=== PATIENT | male | born 1955 | race Caucasian/White ===

== ENCOUNTER 2023-09-22 11:30 | Emergency (ER) | payer OTHER, SELFPAY ==
[2023-09-22] VITALS (84 sets, daily range): BP systolic 70–125; BP diastolic 45–96; PULSE 77–157; RESP 16; TEMP 35.8; O2SAT 87–99; BMI 33.6
--- NOTE | 2023-09-22 12:13 | CRLHL7_ITS ---
For Patients: As a result of the Century Cures Act, medical imaging exams and procedure reports are released immediately into your electronic medical record. You may view this report before your referring provider. If you have questions, please contact your health care provider. INDICATION: Concern for pancreatic and biliary blockage. COMPARISON: None. TECHNIQUE: MRCP; precontrast T1 and T2 weighted imaging; T2 haste imaging; diffusion-weighted imaging; and on out of phase imaging; postcontrast imaging including subtraction; 20 cc Dotarem contrast was injected. FINDINGS: A 2.8 x 1.9 cm hypoenhancing mass identified in the head/uncinate process of pancreas. Dilated intra as well as extrahepatic biliary duct system within the extrahepatic common duct measuring 1.1 cm in diameter. Dilated pancreatic duct in its entirety measuring 1 cm. Distended gallbladder with cholelithiasis without any pericholecystic inflammatory changes. A 5.3 x 4.5 cm enhancing lesion in segment 7 of the liver. No splenic abnormality. No peripancreatic inflammatory changes. No adrenal pathology. Kidneys are unremarkable. Small sub cm peripancreatic/periportal lymphadenopathy. IMPRESSION: 1. Mass in the head of the pancreas with dilated biliary duct system as well as pancreatic duct highly concerning for primary pancreatic neoplasm; endoscopic ultrasound suggested for further assessment. 2. A 5.3 x 4.5 cm lesion in segment 7 of the liver; cannot differentiate an abscess from metastatic deposit. 3. Cholelithiasis without any MR evidence of acute cholecystitis. Dictated by La Nena Garcia MD @ 09/22/2023 2:26:14 PM (Electronically Signed)
[2023-09-22 12:27] LABS: Basophils Percent Auto 0.2 % (0.0-3.0); Eosinophils Percent Auto 1.7 % (0.0-7.0); Hematocrit 44.2 % (37.0-53.0); Hemoglobin* 14.1 gm/dL (13.5-17.5); Immature Granulocytes Pct Auto 0.2 %; Lymphocytes Percent Auto 10.7 % (20-44); Mean Corpuscular HGB Conc 32 gm/dL (32-36); Mean Corpuscular Hemoglobin 26 pg (26-34); Mean Corpuscular Volume 82 fL (80-100); Monocytes Percent Auto 7.7 % (0.0-11.0); Neutrophils Percent Auto 79.5 % (42.0-72.0); Platelet Count* 338 K/uL (140-440); RDW Coefficient of Variation % 14.2 % (11.5-15.5); Red Blood Count 5.39 m/uL (4.30-5.90); White Blood Count* 12.63 K/uL (4.50-11.00)
[2023-09-22] MEDS: LACTATED RINGERS 1000 ML 1,000 ML IV (12:30)
[2023-09-22] MEDS: ONDANSETRON 2 MG/ML inj 4 MG IVP (12:30)
[2023-09-22 12:48] LABS: Albumin* 4.6 g/dL (3.3-5.0); Chloride* 98 mmol/L (96-114); Potassium* 4.7 mmol/L (3.6-5.1); Sodium* 133 mmol/L (135-149)
--- OUTSIDE RECORDS SUMMARY | 2023-09-22 12:49 | XMS_ITS | Clinical Summary ---
Author Organization [facility] Address [place], [place] [address] Care Team Providers Care Platform Software Engineer Name Role Phone Chris Potter MD Primary Care Provider [phone] Allergies No known active allergies Medications Medication Sig Dispensed Refills Start Date End Date Status blood-glucose meterIndications:Ty pe 2 diabetes mellitus without complication, with long-term current use of insulin (HC) Dispense meter, test strips, lancets covered by pt ins. E11.9 NIDDM type II - Test 1 time/day 1 Each 06/17/2021 Active sildenafiL, pulm.hypertension, (REVATIO) 20 mg tabletIndications:E rectile dysfunction, unspecified erectile dysfunction type Take 1-5 pills (start at lower dose and increase next time if needed) 30 mins prior to sexual intercourse 30 Tablet 1 12/21/2021 Active Dexcom G6 Transmitter for continuous blood glucose monitor (CGM)Indications:Ty pe 2 diabetes mellitus with diabetic polyneuropathy, with long-term current use of insulin (HC) To be used to read blood sugars, follow chemical detection expert directions. 1 Each 4 11/11/2022 Active Dexcom G6 Sensor for continuous blood glucose monitor (CGM)Indications:Ty pe 2 diabetes mellitus with diabetic polyneuropathy, with long-term current use of insulin (HC) To be used to read blood sugars, follow chemical detection expert directions. 9 Each 3 11/11/2022 Active Dexcom G6 Board Finisher for continuous blood glucose monitor (CGM)Indications:Ty pe 2 diabetes mellitus with diabetic polyneuropathy, with long-term current use of insulin (HC) To be used to read blood sugars follow chemical detection expert directions. 1 Each 11/11/2022 Active glimepiride (AMARYL) 4 mg tabletIndications:T ype 2 diabetes mellitus with diabetic polyneuropathy, with long-term current use of insulin (HC) Take 1 Tablet (4 mg) by mouth once daily with a meal. 90 Tablet 3 11/11/2022 Active lisinopriL (PRINIVIL; ZESTRIL) 10 mg tabletIndications:H TN (hypertension) Take 1 Tablet (10 mg) by mouth once daily. 90 Tablet 3 11/11/2022 Active Farxiga 5 mg tabletIndications:T ype 2 diabetes mellitus with diabetic polyneuropathy, with long-term current use of insulin (HC),Albuminuria TAKE 1 TABLET(5 MG) BY MOUTH EVERY DAY 90 Tablet 3 01/16/2023 Active BD Yuliana 2nd Gen Pen Needle 32 gauge x 5/32Indications:Ty pe 2 diabetes mellitus without complication, with long-term current use of insulin (HC) USE TWICE DAILY DIRECTED 200 Each 3 02/03/2023 Active insulin glargine, U-100, (Lantus Solostar U-100 Insulin) 100 unit/mL (3 mL) penIndications:Type 2 diabetes mellitus with diabetic polyneuropathy, with long-term current use of insulin (HC) INJECT 34 UNITS SUBCUTANEOUS BEFORE BEDTIME. 30 mL 07/15/2023 Active cyclobenzaprine (FLEXERIL) 5 mg tabletIndications:M uscle spasm Take 1 Tablet (5 mg) by mouth every 8 hours if needed for Muscle Spasm. 30 Tablet 07/21/2023 Active atorvastatin (LIPITOR) 40 mg tabletIndications:H yperlipidemia, unspecified hyperlipidemia type TAKE 1 TABLET(40 MG) BY MOUTH AT BEDTIME 90 Tablet 2 08/04/2023 Active metFORMIN (GLUCOPHAGE) 1,000 mg tabletIndications:T ype 2 diabetes mellitus with diabetic polyneuropathy, with long-term current use of insulin (HC) Take 1 Tablet (1,000 mg) by mouth two times daily with meals. 180 Tablet 08/14/2023 Active clotrimazole (LOTRIMIN) 1 % creamIndications:Ye ast dermatitis Apply topically to affected area(s) two times daily. 45 g 09/01/2023 09/19/19 24 Discontinu ed(*Med complete/R egimen complete/L evel of care change) Active Problems Problem Noted Date Diagnosed Date Type 2 diabetes mellitus wit h diabetic nephropathy, with long-term current use of insulin 07/14/2022 Stage 3a chronic kidney disease 07/14/2022 Albuminuria 07/14/2022 Morbid obesity with BMI of 40.0-44.9, adult 06/01 Type 2 diabetes mellitus wit hout complication, with long-term current use of insulin 01/04/2021 HTN (hypertension) 01/04/2021 Hyperlipidemia, unspecified 01/04/2021 Detached retina 01/04/2021 Closed traumatic dislocation of finger of right hand 01/04/2021 Closed fracture of navicular bone of foot 2019 Encounters Date Type Department Care Team Description 09/21/[address] [address] Chris Potter MD Questions 09/21/2023 Telephone [facility] [address] [place] [address] Chris Potter MD Questions (follow up) 09/19/2023 3:30 PM CDT Ancillary Procedure [facility] [address] [place] [address] Arrived 09/19/2023 2:30 PM CDT Office Visit [facility] [address] [place] [address] Nadia Zapata PA Gi Problem (Can't eat or drink anything without feeling nauseated within 20 min. States he is down 40 lbs in last 6 weeks- has been trying tums and omeprazole with no improvement) 09/19/2023 Travel 09/01/2023 9:25 AM CDT Office Visit [facility] [address] [place] [address] Clarita Naranjo PA UTI 09/01/2023 Travel 08/31/[address] [address] Chris Potter MD Medication Management (YEAST INFECTION ) 08/13/2023 Refill [facility] [address] [place] [address] Chris Potter MD Refill Request (Metformin) 08/03/2023 Refill [facility] [address] [place] [address] Chris Potter MD Refill Request (Atorvastatin) 07/21/2023 4:05 PM CDT Office Visit [facility] [address] [place] [address] Chris Potter MD Diabetes 07/21/2023 Travel 07/14/2023 Refill [facility] [address] [place] [address] Chris Potter MD Refill Request (Lantus Solostar U-100 Insulin) from Last 3 Months Immunizations Name Administration Dates Next Due COVID-19 vaccine ([employer] 30mcg/0.3mL) 12YO+ CARLITOS-SUCROSE PF, MDV 07/05/2021,06/29/2020,06/08/2020 COVID-19 vaccine ([employer] 30mcg/0.3mL) PFMILDRED 03/03/2021 Influenza, High-dose Quadriv alent Inactivated 12/15/2021,03/03/2021 Pneumococcal Conj 20-valent (Prevnar 20) 023 Family History Medical History Relation Name Comments Cancer Father Bone primary Diabetes Maternal Grandmother Glaucoma Maternal Uncle Diabetes Mother Heart attack Mother Relation Name Status Comments Father Maternal Grandmother Maternal Uncle Mother Social History Tobacco Use Types Packs/Day Years Used Date Smoking Tobacco: Light Smoker Cigars Started: 1984 Smokeless Tobacco: Never Tobacco Cessation:Ready to Q uit: Not Asked; Counseling Given: Not Answered Comments:occ. cigar Alcohol Use Standard Drinks/Week Comments Not Currently 0 (1 standard drink = 0.6 oz pur e alcohol) rare PHQ-2 Answer Date Recorded PHQ-2 TOTAL SCORE 0 11/11/2022 Social Connections Answer Date Recorded Frequency of Communication with Friends and Fami ly 0 09/01/2023 Financial Resource Strain Answer Date R ecorded Difficulty of Paying Living Expenses 3 09/01/2023 Difficulty of Paying Living Expenses Not on file 09/01/2023 Food Insecurity Answer Date Recorded Worried About Running Out of Food in the Last Ye ar 1 09/01/2023 Transportation Needs Answer Date Record ed Lack of Transportation (Medical) 1 09/01/2023 Housing Stability Answer Date Recorded Unable to Pay for Housing in the Last Year 1 09/01/2023 Sex and Gender Information Value Date Recorded Sex Assigned at Not on file Gender Identity Not on file Sexual Orientation Not on file Obstetrics History Last Filed Vital Signs Vital Sign Reading Time Taken Comments Blood Pressure 101/66 09/19/2023 2:26 PM CDT Pulse 92 09/19/2023 2:26 PM CDT Temperature 36.6 ??C (97.9 ??F) 09/01/2023 9:20 AM CD T Respiratory Rate - - Oxygen Saturation 97% 09/19/2023 2:26 PM CDT Inhaled Oxygen Concentration - - Weight 117.5 kg (259 lb) 09/19/2023 2:26 PM CDT Height 182.9 cm (6') 11/11/2022 11:33 AM CDT Body Mass Index 35.13 11/11/2022 11:33 AM CDT Plan of Treatment Upcoming Encounters Date Type Department Care Team (Late st Contact Info) Description 09/22/2023 2:30 PM CDT Appointment [facility] [address] [place] [address] 11/21/2023 10:55 AM CDT Office Visit [facility] [address] [place] [address] Chris Potter MD [address] [place] [address] Health Maintenance Due Date Last Done Comments Tdap 1965 Tetanus booster 1974 Fecal testing sDNA-FIT (Cologuard) for age 45-75 1999 COVID-19 vaccine series (2022- season) 2023 01/04/2023, 09/07/2022, 12/15/2021, Additional history exists BMI (ht and wt on same day) for age 18+ 11/12/2023 11/11/2022, 01/04/2021 Depression screening for age 12+ 11/12/2023 11/11/2022, 06/18/2021, 06/17/2021, Additional history exists Medicare Wellness for age 65+ 11/12/2023 11/11/2022 Influenza for age 65+ 12/03/2023 12/15/2021, 021 Lipids for age 45-75 11/12/2027 11/11/2022, 06/18/19 22 Hepatitis C screening for ag e 18-79 Completed 06/17/2021 Pneumococcal series for age 65+ Completed AAA screening age 65-74 Completed 09/19/19 24, 06/03/2019 [facility] Zoster (shingles) series for age 50+ Discontinued Procedures Procedure Name Priority Date/Time Associated Diagnosis Comments CT ABDOMEN PELVIS WO OFE 09/19/2023 3:52 PM CDT Unintentional weight loss Nausea CREATININE,ISTAT Routine 09/19/2023 3:06 PM CDT Observation or evaluation for suspected condition CBC WITH AUTO DIFFERENTIAL Routine 09/19/2023 2:56 PM CDT Nausea TSH Routine 09/19/2023 2:56 PM CDT Unintentional weight loss C-REACTIVE PROTEIN Routine 09/19/2023 2: 56 PM CDT Nausea LIPASE Routine 09/19/2023 2:56 PM CDT Nausea COMP METABOLIC PANEL Routine 09/19/2023 2:56 PM CDT Nausea CBC WITH AUTO DIFFERENTIAL Routine 09/19/2023 2:56 PM CDT Nausea URINE CULTURE Add On 09/01/2023 9:16 AM CDT Lower urinary tract symptoms (LUTS) URINALYSIS MICROSCOPIC Routine 09/01/2023 9:16 AM CDT Lower urinary tract symptoms (LUTS) UA W/ SEDIMENT EXAM REFLEXED PER CRITERIA Routine 09/01/2023 9:16 AM CDT Lower urinary tract symptoms (LUTS) HEMOGLOBIN A1C Routine 07/21/2023 4:03 PM CDT Type 2 diabetes mellitus without complication, with long-term current use of insulin (HC) LIPID PANEL Routine 11/11/2022 11:26 AM CDT Hyperlipidemia, unspecified hyperlipidemia type ANTI HCV Routine 06/17/2021 11:24 AM CDT Need for hepatitis C screening test from Last 3 Months or Most Recently Relevant to Health Maintenance Results * CT ABDOMEN PELVIS WO (09/19/2023 3:52 PM CDT) Anatomical Region Laterality Modality Abdomen, Pelvis, AORTA, LIVER, SPLEEN Computed Tomography 09/20/2023 9:01 AM CDT Addenda Addendum by Shayla Thompson DO on 09/21/2023 10:50 AM CDT Indication: Weight loss, unintended, nausea, unintentional weight loss, 30 pound weight loss in 2 months. Technique: CT of the abdomen and pelvis was performed without contrast. 24 ounces of water was given by mouth. Comparison: Ultrasound 01/06/2022. Findings: Limited evaluation of solid organs given noncontrast technique. Visualized lung bases: Calcified granuloma in the right middle lobe. There is a 9 mm pulmonary nodule within the medial aspect of the left lower lobe. Possible faint associated calcifications. Atherosclerotic coronary artery calcifications Liver: Unremarkable for unenhanced technique. Calcified gallstones within the gallbladder body and fundus. Mild gallbladder distention. No pericholecystic inflammatory change. There is moderate intrahepatic biliary ductal dilation as well as common bile duct dilation measuring up to 1.5 cm. Pancreas: There is pancreatic ductal dilation measuring up to 11 mm. Pancreatic atrophy is seen throughout the pancreatic body and tail. There is a cystic lesion at the pancreatic tail measuring 1.8 x 1.4 cm (2/61) which may represent a cystic pancreatic lesion or cystic dilation of the pancreatic duct. No definite pancreatic mass is seen; however, evaluation is limited given noncontrast technique. Spleen: Unremarkable for unenhanced technique. Adrenals: Unremarkable for unenhanced technique. Kidneys: Too small to characterize hypodensities along the upper pole of the left kidney. Fluid attenuation lesion measuring 3.4 cm along the lower pole of the right kidney is incompletely assessed on noncontrast CT but statistically likely to represent a cyst. No nephrolithiasis or hydronephrosis. Aorta/IVC: Mild atherosclerotic aortic calcifications without aneurysmal dilation. Lymph nodes: Mildly enlarged portacaval lymph node measuring 1.4 cm in short axis. Bowel: Nonobstructed bowel. Normal appendix. No localized inflammatory changes. No intraperitoneal free air or fluid. Pelvis: Distended bladder. Enlarged prostate measuring 5 cm in transverse dimension. Dystrophic prostate calcifications. Bones/body wall: Indeterminate subcentimeter sclerotic lesion within the left aspect of the T10 vertebral body. Multilevel degenerative disc disease and facet arthropathy.. Impression: 1. Moderate intrahepatic bile duct dilation as well as common bile duct and pancreatic duct dilation. No definite obstructing pancreatic lesion is identified; however, evaluation is limited due to noncontrast technique. There is a cystic focus within the pancreatic tail, which may represent a cystic pancreatic lesion versus cystic dilation of the pancreatic duct. Recommend pancreas protocol MRI for further evaluation and to evaluate for obstructing lesion. 2. Indeterminate subcentimeter sclerotic lesion in the T10 vertebral body. 3. Indeterminate 9 mm left lower lobe pulmonary nodule. Please note that all CT scans at this facility use dose modulation, iterative reconstruction, and/or weight-based dosing when appropriate to reduce radiation dose to as low as reasonably achievable. Dictated by Shayla Thompson MD @ 09/20/2023 9:01:07 AM ----- ADDENDUM ----- Impression should also include cholelithiasis with mild gallbladder distention. No CT evidence of pericholecystic inflammatory change. Message sent to Dr. Zapata regarding findings and recommendation on 09/20/2023 at 9:03 a.m.. Additionally, follow-up recommendations were submitted to the electronic medical record. Dictated by Shayla Thompson MD @ Sep 20 2023 ??9:06AM ----- ADDENDUM ----- Findings and recommendations were discussed with Dr. Zapata via telephone on 09/21/2023 at approximately 9:30 a.m.. Given patient history and indeterminate findings within the pancreas on CT, contrast-enhanced MRI/MRCP is recommended for further evaluation. If a pancreatic mass is seen, the left lower lobe pulmonary nodule/T10 lesion raises concern for metastatic disease. In the absence of a primary malignancy on follow-up imaging, either short interval follow-up chest CT, PET-CT or tissue sampling should be performed for further evaluation of the pulmonary nodule. Dictated by Shayla Thompson MD @ Sep 21 2023 10:46AM (Electronically Signed) Addendum by Shayla Thompson DO on 09/20/2023 9:08 AM CDT Indication: Weight loss, unintended, nausea, unintentional weight loss, 30 pound weight loss in 2 months. Technique: CT of the abdomen and pelvis was performed without contrast. 24 ounces of water was given by mouth. Comparison: Ultrasound 01/06/2022. Findings: Limited evaluation of solid organs given noncontrast technique. Visualized lung bases: Calcified granuloma in the right middle lobe. There is a 9 mm pulmonary nodule within the medial aspect of the left lower lobe. Possible faint associated calcifications. Atherosclerotic coronary artery calcifications Liver: Unremarkable for unenhanced technique. Calcified gallstones within the gallbladder body and fundus. Mild gallbladder distention. No pericholecystic inflammatory change. There is moderate intrahepatic biliary ductal dilation as well as common bile duct dilation measuring up to 1.5 cm. Pancreas: There is pancreatic ductal dilation measuring up to 11 mm. Pancreatic atrophy is seen throughout the pancreatic body and tail. There is a cystic lesion at the pancreatic tail measuring 1.8 x 1.4 cm (2/61) which may represent a cystic pancreatic lesion or cystic dilation of the pancreatic duct. No definite pancreatic mass is seen; however, evaluation is limited given noncontrast technique. Spleen: Unremarkable for unenhanced technique. Adrenals: Unremarkable for unenhanced technique. Kidneys: Too small to characterize hypodensities along the upper pole of the left kidney. Fluid attenuation lesion measuring 3.4 cm along the lower pole of the right kidney is incompletely assessed on noncontrast CT but statistically likely to represent a cyst. No nephrolithiasis or hydronephrosis. Aorta/IVC: Mild atherosclerotic aortic calcifications without aneurysmal dilation. Lymph nodes: Mildly enlarged portacaval lymph node measuring 1.4 cm in short axis. Bowel: Nonobstructed bowel. Normal appendix. No localized inflammatory changes. No intraperitoneal free air or fluid. Pelvis: Distended bladder. Enlarged prostate measuring 5 cm in transverse dimension. Dystrophic prostate calcifications. Bones/body wall: Indeterminate subcentimeter sclerotic lesion within the left aspect of the T10 vertebral body. Multilevel degenerative disc disease and facet arthropathy.. Impression: 1. Moderate intrahepatic bile duct dilation as well as common bile duct and pancreatic duct dilation. No definite obstructing pancreatic lesion is identified; however, evaluation is limited due to noncontrast technique. There is a cystic focus within the pancreatic tail, which may represent a cystic pancreatic lesion versus cystic dilation of the pancreatic duct. Recommend pancreas protocol MRI for further evaluation and to evaluate for obstructing lesion. 2. Indeterminate subcentimeter sclerotic lesion in the T10 vertebral body. 3. Indeterminate 9 mm left lower lobe pulmonary nodule. Please note that all CT scans at this facility use dose modulation, iterative reconstruction, and/or weight-based dosing when appropriate to reduce radiation dose to as low as reasonably achievable. Dictated by Shayla Thompson MD @ 09/20/2023 9:01:07 AM ----- ADDENDUM ----- Impression should also include cholelithiasis with mild gallbladder distention. No CT evidence of pericholecystic inflammatory change. Message sent to Dr. Zapata regarding findings and recommendation on 09/20/2023 at 9:03 a.m.. Additionally, follow-up recommendations were submitted to the electronic medical record. Dictated by Shayla Thompson MD @ Sep 20 2023 ??9:06AM (Electronically Signed) Narrative 09/20/2023 9:01 AM CDT For Patients: ??As a result of the 21st Century Cures Act, medical imaging exams and procedure reports are released immediately into your electronic medical record. ??You may view this report before your referring provider. ??If you have questions, please contact your health care provider. Indication: Weight loss, unintended, nausea, unintentional weight loss, 30 pound weight loss in 2 months. Technique: CT of the abdomen and pelvis was performed without contrast. 24 ounces of water was given by mouth. Comparison: Ultrasound 01/06/2022. Findings: Limited evaluation of solid organs given noncontrast technique. Visualized lung bases: Calcified granuloma in the right middle lobe. There is a 9 mm pulmonary nodule within the medial aspect of the left lower lobe. Possible faint associated calcifications. Atherosclerotic coronary artery calcifications Liver: Unremarkable for unenhanced technique. Calcified gallstones within the gallbladder body and fundus. Mild gallbladder distention. No pericholecystic inflammatory change. There is moderate intrahepatic biliary ductal dilation as well as common bile duct dilation measuring up to 1.5 cm. Pancreas: There is pancreatic ductal dilation measuring up to 11 mm. Pancreatic atrophy is seen throughout the pancreatic body and tail. There is a cystic lesion at the pancreatic tail measuring 1.8 x 1.4 cm (2/61) which may represent a cystic pancreatic lesion or cystic dilation of the pancreatic duct. No definite pancreatic mass is seen; however, evaluation is limited given noncontrast technique. Spleen: Unremarkable for unenhanced technique. Adrenals: Unremarkable for unenhanced technique. Kidneys: Too small to characterize hypodensities along the upper pole of the left kidney. Fluid attenuation lesion measuring 3.4 cm along the lower pole of the right kidney is incompletely assessed on noncontrast CT but statistically likely to represent a cyst. No nephrolithiasis or hydronephrosis. Aorta/IVC: Mild atherosclerotic aortic calcifications without aneurysmal dilation. Lymph nodes: Mildly enlarged portacaval lymph node measuring 1.4 cm in short axis. Bowel: Nonobstructed bowel. Normal appendix. No localized inflammatory changes. No intraperitoneal free air or fluid. Pelvis: Distended bladder. Enlarged prostate measuring 5 cm in transverse dimension. Dystrophic prostate calcifications. Bones/body wall: Indeterminate subcentimeter sclerotic lesion within the left aspect of the T10 vertebral body. Multilevel degenerative disc disease and facet arthropathy.. Impression: 1. Moderate intrahepatic bile duct dilation as well as common bile duct and pancreatic duct dilation. No definite obstructing pancreatic lesion is identified; however, evaluation is limited due to noncontrast technique. There is a cystic focus within the pancreatic tail, which may represent a cystic pancreatic lesion versus cystic dilation of the pancreatic duct. Recommend pancreas protocol MRI for further evaluation and to evaluate for obstructing lesion. 2. Indeterminate subcentimeter sclerotic lesion in the T10 vertebral body. 3. Indeterminate 9 mm left lower lobe pulmonary nodule. Please note that all CT scans at this facility use dose modulation, iterative reconstruction, and/or weight-based dosing when appropriate to reduce radiation dose to as low as reasonably achievable. Dictated by Shayla Thompson MD @ 09/20/2023 9:01:07 AM (Electronically Signed) Procedure Note Shayla Thompson, - 09/20/2023 For Patients: As a result of the Century Cures Act, medical imagingexams and procedure reports are released immediately into your electronicmedical record. You may view this report before your referring provider.If you have questions, please contact your health care provider. Indication: Weight loss, unintended, nausea, unintentional weight loss, 30 poundweight loss in 2 months. Technique: CT of the abdomen and pelvis was performed without contrast. 24 ounces ofwater was given by mouth. Comparison: Ultrasound 01/06/2022. Findings: Limited evaluation of solid organs given noncontrast technique. Visualized lung bases: Calcified granuloma in the right middle lobe. Thereis a 9 mm pulmonary nodule within the medial aspect of the left lowerlobe. Possible faint associated calcifications. Atherosclerotic coronaryartery calcifications Liver: Unremarkable for unenhanced technique. Calcified gallstones withinthe gallbladder body and fundus. Mild gallbladder distention. Nopericholecystic inflammatory change. There is moderate intrahepaticbiliary ductal dilation as well as common bile duct dilation measuring upto 1.5 cm. Pancreas: There is pancreatic ductal dilation measuring up to 11 mm.Pancreatic atrophy is seen throughout the pancreatic body and tail. Thereis a cystic lesion at the pancreatic tail measuring 1.8 x 1.4 cm (2/61)which may represent a cystic pancreatic lesion or cystic dilation of thepancreatic duct. No definite pancreatic mass is seen; however, evaluationis limited given noncontrast technique. Spleen: Unremarkable for unenhanced technique. Adrenals: Unremarkable for unenhanced technique. Kidneys: Too small to characterize hypodensities along the upper pole ofthe left kidney. Fluid attenuation lesion measuring 3.4 cm along the lowerpole of the right kidney is incompletely assessed on noncontrast CT butstatistically likely to represent a cyst. No nephrolithiasis orhydronephrosis. Aorta/IVC: Mild atherosclerotic aortic calcifications without aneurysmaldilation. Lymph nodes: Mildly enlarged portacaval lymph node measuring 1.4 cm inshort axis. Bowel: Nonobstructed bowel. Normal appendix. No localized inflammatorychanges. No intraperitoneal free air or fluid. Pelvis: Distended bladder. Enlarged prostate measuring 5 cm in transversedimension. Dystrophic prostate calcifications. Bones/body wall: Indeterminate subcentimeter sclerotic lesion within theleft aspect of the T10 vertebral body. Multilevel degenerative discdisease and facet arthropathy.. Impression: 1. Moderate intrahepatic bile duct dilation as well as common bile ductand pancreatic duct dilation. No definite obstructing pancreatic lesion isidentified; however, evaluation is limited due to noncontrast technique.There is a cystic focus within the pancreatic tail, which may represent acystic pancreatic lesion versus cystic dilation of the pancreatic duct.Recommend pancreas protocol MRI for further evaluation and to evaluate forobstructing lesion. 2. Indeterminate subcentimeter sclerotic lesion in the T10 vertebral body. 3. Indeterminate 9 mm left lower lobe pulmonary nodule. Please note that all CT scans at this facility use dose modulation,iterative reconstruction, and/or weight-based dosing when appropriate toreduce radiation dose to as low as reasonably achievable. Dictated by Shayla Thompson MD @ 09/20/2023 9:01:07 AM (Electronically Signed) Nadia HOYOS CT * (ABNORMAL) CREATININE,ISTAT (09/19/2023 3:06 PM CDT) CREATININE, POCT 1.30(H) 0.57 - 1.11 mg/dL 09/19/2023 3:08 PM CDT [facility] Comment:Caution: Patients ta rosette Hydroxyurea have falsely increased iStat Creatinine results. Verify creatinine results ordering a Creatinine (59911.2) eGFR 59(L) >90 mL/min/1.7 3m2 09/19/2023 3:08 PM CDT [facility] Comment:As of 2021, eG FR is calculated by the CKD-EPI creatinine equation without race adjustment. eGFR can be influenced by muscle mass, exercise, and diet. The reported eGFR is an estimation only and is only applicable if the renal function is stable. Blood BLOOD SPECIMEN / Unknown 09/19/2023 3:06 PM CDT 09/19/2023 3:08 PM CDT Nadia HOYOS CHEMISTRY [facility] [address] [place] [address], [place] [phone] * (ABNORMAL) CBC WITH AUTO DIFFERENTIAL (09/19/2023 2:56 PM CDT) [facility] Signature WHITE BLOOD COUNT 10.3 4.5 - 11.0 thou/cu mm 09/19/2023 3:10 PM CDT [facility] RED BLOOD COUNT 5.11 4.30 - 5.90 mil/cu mm 09/19/2023 3:10 PM CDT [facility] HEMOGLOBIN 13.8 13.5 - 17.5 g/dL 09/19/2023 3:10 PM CDT [facility] HEMATOCRIT 41.9 37.0 - 53.0 % 09/19/2023 3:10 PM CDT [facility] MCV 82 80 - 100 fL 09/19/2023 3:10 PM CDT [facility] MCH 27.0 26.0 - 34.0 pg 09/19/2023 3:10 PM CDT [facility] MCHC 32.9 32.0 - 36.0 g/dL 09/19/2023 3:10 PM CDT [facility] RDW 15.3 11.5 - 15.5 % 09/19/2023 3:10 PM CDT [facility] PLATELET COUNT 377 140 - 440 thou/cu mm 09/19/2023 3:10 PM CDT [facility] MPV 11.4(H) 6.5 - 11.0 fL 09/19/2023 3:10 PM CDT [facility] % NEUT 75.4 % 09/19/2023 3:10 PM CDT [facility] % LYMPH 13.5 % 09/19/2023 3:10 PM CDT [facility] % MONO 9.0 % 09/19/2023 3:10 PM CDT [facility] % EOS 1.8 % 09/19/2023 3:10 PM CDT [facility] % BASO 0.3 % 09/19/2023 3:10 PM CDT [facility] ABSOLUTE NEUTROPHILS 7.7(H) 1.7 - 7.0 thou/cu mm 09/19/2023 3:10 PM CDT [facility] ABSOLUTE LYMPHOCYTES 1.4 0.9 - 2.9 thou/cu mm 09/19/2023 3:10 PM CDT [facility] ABSOLUTE MONOCYTES 0.9(H) <0.9 thou/cu mm 09/19/2023 3:10 PM CDT [facility] ABSOLUTE EOSINOPHILS 0.2 <0.5 thou/cu mm 09/19/2023 3:10 PM CDT [facility] ABSOLUTE BASOPHILS 0.0 <0.3 thou/cu mm 09/19/2023 3:10 PM CDT [facility] Blood BLOOD SPECIMEN / Unknown Venipuncture / Unknown 09/19/2023 2:56 PM CDT 09/19/2023 2:58 PM CDT Nadia HOYOS HEMATOLOGY Performing Organization Address [facility] Co de Phone Number [facility] [address] [place] [address], * TSH (09/19/2023 2:56 PM CDT) TSH 0.71 0.27 - 4.20 uIU/mL 09/20/2023 4:59 AM CDT [facility] Blood BLOOD SPECIMEN / Unknown Venipuncture / Unknown 09/19/2023 2:56 PM CDT 09/19/2023 2:58 PM CDT Narrative [facility] - 09/20/2023 4:59 AM CDT In Adults, TSH values between 5.00 and 10.00 uIU/ml do not necessarily indicate the presence of Hypothyroidism. Correlation with clinical findings such as presence of goiter and/or Thyroperoxidase (TPO) Antibody may be helpful. For more information please refer to DONNA 2004; 291: 228-238. Nadia HOYOS CHEMISTRY Performing Organization Address City/[facility]/ZIP Co de Phone Number [facility] [address] [address], [place] * (ABNORMAL) C-REACTIVE PROTEIN (09/19/2023 2:56 PM CDT) Pathologist [facility] C-REACTIVE PROTEIN 4.0(H) <0.5 mg/dL 09/20/2023 5:12 AM CDT [facility] Blood BLOOD SPECIMEN / Unknown Venipuncture / Unknown 09/19/2023 2:56 PM CDT 09/19/2023 2:58 PM CDT Nadia HOYOS CHEMISTRY Performing Organization Address [facility] Co de Phone Number [facility] [address] [place] [address], [place] * (ABNORMAL) LIPASE (09/19/2023 2:56 PM CDT) Pathologist [facility] LIPASE 402.0(H) 13.0 - 60.0 IU/L 09/20/2023 5:14 AM CDT [facility] Blood BLOOD SPECIMEN / Unknown Venipuncture / Unknown 09/19/2023 2:56 PM CDT 09/19/2023 2:58 PM CDT Nadia HOYOS CHEMISTRY Performing Organization Address [facility] Co de Phone Number [facility] [address] [place] [address], [place] * (ABNORMAL) COMP METABOLIC PANEL (09/19/2023 2:56 PM CDT) Pathologist [facility] SODIUM 133(L) 136 - 145 mmol/L 09/20/2023 4:[address] [facility] POTASSIUM 5.2(H) 3.5 - 5.1 mmol/L 09/20/2023 4:[address] [facility] CHLORIDE 98 98 - 107 mmol/L 09/20/2023 4:[address] [facility] CO2,TOTAL 17(L) 22 - 29 mmol/L 09/20/2023 4:[address] [facility] ANION GAP 18 5 - 18 09/20/2023 4:[address] [facility] GLUCOSE 215(H) 70 - 99 mg/dL 09/20/2023 4:59 AM [facility] CALCIUM 10.1 8.8 - 10.2 mg/dL 09/20/2023 4:59 AM [facility] BUN 17 8 - 23 mg/dL 09/20/2023 4:59 AM [facility] CREATININE 1.43(H) 0.70 - 1.20 mg/dL 09/20/2023 4:[address] [facility] BUN/CREAT RATIO 12 10 - 20 4:59 AM [facility] eGFR 53(L) >90 mL/min/1. 73m2 09/20/2023 4:59 AM [facility] Comment:As of 2021, eG FR is calculated by the CKD-EPI creatinine equation without race adjustment. ??eGFR can be influenced by muscle mass, exercise, and diet. ??The reported eGFR is an estimation only and is only applicable if the renal function is stable. ALBUMIN 3.9(L) 4.0 - 4.9 g/dL 09/20/2023 4:59 AM [facility] PROTEIN,TOTAL 8.2(H) 6.0 - 8.0 g/dL 09/20/2023 4:59 AM [facility] BILIRUBIN,TOTAL 5.3(H) 0.0 - 1.2 mg/dL 09/20/2023 4:59 AM [facility] ALK PHOSPHATASE 1,051(H) 40 - 129 IU/L 09/20/2023 4:59 AM [facility] ALT (SGPT) 243(H) 10 - 50 IU/L 09/20/2023 4:59 AM [facility] AST (SGOT) 207(H) 10 - 50 IU/L 09/20/2023 4:59 AM CDT [facility] Blood BLOOD SPECIMEN / Unknown Venipuncture / Unknown 09/19/2023 2:56 PM CDT 09/19/2023 2:58 PM CDT Nadia HOYOS CHEMISTRY [facility] [address] [place] [address], * URINALYSIS MICROSCOPIC (09/01/2023 9:16 AM CDT) RBC 0-2 0-2, None Seen /HPF 09/01/2023 9:31 AM CDT [facility] WBC None Seen 0-2, 3-5, None Seen /HPF 09/01/2023 9:31 AM CDT [facility] BACTERIA None Seen None Seen, Rare, Few Bacteria/ HPF 09/01/2023 9:31 AM CDT [facility] EPITHELIAL CELLS Few None Seen, Few Epi/HPF 09/01/2023 9:31 AM CDT [facility] Urine URINE SPECIMEN / Unknown Non-Blood / Unknown 09/01/2023 9:16 AM CDT 09/01/2023 9:23 AM CDT Clarita HOYOS URINE [facility] [address] [place] [address], * URINE CULTURE (09/01/2023 9:16 AM CDT) CULTURE No growth (<1,000 CFU/mL) 09/02/2023 2:35 PM CDT [facility] Urine URINE SPECIMEN / Unknown Non-Blood / Unknown 09/01/2023 9:16 AM CDT 09/01/2023 9:23 AM CDT Clarita HOYOS MICROBIOLOGY [facility] [address] [place] [address], [place] * (ABNORMAL) UA W/ SEDIMENT EXAM REFLEXED PER CRITERIA (09/01/2023 9:16 AM CDT) COLOR Yellow Yellow Color 09/01/2023 9:31 AM CDT [facility] CLARITY Clear Clear Clarity 09/01/2023 9:31 AM CDT [facility] SPECIFIC GRAVITY,URINE <=1.005(A) 1.010, 1.015, 1.020, 1.025 09/01/2023 9:31 AM CDT [facility] PH,URINE 5.0(A) 6.0, 7.0, 8.0, 5.5, 6.5, 7.5, 8.5 09/01/2023 9:31 AM CDT [facility] UROBILINOGEN, QUALITATIVE Normal Normal EU/dl 09/01/2023 9:31 AM CDT [facility] PROTEIN, URINE Negative Negative mg/dL 09/01/2023 9:31 AM CDT [facility] GLUCOSE, URINE >=1000(A) Negative mg/dL 09/01/2023 9:31 AM CDT [facility] KETONES,URINE Negative Negative mg/dL 09/01/2023 9:31 AM CDT [facility] BILIRUBIN,URI NE Negative Negative 09/01/2023 9:31 AM CDT [facility] OCCULT BLOOD,URINE Trace(A) Negative 09/01/2023 9:31 AM CDT [facility] NITRITE Negative Negative 09/01/2023 9:31 AM CDT [facility] LEUKOCYTE ESTERASE Negative Negative 09/01/2023 9:31 AM CDT [facility] Urine URINE SPECIMEN / Unknown Non-Blood / Unknown 09/01/2023 9:16 AM CDT 09/01/2023 9:23 AM CDT Clarita HOYOS URINE Performing Organization Address City/State/[facility] de Phone Number [facility] [address] [place] [address], * (ABNORMAL) HEMOGLOBIN A1C MONITORING (POCT) (07/21/2023 4:03 PM CDT) [facility] HEMOGLOBIN A1C MONITORING (POCT) 7.3(H) <=6.4 % 07/21/2023 4:16 PM CDT [facility] Blood BLOOD SPECIMEN / Unknown Venipuncture / Unknown 07/21/2023 4:03 PM CDT 07/21/2023 4:03 PM CDT Narrative [facility] - 07/21/2023 4:16 PM CDT ? (<=6.9%) ? Indicates good control ? (7.0% to 7.9%) ? Indicates fair control ? (>=8.0%) ? Indicates poor control ?? NOTE: ??These thresholds are guidelines and ?individual targets may vary. Falsely low levels may be seen with: Recent Transfusion, Recent Significant Blood Loss, Hemolytic Diseases, or Falsely elevated levels may be seen with: Untreated Anemias, Splenectomy ? Chris Potter MD CHEMISTRY Performing Organization Address [facility] de Phone Number [facility] [address] [place] [address], * (ABNORMAL) LIPID PANEL (11/11/2022 11:26 AM CDT) [facility] CHOLESTEROL,TOTAL 123 100 - 199 mg/dL 11/11/2022 6:50 PM CDT [facility] [email or web address] [facility] Comment: Cholesterol, Total Reference Ranges Desirable <200 mg/dL Borderline 200-239 mg/dL High >=240 mg/dL TRIGLYCERIDES 222(H) <150 mg/dL 11/11/2022 6:50 PM CDT [facility] [email or web address] HDL CHOLESTEROL 31(L) >40 mg/dL 6:[address] [facility] NON-HDL CHOLESTEROL 92 <145 mg/dl 11/11/2022 6:[address] [facility] CHOL/HDL RATIO 3.97 <4.50 11/11/2022 6:[address] [facility] LDL CHOLESTEROL 48 <=130 mg/dL 11/11/2022 6:[address] [facility] VLDL CHOLESTEROL 44(H) <=30 mg/dL 11/11/2022 6:[address] [facility] PROVIDER ORDERED STATUS RANDOM 11/11/2022 6:[address] [facility] Blood BLOOD SPECIMEN / Unknown Venipuncture / Unknown 11/11/2022 11:26 AM CDT 11/11/2022 11:28 AM CDT Chris Potter MD CHEMISTRY Performing Organization Address City/[facility]/ZIP Co de Phone Number [facility] [email or web address] LAB[facility]AT[facility] [address] [place] [address], [place] * ANTI HCV (06/17/2021 11:24 AM CDT) HEPATITIS C ANTIBODY Non-React rehan Non-React rehan 06/17/2021 6:[address] [facility] Comment:Antibodies to HCV no t detected; does not exclude the possibility of exposure to HCV. Blood BLOOD SPECIMEN / Unknown Venipuncture / Unknown 06/17/2021 11:24 AM CDT 06/17/2021 11:26 AM CDT Chris Potter MD SEND OUTS [facility] [address] [place] [address], from Last 3 Months or Most Recently Relevant to Health Maintenance Care Teams Platform Software Engineer Relationship Specialty Start Date End Date Chris Potter MD [address] [place] [address] PCP - General Family Practice 01/13/21
[2023-09-22 12:50] LABS: Creatinine* 1.3 mg/dL (0.5-1.5); Est. Creatinine Clearance* 60.61; Estimated Glomerular Filt Rate 59 ml/min
[2023-09-22 12:51] LABS: Alanine Aminotransferase* 295 U/L (4-50); Alkaline Phosphatase* 1498 U/L (40-150); Anion Gap 13 mEq/L (7-15); Aspartate Amino Transferase* 268 U/L (12-35); Blood Urea Nitrogen* 16 mg/dL (7-30); Calcium* 11.1 mg/dL (8.4-10.6); Carbon Dioxide* 22 mmol/L (20-32); Glucose* 281 mg/dL (60-115); Lipase* 1314 U/L (23-300); Total Protein* 8.8 g/dL (6.0-8.3)
[2023-09-22 12:52] LABS: Magnesium* 2.1 mg/dL (1.5-2.6)
--- NOTE | 2023-09-22 13:07 | ED_ITS ---
HPI - General Adult General Date Seen: 09/22/23 Chief complaint: Weakness Stated complaint: Biliary blockage, cant eat, light headed Time Seen by Provider: 09/22/23 11:38 Source: patient Mode of arrival: ambulatory Limitations: no limitations History of Present Illness HPI narrative: Patient is a 68-year-old male with a history of diabetes, hypertension, high cholesterol presenting to the emergency department for nausea, vomiting, weakness. He has been having abdominal issues for the past few months and saw his primary care doctor [address] a [address] was done. This CT shows gallstones and a blocked biliary duct. There is also some concerns about his pancreas on it. His most get MRCP today but was unable to due to stating he was feeling much worse and came to the emergency department instead. States he has lost 25 lb the last 2 weeks due to being unable to eat. Every single time he eats he says he gets very nauseated and developed some abdominal pain. The abdominal pain seems to be diffuse there is upper abdomen. Denies symptoms like this before. Is currently not any pain but was feeling nauseated. Does states he has been turning more jaundiced over the past few weeks. No history of cancer. Denies fevers, chills, chest pain, shortness of breath. Was having some lightheaded and dizziness that for sure started this morning and may have been going on for longer. Does not feel like his heart is racing. No other concerns noted at this time Related Data Home Medications ?Medication ?Instructions ?Recorded ?Confirmed atorvastatin 40 mg tablet 40 mg PO DAILY 09/22/23 09/22/23 dapagliflozin propanediol 5 mg 5 mg PO DAILY 09/22/23 09/22/23 tablet (Farxiga) glimepiride 4 mg tablet 4 mg PO DAILY 09/22/23 09/22/23 insulin glargine 100 unit/mL 30 unit subcut QPM 09/22/23 09/22/23 subcutaneous solution (Lantus U-100 Insulin) lisinopril 10 mg tablet 10 mg PO DAILY 09/22/23 09/22/23 metformin 1,000 mg tablet 500 mg PO BIDWMEAL 09/22/23 09/22/23 Allergies Allergy/AdvReac Type Severity Reaction Status Date / Time No Known Drug Allergies Allergy Verified 09/22/23 11:36 Review of Systems Status of ROS: Reports: 10 or more systems reviewed and unremarkable except as noted in History and below PFSH PFSH Social History Smoking Status: Current some day smoker What tobacco products do you use: cigars How often do you have a drink containing alcohol: 2-4 times a month AUDIT-C Alcohol total score: 2 Non-prescribed substance use: denies use Exam Narrative: Exam Narrative: Const: Well-nourished, Well-developed, in mild distress Eyes: PERRL, scleral icterus, and symmetrical lids HENT: Atraumatic external nose and ears. Moist mucous membranes. Neck: Symmetric, trachea midline, No thyromegaly. CVS: Tachycardia with irregular rate and rhythm, No murmurs or gallops. Peripheral pulses 2+ and equal in all extremities RESP: Unlabored respiratory effort. Clear to auscultation bilaterally. GI: Nontender/Nondistended, No rebound or guarding. MSK:Extremities w/o deformity, Normal Active ROM Skin: Jaundiced scan Neuro: Normal Muscle tone, No focal neurological deficits. Psych: Awake, Alert, & Oriented x3. Appropriate mood and affect. Const: Vital Signs, click to edit/add: Vital Signs - 24 hr 09/22/23 11:36 09/22/23 12:23 09/22/23 12:30 Temperature 96.4 F L Pulse Rate 143 H 137 H Pulse Rate [Pulse Oximeter] 139 H Respiratory Rate 16 Blood Pressure Blood Pressure [Le ft Upper Arm] 103/63 Pulse Oximetry 99 93 98 Oxygen Delivery Me thod Room Air 09/22/23 12:32 09/22/23 12:33 09/22/23 12:45 Temperature Pulse Rate 140 H 119 H 157 H Pulse Rate [Pulse Oximeter] Respiratory Rate Blood Pressure 100/72 Blood Pressure [Le ft Upper Arm] Pulse Oximetry 99 94 95 Oxygen Delivery Me thod 09/22/23 12:47 09/22/23 12:48 09/22/23 13:59 Temperature Pulse Rate 147 H 138 H 122 H Pulse Rate [Pulse Oximeter] Respiratory Rate Blood Pressure 120/83 119/96 H Blood Pressure [Le ft Upper Arm] Pulse Oximetry 92 97 96 Oxygen Delivery Me thod 09/22/23 14:00 09/22/23 14:02 09/22/23 14:04 Temperature Pulse Rate 126 H 135 H 135 H Pulse Rate [Pulse Oximeter] Respiratory Rate Blood Pressure 89/67 L 84/50 L Blood Pressure [Le ft Upper Arm] Pulse Oximetry 96 91 96 Oxygen Delivery Me thod 09/22/23 14:05 09/22/23 14:12 09/22/23 14:15 Temperature Pulse Rate 108 H 101 H 112 H Pulse Rate [Pulse Oximeter] Respiratory Rate Blood Pressure 92/79 95/57 L Blood Pressure [Le ft Upper Arm] Pulse Oximetry 95 94 97 Oxygen Delivery Me thod 09/22/23 14:17 09/22/23 14:30 09/22/23 14:32 Temperature Pulse Rate 113 H 96 118 H Pulse Rate [Pulse Oximeter] Respiratory Rate Blood Pressure 115/73 105/71 Blood Pressure [Le ft Upper Arm] Pulse Oximetry 98 95 91 Oxygen Delivery Me thod 09/22/23 14:45 09/22/23 14:47 09/22/23 15:00 Temperature Pulse Rate 107 H 113 H 123 H Pulse Rate [Pulse Oximeter] Respiratory Rate Blood Pressure 108/86 Blood Pressure [Le ft Upper Arm] Pulse Oximetry 95 93 92 Oxygen Delivery Me thod 09/22/23 15:02 09/22/23 15:15 09/22/23 15:16 Temperature Pulse Rate 123 H 142 H 128 H Pulse Rate [Pulse Oximeter] Respiratory Rate Blood Pressure 111/63 92/72 Blood Pressure [Le ft Upper Arm] Pulse Oximetry 93 90 91 Oxygen Delivery Me thod 09/22/23 15:30 09/22/23 15:32 09/22/23 15:45 Temperature Pulse Rate 113 H 102 H 115 H Pulse Rate [Pulse Oximeter] Respiratory Rate Blood Pressure 105/76 Blood Pressure [Le ft Upper Arm] Pulse Oximetry 92 93 93 Oxygen Delivery Me thod 09/22/23 15:47 09/22/23 16:00 09/22/23 16:02 Temperature Pulse Rate 133 H 115 H 102 H Pulse Rate [Pulse Oximeter] Respiratory Rate Blood Pressure 99/61 101/64 Blood Pressure [Le ft Upper Arm] Pulse Oximetry 94 91 94 Oxygen Delivery Me thod 09/22/23 16:03 09/22/23 16:15 09/22/23 16:17 Temperature Pulse Rate 114 H 117 H 117 H Pulse Rate [Pulse Oximeter] Respiratory Rate Blood Pressure 97/46 L Blood Pressure [Le ft Upper Arm] Pulse Oximetry 92 92 93 Oxygen Delivery Me thod 09/22/23 16:20 09/22/23 16:30 09/22/23 16:32 Temperature Pulse Rate 114 H 111 H 124 H Pulse Rate [Pulse Oximeter] Respiratory Rate Blood Pressure 90/68 101/74 Blood Pressure [Le ft Upper Arm] Pulse Oximetry 93 91 92 Oxygen Delivery Me thod 09/22/23 16:45 09/22/23 16:47 09/22/23 17:00 Temperature Pulse Rate 122 H 113 H 114 H Pulse Rate [Pulse Oximeter] Respiratory Rate Blood Pressure 110/67 Blood Pressure [Le ft Upper Arm] Pulse Oximetry 94 94 92 Oxygen Delivery Me thod 09/22/23 17:02 09/22/23 17:03 09/22/23 17:15 Temperature Pulse Rate 120 H 102 H 112 H Pulse Rate [Pulse Oximeter] Respiratory Rate Blood Pressure 99/67 Blood Pressure [Le ft Upper Arm] Pulse Oximetry 94 93 97 Oxygen Delivery Me thod 09/22/23 17:17 09/22/23 17:30 09/22/23 17:32 Temperature Pulse Rate 114 H 123 H 109 H Pulse Rate [Pulse Oximeter] Respiratory Rate Blood Pressure 98/72 101/68 Blood Pressure [Le ft Upper Arm] Pulse Oximetry 87 L 94 95 Oxygen Delivery Me thod 09/22/23 17:47 09/22/23 17:48 09/22/23 18:00 Temperature Pulse Rate 117 H 107 H Pulse Rate [Pulse Oximeter] Respiratory Rate Blood Pressure 114/80 Blood Pressure [Le ft Upper Arm] Pulse Oximetry 92 96 Oxygen Delivery Me thod 09/22/23 18:02 09/22/23 18:15 09/22/23 18:17 Temperature Pulse Rate 118 H 115 H 120 H Pulse Rate [Pulse Oximeter] Respiratory Rate Blood Pressure 107/62 87/71 L Blood Pressure [Le ft Upper Arm] Pulse Oximetry 96 95 96 Oxygen Delivery Me thod 09/22/23 18:20 09/22/23 18:30 09/22/23 18:32 Temperature Pulse Rate 106 H 118 H 118 H Pulse Rate [Pulse Oximeter] Respiratory Rate Blood Pressure 117/65 112/65 Blood Pressure [Le ft Upper Arm] Pulse Oximetry 95 93 95 Oxygen Delivery Me thod 09/22/23 18:45 09/22/23 18:47 09/22/23 19:00 Temperature Pulse Rate 118 H 100 106 H Pulse Rate [Pulse Oximeter] Respiratory Rate Blood Pressure 104/72 Blood Pressure [Le ft Upper Arm] Pulse Oximetry 91 96 94 Oxygen Delivery Me thod 09/22/23 19:02 09/22/23 19:15 09/22/23 19:17 Temperature Pulse Rate 94 131 H 107 H Pulse Rate [Pulse Oximeter] Respiratory Rate Blood Pressure 98/45 L 88/49 L Blood Pressure [Le ft Upper Arm] Pulse Oximetry 96 92 95 Oxygen Delivery Me thod 09/22/23 19:20 09/22/23 19:29 09/22/23 19:30 Temperature Pulse Rate 104 H 119 H 98 Pulse Rate [Pulse Oximeter] Respiratory Rate Blood Pressure 78/51 L 97/64 Blood Pressure [Le ft Upper Arm] Pulse Oximetry 96 96 96 Oxygen Delivery Me thod 09/22/23 19:32 09/22/23 19:40 09/22/23 19:41 Temperature Pulse Rate 100 108 H 120 H Pulse Rate [Pulse Oximeter] Respiratory Rate Blood Pressure 72/48 L 98/51 L 100/58 L Blood Pressure [Le ft Upper Arm] Pulse Oximetry 96 95 96 Oxygen Delivery Me thod 09/22/23 19:44 09/22/23 19:45 09/22/23 19:47 Temperature Pulse Rate 104 H 105 H 104 H Pulse Rate [Pulse Oximeter] Respiratory Rate Blood Pressure 89/52 L 70/54 L Blood Pressure [Le ft Upper Arm] Pulse Oximetry 97 97 96 Oxygen Delivery Me thod 09/22/23 19:52 09/22/23 20:00 09/22/23 20:01 Temperature Pulse Rate 140 H 102 H 104 H Pulse Rate [Pulse Oximeter] Respiratory Rate Blood Pressure 125/71 112/61 Blood Pressure [Le ft Upper Arm] Pulse Oximetry 94 93 94 Oxygen Delivery Me thod 09/22/23 20:03 09/22/23 20:15 09/22/23 20:17 Temperature Pulse Rate 101 H 78 84 Pulse Rate [Pulse Oximeter] Respiratory Rate Blood Pressure 109/75 111/64 Blood Pressure [Le ft Upper Arm] Pulse Oximetry 94 96 95 Oxygen Delivery Me thod Course Vital Signs Vital signs: Initial Vital Signs Temperature 96.4 F L 09/22/23 11:36 Temperature Source Temporal Artery Scan 09/22/23 11:36 Pulse Rate 139 H 09/22/23 11:36 Respiratory Rate 16 09/22/23 11:36 Blood Pressure 103/63 09/22/23 11:36 Blood Pressure Mean 76 09/22/23 11:36 Blood Pressure Position Sitting 09/22/23 11:36 Pulse Oximetry 99 09/22/23 11:36 Oxygen Delivery Method Room Air 09/22/23 11:36 Vital Signs Temperature 96.4 F L 09/22/23 11:36 Pulse Rate 139 H 09/22/23 11:36 Respiratory Rate 16 09/22/23 11:36 Blood Pressure 103/63 09/22/23 11:36 Pulse Oximetry 99 09/22/23 11:36 Oxygen Delivery Method Room Air 09/22/23 11:36 Temperature 96.4 F L 09/22/23 11:36 Pulse Rate 84 09/22/23 20:17 Respiratory Rate 16 09/22/23 11:36 Blood Pressure 111/64 09/22/23 20:17 Pulse Oximetry 95 09/22/23 20:17 Oxygen Delivery Method Room Air 09/22/23 11:36 Medications Administered Medications: Generic Name Dose Route Start Last Admin Trade Name Freq PRN Reason Stop Dose Admin Diltiazem HCl 125 mg/ Sodium 125 mls @ 10 mls/hr 09/22/23 14:50 09/22/23 20:04 Chloride IVPB 5 mls/hr .TITRATE KYLAH Infusion Protocol Sodium Chloride 1,000 mls @ 1,000 mls/hr 09/22/23 19:30 09/22/23 19:50 0.9 % Sodium Chloride 1000 Ml IV 09/22/23 20:29 Infused .Q1H KYLAH Infusion Discontinued Medications Generic Name Dose Route Start Last Admin Trade Name Freq PRN Reason Stop Dose Admin Diltiazem HCl 25 mg 09/22/23 12:13 09/22/23 13:54 Diltiazem 5 Mg/Ml Inj IVP 09/22/23 12:14 25 mg ONCE ONE Administration Lactated Ringer's 1,000 mls @ 1,000 mls/hr 09/22/23 11:55 09/22/23 15:35 Lactated Ringers 1000 Ml IV 09/22/23 12:54 Infused .Q1H ONE Infusion Ondansetron HCl 4 mg 09/22/23 11:55 09/22/23 12:30 Ondansetron 2 Mg/Ml Inj IVP 09/22/23 11:56 4 mg ONCE ONE Administration Ondansetron HCl 4 mg 09/22/23 17:16 09/22/23 17:19 Ondansetron Odt 4 Mg Tab PO 09/22/23 17:17 4 mg ONCE ONE Administration Medical Decision Making MDM Narrative Medical decision making narrative: Patient is a 68-year-old male presenting to emergency department for multiple complaints. With his jaundice and recent CT imaging I am concerned about a blockage. I did look through his [facility] records and it showed he had elevated liver enzymes and lipase a few days ago and was was get MRCP today. The CT report also recommended off dedicated pancreatic study on the MRI. No signs of AFib in his previous epic records. I did speak to Nadia Zapata who is the and P that took care of him 3 days prior. She states he has no history of AFib that she is aware of. I cannot definitively say when his AFib started as he is not feeling any palpitations from it so I am hesitant to cardiovert him expression concerning his other medical issues going on. Will start Cardizem. Will also order a CMP, CBC, direct bilirubin, troponin, EKG, lipase, magnesium, urinalysis, TSH with reflex T4. Shortly after the patient arrived considering the likelihood for MRCP I spoke to MRI is states they can get him and shortly. Other than that they want get him in until late in the afternoon if at all. We were unable to get the Cardizem before he had to go to MRI per considering started currently in the 140s and his blood pressure is stable he looks and feels well he states I am confident holding off on the Cardizem until he gets back. Did give the patient a L of fluids and Zofran for nausea. CBC returned with a white blood cell count 12.63. He now meets SIRS criteria lactate and blood cultures were added. CMP returned with elevated liver enzymes with a total bili was 7.4 direct bilirubin of 6.3. His AST, ALT, alk-phos, lipase are also all elevated compared to 3 days ago. His lipase went from 400 to 1314. 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 No comment was made on the T10 lesion seen on previous CT that was concerning for possible metastatic disease. I did speak to the radiologist who recommends and endoscopic ultrasound. Id speaking to the patient they are agreeable for transfer to [facility]. I initially spoke to Dr. Sung of GI who is in agreement with transfer. Since the patient is still in AFib I also spoke to Dr. Carballo of Cardiology. He is in agreement and not cardioverting and is in agreement with the Cardizem drip. I then spoke to Dr. Yohannes Aldridge who is the accepting hospitalist. At this time I am more concerned about his pancreatic mass and elevated liver enzymes causing his systemic issues rather than infection. Patient has some episodes of hypotension initially he seemed most likely related to his AFib as a having issues getting it under control with the Cardizem. We increase his Cardizem to 15 50 milligrams/hour on the drip. He then want to move to a chair as he was very uncomfortable in bed and this was done. While sitting in the chair his blood pressure dropped into the 70s and a L fluids were given. His blood pressure was still in the lower and between 80s and 70s in another 500 mL bolus was given were placed the patient back in bed. Cardizem was dropped to 10 mg per hour. After that his heart rate is now in the low 100s his blood pressure has improved notably. He is no longer hypotensive and we dropped the Cardizem even more to 5 mg per hour and will monitor. He is not having any symptoms other than nausea at this time he states. Remove them back into bed any converted to a normal sinus rhythm. Repeat EKG shows normal sinus rhythm with a rate of 80 beats per minute, normal intervals, normal axis, no ST or T-wave abnormalities. Cardizem was discontinued. Lab Data Labs: Lab Results 09/22/23 09/22/23 09/22/23 Range/Units 12:15 12:56 13:28 WBC 12.63 H (4.50-11.00) K/uL RBC 5.39 (4.30-5.90) m/uL Hgb 14.1 (13.5-17.5) gm/dL Hct 44.2 (37.0-53.0) % MCV 82 (80-100) fL MCH 26 (26-34) pg MCHC 32 (32-36) gm/dL RDW Coeff of [place]erda 14.2 (11.5-15.5) % Plt Count 338 (140-440) K/uL Neut % (Auto) 79.5 H (42.0-72.0) % Lymph % (Auto) 10.7 L (20-44) % [place] % (Auto) 7.7 (0.0-11.0) % Eos % (Auto) 1.7 (0.0-7.0) % Baso % (Auto) 0.2 (0.0-3.0) % Neut # (Auto) 10.00 H (1.7-7.0) K/uL Lymph # (Auto) 1.40 (0.90-2.90) K/uL [place] # (Auto) 1.00 H (0.00-0.90) K/UL Eos # (Auto) 0.20 (0.00-0.50) K/uL Baso # (Auto) 0.00 (0.00-0.30) K/uL Abs Immat Gran (auto) 0.00 (0.00-0.30) K/uL Imm/Tot Granulo (auto) 0.2 % INR 1.24 H (0.91-1.10) Sodium 133 L (135-149) mmol/L Potassium 4.7 (3.6-5.1) mmol/L Chloride 98 (96-114) mmol/L Carbon Dioxide 22 (20-32) mmol/L Anion Gap 13 (7-15) mEq/L BUN 16 (7-30) mg/dL Creatinine 1.3 (0.5-1.5) mg/dL Estimated Creat Clear 60.61 Estimated GFR 59 ml/min Glucose 281 H (60-115) mg/dL Lactate (0.5-1.9) mmol/L Calcium 11.1 H (8.4-10.6) mg/dL Magnesium 2.1 (1.5-2.6) mg/dL Total Bilirubin 7.4 H (0.1-1.5) mg/dL Direct Bilirubin 6.3 H (0.0-0.5) mg/dL AST 268 H (12-35) U/L ALT 295 H (4-50) U/L Alkaline Phosphatase 1498 H (40-150) U/L Total Protein 8.8 H (6.0-8.3) g/dL Albumin 4.6 (3.3-5.0) g/dL Lipase 1314 H (23-300) U/L TSH 0.484 (0.270-4.200) uIU/mL Urine Color (Yellow) Urine Appearance (Clear) Urine pH (5.0-8.5) Ur Specific [place] (1.000-1.030) Urine Protein (Negative) Urine Glucose (UA) (Negative) Urine Ketones (Negative) Urine Blood (Negative) Urine Nitrite (Negative) Urine Bilirubin (Negative) Urine Urobilinogen (0.2-1.0) Ur Leukocyte Esterase (Negative) Urine RBC (0-2) Urine WBC (0-5) Ur Squamous Epith Cells (None-Few) Amorphous Sediment (None) Urine Bacteria (None) Lab Acknowledgement Test Added New Spec Needed POC Troponin I 0.00 L (0.01-0.04) ng/ml 09/22/23 09/22/23 09/22/23 Range/Units 14:04 16:40 17:36 WBC (4.50-11.00) K/uL RBC (4.30-5.90) m/uL Hgb (13.5-17.5) gm/dL Hct (37.0-53.0) % MCV (80-100) fL MCH (26-34) pg MCHC (32-36) gm/dL RDW Coeff of Guerda (11.5-15.5) % Plt Count (140-440) K/uL Neut % (Auto) (42.0-72.0) % Lymph % (Auto) (20-44) % [place] % (Auto) (0.0-11.0) % Eos % (Auto) (0.0-7.0) % Baso % (Auto) (0.0-3.0) % Neut # (Auto) (1.7-7.0) K/uL Lymph # (Auto) (0.90-2.90) K/uL [place] # (Auto) (0.00-0.90) K/UL Eos # (Auto) (0.00-0.50) K/uL Baso # (Auto) (0.00-0.30) K/uL Abs Immat Gran (auto) (0.00-0.30) K/uL Imm/Tot Granulo (auto) % INR (0.91-1.10) Sodium (135-149) mmol/L Potassium (3.6-5.1) mmol/L Chloride (96-114) mmol/L Carbon Dioxide (20-32) mmol/L Anion Gap (7-15) mEq/L BUN (7-30) mg/dL Creatinine (0.5-1.5) mg/dL Estimated Creat Clear Estimated GFR ml/min Glucose (60-115) mg/dL Lactate 1.8 (0.5-1.9) mmol/L Calcium (8.4-10.6) mg/dL Magnesium (1.5-2.6) mg/dL Total Bilirubin (0.1-1.5) mg/dL Direct Bilirubin (0.0-0.5) mg/dL AST (12-35) U/L ALT (4-50) U/L Alkaline Phosphatase (40-150) U/L Total Protein (6.0-8.3) g/dL Albumin (3.3-5.0) g/dL Lipase (23-300) U/L TSH (0.270-4.200) uIU/mL Urine Color [place] A (Yellow) Urine Appearance Clear (Clear) Urine pH 5.0 (5.0-8.5) Ur Specific [place] 1.010 (1.000-1.030) Urine Protein 1+ A (Negative) Urine Glucose (UA) 3+ A (Negative) Urine Ketones Negative (Negative) Urine Blood 1+ A (Negative) Urine Nitrite Negative (Negative) Urine Bilirubin 2+ A (Negative) Urine Urobilinogen 0.2 (0.2-1.0) Ur Leukocyte Esterase Negative (Negative) Urine RBC 0-2 (0-2) Urine WBC 0-2 (0-5) Ur Squamous Epith Cells Few (None-Few) Amorphous Sediment Moderate A (None) Urine Bacteria None (None) Lab Acknowledgement Test Added POC Troponin I (0.01-0.04) ng/ml ECG Data Attestation: I personally reviewed and interpreted this ECG as follows: Prior ECG tracings: not available for review Interpretation: AFib with RVR, rate 1 showing 49 beats per minute, normal axis, no ST or T-wave abnormalities. Critical Care Time Critical Care Time Critical Care Time: Yes Attestation: The patient required my highest level preparedness to intervene emergently and I personally spent this critical care time directly and personally managing the patient. This critical care time included: Obtaining a history; Examining the patient; Pulse oximetry; Ordering and reviewing of studies; Arranging urgent treatment with development of a management plan; Evaluation of patients response to treatment; Frequent reassessment discussions with other providers. This critical care time was performed to assess and manage the high probability of imminent life-threatening deterioration that could result in multiorgan failure. It was exclusive of separate billable procedures and treating other patients and teaching time. Total Critical Care Time in Minutes: 52 Discharge Plan Discharge Clinical Impression: Mass of head of pancreas, Elevated LFTs, Atrial fibrillation with RVR Patient Disposition: Jina [facility] Condition: Stable Prescriptions: No Action dapagliflozin propanediol [Farxiga] 5 mg tablet 5 mg PO DAILY metformin 1,000 mg tablet 500 mg PO BIDWMEAL lisinopril 10 mg tablet 10 mg PO DAILY glimepiride 4 mg tablet 4 mg PO DAILY atorvastatin 40 mg tablet 40 mg PO DAILY insulin glargine [Lantus U-100 Insulin] 100 unit/mL solution 30 unit subcut QPM Stand Alone Forms: [employer] Info Instructions
[2023-09-22 13:10] LABS: Bilirubin Direct* 6.3 mg/dL (0.0-0.5); Bilirubin Total* 7.4 mg/dL (0.1-1.5)
[2023-09-22 13:12] LABS: Slide Review Reflex No
[2023-09-22 13:30] LABS: Lab Add On Test New Spec Needed
[2023-09-22 13:46] LABS: TSH With Reflex to FT4* 0.484 uIU/mL (0.270-4.200)
[2023-09-22] MEDS: dilTIAZem 5 MG/ML inj 25 MG IVP (13:54)
[2023-09-22 14:39] LABS: INR 1.24 (0.91-1.10); Prothrombin Time 16.5 Seconds
[2023-09-22] MEDS: dilTIAZem HCL 125 MG in 0.9 % SODIUM CHLORIDE 100 ml 100 ML 10 MG IVPB (15:39)
[2023-09-22 16:47] LABS: Lactate* 1.8 mmol/L (0.5-1.9)
[2023-09-22] MEDS: ONDANSETRON ODT 4 MG TAB PO (17:19)
[2023-09-22 18:11] LABS: Appearance Urine Clear (Clear); Bilirubin Urine 2+ (Negative); Blood Urine 1+ (Negative); Color Urine Orange (Yellow); Glucose Urine 3+ (Negative); Ketones Urine Negative (Negative); Leukocyte Esterase Urine Negative (Negative); Nitrite Urine Negative (Negative); Protein Urine 1+ (Negative); Urobilinogen Urine 0.2 (0.2-1.0)
[2023-09-22 19:26] LABS: Amorphous Sediment Urine Moderate; RBC Urine 0-2 (0-2); Squamous Epithelial Cell Urine Few (None-Few); WBC Urine 0-2 (0-5)
[2023-09-22] MEDS: 0.9 % SODIUM CHLORIDE 1000 ml 1,000 ML IV (19:29)
[2023-09-22] MEDS: 0.9 % SODIUM CHLORIDE 500 ML 500 ML IV (20:04)
[2023-09-22] MEDS: 0.9 % SODIUM CHLORIDE 1000 ml 1,000 ML 125 ML IV (20:30)
--- NOTE | 2023-09-22 23:42 | PC.NURSE ---
accessed patient chart, ANW asking for MRI report. report faxed
== END 2023-09-22 21:27 | disposition short-term general hospital (02) ==
PROVIDERS: Emergency Provider Student in an Organized Health Care Education/Training Program; PCP Surgery
DX: K86.89 Other specified diseases of pancreas (principal); I48.20 Chronic atrial fibrillation, unspecified; R94.5 Abnormal results of liver function studies
CPT/HCPCS: 36415; 74183; 80053; 81001; 82248; 83605; 83690; 83735; 84443; 84484; 85025; 85610; 87040; 93005; 96365; 96375; 99284; 99285; 99291; A9270; A9575; J2405; J3490; J7030; J7120

== ENCOUNTER 2023-09-22 21:15 | Outpatient (CLI) | payer MEDICARE, SELFPAY ==
--- OUTSIDE RECORDS SUMMARY | 2023-09-23 07:35 | XMS_ITS | Clinical Summary ---
Author Organization [employer] [facility] Address [place], [place] [address] Care Team Providers Care Technical Writing Lead/Mgr Name Role Phone Chris Potter MD Primary Care Provider [phone] Allergies No known active allergies Medications Medication Sig Dispensed Refills Start Date End Date Status blood-glucose meterIndications: Type 2 diabetes mellitus without complication, with long-term current use of insulin (HC) Dispense meter, test strips, lancets covered by pt ins. E11.9 NIDDM type II - Test 1 time/day 1 Each 022 Suspended Additional Information sildenafiL, pulm.hypertension , (REVATIO) 20 mg tabletIndications :Erectile dysfunction, unspecified erectile dysfunction type Take 1-5 pills (start at lower dose and increase next time if needed) 30 mins prior to sexual intercourse 30 Tablet 1 022 Suspended Additional Information Dexcom G6 Transmitter for continuous blood glucose monitor (CGM)Indications: Type 2 diabetes mellitus with diabetic polyneuropathy, with long-term current use of insulin (HC) To be used to read blood sugars, follow engineering tech directions. 1 Each 4 023 Suspended Additional Information Dexcom G6 Sensor for continuous blood glucose monitor (CGM)Indications: Type 2 diabetes mellitus with diabetic polyneuropathy, with long-term current use of insulin (HC) To be used to read blood sugars, follow engineering tech directions. 9 Each 3 023 Suspended Additional Information Dexcom G6 Roof Assembler for continuous blood glucose monitor (CGM)Indications: Type 2 diabetes mellitus with diabetic polyneuropathy, with long-term current use of insulin (HC) To be used to read blood sugars follow engineering tech directions. 1 Each 023 Suspended Additional Information glimepiride (AMARYL) 4 mg tabletIndications :Type 2 diabetes mellitus with diabetic polyneuropathy, with long-term current use of insulin (HC) Take 1 Tablet (4 mg) by mouth once daily with a meal. 90 Tablet 3 023 Suspended Additional Information lisinopriL (PRINIVIL; ZESTRIL) 10 mg tabletIndications :HTN (hypertension) Take 1 Tablet (10 mg) by mouth once daily. 90 Tablet 3 023 Suspended Additional Information Farxiga 5 mg tabletIndications :Type 2 diabetes mellitus with diabetic polyneuropathy, with long-term current use of insulin (HC),Albuminuria TAKE 1 TABLET(5 MG) BY MOUTH EVERY DAY 90 Tablet 3 023 Suspended Additional Information Patient taking differently: 5 mgOralDAILY, Informant: Patient's Recall, Home Med Bottles, Reported on 09/22/2023 BD Yuliana 2nd Gen Pen Needle 32 gauge x 5/32Indications: Type 2 diabetes mellitus without complication, with long-term current use of insulin (HC) USE TWICE DAILY DIRECTED 200 Each 3 023 Suspended Additional Information insulin glargine, U-100, (Lantus Solostar U-100 Insulin) 100 unit/mL (3 mL) penIndications:Ty pe 2 diabetes mellitus with diabetic polyneuropathy, with long-term current use of insulin (HC) INJECT 34 UNITS SUBCUTANEOUS BEFORE BEDTIME. 30 mL 024 Suspended Additional Information Patient taking differently: 30 unitSubcutaneousBEFORE BEDTIME, Informant: Patient's Recall, Reported on 09/22/2023 cyclobenzaprine (FLEXERIL) 5 mg tabletIndications :Muscle spasm Take 1 Tablet (5 mg) by mouth every 8 hours if needed for Muscle Spasm. 30 Tablet 024 Suspended Additional Information atorvastatin (LIPITOR) 40 mg tabletIndications :Hyperlipidemia, unspecified hyperlipidemia type TAKE 1 TABLET(40 MG) BY MOUTH AT BEDTIME 90 Tablet 2 024 Suspended Additional Information Patient taking differently: 40 mgOralQ AM, Informant: Patient's Recall, Home Med Bottles, Reported on 09/22/2023 metFORMIN (GLUCOPHAGE) 1,000 mg tabletIndications :Type 2 diabetes mellitus with diabetic polyneuropathy, with long-term current use of insulin (HC) Take 1 Tablet (1,000 mg) by mouth two times daily with meals. 180 Tablet Suspended Additional Information clotrimazole (LOTRIMIN) 1 % creamIndications: Yeast dermatitis Apply topically to affected area(s) two times daily. 45 g 024 2023 Discontinue d(*Med complete/Re gimen complete/Le shila of care change) Active Problems Problem Noted Date Diagnosed Date Pancreatic mass 09/22/2023 Painless jaundice 09/22/2023 Nausea & vomiting 09/22/2023 Weight loss 09/22/2023 Atrial fibrillation with RVR 09/22/2023 Type 2 diabetes mellitus wit h diabetic [...] Encounters Date Type Department Care Team Description 09/22/2023 11:59 PM CDT Hospital Encounter [facility] [address] [place] [address] s, U Hospitalist [facility] 09/22/2023 10:16 PM CDT - Present Hospital Encounter [facility] [address] [place] [address] [facility] [place], [facility] Hospitalists Of Gerda [employer] MBBS Shaikh, Valeed Ahmed, MD 09/21/2023 Telephone [facility] [address] [place] [address] Chris Potter MD Questions 09/21/2023 Telephone [facility] [address] [place] [address] Chris Potter MD Questions (follow up) 09/19/2023 3:30 PM CDT Ancillary Procedure [facility] [address] [place] [address] Arrived 09/19/2023 2:30 PM CDT Office Visit [facility] [address] [place] [address] Nadia Zapata PA Gi Problem (Can't eat or drink anything without feeling nauseated within 20 min. States he is down 40 lbs in last 6 weeks- has been trying tums and omeprazole with no improvement) 09/19/2023 Travel 09/01/2023 9:25 AM CDT Office Visit [facility] [address] [place] [address] Clarita Naranjo PA UTI 09/01/2023 Travel 08/31/2023 Telephone [facility] [address] [place] [address] Chris Potter MD Medication Management (YEAST INFECTION ) 08/13/[address] [address] Chris Potter MD Refill Request (Metformin) 08/03/[address] [address] Chris Potter MD Refill Request (Atorvastatin) 07/21/2023 4:05 PM CDT Office Visit [facility] [address] [place] [address] Chris Potter MD Diabetes 07/21/2023 Travel 07/14/[address] [address] Chris Potter MD Refill Request (Lantus Solostar U-100 Insulin) from Last 3 Months Immunizations Name Administration Dates Next Due COVID-19 vaccine (Distra-Bio NTech 30mcg/0.3mL) 12YO+ CARLITOS-SUCROSE MILDRED MANRIQUE 07/05/2021,06/29/2020,06/08/2020 COVID-19 vaccine (Distra-Bio NTech 30mcg/0.3mL) MILDRED MANRIQUE 03/03/2021 Influenza, High-dose Quadriv alent Inactivated 12/15/2021,03/03/2021 [...] Sign Reading Time Taken Comments Blood Pressure 109/60 09/23/2023 12:49 AM CDT Pulse 78 09/23/2023 12:49 AM CDT Temperature 36.5 ??C (97.7 ??F) 09/23/2023 12:49 AM C DT Respiratory Rate 16 09/23/2023 12:49 AM CDT Oxygen Saturation 98% 09/23/2023 12:49 AM CDT Inhaled Oxygen Concentration - - Weight 115.9 kg (255 lb 8 oz) 09/23/2023 6:01 AM CDT Height 185.4 cm (6' 1) 09/23/2023 6:01 AM CDT Body Mass Index 33.71 09/23/2023 6:01 AM CDT Plan of Treatment Upcoming Encounters Date Type Department Care Team (Late st Contact Info) Description 11/21/2023 10:55 AM CDT Office Visit [facility] [address] [facility] [address] Chris Potter MD [address] [place] [address] Health Maintenance Due Date Last Done Comments Tdap 1965 Tetanus booster 1974 Fecal testing sDNA-FIT (Cologuard) for age 45-75 1999 COVID-19 vaccine series (2022-24 season) 2023 01/04/2023, 09/07/2022, 12/15/2021, Additional history exists BMI (ht and wt on same day) for age 18+ 11/12/2023 11/11/2022, 01/04/2021 Depression screening for age 12+ 11/12/2023 11/11/2022, 06/18/2021, 06/17/2021, Additional history exists Medicare Wellness for age 65+ 11/12/2023 11/11/2022 Influenza for age 65+ 12/03/2023 12/15/2021, 021 Lipids for age 45-75 11/12/2027 11/11/2022, 06/18/19 Hepatitis C screening for ag e 18-79 Completed 06/17/2021 Pneumococcal series for age 65+ Completed 3 AAA screening age 65-74 Completed 09/19/19 24, 06/03/2019 (Completed outside of [facility]) Zoster (shingles) series for age 50+ Discontinued Procedures The patient is currently admitted. The information in this section might not be complete until the patient is discharged. Procedure Name Priority Date/Time Associated Diagnosis Comments GLUCOSE METER Timed 09/23/2023 7:12 AM CDT SCAN-CARDIAC STRIP 09/23/2023 1: 13 AM CDT GLUCOSE METER Timed 09/23/2023 12:41 AM CDT EKG 12 LEAD Routine 09/22/2023 11:[address] ABDOMEN PELVIS WO OFE 09/19/2023 3:52 [...] Recently Relevant to Health Maintenance Results * (ABNORMAL) GLUCOSE METER (09/23/2023 7:12 AM CDT) Only the most recent of2 resultswithin the time period is included. GLUCOSE METER 143(H) 65 - 100 mg/dL 09/23/2023 7:16 AM CDT [facility] Blood BLOOD SPECIMEN / Unknown 09/23/2023 7:12 AM CDT 09/23/2023 7:16 AM CDT [facility] Hospitalists Of [facility] [place] [facility] [address] [place] [address], [place] * SCAN-CARDIAC STRIP (09/23/2023 1:13 AM CDT) Scanner OTHER * CT ABDOMEN PELVIS WO (09/19/2023 3:52 [...] AM (Electronically Signed) Procedure Note Shayla Thompson, DO - 09/20/2023 For Patients: As a result of the Cures Act, medical imagingexams and procedure reports [...] - 1.11 mg/dL 09/19/2023 3:08 PM CDT [facility] Comment:Caution: Patients ta rosette Hydroxyurea have falsely increased iStat Creatinine results. Verify creatinine results ordering a Creatinine (06707.2) eGFR 59(L) >90 mL/min/1.7 3m2 09/19/2023 3:08 PM CDT [facility] Comment:As of 2021, eG FR is calculated by the CKD-EPI creatinine equation without race adjustment. eGFR can be influenced by muscle mass, exercise, and diet. The reported eGFR is an estimation only and is only applicable if the renal function is stable. Blood BLOOD SPECIMEN / Unknown 09/19/2023 3:06 PM CDT 09/19/2023 3:08 PM CDT Nadia HOYOS CHEMISTRY [facility] [address] [place] [address], [place] [phone] * (ABNORMAL) CBC WITH AUTO DIFFERENTIAL (09/19/2023 2:56 PM CDT) WHITE BLOOD COUNT 10.3 4.5 - 11.0 thou/cu mm 09/19/2023 3:10 PM CDT [facility] RED BLOOD COUNT 5.11 4.30 - 5.90 mil/cu mm 09/19/2023 3:10 PM CDT [facility] HEMOGLOBIN 13.8 13.5 - 17.5 g/dL 09/19/2023 3:10 PM CDT [facility] HEMATOCRIT 41.9 37.0 - 53.0 % 09/19/2023 3:10 PM CDT [facility] MCV 82 80 - 100 fL 09/19/2023 3:10 PM CDT [facility] MCH 27.0 26.0 - 34.0 pg 09/19/2023 3:10 PM CDT [facility] MCHC 32.9 32.0 - 36.0 g/dL 09/19/2023 3:10 PM CDT [facility] RDW 15.3 11.5 - 15.5 % 09/19/2023 3:10 PM CDT [facility] PLATELET COUNT 377 140 - 440 thou/cu mm 09/19/2023 3:10 PM CDT [facility] MPV 11.4(H) 6.5 - 11.0 fL 09/19/2023 3:10 PM CDT [facility] % NEUT 75.4 % 09/19/2023 3:10 PM CDT [facility] % LYMPH 13.5 % 09/19/2023 3:10 PM CDT [facility] % MONO 9.0 % 09/19/2023 3:10 PM CDT [facility] % EOS 1.8 % 09/19/2023 3:10 PM CDT [facility] % BASO 0.3 % 09/19/2023 3:10 PM CDT [facility] ABSOLUTE NEUTROPHILS 7.7(H) 1.7 - 7.0 thou/cu mm 09/19/2023 3:10 PM CDT [facility] ABSOLUTE LYMPHOCYTES 1.4 0.9 - 2.9 thou/cu mm 09/19/2023 3:10 PM CDT [facility] ABSOLUTE MONOCYTES 0.9(H) <0.9 thou/cu mm 09/19/2023 3:10 PM CDT [facility] ABSOLUTE EOSINOPHILS 0.2 <0.5 thou/cu mm 09/19/2023 3:10 PM CDT [facility] ABSOLUTE BASOPHILS 0.0 <0.3 thou/cu mm 09/19/2023 3:10 PM CDT [facility] Blood BLOOD SPECIMEN / Unknown Venipuncture / Unknown 09/19/2023 2:56 PM CDT 09/19/2023 2:58 PM CDT Nadia HOYOS HEMATOLOGY [facility] [address] [place] [address], * TSH (09/19/2023 2:56 PM CDT) TSH 0.71 0.27 - 4.20 uIU/mL 09/20/2023 4:59 AM CDT [facility] Blood BLOOD SPECIMEN / Unknown Venipuncture / Unknown 09/19/2023 2:56 PM CDT 09/19/2023 2:58 PM CDT Narrative [facility] - 09/20/2023 4:59 AM CDT In Adults, TSH values between 5.00 and 10.00 uIU/ml do not necessarily indicate the presence of Hypothyroidism. Correlation with clinical findings such as presence of goiter and/or Thyroperoxidase (TPO) Antibody may be helpful. For more information please refer to DONNA 2004; 291: 228-238. Nadia HOYOS CHEMISTRY Performing Organization Address [facility] Co de Phone Number [facility] [address] [place] [address], * (ABNORMAL) C-REACTIVE PROTEIN (09/19/2023 2:56 PM CDT) C-REACTIVE PROTEIN 4.0(H) <0.5 mg/dL 09/20/2023 5:12 AM CDT [facility] Blood BLOOD SPECIMEN / Unknown Venipuncture / Unknown 09/19/2023 2:56 PM CDT 09/19/2023 2:58 PM CDT Nadia HOYOS CHEMISTRY Performing Organization Address [facility] Co de Phone Number [facility] [address] [place] [address], * (ABNORMAL) LIPASE (09/19/2023 2:56 PM CDT) LIPASE 402.0(H) 13.0 - 60.0 IU/L 09/20/2023 5:14 AM CDT [facility] Blood BLOOD SPECIMEN / Unknown Venipuncture / Unknown 09/19/2023 2:56 PM CDT 09/19/2023 2:58 PM CDT Nadia HOYOS CHEMISTRY Performing Organization Address [facility] Co de Phone Number [facility] [address] [place] [address], * (ABNORMAL) COMP METABOLIC PANEL (09/19/2023 2:56 PM CDT) SODIUM 133(L) 136 - 145 mmol/L 09/20/2023 4:59 AM CDT [facility] POTASSIUM 5.2(H) 3.5 - 5.1 mmol/L 09/20/2023 4:59 AM CDT [facility] CHLORIDE 98 98 - 107 mmol/L 09/20/2023 4:59 AM T [facility] CO2,TOTAL 17(L) 22 - 29 mmol/L 09/20/2023 4:59 AM T [facility] ANION GAP 18 5 - 18 09/20/2023 4:59 AM [facility] GLUCOSE 215(H) 70 - 99 mg/dL 09/20/2023 4:59 AM T [facility] CALCIUM 10.1 8.8 - 10.2 mg/dL 09/20/2023 4:59 AM [facility] BUN 17 8 - 23 mg/dL 09/20/2023 4:59 AM [facility] CREATININE 1.43(H) 0.70 - 1.20 mg/dL 09/20/2023 4:59 AM [facility] BUN/CREAT RATIO 12 10 - 20 4:59 AM [facility] eGFR 53(L) >90 mL/min/1. 73m2 09/20/2023 4:59 AM [facility] Comment:As of 2021, eG FR is calculated by the CKD-EPI creatinine equation without race adjustment. ??eGFR can be influenced by muscle mass, exercise, and diet. ??The reported eGFR is an estimation only and is only applicable if the renal function is stable. ALBUMIN 3.9(L) 4.0 - 4.9 g/dL 09/20/2023 4:59 AM T [facility] PROTEIN,TOTAL 8.2(H) 6.0 - 8.0 g/dL 09/20/2023 4:59 AM [facility] BILIRUBIN,TOTAL 5.3(H) 0.0 - 1.2 mg/dL 09/20/2023 4:59 AM [facility] ALK PHOSPHATASE 1,051(H) 40 - 129 IU/L 09/20/2023 4:59 AM [facility] ALT (SGPT) 243(H) 10 - 50 IU/L 09/20/2023 4:59 AM CDT [facility] AST (SGOT) 207(H) 10 - 50 IU/L 09/20/2023 4:59 AM CDT [facility] Blood BLOOD SPECIMEN / Unknown Venipuncture / Unknown 09/19/2023 2:56 PM CDT 09/19/2023 2:58 PM CDT Nadia HOYOS CHEMISTRY [facility] [address] [place] [address], * URINALYSIS MICROSCOPIC (09/01/2023 9:16 AM CDT) RBC 0-2 0-2, None Seen /HPF 09/01/2023 9:31 AM CDT [facility] WBC None Seen 0-2, 3-5, None Seen /HPF 09/01/2023 9:31 AM CDT [facility] BACTERIA None Seen None Seen, Rare, Few Bacteria/ HPF 09/01/2023 9:31 AM CDT [facility] EPITHELIAL CELLS Few None Seen, Few Epi/HPF 09/01/2023 9:31 AM CDT [facility] Urine URINE SPECIMEN / Unknown Non-Blood / Unknown 09/01/2023 9:16 AM CDT 09/01/2023 9:23 AM CDT Clarita HOYOS URINE [facility] [address] [place] [address], [place] [phone] * URINE CULTURE (09/01/2023 9:16 AM CDT) CULTURE No growth (<1,000 CFU/mL) 09/02/2023 2:35 PM CDT [facility] Urine URINE SPECIMEN / Unknown Non-Blood / Unknown 09/01/2023 9:16 AM CDT 09/01/2023 9:23 AM CDT Clarita HOYOS MICROBIOLOGY [facility] [address] [place] [address], [place] * (ABNORMAL) UA W/ SEDIMENT EXAM REFLEXED PER CRITERIA (09/01/2023 9:16 AM CDT) COLOR Yellow Yellow Color 09/01/2023 9:31 AM CDT [facility] CLARITY Clear Clear Clarity 09/01/2023 9:31 AM CDT [facility] SPECIFIC GRAVITY,URINE <=1.005(A) 1.010, 1.015, 1.020, 1.025 09/01/2023 9:31 AM CDT [facility] PH,URINE 5.0(A) 6.0, 7.0, 8.0, 5.5, 6.5, 7.5, 8.5 09/01/2023 9:31 AM CDT [facility] UROBILINOGEN, QUALITATIVE Normal Normal EU/dl 09/01/2023 9:31 AM CDT [facility] PROTEIN, URINE Negative Negative mg/dL 09/01/2023 9:31 AM CDT [facility] GLUCOSE, URINE >=1000(A) Negative mg/dL 09/01/2023 9:31 AM CDT [facility] KETONES,URINE Negative Negative mg/dL 09/01/2023 9:31 AM CDT [facility] BILIRUBIN,URI NE Negative Negative 09/01/2023 9:31 AM CDT [facility] OCCULT BLOOD,URINE Trace(A) Negative 09/01/2023 9:31 AM CDT [facility] NITRITE Negative Negative 09/01/2023 9:31 AM CDT [facility] LEUKOCYTE ESTERASE Negative Negative 09/01/2023 9:31 AM CDT [facility] Urine URINE SPECIMEN / Unknown Non-Blood / Unknown 09/01/2023 9:16 AM CDT 09/01/2023 9:23 AM CDT Clarita HOYOS URINE Performing Organization Address [facility] Co de Phone Number [facility] [address] [place] [address], * (ABNORMAL) HEMOGLOBIN A1C MONITORING (POCT) (07/21/2023 4:03 PM CDT) Pathologist [facility] HEMOGLOBIN A1C MONITORING (POCT) 7.3(H) <=6.4 % 07/21/2023 4:16 PM CDT [facility] Blood BLOOD SPECIMEN / Unknown Venipuncture / Unknown 07/21/2023 4:03 PM CDT 07/21/2023 4:03 PM CDT Narrative [facility] - 07/21/2023 4:16 PM CDT ? (<=6.9%) [...] Chris Potter MD CHEMISTRY Performing Organization Address [facility] Co de Phone Number [facility] [address] [place] [address], [place] [phone] * (ABNORMAL) LIPID PANEL (11/11/2022 11:26 AM CDT) [facility] Signature CHOLESTEROL,TOTAL 123 100 - 199 mg/dL 11/11/2022 6:50 PM CDT [facility] Comment: Cholesterol, Total Reference Ranges Desirable <200 mg/dL Borderline 200-239 mg/dL High >=240 mg/dL TRIGLYCERIDES 222(H) <150 mg/dL 11/11/2022 6:50 PM CDT [facility] HDL CHOLESTEROL 31(L) >40 mg/dL 6:50 PM CDT [facility] NON-HDL CHOLESTEROL 92 <145 mg/dl 11/11/2022 6:50 PM CDT [facility] CHOL/HDL RATIO 3.97 <4.50 11/11/2022 6:50 PM CDT [facility] LDL CHOLESTEROL 48 <=130 mg/dL 11/11/2022 6:50 PM CDT [facility] VLDL CHOLESTEROL 44(H) <=30 mg/dL 11/11/2022 6:50 PM CDT [facility] PROVIDER ORDERED STATUS RANDOM 11/11/2022 6:50 PM CDT [facility] Blood BLOOD SPECIMEN / Unknown Venipuncture / Unknown 11/11/2022 11:26 AM CDT 11/11/2022 11:28 AM CDT Chris Potter MD CHEMISTRY [facility] [address] * ANTI HCV (06/17/2021 11:24 AM CDT) HEPATITIS C ANTIBODY Non-React rehan Non-React rehan 06/17/2021 6:14 PM CDT [facility] Comment:Antibodies to HCV no t detected; does not exclude the possibility of exposure to HCV. Blood BLOOD SPECIMEN / Unknown Venipuncture / Unknown 06/17/2021 11:24 AM CDT 06/17/2021 11:26 AM CDT Chris Potter MD SEND OUTS [facility] [address] [place] [address], from Last 3 Months or Most Recently Relevant to Health Maintenance Advance Directives * Full Code (Latest Code Status on File) Date Activated Date Inactivated Comments 09/22/2023 11:17 PM Question Answer Comments Code Status Discussion: Reviewed Preferences Care Teams Technical Writing Lead/Mgr Relationship Specialty Start Date End Date Chris Potter MD [address] [place] [address] PCP - General Family Practice 01/13/21
== END 2023-09-22 21:16 | disposition home or self-care (01) ==
LOC: AMB 09-23 07:33
PROVIDERS: PCP Surgery; Visit Provider Internal Medicine
DX: K86.89 Other specified diseases of pancreas (principal); R79.89 Other specified abnormal findings of blood chemistry
CPT/HCPCS: A0425; A0427

== ENCOUNTER 2023-10-20 17:11 | Emergency (ER) | payer MEDICARE, SELFPAY ==
[2023-10-20 17:17] VITALS: BP 129/72; PULSE 96; RESP 16; TEMP 35.8; O2SAT 97; BMI 30.3
--- NOTE | 2023-10-20 17:30 | ED.GENADULT ---
HPI - General Adult General Time Seen by Provider: 17:30 Date Seen: 10/20/23 Chief complaint: Nausea/Vomiting Stated complaint: dehydrated, unable to swallow/eat Time Seen by Provider: 10/20/23 17:13 Source: patient, RN notes reviewed and old records reviewed Mode of arrival: ambulatory Limitations: no limitations History of Present Illness HPI narrative: This is a 68-year-old male with underlying newly diagnosed pancreatic cancer is coming in with concern of being dehydrated, states he really just can not eat and swallow. He has had no fevers or chills. No chest pain. He has had maybe only 12 oz in today. He is nauseated but not vomiting. Earlier he had a little pain around 1 of his incision sites, this is gone away and not recurred. He does have some low back pain now. He has been taking his anti emetic medicines. He does some in the morning, some in the evening. His pancreatic cancer is metastatic. He does want to proceed with chemotherapy, he is in the process of getting a port for chemo. He has had no diarrhea. He states he had some IV fluids a few days ago, made him feel better. When he was seen on September 21, he had noted 25 lb weight loss in inability to eat at that visit as well, had nausea back then. He was jaundiced secondary to biliary obstruction secondary to the pancreatic mass. He has metastases to liver and pancreatic mass on imaging, T10 sclerotic lesion and a possible left lower lung nodule. He did have an EUS and ERCP at [facility] and metallic stent was placed in the common bile duct on September 24. 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 Related Data Home Medications ?Medication ?Instructions ?Recorded ?Confirmed atorvastatin 40 mg tablet 40 mg PO DAILY 09/22/23 10/18/23 acetaminophen 325 mg tablet 650 mg PO QID PRN 10/18/23 10/18/23 (Tylenol) apixaban 5 mg tablet (Eliquis) 5 mg PO BID 10/18/23 10/18/23 cyclobenzaprine 5 mg tablet 5 mg PO TID PRN 10/18/23 10/18/23 insulin glargine 100 unit/mL 26 unit subcut QPM 10/18/23 10/18/23 subcutaneous solution (Lantus U-100 Insulin) mirtazapine 7.5 mg tablet 7.5 mg PO QDAY 10/18/23 10/18/23 ondansetron 4 mg disintegrating 4 mg PO Q8H 10/18/23 10/18/23 tablet oxycodone 5 mg tablet 5 - 15 mg PO QID PRN 10/18/23 10/18/23 polyethylene glycol 3350 17 4 g PO ONCE PRN 10/18/23 10/18/23 gram/dose oral powder (Miralax) Previous Rx's ?Medication ?Instructions ?Recorded dronabinol 5 mg capsule (Marinol) 5 mg PO BID #60 caps 10/18/23 sjqkin-enhdmhjk-mvvooev 1 cap PO TID #90 caps 10/18/23 6,000-19,000-30,000 unit capsule,delayed rel (Creon) metoclopramide HCl 5 mg tablet 5 mg PO QDAY #30 tabs 10/18/23 (Reglan) prochlorperazine maleate 5 mg 5 mg PO BID PRN nausea and 10/18/23 tablet (Compazine) vomiting #60 tabs Allergies Allergy/AdvReac Type Severity Reaction Status Date / Time No Known Drug Allergies Allergy Verified 10/20/23 17:17 Review of Systems Status of ROS: Reports: 6 or more systems reviewed and unremarkable except as noted in History and below [facility] Medical History (Updated 10/20/23 @ 19:00 by Thu Walker MD) Pancreatic cancer metastasized to liver ?C25.9 - Malignant neoplasm of pancreas, unspecified (ICD-10) ?C78.7 - Secondary malignant neoplasm of liver and intrahepatic bile duct (ICD-10) Social History Smoking Status: Current some day smoker What tobacco products do you use: cigars How often do you have a drink containing alcohol: 2-4 times a month AUDIT-C Alcohol total score: 2 Non-prescribed substance use: denies use Exam Const: Vital Signs, click to edit/add: Vital Signs - 24 hr 10/20/23 17:17 Temperature 96.4 F L Pulse Rate [Pulse Oximeter] 96 Respiratory Rate 16 Blood Pressure [Ri ght Upper Arm] 129/72 Pulse Oximetry 97 Oxygen Delivery Me thod Room Air This patient is alert and interactive, no apparent distress but looks like he does not feel well. Stable speak in complete sentences. He appears pale but not jaundiced. Sclera look clear. Tongue and oral mucosa are dry but lips are not cracked. Neck is supple no masses or adenopathy. Lungs are clear, good air entry, no wheezing or crackles, no tachypnea. CV regular rate and rhythm, no murmur, normal S1-S2, no S3-S4. His laparoscopy sites on his abdomen have scars but there is no surrounding erythema or ecchymosis they are nontender. His abdomen has no rebound or guarding. Still has a moderate amount of obesity but I do not feel any definitive masses, again abdominal exam is benign. He is ambulatory into the ED of his own accord. No lower extremity edema. Documenting provider has reviewed patient's vital signs: yes Course Course ED Course: We will place an IV, give him a L of IV fluids and 4 mg IV Zofran. We will check baseline labs on him. His abdominal exam is very benign. In review of his medications he is getting dronabinol, metoclopramide, mirtazapine, Zofran, oxycodone, prochlorperazine. He states he has a schedule for all these and has been using them. I do not think that I have any additional medications to add in here. Will give him 4 mg IV Zofran with his fluids today to try to temporize measures. He may need to follow-up with oncology on Monday to review his medicines and nausea. Reevaluation(s) Time of Reevaluation #1: 18:54 Reevaluation #1: Patient is actually feeling a bit better with this fluids but does note he is having pain, he is having a hard time getting comfortable. He was going to take his oxycodone at 9:00 p.m., will give him 10 mg oxycodone now which is what he would be taking at home. Color actually looks a little better with some IV fluids. Did review with him we would be giving him a 2 L. his labs show stable elevation of his white blood count comparison to recent 1. Likely reflects his cancer process. His vitals are stable, no fevers. Comprehensive metabolic panel is stable as far as his liver enzymes. His sodium actually has improved from the last draw on the . Time of Reevaluation #2: 20:01 Reevaluation #2: Patient and I discussed hospitalization. He would actually like a 3rd L of IV fluids and on and to go home. He is requesting outpatient IV fluids on Monday. I did talk with our housekeeper/custodian/laundry worker regarding this. We are going to agree to do this on the condition that the patient understands if he is becoming sick, has other concerns that he will check into the ER to be evaluated in any point over the weekend. Otherwise, will write for 2 L outpatient IV fluids on Monday to help accommodate him. He would prefer to go home tonight after his IV fluids are done, again, will respect his wishes. He does state that he has enough pain management and medications at home. Vital Signs Vital signs: Initial Vital Signs Temperature 96.4 F L 10/20/23 17:17 Temperature Source Temporal Artery Scan 10/20/23 17:17 Pulse Rate 96 10/20/23 17:17 Respiratory Rate 16 10/20/23 17:17 Blood Pressure 129/72 10/20/23 17:17 Blood Pressure Mean 91 10/20/23 17:17 Blood Pressure Position High-Fowlers 10/20/23 17:17 Pulse Oximetry 97 10/20/23 17:17 Oxygen Delivery Method Room Air 10/20/23 17:17 Vital Signs Temperature 96.4 F L 10/20/23 17:17 Pulse Rate 96 10/20/23 17:17 Respiratory Rate 16 10/20/23 17:17 Blood Pressure 129/72 10/20/23 17:17 Pulse Oximetry 97 10/20/23 17:17 Oxygen Delivery Method Room Air 10/20/23 17:17 Temperature 96.4 F L 10/20/23 17:17 Pulse Rate 95 10/20/23 22:30 Respiratory Rate 16 10/20/23 17:17 Blood Pressure 147/80 H 10/20/23 22:30 Pulse Oximetry 89 10/20/23 22:30 Oxygen Delivery Method Room Air 10/20/23 22:30 Medications Administered Medications: Discontinued Medications Generic Name Dose Route Start Last Admin Trade Name Freq PRN Reason Stop Dose Admin Sodium Chloride 1,000 mls @ 1,000 mls/hr 10/20/23 17:36 10/20/23 20:20 0.9 % Sodium Chloride 1000 Ml IV 10/20/23 18:35 Infused .Q1H [facility] Infusion Sodium Chloride 1,000 mls @ 1,000 mls/hr 10/20/23 18:28 10/20/23 20:45 0.9 % Sodium Chloride 1000 Ml IV 10/20/23 19:27 Infused .Q1H [facility] Infusion Lactated Ringer's 1,000 mls @ 1,000 mls/hr 10/20/23 19:59 10/20/23 22:35 Lactated Ringers 1000 Ml IV 10/20/23 20:58 Infused .Q1H ONE Infusion Ondansetron HCl 4 mg 10/20/23 17:35 10/20/23 18:13 Ondansetron 2 Mg/Ml Inj IVP 10/20/23 17:36 4 mg ONCE ONE Administration Oxycodone HCl 10 mg 10/20/23 18:51 10/20/23 18:56 Oxycodone 5 Mg Tablet PO 10/20/23 18:52 10 mg ONCE ONE Administration Medical Decision Making Lab Data Lab results reviewed: Yes I reviewed the patient's lab results Labs: Lab Results 10/20/23 Range/Units 18:18 WBC 19.93 H (4.50-11.00) K/uL RBC 4.38 (4.30-5.90) m/uL Hgb 11.2 L (13.5-17.5) gm/dL Hct 35.7 L (37.0-53.0) % MCV 82 (80-100) fL MCH 26 (26-34) pg MCHC 31 L (32-36) gm/dL RDW Coeff of Guerda 14.0 (11.5-15.5) % Plt Count 352 (140-440) K/uL Neut % (Auto) 87.6 H (42.0-72.0) % Lymph % (Auto) 5.8 L (20-44) % Stevens % (Auto) 4.5 (0.0-11.0) % Eos % (Auto) 1.1 (0.0-7.0) % Baso % (Auto) 0.1 (0.0-3.0) % Neut # (Auto) 17.50 H (1.7-7.0) K/uL Lymph # (Auto) 1.20 (0.90-2.90) K/uL Stevens # (Auto) 0.90 (0.00-0.90) K/UL Eos # (Auto) 0.20 (0.00-0.50) K/uL Baso # (Auto) 0.00 (0.00-0.30) K/uL Abs Immat Gran (auto) 0.20 (0.00-0.30) K/uL Imm/Tot Granulo (auto) 0.9 % Sodium 133 L (135-149) mmol/L Potassium 5.0 (3.6-5.1) mmol/L Chloride 96 (96-114) mmol/L Carbon Dioxide 27 (20-32) mmol/L Anion Gap 10 (7-15) mEq/L BUN 20 (7-30) mg/dL Creatinine 0.6 (0.5-1.5) mg/dL Estimated Creat Clear 78.79 Estimated GFR 104 ml/min Glucose 247 H (60-115) mg/dL Lactate 3.8 H (0.5-1.9) mmol/L Calcium 8.7 (8.4-10.6) mg/dL Total Bilirubin 1.2 (0.1-1.5) mg/dL Direct Bilirubin 0.8 H (0.0-0.5) mg/dL AST 71 H (12-35) U/L ALT 54 H (4-50) U/L Alkaline Phosphatase 362 H (40-150) U/L Total Protein 6.6 (6.0-8.3) g/dL Albumin 3.0 L (3.3-5.0) g/dL Discharge Plan Discharge Clinical Impression: Pancreatic cancer metastasized to liver, Dehydration Patient Disposition: Home, Self-Care Condition: Stable Instructions: Dehydration (ED) Additional Instructions: Try to take a sip or tsp of liquids every 5-10 minutes while awake. This will help keep you hydrated. Eat whatever foods sound good to you at this point. [facility] and let them know your ongoing issues with nausea. Continue with your oxycodone for pain management. Discuss with Oncology if your pain is not controlled, pain management can be increased and tailored for effective pain management. Activity Level: Activity as Tolerated Discharge Diet: Regular Prescriptions: No Action acetaminophen [Tylenol] 325 mg tablet 650 mg PO QID PRN Eliquis 5 mg tablet 5 mg PO BID cyclobenzaprine 5 mg tablet 5 mg PO TID PRN mirtazapine 7.5 mg tablet 7.5 mg PO QDAY ondansetron 4 mg tablet,disintegrating 4 mg PO Q8H oxycodone 5 mg tablet 5 - 15 mg PO QID PRN polyethylene glycol 3350 [Miralax] 17 gram/dose powder 4 g PO ONCE PRN Creon 6,000-19,000 -30,000 unit capsule,delayed release(DR/EC) 1 cap PO TID Qty: 90 0RF Rx Instructions: do not exceed 10,000 unit/kg lipase per 24 hrs dronabinol [Marinol] 5 mg capsule 5 mg PO BID Qty: 60 0RF Rx Instructions: administer before lunch and evening meal/dinner metoclopramide HCl [Reglan] 5 mg tablet 5 mg PO QDAY Qty: 30 0RF prochlorperazine maleate [Compazine] 5 mg tablet 5 mg PO BID PRN (Reason: nausea and vomiting) Qty: 60 0RF atorvastatin 40 mg tablet 40 mg PO DAILY insulin glargine [Lantus U-100 Insulin] 100 unit/mL solution 26 unit subcut QPM Follow Up/Referrals: Chris Potter MD [Primary Care Provider] - Stand Alone Forms: [facility] Info Instructions
--- OUTSIDE RECORDS SUMMARY | 2023-10-20 17:57 | XMS_ITS | Continuity of Care Document ---
Author Organization [facility] Address [address] [address] [place] [address] Phone Care Team Providers Care [place] Justice Name Role Phone Zahraa BEAL, Duncan Unavailable Unavailab le Procedures Procedure Date Subsqt Hosp-da E&m Stable 15 M 24 Ugi Endo; W/us Guid Asp/bx Ercp; W/endo Retro Remov Stone 24 ERCP w/stent & sphinc Subsqt Hosp-da E&m Minr Compl 4 Init Hosp-da E&m Mod Severity 4 Advance Directives Directive Yes / No Effective Date File Name No Information Encounters Encounter Description Practice Location Reason(s) For Visit Diagnoses Date Provider Providers Copied on Encounter [facility], [address] [address], [place], [place], [id number], tel:[phone] [facility] No Information 4 Zahraa Song. [address] [place] [address], [place] [address], [place], [place], [id number], [place]. tel:[phone] Subsqt Hosp-da E&m Stable 15 M [facility], [address] [address], [place], [place], [id number], tel:[phone] [facility] No Information 4 Laura Jarrett. [address] [place] [address], [facility] [address], [place], [place], [id number], [place]. tel:[phone] Referring Provider: Abner Castellanos MD, [address] [place], [place] [address] [place], [place], [address] . tel:[phone] [facility], [address] [address], [place], [place], [id number], tel:[phone] [facility] No Information Sep- 4 Jasmin Levine. [facility], [facility] [address], [place], [place], [id number], [place]. tel:[phone] Referring Provider: Abner Castellanos MD, [address] [place] [address], [place], [address] . tel:[phone] Subsqt Hosp-da E&m Minr Compl [facility], [address] [address], [place], [place], [id number], tel:[phone] [facility] No Information 4 Carlos Enrique Graham. [address] [place] [address], [facility] [address], [place], [place], [id number], [place]. tel:[phone] Referring Provider: Gladys DEY, [address] [place] [address], [place], [address] . tel:[phone] Init Hosp-da E&m Mod Severity [facility], [address] [address], [place], [place], [address], tel:[phone] [facility] No Information 4 Johnnie Vizcarra. [address] [place] [address], [facility] [address], [place], [place], [id number], [place]. tel:[phone] Referring Provider: Chris Lugo, [address] [place], [address]. tel:[phone] Family History Family Member Type Diagnosis Age At Onset No Information Payers Payer name Insurance type Covered republican ID Authoriza tion(s) No Information Social History Type Description Quantity Date Captured Comments Sex Male Smoking Status No Information Chief Complaint And Reason For Visit No Information Reason For Referral Reason For Referral No Information History Of Present Illness Encounter Date Complaint History Of Prese nt Illness No Information Functional Status Date Functional Assessmen t No Information Instructions Date Instruction Additional Infor mation No Information Assessments Type Assessment Date No Information Patient Care Teams Name Effective Dates (start - stop) Status Members No Information
--- OUTSIDE RECORDS SUMMARY | 2023-10-20 17:58 | XMS_ITS | Clinical Summary ---
Author Organization [facility] Address [place], [place] [address] Care Team Providers Care Anesthesiologist/Physician Name Role Phone Chris Potter MD Primary Care Provider [phone] Allergies No known active allergies Medications Medication Sig Dispensed Refills Start Date End Date Status Dexcom G6 Transmitter for continuous blood glucose monitor (CGM)Indications:T ype 2 diabetes mellitus with diabetic polyneuropathy, with long-term current use of insulin (HC) To be used to read blood sugars, follow distribution warehouse manager directions. 1 Each 11/12/19 Active Dexcom G6 Sensor for continuous blood glucose monitor (CGM)Indications:T ype 2 diabetes mellitus with diabetic polyneuropathy, with long-term current use of insulin (HC) To be used to read blood sugars, follow distribution warehouse manager directions. 9 Each 11/12/19 Active Dexcom G6 Emission Technician for continuous blood glucose monitor (CGM)Indications:T ype 2 diabetes mellitus with diabetic polyneuropathy, with long-term current use of insulin (HC) To be used to read blood sugars follow distribution warehouse manager directions. 1 Each 11/12/19 Active glimepiride (AMARYL) 4 mg tabletIndications: Type 2 diabetes mellitus with diabetic polyneuropathy, with long-term current use of insulin (HC) Take 1 Tablet (4 mg) by mouth once daily with a meal. 90 Tablet 3 11/12/19 Active Farxiga 5 mg tabletIndications: Type 2 diabetes mellitus with diabetic polyneuropathy, with long-term current use of insulin (HC),Albuminuria TAKE 1 TABLET(5 MG) BY MOUTH EVERY DAY 90 Tablet 3 01/17/20 Active Additional Information Patient taking differently: 5 mgOralDAILY, Informant: Patient's Recall, Home Med Bottles, Reported on 09/22/2023 BD Yuliana 2nd Gen Pen Needle 32 gauge x Indications:T ype 2 diabetes mellitus without complication, with long-term current use of insulin (HC) USE TWICE DAILY DIRECTED 200 Each 3 02/04/20 23 Active cyclobenzaprine (FLEXERIL) 5 mg tabletIndications: Muscle spasm Take 1 Tablet (5 mg) by mouth every 8 hours if needed for Muscle Spasm. 30 Tablet 07/21/19 24 Active atorvastatin (LIPITOR) 40 mg tabletIndications: Hyperlipidemia, unspecified hyperlipidemia type TAKE 1 TABLET(40 MG) BY MOUTH AT BEDTIME 90 Tablet 2 08/04/19 24 Active Additional Information Patient taking differently: 40 mgOralQ AM, Informant: Patient's Recall, Home Med Bottles, Reported on 09/22/2023 metFORMIN (GLUCOPHAGE) 1,000 mg tabletIndications: Type 2 diabetes mellitus with diabetic polyneuropathy, with long-term current use of insulin (HC) Take 1 Tablet (1,000 mg) by mouth two times daily with meals. 180 Tablet 08/14/19 24 Active insulin glargine, U-100, (Lantus Solostar U-100 Insulin) 100 unit/mL (3 mL) penIndications:Typ e 2 diabetes mellitus with diabetic polyneuropathy, with long-term current use of insulin (HC) Inject 28 units subcutaneous before bedtime. Product desired: LANTUS SOLOSTAR 10/04/19 24 Active acetaminophen (TYLENOL) 325 mg tabletIndications: Malignant neoplasm of pancreas metastatic to liver (HC) Take 2 Tablets (650 mg) by mouth every 4 hours if needed for Pain (For mild pain.). Max acetaminophen dose: 4000mg in 24 hrs. 10/04/19 24 Active ondansetron (ZOFRAN ODT) 4 mg disintegrating tabletIndications: Malignant neoplasm of pancreas metastatic to liver (HC) Place 1 Tablet (4 mg) on the tongue every 8 hours if needed for Nausea/Vomiting. 15 Tablet 10/04/19 24 Active polyethylene glycol (MIRALAX; GLYCOLAX) 17 g per packet packetIndications: Malignant neoplasm of pancreas metastatic to liver (HC) Take 17 g by mouth or nasogastric tube 2 times daily if needed for Constipation. 10/04/19 24 Active loperamide (IMODIUM) 2 mg capsuleIndications :Diarrhea, unspecified type Take 2 capsules (4mg) by mouth with 1st loose stool, then 1 capsule (2mg) with other loose stools. Max 8 capsules (16 mg) in 24 hrs. 40 Capsule 10/07/19 24 Active insulin aspart, U-100, (NOVOLOG FLEXPEN) 100 unit/mL (3 mL) penIndications:Typ e 2 diabetes mellitus with diabetic polyneuropathy, with long-term current use of insulin (HC) Inject 0-12 units subcutaneous three times daily before meals. Give subcutaneous 3 times a day with meals per blood glucose (mg/dL). Don't give corrective dose for PRN, post-prandial or nocturnal glucose checks unless ordered. Blood Glucose.....Dose <70.............S ee Hypoglycemia Protocol 70-149........No insulin, give prandial insulin, if ordered 150-199......2 units 200-249......4 units 250-299......6 units 300-349......8 units 350-399......10 units 400 or greater....12 units & call 10/07/19 24 Active insulin aspart, U-100, (NOVOLOG FLEXPEN) 100 unit/mL (3 mL) penIndications:Typ e 2 diabetes mellitus with diabetic polyneuropathy, with long-term current use of insulin (HC) Inject 0-12 units subcutaneous three times daily before meals. Give subcutaneous 3 times a day with meals per blood glucose (mg/dL). Don't give corrective dose for PRN, post-prandial or nocturnal glucose checks unless ordered. Blood Glucose.....Dose <70.............S ee Hypoglycemia Protocol 70-149........No insulin, give prandial insulin, if ordered 150-199......2 units 200-249......4 units 250-299......6 units 300-349......8 units 350-399......10 units 400 or greater....12 units & call 10/10/19 24 Active mirtazapine (REMERON) 7.5 mg tabletIndications: Anorexia Take 1 Tablet (7.5 mg) by mouth at bedtime. 90 Tablet 10/16/19 24 Active apixaban (Eliquis) 5 mg tabletIndications: Atrial fibrillation with RVR (HC) Take 1 Tablet (5 mg) by mouth two times daily. 60 Tablet 10/16/19 24 Active metoprolol tartrate (LOPRESSOR) 50 mg tabletIndications: Atrial fibrillation with RVR (HC) Take 1 Tablet (50 mg) by mouth two times daily. 60 Tablet 10/16/19 24 Active blood-glucose meterIndications:T ype 2 diabetes mellitus without complication, with long-term current use of insulin (HC) Dispense meter, test strips, lancets covered by pt ins. E11.9 NIDDM type II - Test 1 time/day 1 Each 10/16/19 24 Active oxyCODONE (ROXICODONE) 5 mg immediate release tabletIndications: Malignant neoplasm of pancreas metastatic to liver (HC) Take 1-2 Tablets (5-10 mg) by mouth every 6 hours if needed for Pain (For moderate to severe pain.). 5mg for pain 0-5/10, 10mg for pain 6-10/10 60 Tablet 10/18/19 24 Active cbrzil-kxhkjerc-ib ylase (Creon) 6,000-19,000 -30,000 unit delayed-release capsuleIndications :Malignant neoplasm of pancreas metastatic to liver (HC) Take 1 Capsule by mouth three times daily with meals. 90 Capsule 3 10/18/19 24 Active blood-glucose meterIndications:T ype 2 diabetes mellitus without complication, with long-term current use of insulin (HC) Dispense meter, test strips, lancets covered by pt ins. E11.9 NIDDM type II - Test 1 time/day 1 Each 06/18/19 22 024 Discontinued(Re order (E-cancel not sent)) sildenafiL, pulm.hypertension, (REVATIO) 20 mg tabletIndications: Erectile dysfunction, unspecified erectile dysfunction type Take 1-5 pills (start at lower dose and increase next time if needed) 30 mins prior to sexual intercourse 30 Tablet 1 12/22/19 22 024 Discontinued(*I P Discontinued) lisinopriL (PRINIVIL; ZESTRIL) 10 mg tabletIndications: HTN (hypertension) Take 1 Tablet (10 mg) by mouth once daily. 90 Tablet 3 11/12/19 23 024 Discontinued(*I P Discontinued) insulin glargine, U-100, (Lantus Solostar U-100 Insulin) 100 unit/mL (3 mL) penIndications:Typ e 2 diabetes mellitus with diabetic polyneuropathy, with long-term current use of insulin (HC) INJECT 34 UNITS SUBCUTANEOUS BEFORE BEDTIME. 30 mL 07/15/19 24 024 Discontinued lisinopriL (PRINIVIL; ZESTRIL) 5 mg tabletIndications: HTN (hypertension) Take 1 Tablet (5 mg) by mouth once daily. 90 Tablet 10/04/19 24 024 Discontinued(*I P Discontinued) oxyCODONE (ROXICODONE) 5 mg immediate release tabletIndications: Malignant neoplasm of pancreas metastatic to liver (HC) Take 1-2 Tablets (5-10 mg) by mouth every 4 hours if needed for Pain (For moderate to severe pain.). 60 Tablet 10/04/19 24 024 Discontinued metoprolol tartrate (LOPRESSOR) 50 mg tabletIndications: Atrial fibrillation with RVR (HC) Take 1 Tablet (50 mg) by mouth two times daily. 60 Tablet 10/04/19 24 024 Discontinued(Re order (E-cancel not sent)) apixaban (Eliquis) 5 mg tabletIndications: Atrial fibrillation with RVR (HC) Take 1 Tablet (5 mg) by mouth two times daily. 60 Tablet 10/07/19 24 024 Discontinued(Re order (E-cancel not sent)) hospital bedIndications:Mal ignant neoplasm of pancreas metastatic to liver (HC) Hospital bed with mattress and full rails. Semi-electric bed. Length of need 99 months. 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 5mg for pain 0-5/10, 10mg for pain 6-10/10 60 Tablet 10/07/19 24 024 Discontinued oxyCODONE (ROXICODONE) 5 mg immediate release tabletIndications: Malignant neoplasm of pancreas metastatic to liver (HC) Take 1-2 Tablets (5-10 mg) by mouth every 4 hours if needed for Pain (For moderate to severe pain.). 5mg for pain 0-5/10, 10mg for pain 6-10/10 60 Tablet 10/10/19 24 024 Discontinued(Re order (E-cancel not sent)) mirtazapine (REMERON) 7.5 mg tablet 10/15/19 024 Discontinued(Re order (E-cancel not sent)) Active Problems Problem Noted Date Diagnosed Date Malignant neoplasm of pancreas metastatic to ramin er 10/04/2023 Liver mass, right lobe 09/29/2023 Malignant neoplasm of pancreas 09/28/2023 Pancreatic mass 09/22/2023 Painless jaundice 09/22/2023 Nausea [...] Encounters Date Type Department Care Team Description 10/19/2023 Transcribe Orders [facility] [address] [place] [address] Stephenie Escobar MD 10/19/2023 Transcribe Orders [facility] [address] [place] [address] Margaret Townsend MD 10/18/2023 Refill [facility] [address] [place] [address] Chris Potter MD Refill Request (oxyCODONE (ROXICODONE) 5 mg immediate release tablet) 10/18/2023 Telephone [facility] [address] [place] [address] Chris Potter MD Appointment Request (Needs to be seen soon, getting a port installed for chemo) 10/16/2023 12:35 PM CDT Office Visit [facility] [address] [place] [address] Chris Potter MD Follow Up (Wants to get everything and everyone on the same page) 10/16/2023 Refill [facility] [address] [place] [address] Chris Potter MD Refill Request (Metoprolol Tartrate) 10/16/2023 Travel 10/13/2023 Telephone [facility] [address] [place] [address] Chris Potter MD Questions 10/10/2023 Lab Requisition [facility] [phone] Torsten Arias MD 09/30/2023 8:06 AM CDT Anesthesia Event [facility] [address] [place] [address] Misael Hdz MD [facility], [facility] 09/30/2023 7:45 AM CDT - 09/30/2023 10:05 AM CDT Surgery [facility] [address] [place] [address] Rafael Bertrand MBBS LAPAROSCOPY STAGING, 09/26/2023 Orders Only [facility] [address] [place] [address] Nadia Zapata PA 1 scan: (1-Ord) [facility], MR ABDOMEN WO/W, 09/22/2023 09/25/2023 3:25 PM CDT - 09/25/2023 4:45 PM CDT Surgery [facility] [address] [place] [address] Abner Argueta MD ENDOSCOPIC ULTRASOUND FINE NEEDLE ASPIRATE UPPER 09/25/2023 3:22 PM CDT Anesthesia Event [facility] [address] [place] [address] Hadley Fontaine MD 09/25/2023 Travel 09/22/2023 11:59 PM CDT Hospital Encounter [facility] [address] [place] [address] s, U Hospitalist Svc 09/22/2023 10:16 PM CDT - 10/10/2023 9:29 AM CDT Hospital Encounter [facility] [address] [place] [address] [facility] [place] [facility] [place], ROHAN Kendrick Valeed Ahmed, MD Nelson, Scott Gregory, MD Bowron, Ramone Vizcarra MD HTN (hypertension) (Primary Dx); Type 2 diabetes mellitus with diabetic polyneuropathy, with long-term current use of insulin (HC); Malignant neoplasm of pancreas metastatic to liver (HC); Atrial fibrillation with RVR (HC); Liver mass, right lobe; Diarrhea, unspecified type; Malignant neoplasm of pancreas, unspecified location of malignancy (HC) Discharge Disposition: [facility] Facility 09/21/2023 Telephone [facility] [address] [place] [address] Chris Potter MD Questions 09/21/2023 Telephone [facility] [address] [place] [address] Chris Potter MD Questions (follow up) 09/19/2023 3:30 PM CDT Ancillary Procedure [facility] [address] [place] [address] 09/19/2023 2:30 PM CDT Office Visit [facility] [address] [place] [address] Nadia Zapata PA Gi Problem (Can't eat or drink anything without feeling nauseated within 20 min. States he is down 40 lbs in last 6 weeks- has been trying tums and omeprazole with no improvement) 09/19/2023 Travel 09/01/2023 9:25 AM CDT Office Visit [facility] [address] [place] [address] Clarita Naranjo PA UTI 09/01/2023 Travel 08/31/2023 Telephone [facility] [address] [place] [address] Chris Potter MD Medication Management (YEAST INFECTION ) 08/13/2023 Refill [facility] [address] [place] [address] Chris Potter MD Refill Request (Metformin) 08/03/2023 Refill [facility] [address] [place] [address] Chris Potter MD Refill Request (Atorvastatin) 07/21/2023 4:05 PM CDT Office Visit [facility] [address] [place] [address] Chris Potter MD Diabetes 07/21/2023 Travel from Last 3 Months Immunizations Name Administration Dates Next Due COVID-19 vaccine (Phase [employer] Peripherals NTech 30mcg/0.3mL) 12YO+ CARLITOS-SUCROSE MILDRED MANRIQUE 07/05/2021,06/29/2020,06/08/2020 COVID-19 vaccine (Phase Focus-Bio NTech 30mcg/0.3mL) MILDRED MANRIQUE 03/03/2021 Influenza, High-dose [...] Sign Reading Time Taken Comments Blood Pressure 111/64 10/16/2023 12:50 PM CDT Pulse 87 10/16/2023 12:50 PM CDT Temperature 36.7 ??C (98.1 ??F) 10/10/2023 8:26 AM CD T Respiratory Rate 16 10/10/2023 8:26 AM CDT Oxygen Saturation 97% 10/16/2023 12:50 PM CDT Inhaled Oxygen Concentration - - Weight 110.2 kg (243 lb) 10/16/2023 12:50 PM CDT Height 185.4 cm (6' 1) 09/23/2023 6:01 AM CDT Body Mass Index 32.06 09/23/2023 6:01 AM CDT Plan of Treatment Upcoming Encounters Date Type Department Care Team (Late st Contact Info) Description 10/23/2023 10:45 AM CDT Preop Visit [facility] [address] [place] [address] Chris Potter MD [address] [place] [address] 10/23/2023 1:00 PM CDT Telemedicine [facility] [address] [place] [address] Annika Acosta MS, [facility] [address] [place] [address] 10/24/2023 2:00 PM CDT Office Visit [facility] [address] [place] [address] Torsten Mi MD [address] [address] 10/26/2023 9:30 AM CDT Office Visit [facility] at [facility] [address] [place] [address] Stephenie Escobar MD [address] [place] [address] 11/21/2023 10:55 AM CDT Office Visit [facility] [address] [place] [address] Chris Potter MD [address] [place] [address] Health Maintenance Due Date Last Done Comments [...] Completed 3 AAA screening age 65-74 Completed 09/29/19 24, 09/19/2023, 06/03/2019 ([facility] Zoster (shingles) series for age 50+ Discontinued Medical Devices Implanted Type Area Metal Products 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 Assembler Device Identifier Shelf Expiration Date Model / Serial / Lot Stent Biliary [id number] Viabil No Holes Metal - [id number] Implanted:Qty: 1 on 09/25/2023 by Abner Argueta MD at [facility] [employer] [id number] / / [id number] Description:Viabil 10x40 ear[address] dr argueta Procedures Procedure Name Priority Date/Time Associated Diagnosis Comments POTASSIUM Early AM 10/10/2023 7:48 AM CDT PLATELET COUNT Early AM 10/10/2023 7:48 AM CDT GLUCOSE METER Timed 10/10/2023 7:05 AM CDT GLUCOSE METER Timed 10/10/2023 2:50 AM CDT GLUCOSE METER Timed 10/09/2023 9:08 PM CDT GLUCOSE METER Timed 10/09/2023 4:41 PM CDT HEPATIC FUNCTION PANEL Add On 8:13 AM CDT CREATININE Early AM 10/09/2023 8:13 AM CDT POTASSIUM Early AM 10/09/2023 8:13 AM CDT SODIUM Early AM 10/09/2023 8:13 AM CDT PLATELET COUNT Early AM 10/09/2023 8:13 AM CDT GLUCOSE METER Timed 10/09/2023 1:56 AM CDT GLUCOSE METER Timed 10/08/2023 9:37 PM CDT GLUCOSE METER Timed 10/08/2023 6:07 PM CDT GLUCOSE METER Timed 10/08/2023 12:59 PM CDT GLUCOSE METER Timed 10/08/2023 7:44 AM CDT CREATININE Early AM 10/08/2023 7:23 AM CDT POTASSIUM Early AM 10/08/2023 7:23 AM CDT SODIUM Early AM 10/08/2023 7:23 AM CDT PLATELET COUNT Early AM 10/08/2023 7:23 AM CDT SCAN-CARDIAC STRIP 10/08/2023 6:09 AM CDT GLUCOSE METER Timed 10/08/2023 2:02 AM CDT GLUCOSE METER Timed 10/07/2023 9:29 PM CDT GLUCOSE METER Timed 10/07/2023 5:43 PM CDT GLUCOSE METER Timed 10/07/2023 3:00 PM CDT GLUCOSE METER Timed 10/07/2023 7:38 AM CDT CREATININE Early AM 10/07/2023 7:15 AM CDT POTASSIUM Early AM 10/07/2023 7:15 AM CDT SODIUM Early AM 10/07/2023 7:15 AM CDT PLATELET COUNT Early AM 10/07/2023 7:15 AM CDT SCAN-CARDIAC STRIP 10/07/2023 3:58 AM CDT SCAN-CARDIAC STRIP 10/07/2023 3:56 AM CDT GLUCOSE METER Timed 10/06/2023 9:12 PM CDT GLUCOSE METER Timed 10/06/2023 6:13 PM CDT GLUCOSE METER Timed 10/06/2023 12:09 PM CDT GLUCOSE METER Timed 10/06/2023 7:47 AM CDT SCAN-CARDIAC STRIP 10/06/2023 7:43 AM CDT CREATININE Early AM 10/06/2023 7:18 AM CDT POTASSIUM Early AM 10/06/2023 7:18 AM CDT SODIUM Early AM 10/06/2023 7:18 AM CDT PLATELET COUNT Early AM 10/06/2023 7:18 AM CDT SCAN-CARDIAC STRIP 10/06/2023 12:51 AM CDT GLUCOSE METER Timed 10/05/2023 8:47 PM CDT CLOSTRIDIOIDES DIFFICILE TOXIN PCR Today 10/05/2023 8:35 PM CDT STOOL PATHOGEN MULTIPLEX PCR PANEL Today 10/05/2023 8:35 PM CDT [facility] 84 Today 10/05/2023 8:35 PM CDT GLUCOSE METER Timed 10/05/2023 5:11 PM CDT SCAN-CARDIAC STRIP 10/05/2023 3:48 PM CDT GLUCOSE METER Timed 10/05/2023 11:34 AM CDT GLUCOSE METER Timed 10/05/2023 7:40 AM CDT CREATININE Early AM 10/05/2023 6:50 AM CDT POTASSIUM Early AM 10/05/2023 6:50 AM CDT SODIUM Early AM 10/05/2023 6:50 AM CDT HEPATIC FUNCTION PANEL Early AM 6:50 AM CDT PLATELET COUNT Early AM 10/05/2023 6:50 AM CDT SCAN-CARDIAC STRIP 10/05/2023 12:17 AM CDT GLUCOSE METER Timed 10/04/2023 9:19 PM CDT POTASSIUM Timed 10/04/2023 5:54 PM CDT GLUCOSE METER Timed 10/04/2023 5:41 PM CDT GLUCOSE METER Timed 10/04/2023 2:58 PM CDT GLUCOSE METER Timed 10/04/2023 12:11 PM CDT SCAN-CARDIAC STRIP 10/04/2023 10:57 AM CDT GLUCOSE METER Timed 10/04/2023 7:28 AM CDT HEMOGLOBIN Early AM 10/04/2023 7:28 AM CDT HEPATIC FUNCTION PANEL Early AM 7:28 AM CDT CREATININE Early AM 10/04/2023 7:28 AM CDT POTASSIUM Early AM 10/04/2023 7:28 AM CDT SODIUM Early AM 10/04/2023 7:28 AM CDT PLATELET COUNT Early AM 10/04/2023 7:28 AM CDT GLUCOSE METER Timed 10/04/2023 2:04 AM CDT SCAN-CARDIAC STRIP 10/04/2023 1:06 AM CDT GLUCOSE METER Timed 10/03/2023 9:37 PM CDT GLUCOSE METER Timed 10/03/2023 5:38 PM CDT GLUCOSE METER Timed 10/03/2023 11:49 AM CDT HEMOGLOBIN Today 10/03/2023 8:53 AM CDT HEPATIC FUNCTION PANEL Early AM 8:53 AM CDT CREATININE Early AM 10/03/2023 8:53 AM CDT POTASSIUM Early AM 10/03/2023 8:53 AM CDT SODIUM Early AM 10/03/2023 8:53 AM CDT PLATELET COUNT Early AM 10/03/2023 8:53 AM CDT SCAN-CARDIAC STRIP 10/03/2023 8:13 AM CDT GLUCOSE METER Timed 10/03/2023 7:47 AM CDT GLUCOSE METER Timed 10/03/2023 6:23 AM CDT GLUCOSE METER Timed 10/03/2023 1:50 AM CDT GLUCOSE METER Timed 10/02/2023 10:05 PM CDT SCAN-CARDIAC STRIP 10/02/2023 9:25 PM CDT GLUCOSE METER Timed 10/02/2023 5:11 PM CDT GLUCOSE METER Timed 10/02/2023 12:03 PM CDT GLUCOSE METER Timed 10/02/2023 7:35 AM CDT PLATELET COUNT Early AM 10/02/2023 7:29 AM CDT SCAN-CARDIAC STRIP 10/02/2023 7:15 AM CDT SCAN-CARDIAC STRIP 10/02/2023 4:42 AM CDT GLUCOSE METER Timed 10/01/2023 9:28 PM CDT GLUCOSE METER Timed 10/01/2023 8:29 PM CDT SCAN-CARDIAC STRIP 10/01/2023 7:57 PM CDT GLUCOSE METER Timed 10/01/2023 4:57 PM CDT GLUCOSE METER Timed 10/01/2023 1:57 PM CDT SCAN-CARDIAC STRIP 10/01/2023 11:06 AM CDT CREATININE Early AM 10/01/2023 8:07 AM CDT POTASSIUM Early AM 10/01/2023 8:07 AM CDT SODIUM Early AM 10/01/2023 8:07 AM CDT HEMOGLOBIN Early AM 10/01/2023 8:07 AM CDT PLATELET COUNT Early AM 10/01/2023 8:07 AM CDT GLUCOSE METER Timed 10/01/2023 7:27 AM CDT SCAN-CARDIAC STRIP 10/01/2023 4:33 AM CDT GLUCOSE METER Timed 09/30/2023 10:29 PM CDT SCAN-CARDIAC STRIP 09/30/2023 6:15 PM CDT GLUCOSE METER Timed 09/30/2023 5:04 PM CDT GLUCOSE METER Timed 09/30/2023 11:42 AM CDT PATH TISSUE EXAM Today 09/30/2023 9:12 AM CDT ENDOTRACHEAL TUBE Routine 09/30/2023 8:41 AM CDT ENDOTRACHEAL TUBE Routine 09/30/2023 8:41 AM CDT ENDOTRACHEAL TUBE Routine 09/30/2023 8:41 AM CDT ARTERIAL LINE Routine 09/30/2023 8:41 AM CDT ARTERIAL LINE Routine 09/30/2023 8:41 AM CDT ARTERIAL LINE Routine 09/30/2023 8:41 AM CDT ARTERIAL LINE Routine 09/30/2023 8:41 AM CDT BEDSIDE US STUDY ARCHIVE Routine 024 8:02 AM CDT INTRAOPERATIVE ULTRASOUND LIVER Class E Urgent 09/30/2023 7:46 AM CDT pancreas cancer, liver lesion, metatastic pancreatic cancer Case Notes ULTRASOUND LAPAROSCOPIC BIOPSY LIVER Class E Urgent 09/30/2023 7:46 AM CDT pancreas cancer, liver lesion, metatastic pancreatic cancer Case Notes ULTRASOUND LAPAROSCOPY STAGING Class E Urgent 09/30/2023 7:46 AM CDT pancreas cancer, liver lesion, metatastic pancreatic cancer Case Notes ULTRASOUND HEMOGLOBIN Early AM 09/30/2023 6:49 AM CDT PROTIME-INR Early AM 09/30/2023 6:49 AM CDT PLATELET COUNT Early AM 09/30/2023 6:49 AM CDT GLUCOSE METER Timed 09/30/2023 6:46 AM CDT SCAN-CARDIAC STRIP 09/30/2023 12:35 AM CDT GLUCOSE METER Timed 09/29/2023 9:49 PM CDT GLUCOSE METER Timed 09/29/2023 5:20 PM CDT TYPE & SCREEN Today 09/29/2023 4:29 PM CDT GLUCOSE METER Timed 09/29/2023 12:[address] ABDOMEN WO Routine 09/29/2023 11:18 AM CDT US ABDOMEN LIMITED Routine 09/29/2023 10:34 AM CDT SCAN-CARDIAC STRIP 09/29/2023 9:58 AM CDT GLUCOSE METER Timed 09/29/2023 8:37 AM CDT SCAN-CARDIAC STRIP 09/29/2023 7:13 AM CDT ALT (SGPT) Early AM 09/29/2023 3:34 AM CDT AST (SGOT) Early AM 09/29/2023 3:34 AM CDT BILIRUBIN,TOTAL Early AM 09/29/2023 3:34 AM CDT PROTIME-INR Early AM 09/29/2023 3:34 AM CDT HEMATOCRIT Early AM 09/29/2023 3:34 AM CDT HEMOGLOBIN Early AM 09/29/2023 3:34 AM CDT PLATELET COUNT Early AM 09/29/2023 3:34 AM CDT APTT Timed 09/29/2023 3:34 AM CDT GLUCOSE METER Timed 09/29/2023 2:07 AM CDT GLUCOSE METER Timed 09/28/2023 9:38 PM CDT SCAN-CARDIAC STRIP 09/28/2023 8:48 PM CDT SCAN-CARDIAC STRIP 09/28/2023 8:48 PM CDT APTT Timed 09/28/2023 8:03 PM CDT GLUCOSE METER Timed 09/28/2023 5:[address] SKULL BASE TO MID THIGH INITIAL TREAT Routine 09/28/2023 2:05 PM CDT GLUCOSE METER Timed 09/28/2023 11:19 AM CDT HEMOGLOBIN Today 09/28/2023 10:51 AM CDT MAGNESIUM Today 09/28/2023 10:51 AM CDT BASIC METABOLIC PANEL Timed 09/28/2023 10:51 AM CDT SCAN-CARDIAC STRIP 09/28/2023 10:00 AM CDT SCAN-CARDIAC STRIP 09/28/2023 9:59 AM CDT CREATININE OEF 09/28/2023 9:34 AM CDT BUN OFE 09/28/2023 9:34 AM CDT HEMATOCRIT OFE 09/28/2023 9:34 AM CDT HEMOGLOBIN OFE 09/28/2023 9:34 AM CDT PLATELET COUNT OFE 09/28/2023 9:34 AM CDT APTT OFE 09/28/2023 9:34 AM CDT PROTIME-INR OFE 09/28/2023 9:34 AM CDT EKG 12 LEAD STAT 09/28/2023 9:28 AM CDT ALT (SGPT) Today 09/28/2023 7:32 AM CDT AST (SGOT) Today 09/28/2023 7:32 AM CDT BILIRUBIN,TOTAL Today 09/28/2023 7:32 AM CDT EKG 12 LEAD STAT 09/28/2023 7:18 AM CDT SCAN-CARDIAC STRIP 09/28/2023 7:12 AM CDT GLUCOSE METER Timed 09/28/2023 7:02 AM CDT SCAN-CARDIAC STRIP 09/28/2023 3:35 AM CDT GLUCOSE METER Timed 09/28/2023 1:57 AM CDT SCAN-CARDIAC STRIP 09/27/2023 11:10 PM CDT SCAN-CARDIAC STRIP 09/27/2023 10:00 PM CDT GLUCOSE METER Timed 09/27/2023 9:43 PM CDT SCAN-CARDIAC STRIP 09/27/2023 6:45 PM CDT GLUCOSE METER Timed 09/27/2023 5:18 PM CDT GLUCOSE METER Timed 09/27/2023 12:25 PM CDT GLUCOSE METER Timed 09/27/2023 10:57 AM CDT SCAN-CARDIAC STRIP 09/27/2023 9:54 AM CDT GLUCOSE METER Timed 09/27/2023 8:46 AM CDT GLUCOSE METER Timed 09/27/2023 7:53 AM CDT HEPATIC FUNCTION PANEL Early AM 6:33 AM CDT SCAN-CARDIAC STRIP 09/27/2023 5:29 AM CDT GLUCOSE METER Timed 09/26/2023 9:49 PM CDT GLUCOSE METER Timed 09/26/2023 5:09 PM CDT GLUCOSE METER Timed 09/26/2023 11:55 AM CDT SCAN-CARDIAC STRIP 09/26/2023 11:50 AM CDT SCAN-CARDIAC STRIP 09/26/2023 7:35 AM CDT GLUCOSE METER Timed 09/26/2023 6:49 AM CDT SCAN-CARDIAC STRIP 09/25/2023 9:56 PM CDT GLUCOSE METER Timed 09/25/2023 9:31 PM CDT GLUCOSE METER Timed 09/25/2023 6:44 PM CDT SCAN-CARDIAC STRIP 09/25/2023 6:33 PM CDT XR ERCP BILIARY ONLY Routine 09/25/2023 4:38 PM CDT ENDOTRACHEAL TUBE Routine 09/25/2023 3:42 PM CDT ENDOTRACHEAL TUBE Routine 09/25/2023 3:42 PM CDT PATH FNA CYTOLOGY ASP CYTOLOGY Today 09/25/2023 3:41 PM CDT ENDOSCOPIC RETROGRADE CHOLANGIOPANCREATOGRAPHY WITH SPHINCTEROTOMY AND STENT PLACEMENT 09/25/2023 3:12 PM CDT See MD note ENDOSCOPIC ULTRASOUND FINE NEEDLE ASPIRATE UPPER 09/25/2023 3:12 PM CDT See MD note ENDOSCOPY 09/25/2023 3:10 PM CDT ENDOSCOPY 09/25/2023 3:09 PM CDT GLUCOSE METER Timed 09/25/2023 1:51 PM CDT GLUCOSE METER Timed 09/25/2023 12:05 PM CDT SCAN-CARDIAC STRIP 09/25/2023 9:55 AM CDT GLUCOSE METER Timed 09/25/2023 6:09 AM CDT GLUCOSE METER Timed 09/24/2023 9:14 PM CDT SCAN-CARDIAC STRIP 09/24/2023 7:50 PM CDT GLUCOSE METER Timed 09/24/2023 4:20 PM CDT SCAN-CARDIAC STRIP 09/24/2023 4:14 PM CDT GLUCOSE METER Timed 09/24/2023 11:56 AM CDT GLUCOSE METER Timed 09/24/2023 7:40 AM CDT SCAN-CARDIAC STRIP 09/24/2023 7:27 AM CDT SCAN-CARDIAC STRIP 09/24/2023 12:14 AM CDT GLUCOSE METER Timed 09/23/2023 9:02 PM CDT GLUCOSE METER Timed 09/23/2023 5:48 PM CDT SCAN-CARDIAC STRIP 09/23/2023 4:02 PM CDT ECHO TTE COMPLETE W CONTRAST Routine 11:22 AM CDT GLUCOSE METER Timed 09/23/2023 11:08 AM CDT CA 19-9 Early AM 09/23/2023 8:40 AM CDT LIPASE Early AM 09/23/2023 8:40 AM CDT TSH Early AM 09/23/2023 8:40 AM CDT HEPATIC FUNCTION PANEL Early AM 8:40 AM CDT BASIC METABOLIC PANEL Early AM 09/23/2023 8:40 AM CDT CBC W PLT NO DIFF Early AM 09/23/2023 8:40 AM CDT SCAN-CARDIAC STRIP 09/23/2023 7:34 AM CDT GLUCOSE METER Timed 09/23/2023 7:12 AM CDT SCAN-CARDIAC STRIP 09/23/2023 1:13 AM CDT GLUCOSE METER Timed 09/23/2023 12:41 AM CDT EKG 12 LEAD Routine 09/22/2023 11:13 PM CDT MR ABDOMEN MRCP PANCREAS WWO STAT 12:00 AM CDT Biliary obstruction Elevated pancreatic enzyme Elevated liver enzymes Calculus of gallbladder with biliary obstruction but without cholecystitis Pancreatic cyst SCAN-CARDIAC STRIP 09/22/2023 12:[address] ABDOMEN PELVIS WO OFE 09/19/2023 3:52 PM CDT Unintentional weight loss Nausea CREATININE,ISTAT Routine 09/19/2023 3:06 PM CDT Observation or evaluation for suspected condition CBC WITH AUTO DIFFERENTIAL Routine 09/18 2:56 PM CDT Nausea TSH Routine 09/19/2023 2:56 PM CDT Unintentional weight loss C-REACTIVE PROTEIN Routine 09/19/2023 2:56 PM CDT Nausea LIPASE Routine 09/19/2023 2:56 PM CDT Nausea COMP METABOLIC PANEL Routine 09/19/2023 2:56 PM CDT Nausea CBC WITH AUTO DIFFERENTIAL Routine 09/18 2:56 PM CDT Nausea URINE CULTURE Add On 09/01/2023 9:16 AM CDT Lower urinary tract symptoms (LUTS) URINALYSIS MICROSCOPIC Routine 9:16 AM CDT Lower urinary tract symptoms [...] Relevant to Health Maintenance Results * (ABNORMAL) PLATELET COUNT (10/10/2023 7:48 AM CDT) Only the most recent of13 resultswithin the time period is included. PLATELET COUNT 293 140 - 440 thou/cu mm 10/10/2023 8:29 AM CDT [facility] MPV 11.5(H) 6.5 - 11.0 fL 10/10/2023 8:29 AM CDT [facility] Blood BLOOD SPECIMEN / Unknown Venipuncture / Unknown 10/10/2023 7:48 AM CDT 10/10/2023 8:07 AM CDT Narrative [facility] - 10/10/2023 8:29 AM CDT Necessary every morning while on IV heparin. Josef MADRIGAL HEMATOLOGY Performing Organization Address City/[facility]/ZIP Co de Phone Number [facility] [address] [place] [address], * POTASSIUM (10/10/2023 7:48 AM CDT) Only the most recent of10 resultswithin the time period is included. Pathologist [facility] POTASSIUM 4.1 3.5 - 5.1 mmol/L 10/10/2023 8:45 AM CDT [facility] Blood BLOOD SPECIMEN / Unknown Venipuncture / Unknown 10/10/2023 7:48 AM CDT 10/10/2023 8:07 AM CDT Charles Dean RN CHEMISTRY Performing Organization Address City/[facility]/ZIP Co de Phone Number [facility] [address] [place] [address], [place] * (ABNORMAL) GLUCOSE METER (10/10/2023 7:05 AM CDT) Only the most recent of81 resultswithin the time period is included. GLUCOSE METER 161(H) 65 - 100 mg/dL 10/10/2023 7:06 AM CDT [facility] Blood BLOOD SPECIMEN / Unknown 10/10/2023 7:05 AM CDT 10/10/2023 7:06 AM CDT Ramone Estrada MD CHEMISTRY Performing Organization Address City/[facility]/ZIP Co de Phone Number [facility] [address] [place] [address], [place] * SODIUM (10/09/2023 8:13 AM CDT) Only the most recent of8 resultswithin the time period is included. SODIUM 137 136 - 145 mmol/L 10/09/2023 9:04 AM CDT [facility] Blood BLOOD SPECIMEN / Unknown Venipuncture / Unknown 10/09/2023 8:13 AM CDT 10/09/2023 8:20 AM CDT Ramone Estrada MD CHEMISTRY Performing Organization Address City/[facility] Co de Phone Number [facility] [address] [place] [address], [place] * (ABNORMAL) CREATININE (10/09/2023 8:13 AM CDT) Only the most recent of9 resultswithin the time period is included. eGFR >90 >90 mL/min/1.7 3m2 10/09/2023 9:04 AM CDT [facility] Comment:As of 2021, eG FR is calculated by the CKD-EPI creatinine equation without race adjustment. ??eGFR can be influenced by muscle mass, exercise, and diet. ??The reported eGFR is an estimation only and is only applicable if the renal function is stable. CREATININE 0.67(L) 0.70 - 1.20 mg/dL 10/09/2023 9:04 AM CDT [facility] Blood BLOOD SPECIMEN / Unknown Venipuncture / Unknown 10/09/2023 8:13 AM CDT 10/09/2023 8:20 AM CDT Ramone Estrada MD CHEMISTRY [facility] [address] [place] [address], * (ABNORMAL) Hepatic function panel FOR ADD ON (10/09/2023 8:13 AM CDT) Only the most recent of6 resultswithin the time period is included. ALBUMIN 2.3(L) 4.0 - 4.9 g/dL 10/09/2023 2:26 PM CDT [facility] PROTEIN,TOTAL 5.9(L) 6.0 - 8.0 g/dL 10/09/2023 2:26 PM CDT [facility] BILIRUBIN,TOTAL 1.0 0.0 - 1.2 mg/dL 10/09/2023 2:26 PM CDT [facility] BILIRUBIN,DIRECT 0.7(H) 0.0 - 0.3 mg/dL 10/09/2023 2:26 PM CDT [facility] BILIRUBIN,INDIRE CT 0.3 0.2 - 0.8 mg/dL 10/09/2023 2:26 PM CDT [facility] ALK PHOSPHATASE 254(H) 40 - 129 IU/L 10/09/2023 2:26 PM CDT [facility] ALT (SGPT) 44 10 - 50 IU/L 10/09/2023 2:26 PM CDT [facility] AST (SGOT) 50 10 - 50 IU/L 10/09/2023 2:26 PM CDT [facility] Blood BLOOD SPECIMEN / Unknown Venipuncture / Unknown 10/09/2023 8:13 AM CDT 10/09/2023 8:20 AM CDT Ramone Estrada MD CHEMISTRY [facility] [address] [place] [address], * SCAN-CARDIAC STRIP (10/08/2023 6:09 AM CDT) Scanner OTHER * SCAN-CARDIAC STRIP (10/07/2023 3:58 AM CDT) Scanner OTHER * SCAN-CARDIAC STRIP (10/07/2023 3:56 AM CDT) Scanner OTHER * SCAN-CARDIAC STRIP (10/06/2023 7:43 AM CDT) Scanner OTHER * SCAN-CARDIAC STRIP (10/06/2023 12:51 AM CDT) Scanner OTHER * stool pathogen multiplex PCR (10/05/2023 8:35 PM CDT) Campylobacter NOT Detected NOT Detected 10/06/2023 1:23 PM CDT [facility] Salmonella NOT Detected NOT Detected 10/06/2023 1:23 PM CDT [facility] Shigella NOT Detected NOT Detected 10/06/2023 1:23 PM CDT [facility] Vibrio NOT Detected NOT Detected 10/06/2023 1:23 PM CDT [facility] Yersinia Enterocolitica NOT Detected NOT Detected 10/06/2023 1:23 PM CDT [facility] Shiga Toxin 1 NOT Detected NOT Detected 10/06/2023 1:23 PM CDT [facility] Shiga Toxin 2 NOT Detected NOT Detected 10/06/2023 1:23 PM CDT [facility] Norovirus NOT Detected NOT Detected 10/06/2023 1:23 PM CDT [facility] Rotavirus NOT Detected NOT Detected 10/06/2023 1:23 PM CDT [facility] Stool STOOL SPECIMEN / Unknown Non-Blood / Unknown 10/05/2023 8:35 PM CDT 10/05/2023 8:46 PM CDT Narrative [facility] - 10/06/2023 1:23 PM CDT This test is a Culture Independent Diagnostic Test (CIDT) therefore isolates are not available for susceptibility testing. ??Antibiotic treatment is often contraindicated and may be detrimental in cases of enteric infections, thus routine susceptibility testing is not recommended. Ramone Estrada MD MICROBIOLOGY Performing Organization Address [facility] Co de Phone Number [facility] [address] [place] [address], * (ABNORMAL) PANCREATIC ELASTASE FECAL (10/05/2023 8:35 PM CDT) Pancreatic Elast Fecal 138(L) >200 ug Elast./g 10/13/2023 2:09 PM CDT [facility] Comment: ? Severe Pancreatic Insufficiency: ?<100 ? Moderate Pancreatic Insufficiency: ?? 100 - 200 ? Normal: ? >200 Stool STOOL SPECIMEN / Unknown Non-Blood / Unknown 10/05/2023 8:35 PM CDT 10/05/2023 8:45 PM CDT Narrative [facility] - 10/13/2023 2:09 PM CDT Performed at: ??[address] ??[id number] [employer] Operator: Yvon Sexton MD, Phone: ??[phone] Denton Smallwood MD MICROBIOLOGY Performing Organization Address [facility] Co de Phone Number [facility] [address] [place] [address], * CLOSTRIDIOIDES DIFFICILE TOXIN PCR (10/05/2023 8:35 PM CDT) CLOSTRIDIUM DIFFICILE PCR Negative 10/05/2023 9:50 PM CDT [facility] PRESUMPTIVE NAP1 STRAIN Negative 10/05/2023 9:50 PM CDT [facility] Stool STOOL SPECIMEN / Unknown Non-Blood / Unknown 10/05/2023 8:35 PM CDT 10/05/2023 8:45 PM CDT Narrative [facility] - 10/05/2023 9:50 PM CDT The NAP1 (027 or BI) strain is a hypervirulent strain. Detection may be useful for epidemiological purposes. Ramone Estrada MD MICROBIOLOGY [facility] [address] [place] [address], * SCAN-CARDIAC STRIP (10/05/2023 3:48 PM CDT) Scanner OTHER * SCAN-CARDIAC STRIP (10/05/2023 12:17 AM CDT) Scanner OTHER * SCAN-CARDIAC STRIP (10/04/2023 10:57 AM CDT) Scanner OTHER * (ABNORMAL) Hemoglobin AM (10/04/2023 7:28 AM CDT) Only the most recent of7 resultswithin the time period is included. Pathologist [facility] HEMOGLOBIN 10.6(L) 13.5 - 17.5 g/dL 10/04/2023 8:12 AM CDT [facility] MCV 83 80 - 100 fL 10/04/2023 8:12 AM CDT [facility] Blood BLOOD SPECIMEN / Unknown Venipuncture / Unknown 10/04/2023 7:28 AM CDT 10/04/2023 7:46 AM CDT Narrative [facility] - 10/04/2023 8:12 AM CDT Necessary every morning while on IV heparin. Ramone Estrada MD HEMATOLOGY [facility] [address] [place] [address], * SCAN-CARDIAC STRIP (10/04/2023 1:06 AM CDT) Scanner OTHER * SCAN-CARDIAC STRIP (10/03/2023 8:13 AM CDT) Scanner OTHER * SCAN-CARDIAC STRIP (10/02/2023 9:25 PM CDT) Scanner OTHER * SCAN-CARDIAC STRIP (10/02/2023 7:15 AM CDT) Scanner OTHER * SCAN-CARDIAC STRIP (10/02/2023 4:42 AM CDT) Scanner OTHER * SCAN-CARDIAC STRIP (10/01/2023 7:57 PM CDT) Scanner OTHER * SCAN-CARDIAC STRIP (10/01/2023 11:06 AM CDT) Scanner OTHER * SCAN-CARDIAC STRIP (10/01/2023 4:33 AM CDT) Scanner OTHER * SCAN-CARDIAC STRIP (09/30/2023 6:15 PM CDT) Scanner OTHER * PATH TISSUE EXAM (09/30/2023 9:12 AM CDT) Case Report Pathology Report ?Case: [id number] ? Authorizing Provider: ??Elza, Rafael Gray, ?? Collected: ? 09/30/2023 0912 ? MBBS ? Ordering Location: ? [facility] ?Received: ?09/30/2023 0925 ? Hospital ? Pathologist: ? [place], Chris Sandor ? IV, MD ? Specimens: ?? A) - Liver Segment 8, Liver segment VIII wedge; rule out metastases ? B) - Liver Segment 2, Liver segment 2 wedge; rule out metastases ? C) - Liver Segment 8, Wedge #2; margin is inked for frozen ? 4 4:56 PM CDT [facility] Final Diagnosis A) LIVER, SEGMENT 8, SUB-SEGMENTECTOMY: 1. Metastatic poorly differentiated adenocarcinoma consistent with origin from the patient's known pancreatic primary: ?? a. Single 0.4 cm focus ?? b. Margin: Negative 2. Background liver shows changes consistent with downstream partial bile duct obstruction, negative for primary and chronic ?? liver disease B) LIVER, SEGMENT 2, SUB-SEGMENTECTOMY: 1. Metastatic poorly differentiated adenocarcinoma consistent with origin from the patient's known pancreatic primary: ?? a. Single 1.2 cm focus ?? b. Margin: Positive 2. Background liver shows changes consistent with downstream partial bile duct obstruction, negative for primary and chronic ?? liver disease C) LIVER, SEGMENT 8, SUB-SEGMENTECTOMY: 1. Negative for malignancy 2. Changes consistent with downstream partial bile duct obstruction, negative for primary and chronic ?? liver disease 4 4:56 PM T [facility] Comment Formalin-fixed, paraffin-embedded tissue is available for ancillary studies, to request please contact the [facility] ([phone]). Neoplastic tissue available for ancillary studies: ?? [facility] NGS testing: ?- FFPE tissue blocks: B1 and B2 ?- Cytology slides: No cytology slides prepared from this specimen ?? Tests using immunostains and/or FISH (requiring 100 cells): B1 and B2 ?? Send out (outside vendor) testing requiring 5 x 5 mm of tumor: B1 and B2 4 4:56 PM T [facility] Clinical Information Mr. Guzman is a 68 y.o. who presents with a history of pancreatic adenocarcinoma now undergoes staging laparoscopy. PROCEDURE PERFORMED: 1. ??Staging laparoscopy, Intraoperative ultrasound of the liver. 2. ??Laparoscopic segment VIII sub-segmentectomy x 2. 3. ??Laparoscopic segment II sub-segmentectomy. His diagnostic biopsy was performed on 09/25/2023 ([facility] pathology ). 4:56 PM T [facility] Gross Description A) Received fresh labeled with the patient's name and liver segment 8 wedge, rule out metastasis, is a 1.7 x 1.5 x 0.6 cm wedge of ocasio-brown soft tissue which is sectioned to reveal a 0.4 x 0.4 x 0.2 cm ocasio nodule. ??The nodule is sampled for frozen microscopy on 1 block. Entirely submitted: 1. ??Frozen section remnant 2. ??Remainder B) Received fresh labeled with the patient's name and liver segment 2 wedge, rule out metastasis, is a 2 x 2 x 0.5 cm wedge of ocasio-brown soft tissue which is sectioned to reveal a 1.2 x 1 x 0.6 cm red-ocasio nodule. ??The nodule is sampled for frozen microscopy in 1 block. Entirely submitted: 1. ??Frozen section remnant 2. ??Remainder C) Received fresh for routine examination per the surgeon, labeled with the patient's name and liver segment 8 wedge #2, margin is inked for frozen, is a 1.6 x 1.1 x 0.6 cm wedge of soft tissue. ??It has been previously inked blue by the surgeon and black on the margin in pathology. ??A discrete lesion is not seen on the cut surfaces. Entirely submitted: 1. ??2 sections with inked capsule 2. ??Remainder DPL 10/02/2023 4 4:56 PM T [facility] Intraoperative Consultation A) LIVER, SEGMENT VIII, WEDGE BIOPSY, INTRAOPERATIVE CONSULTATION WITH FROZEN SECTION(S): [Number of frozen sections prepared: 1] 1. Positive for metastatic adenocarcinoma, favor pancreaticobiliary B) LIVER, SEGMENT 2, WEDGE BIOPSY, INTRAOPERATIVE CONSULTATION WITH FROZEN SECTION(S): [Number of frozen sections prepared: 1] 1. Positive for metastatic adenocarcinoma, favor pancreaticobiliary Tanisha Gomez MD, 09/30/2023 9:40 AM ??Intraoperative consultation, which may have included frozen section preparation, gross specimen examination, and/or cytology touch imprints/smears, was performed by a pathologist during the surgical procedure. ??This testing was performed at: [facility] ?? [address] [address] 4 4:56 PM CDT [facility] Microscopic Description The final diagnosis is based on microscopic examination of appropriate sections of all specimens. 4 4:56 PM CDT [facility] Additional Information Interpreted at [facility] - [address], [place] [address] 4 4:56 PM CDT [facility] Tissue (Liver Segment 8) 09/30/2023 9:12 AM CDT 09/30/2023 9:25 AM CDT Tissue specimen (specimen) (Liver Segment 2) 09/30/2023 9:15 AM CDT 09/30/2023 9:25 AM CDT Tissue specimen (specimen) (Liver Segment 8) 09/30/2023 9:25 AM CDT 09/30/2023 9:35 AM CDT Rafael MADRIGAL PATHOLOGY/CY TOLOGY Performing Organization Address City/State/[facility] Co de Phone Number [facility] [address] [place] [address], * HCHG TUBE PR1, HCHG STYLET PR1, HCHG MOUTHPIECE PR1 (09/30/2023 8:41 AM CDT) Narrative Arnie Day CRNA - 09/30/2023 8:41 AM CDT Arnie Day CRNA ? 09/30/2023 ??8:42 AM Procedure: ETT Patient location during procedure: OR ETT Properties Mask Ventilation: easy Final Technique: direct laryngoscopy Type: straight Location: oral Cuffed: yes Tube Size: 7.5 mm Stylet: yes Laryngoscope Blade: Del Angel Blade Size: 2 Cormack-Lehane Grade View: 1 Insertion Attempts: 2 Placement Verification: auscultation and end tidal CO2 Assessment: pharynx clear, atraumatic and dentition unchanged Measured From: teeth Tooth guard used and removed: yes Bite Block: oral airway Difficulty: 1 (somewhat) Misael Hdz MD ANESTHESIA PX NOTE O RDERABLES * HCHG TUBING PR1, HCHG TUBING PR20, HCHG DRSG PR1, HCHG KIT PR5 (09/30/2023 8:41 AM CDT) Narrative Misael Hdz MD - 09/30/2023 8:41 AM CDT Misael Hdz MD ? 09/30/2023 ??8:41 AM Arterial Line Patient location during procedure: OR Start time: 09/30/2023 8:22 AM End time: 09/30/2023 8:25 AM Indications: monitoring Staffing Preanesthetic Checklist Completed: patient identified, risks and benefits discussed, consent obtained and timeout performed Arterial Line Patient position: supine. ??Comment:. Laterality: left Site: radial Securement/dressing: dressing applied. ??Comment: Supplemental O2: supplemental oxygen. ??Comment:. Vessel French Binding Folder Additional supplies used to locate vessel: no Needle Catheter size: 20 G. ??Comment:. Events: no complications. Misael Hdz MD ANESTHESIA PX NOTE O RDERABLES * (ABNORMAL) INR AM (09/30/2023 6:49 AM CDT) Only the most recent of3 resultswithin the time period is included. INR 1.3(H) <1.3 09/30/2023 7:35 AM CDT [facility] PROTIME 14.5(H) 10.3 - 12.3 sec 09/30/2023 7:35 AM CDT [facility] Blood BLOOD SPECIMEN / Unknown Venipuncture / Unknown 09/30/2023 6:49 AM CDT 09/30/2023 6:59 AM CDT Narrative [facility] - 09/30/2023 7:35 AM CDT ?Therapeutic Range 2.0-3.0 for most anticoagulated patients 2.5-3.5 or 4.0 for high risk patients The INR is only used for patients on stable oral anticoagulant therapy. It makes no significant contribution to the diagnosis or treatment of patients whose Protime is prolonged for other reasons. INR results are increased when heparin levels exceed 1.0 U/mL, which corresponds to an aPTT >125 seconds if the patient is on UFH. Josef PAIZ HEMATOLOGY Performing Organization Address City/[facility]/ZIP Co de Phone Number [facility] [address] [place] [address], [place] * SCAN-CARDIAC STRIP (09/30/2023 12:35 AM CDT) Scanner OTHER * TYPE & SCREEN (09/29/2023 4:29 PM CDT) Pathologist [facility] ABORH B Rh Positive 09/29/2023 5:23 PM CDT [facility] [employer] [facility] BLOOD BANK ANTIBODY SCREEN Negative Negative 09/29/2023 5:23 PM CDT [facility] SPECIMEN EXPIRATION DATE/TIME 10/02/23 23:59 09/29/2023 5:23 PM CDT [facility] Blood BLOOD SPECIMEN / Unknown Venipuncture / Unknown 09/29/2023 4:29 PM CDT 09/29/2023 4:37 PM CDT Ashley HOYOS BLOOD BANK Performing Organization Address [facility] Co de Phone Number [facility] [address] [place] [address], [place] [phone] * CT ABDOMEN WO (09/29/2023 11:18 AM CDT) Anatomical Region Laterality Modality Abdomen, Pelvis, AORTA, LIVER, SPLEEN Computed Tomography 09/29/2023 1:50 PM CDT Impressions 09/29/2023 1:50 PM CDT 1. Targeted lesion within the right lobe of the liver could not be adequately visualized by CT. Therefore, the procedure was aborted. Of note, ultrasound performed earlier in the day could not adequately identify the lesion either. No other suspicious lesions were seen. 2. Moderate sedation planned and used. 3. Results discussed with Ashley Issa at the conclusion of the exam. Please note that all CT scans at this facility use dose modulation, iterative reconstruction, and/or weight-based dosing when appropriate to reduce radiation dose to as low as reasonably achievable. Dictated by Zain Batista MD @ 09/29/2023 1:50:33 PM (Electronically Signed) Narrative 09/29/2023 1:50 PM CDT For Patients: ??As a result of the Century Cures Act, medical imaging exams and procedure reports are released immediately into your electronic medical record. ??You may view this report before your referring provider. ??If you have questions, please contact your health care provider. INDICATION: Pancreatic cancer with liver masses. Biopsy of liver mass requested. Unable to visualize using ultrasound. TECHNIQUE: CT abdomen without IV contrast. COMPARISON: Ultrasound 09/21/2023. PET-CT scan 09/28/2023. Outside MRI 09/22/2023. CT of the abdomen and pelvis 09/19/2023. FINDINGS: In my discussion, prior to the signing of the consent, I reviewed the procedure, benefits, risks, long-term effects, treatment options, possible use of pain or sedation medications, and how the procedure will meet the treatment goal with the patient. The patient was given ample time to ask questions. All questions were answered. ?? MEDICATION GIVEN: VERSED 1.5 mg IV and FENTANYL 75 mcg IV. Lidocaine for local anesthesia. ?? MODERATE SEDATION: ??Under physician supervision, midazolam and fentanyl were administered intravenously for moderate sedation. Pulse oximetry, heart rate, and blood pressure were continuously monitored by a trained, dedicated nurse. The physician who performed the procedure provided 51 minutes of intra-service time with the patient. The patient was placed in RPO position and localizing CT images were obtained without IV contrast. Pneumobilia was seen. The targeted liver lesion could not be adequately visualized on this noncontrast study. I discussed giving IV contrast with the patient. I discussed the limitations in that localization would be temporary with IV contrast. As the lesion could not be adequately visualized, the procedure was aborted. Procedure Note Zain Batista MD - 09/29/2023 For Patients: As a result of the 21st Century Cures Act, medical imagingexams and procedure reports are released immediately into your electronicmedical record. You may view this report before your referring provider.If you have questions, please contact your health care provider. INDICATION: Pancreatic cancer with liver masses. Biopsy of liver mass requested.Unable to visualize using ultrasound. TECHNIQUE: CT abdomen without IV contrast. COMPARISON: Ultrasound 09/21/2023. PET-CT scan 09/28/2023. Outside MRI 09/22/2023. CTof the abdomen and pelvis 09/19/2023. FINDINGS: In my discussion, prior to the signing of the consent, I reviewed theprocedure, benefits, risks, long-term effects, treatment options, possibleuse of pain or sedation medications, and how the procedure will meet thetreatment goal with the patient. The patient was given ample time to askquestions. All questions were answered. MEDICATION GIVEN: VERSED 1.5 mg IV and FENTANYL 75 mcg IV. Lidocaine forlocal anesthesia. MODERATE SEDATION: Under physician supervision, midazolam and fentanylwere administered intravenously for moderate sedation. Pulse oximetry,heart rate, and blood pressure were continuously monitored by a trained,dedicated nurse. The physician who performed the procedure provided 51minutes of intra-service time with the patient. The patient was placed in RPO position and localizing CT images wereobtained without IV contrast. Pneumobilia was seen. The targeted liverlesion could not be adequately visualized on this noncontrast study. Idiscussed giving IV contrast with the patient. I discussed the limitationsin that localization would be temporary with IV contrast. As the lesioncould not be adequately visualized, the procedure was aborted. IMPRESSION: 1. Targeted lesion within the right lobe of the liver could not beadequately visualized by CT. Therefore, the procedure was aborted. Ofnote, ultrasound performed earlier in the day could not adequatelyidentify the lesion either. No other suspicious lesions were seen. 2. Moderate sedation planned and used. 3. Results discussed with Ashley Issa at the conclusion of the exam. Please note that all CT scans at this facility use dose modulation,iterative reconstruction, and/or weight-based dosing when appropriate toreduce radiation dose to as low as reasonably achievable. Dictated by Zain Batista MD @ 09/29/2023 1:50:33 PM (Electronically Signed) Manav HOYOS CT * US ABDOMEN LIMITED (09/29/2023 10:34 AM CDT) Anatomical Region Laterality Modality Abdomen, LIVER, KIDNEYS, PANCREAS, GALLBLADDER, SPLEEN Ultrasound 09/29/2023 10:4 5 AM CDT Narrative 09/29/2023 10:45 AM CDT For Patients: ??As a result of the Cures Act, medical imaging exams and procedure reports are released immediately into your electronic medical record. ??You may view this report before your referring provider. ??If you have questions, please contact your health care provider. INDICATION: Pancreatic cancer with suspicious liver lesion. Biopsy of the liver lesion requested. TECHNIQUE: Ultrasound abdomen limited. COMPARISON: Outside MRI 09/22/2023. PET-CT scan 09/28/2023. CT of the abdomen and pelvis 09/19/2023. FINDINGS : With the patient in supine and LPO positions, ultrasound evaluation was performed. The targeted lesion within the right lobe of the liver could not be confidently identified. Will attempt under CT guidance. Dictated by Zain Batista MD @ 09/29/2023 10:45:27 AM (Electronically Signed) Procedure Note Zain Batista MD - 09/29/2023 For Patients: As a result of the Cures Act, medical imagingexams and procedure reports are released immediately into your electronicmedical record. You may view this report before your referring provider.If you have questions, please contact your health care provider. INDICATION: Pancreatic cancer with suspicious liver lesion. Biopsy of the liver lesionrequested. TECHNIQUE: Ultrasound abdomen limited. COMPARISON: Outside MRI 09/22/2023. PET-CT scan 09/28/2023. CT of the abdomen andpelvis 09/19/2023. FINDINGS : With the patient in supine and LPO positions, ultrasound evaluation wasperformed. The targeted lesion within the right lobe of the liver couldnot be confidently identified. Will attempt under CT guidance. Dictated by Zain Batista MD @ 09/29/2023 10:45:27 AM (Electronically Signed) Manav HOYOS US * SCAN-CARDIAC STRIP (09/29/2023 9:58 AM CDT) Scanner OTHER * SCAN-CARDIAC STRIP (09/29/2023 7:13 AM CDT) Scanner OTHER * (ABNORMAL) HEMATOCRIT (09/29/2023 3:34 AM CDT) Only the most recent of2 resultswithin the time period is included. HEMATOCRIT 34.0(L) 37.0 - 53.0 % 09/29/2023 3:52 AM CDT [facility] Blood BLOOD SPECIMEN / Unknown Butterfly / Unknown 09/29/2023 3:34 AM CDT 09/29/2023 3:49 AM CDT Narrative [facility] - 09/29/2023 3:52 AM CDT Every morning while on IV heparin. Every morning while on IV heparin. Necessary every morning while on IV heparin. Rachaelflromi Teran [facility] Performing Organization Address [facility] Co de Phone Number [facility] [address] [place] [address], * (ABNORMAL) Bilirubin, total AM (09/29/2023 3:34 AM CDT) Only the most recent of2 resultswithin the time period is included. BILIRUBIN,TOTA L 2.3(H) 0.0 - 1.2 mg/dL 09/29/2023 4:23 AM CDT [facility] Blood BLOOD SPECIMEN / Unknown Butterfly / Unknown 09/29/2023 3:34 AM CDT 09/29/2023 3:49 AM CDT Rachaelflromi Teran [facility] Performing Organization Address [facility] Co de Phone Number [facility] [address] [place] [address], * (ABNORMAL) APTT (09/29/2023 3:34 AM CDT) Only the most recent of3 resultswithin the time period is included. APTT 75(H) 28 - 36 sec 09/29/2023 4:01 AM CDT [facility] Blood BLOOD SPECIMEN / Unknown Butterfly / Unknown 09/29/2023 3:34 AM CDT 09/29/2023 3:49 AM CDT Narrative [facility] - 09/29/2023 4:01 AM CDT Therapeutic Range: 57-87 seconds Susan [facility] Performing Organization Address City/[facility]/ZIP Co de Phone Number [facility] [address] [address], [place] * (ABNORMAL) ALT AM (09/29/2023 3:34 AM CDT) Only the most recent of2 resultswithin the time period is included. ALT (SGPT) 125(H) 10 - 50 IU/L 09/29/2023 4:23 AM CDT [facility] Blood BLOOD SPECIMEN / Unknown Butterfly / Unknown 09/29/2023 3:34 AM CDT 09/29/2023 3:49 AM CDT Josef [facility] [address] [place] [address], [place] * (ABNORMAL) AST AM (09/29/2023 3:34 AM CDT) Only the most recent of2 resultswithin the time period is included. AST (SGOT) 101(H) 10 - 50 IU/L 09/29/2023 4:23 AM CDT [facility] Blood BLOOD SPECIMEN / Unknown Butterfly / Unknown 09/29/2023 3:34 AM CDT 09/29/2023 3:49 AM CDT Mariaaromi Patricia [facility] [address] [place] [address], * SCAN-CARDIAC STRIP (09/28/2023 8:48 PM CDT) Scanner OTHER * SCAN-CARDIAC STRIP (09/28/2023 8:48 PM CDT) Scanner OTHER * PET CT SKULL BASE TO MID THIGH INITIAL TREAT (09/28/2023 2:05 PM CDT) Anatomical Region Laterality Modality Positron Emissio n Tomography (PET) 09/29/2023 11:4 5 AM CDT Narrative 09/29/2023 11:45 AM CDT For Patients: ??As a result of the Cures Act, medical imaging exams and procedure reports are released immediately into your electronic medical record. ??You may view this report before your referring provider. ??If you have questions, please contact your health care provider. PET CT SKULL TO THIGH History: Pancreatic cancer Technique: The patient was injected with 8.4 millicuries of 18F-FDG (fluorodeoxyglucose). Following the appropriate delay interval, PET imaging from the mid brain to the mid thigh was obtained in conjunction with a noncontrast CT examination for improved localization and attenuation correction. The fused volume set was reviewed utilizing 3-D reconstruction. STAT!! Note that this study was submitted for interpretation on November 28, 2023, however was incomplete until today. ?? Blood glucose: 134 Comparison: CT abdomen and pelvis September 19, 2023; MRCP September 22, 2023 Findings: Max SUV within the background liver today is 4.4. PET: Head and Neck: The paired glandular structures and muscles of the neck are symmetrical. No focal area of increased uptake is identified. Thorax: Normal physiologic distribution within the cardiovascular system. No focal areas of increased uptake are noted in the lung tam or mediastinum. Few pulmonary nodules are redemonstrated, the largest measuring up to 9 millimeters. These nodules are not FDG avid. Abdomen/Pelvis: +Pancreatic head mass measuring approximately up to 3 centimeters is redemonstrated and is FDG avid with max SUV of 8.4. Biliary stent courses through this mass. +Portacaval node measuring 9 millimeters in short axis is avid with a max SUV of 5.9. +Heterogeneous uptake throughout the liver/normal variant versus tiny liver metastasis. The faintly hypodense approximately 5 centimeter mass within segment 7 of the liver is significantly avid with a max SUV of 7.9. Bones/soft tissues: No focal areas of increased uptake. 9 millimeter focal sclerosis within the left side of T10 is not focally avid. ADDITIONAL CT findings include moderate coronary artery atherosclerotic calcifications, ??pneumobilia, cholelithiasis, right kidney cyst, small left kidney cysts, mildly enlarged prostate, mild abdominal aortic atherosclerotic calcifications, degenerative changes within the lower cervical spine, and stable degenerative changes within the thoracic/lumbar spine and hips. Impression: FDG avid pancreatic head mass is consistent with given history. Metastatic disease within the 5 centimeter liver mass; heterogeneous uptake throughout the liver = unable to evaluate for smaller liver metastasis. Portacaval ronel metastasis versus reactive node. Dictated by Carlos Lucero MD @ 09/29/2023 11:45:03 AM (Electronically Signed) Procedure Note Carlos Lucero MD - 09/29/2023 For Patients: As a result of the Century Cures Act, medical imagingexams and procedure reports are released immediately into your electronicmedical record. You may view this report before your referring provider.If you have questions, please contact your health care provider. PET CT SKULL TO THIGH History: Pancreatic cancer Technique: The patient was injected with 8.4 millicuries of 18F-FDG(fluorodeoxyglucose). Following the appropriate delay interval, PETimaging from the mid brain to the mid thigh was obtained in conjunctionwith a noncontrast CT examination for improved localization andattenuation correction. The fused volume set was reviewed utilizing 3-Dreconstruction. STAT!! Note that this study was submitted forinterpretation on November 28, 2023, however was incomplete until today. Blood glucose: 134 Comparison: CT abdomen and pelvis September 19, 2023; MRCP September 22, 2023 Findings: Max SUV within the background liver today is 4.4. PET: Head and Neck: The paired glandular structures and muscles of the neck are symmetrical.No focal area of increased uptake is identified. Thorax: Normal physiologic distribution within the cardiovascular system. No focalareas of increased uptake are noted in the lung tam or mediastinum. Fewpulmonary nodules are redemonstrated, the largest measuring up to 9millimeters. These nodules are not FDG avid. Abdomen/Pelvis: +Pancreatic head mass measuring approximately up to 3 centimeters isredemonstrated and is FDG avid with max SUV of 8.4. Biliary stent coursesthrough this mass. +Portacaval node measuring 9 millimeters in short axis is avid with a maxSUV of 5.9. +Heterogeneous uptake throughout the liver/normal variant versus tinyliver metastasis. The faintly hypodense approximately 5 centimeter masswithin segment 7 of the liver is significantly avid with a max SUV of 7.9. Bones/soft tissues: No focal areas of increased uptake. 9 millimeter focal sclerosis withinthe left side of T10 is not focally avid. ADDITIONAL CT findings include moderate coronary artery atheroscleroticcalcifications, pneumobilia, cholelithiasis, right kidney cyst, smallleft kidney cysts, mildly enlarged prostate, mild abdominal aorticatherosclerotic calcifications, degenerative changes within the lowercervical spine, and stable degenerative changes within the thoracic/lumbarspine and hips. Impression: FDG avid pancreatic head mass is consistent with given history. Metastaticdisease within the 5 centimeter liver mass; heterogeneous uptakethroughout the liver = unable to evaluate for smaller liver metastasis.Portacaval ronel metastasis versus reactive node. Dictated by Carlos Lucero MD @ 09/29/2023 11:45:03 AM (Electronically Signed) Manav HOYOS PET * Magnesium TODAY (09/28/2023 10:51 AM CDT) MAGNESIUM 1.7 1.6 - 2.4 mg/dL 09/28/2023 11:36 AM CDT [facility] Blood BLOOD SPECIMEN / Unknown Venipuncture / Unknown 09/28/2023 10:51 AM CDT 09/28/2023 11:06 AM CDT Josef Richterdri [facility] [address] [place] [address], * (ABNORMAL) Basic metabolic panel TODAY (09/28/2023 10:51 AM CDT) Only the most recent of2 resultswithin the time period is included. SODIUM 139 136 - 145 mmol/L 09/28/2023 11:59 AM CDT [facility] POTASSIUM 3.8 3.5 - 5.1 mmol/L 09/28/2023 11:59 AM CDT [facility] CHLORIDE 104 98 - 107 mmol/L 09/28/2023 11:59 AM CDT [facility] CO2,TOTAL 25 22 - 29 mmol/L 09/28/2023 11:59 AM CDT [facility] ANION GAP 10 5 - 18 09/28/2023 11:59 AM CDT [facility] GLUCOSE 145(H) 70 - 99 mg/dL 09/28/2023 11:59 AM CDT [facility] CALCIUM 8.8 8.8 - 10.2 mg/dL 09/28/2023 11:59 AM CDT [facility] BUN 9 8 - 23 mg/dL 09/28/2023 11:59 AM T [facility] CREATININE 0.77 0.70 - 1.20 mg/dL 09/28/2023 11:59 AM CDT [facility] BUN/CREAT RATIO 12 10 - 20 11:59 AM CDT [facility] eGFR >90 >90 mL/min/1.7 3m2 09/28/2023 11:59 AM CDT [facility] Comment:As of 2021, eG FR is calculated by the CKD-EPI creatinine equation without race adjustment. ??eGFR can be influenced by muscle mass, exercise, and diet. ??The reported eGFR is an estimation only and is only applicable if the renal function is stable. Blood BLOOD SPECIMEN / Unknown Venipuncture / Unknown 09/28/2023 10:51 AM CDT 09/28/2023 11:06 AM CDT Josef Richterdri [facility] Performing Organization Address [facility] Co de Phone Number [facility] [address] [place] [address], * SCAN-CARDIAC STRIP (09/28/2023 10:00 AM CDT) Scanner OTHER * SCAN-CARDIAC STRIP (09/28/2023 9:59 AM CDT) Scanner OTHER * BUN (09/28/2023 9:34 AM CDT) BUN 9 8 - 23 mg/dL 09/28/2023 11:07 AM CDT [facility] Blood BLOOD SPECIMEN / Unknown Venipuncture / Unknown 09/28/2023 9:34 AM CDT 09/28/2023 10:39 AM CDT [facility] Performing Organization Address [facility] de Phone Number [facility] [address] [place] [address], * EKG 12 LEAD (09/28/2023 9:28 AM CDT) Only the most recent of3 resultswithin the time period is included. Interpretation Normal sinus rhythm Cannot rule out Anterior infarct , age undetermined Abnormal ECG When compared with ECG of 28-Sep-2023 07:18, Sinus rhythm has replaced Atrial fibrillation Vent. rate has decreased by ??64 bpm BEYOND NOW Ventricular Rate 74 BPM BEYOND NOW Atrial Rate 74 BPM BEYOND NOW P-R Interval 170 ms BEYOND NOW QRS Duration 88 ms BEYOND NOW QT 382 ms BEYOND NOW QTc 424 ms BEYOND NOW P [place] 56 degrees BEYOND NOW R [place] -6 degrees BEYOND NOW T [place] 14 degrees BEYOND NOW 09/28/2023 9:28 AM CDT 09/28/2023 1:39 PM CDT Josef MADRIGAL EKG ORD BEYOND NOW [place], [place] * SCAN-CARDIAC STRIP (09/28/2023 7:12 AM CDT) Scanner OTHER * SCAN-CARDIAC STRIP (09/28/2023 3:35 AM CDT) Scanner OTHER * SCAN-CARDIAC STRIP (09/27/2023 11:10 PM CDT) Scanner OTHER * SCAN-CARDIAC STRIP (09/27/2023 10:00 PM CDT) Scanner OTHER * SCAN-CARDIAC STRIP (09/27/2023 6:45 PM CDT) Scanner OTHER * SCAN-CARDIAC STRIP (09/27/2023 9:54 AM CDT) Scanner OTHER * SCAN-CARDIAC STRIP (09/27/2023 5:29 AM CDT) Scanner OTHER * SCAN-CARDIAC STRIP (09/26/2023 11:50 AM CDT) Scanner OTHER * SCAN-CARDIAC STRIP (09/26/2023 7:35 AM CDT) Scanner OTHER * SCAN-CARDIAC STRIP (09/25/2023 9:56 PM CDT) Scanner OTHER * SCAN-CARDIAC STRIP (09/25/2023 6:33 PM CDT) Scanner OTHER * XR ERCP BILIARY ONLY (09/25/2023 4:38 PM CDT) Anatomical Region Laterality Modality GALLBLADDER, PANCREAS, LIVER Oth er Narrative 09/25/2023 4:43 PM CDT 2 minutes 9 seconds fluoroscopy time was provided. ??See operative/procedure report for further information. Abner Argueta MD FLUOROSCOPY * HCHG TUBE PR1, HCHG STYLET PR1 (09/25/2023 3:42 PM CDT) Narrative Ghazala Mejia CRNA - 09/25/2023 3:42 PM CDT Ghazala Mejia CRNA ? 09/25/2023 ??3:43 PM Procedure: ETT Patient location during procedure: OR ETT Properties Mask Ventilation: easy Final Technique: direct laryngoscopy Type: straight Location: oral Cuffed: yes Tube Size: 7.5 mm Stylet: yes Laryngoscope Blade: Del Angel Blade Size: 2 Cormack-Lehane Grade View: 1 Insertion Attempts: 1 Placement Verification: auscultation, end tidal CO2 and symmetrical chest wall movement Assessment: pharynx clear, atraumatic and dentition unchanged Secured at: 23 Measured From: lips Bite Block: molar Difficulty: 0 (not difficult) Ghazala Mejia CRNA ANESTHESIA PX NOTE ORDERABLES * PATH [facility] CYTOLOGY ASP CYTOLOGY (09/25/2023 3:41 PM CDT) Case Report Medical Cytology Report ? Case: [id number] ? Authorizing Provider: ??Abner Argueta, ?? Collected: ? 09/25/2023 1541 ? MD ? Ordering Location: ? [facility] ?Received: ?09/25/2023 1628 ? Hospital ? Pathologist: ? Angeilta Velasquez MD ? Specimen: ?Pancreas Head, mass ? 09/26/2023 11:05 AM CDT [facility] Final Diagnosis A) PANCREAS, HEAD, EUS GUIDED FINE NEEDLE ASPIRATION: 1. Positive for malignancy; poorly differentiated carcinoma, compatible with pancreatic primary 2. Insufficient direct smear or cellblock material for ancillary studies 09/26/2023 11:05 AM CDT [facility] Comment PANCREAS ANCILLARY TESTING PROTOCOL This patient's sample meets [facility] criteria* for reflex testing, or such testing has been requested by the ordering physician. Testing will be performed and the results will be communicated in an amendment to this report. If there is a need for ancillary tests other than these, please contact the [facility] ([phone]). Slides available for [facility] NGS testing: QUANTITY NOT SUFFICIENT Blocks available for [facility] NGS testing: QUANTITY NOT SUFFICIENT Blocks available for tests using immunostains and/or FISH (requiring 100 cells): QUANTITY NOT SUFFICIENT Blocks available for send out (outside vendor) testing requiring 5 x 5 mm of tumor: QUANTITY NOT SUFFICIENT *[facility] reflex testing criteria for pancreatic carcinoma - At diagnosis or if not previously performed: ??Mismatch repair enzyme immunohistochemist ry, KRAS testing by NGS (may omit KRAS if large sendout NGS panel planned using sufficient tissue or if definite acinar cell or neuroendocrine carcinoma histology) This case was seen in consultation with Dr. Lawson, who has reviewed slides A1-3 and A1-6. 09/26/2023 11:05 AM T [facility] Clinical Information Mr. Guzman is a 68 y.o. male with a suspected solid pancreatic mass. Upper EUS showed: Impressions/Post-O p Diagnosis: - There was dilation in the common bile duct which measured up to 12 mm. - There was no evidence of significant pathology in the left lobe of the liver and in the right lobe of the liver. - A mass was identified in the pancreatic head. Tissue was obtained from this exam, and results are pending. However, the endosonographic appearance is consistent with adenocarcinoma. This was staged T2 N0 Mx by endosonographic criteria. The staging applies if malignancy is confirmed. Fine needle aspiration performed. 09/26/2023 11:05 AM T [facility] Gross Description A) Received identified as pancreas head mass, is a fine needle aspirate specimen. The specimen consists of: ? -8 Air dried slides ? -1 CytoLyt vials ? -0 RPMI vials ? -1 Formalin vial The following were prepared from the specimen submitted: ? -8 Diff-Quik stained slides ? -1 Papanicolaou stained ThinPrep slides ? -1 H&E stained cell block slide A2 Cell block material was removed from the patient and placed directly in formalin at 1605 on 09/25/23 and fixed in formalin at least 6 hours and no more than 72 hours. 09/26/2023 11:05 AM CDT [facility] Adequacy Assessment A) A.S. assessed adequacy from the air-dried smears at the time of the procedure with an impression of Adequate. 09/26/2023 11:05 AM CDT [facility] Microscopic Description Specimen adequacy: Adequate for interpretation. All slides were reviewed. The microscopic appearance substantiates the diagnosis. 09/26/2023 11:05 AM CDT [facility] Additional Information Cytology is screened at [facility] - [address], [place] [address] and [facility] - [address], [place] [address] and [facility] - [address] [place] [address] Interpreted at [facility] - [address], [place] [address] 09/26/2023 11:05 AM CDT [facility] Aspirate (Pancreas Head) 09/25/2023 3:41 PM CDT 09/25/2023 4:28 PM CDT Abner Argueta MD PATHOLOGY/CYTO LOGY Performing Organization Address City/State/[facility] Co de Phone Number [facility] [address] [place] [address], * ENDOSCOPY (09/25/2023 3:10 PM CDT) 09/25/2023 3:10 PM CDT Narrative Transcriptions Abner Argueta MD - 09/25/2023 5:45 PM CDT [facility] Patient Name: Denton Guzman Procedure Date: 09/25/2023 Gender: Male Date of : 1955 Admit Type: Inpatient Procedure: ERCP Proceduralist: Abner Argueta MD - [facility] Indications/Pre-Op Diagnosis: Jaundice Medications: General Anesthesia Procedure Description: Risk of bleeding, infection, perforation, pancreatitis, need for surgery, remote chance of and alternatives were discussed, andthe patient gave informed consent. The endoscope [id number] was passed through the mouth, and advanced to the duodenum and used to inject contrast into the bileduct. The ERCP was accomplished without difficulty. The patient toleratedthe procedure well. Complications: No immediate complications. Estimated Blood Loss & Specimen: Estimated blood loss: none. Specimen collected: None Findings: The scope was passed under direct vision through the upper GI tract.The entire examined stomach was normal. The examined duodenum was normal. The major papilla was normal. The bile duct was deeply cannulatedwith the short-nosed traction sphincterotome and guidewire. Contrast was injected. I personally interpreted the bile duct images. There wasbrisk flow of contrast through the ducts. Image quality was adequate.Contrast extended to the hepatic ducts. The lower third of the main bile duct contained a single severe stenosis 15 mm in length. Biliary sphincterotomy was made with a traction (standard) sphincterotome.There was no post-sphincterotomy bleeding. The biliary tree was swept witha 10 mm balloon starting at the bifurcation. Sludge was swept from the duct. One 10 mm by 4 cm covered metal stent was placed into thecommon bile duct. The stent was in good position. Impressions/Post-Op Diagnosis: - A single severe biliary stricture was found in the lower third ofthe main bile duct. The stricture was malignant appearing. - A biliary sphincterotomy was performed. - The biliary tree was swept and sludge was found. - One covered metal stent was placed into the common bile duct. Recommendation: - Watch for pancreatitis, bleeding, perforation, and cholangitis. Abner Argueta MD 09/25/2023 5:44:55 PM This report has been signed electronically. Note Initiated On: 09/25/2023 3:10 PM Abner Argueta MD PROCEDURE ORD * ENDOSCOPY (09/25/2023 3:09 PM CDT) 09/25/2023 3:09 PM CDT Narrative Transcriptions Abner Argueta MD - 09/25/2023 5:43 PM CDT [facility] Patient Name: Denton Guzman Procedure Date: 09/25/2023 Gender: Male Date of : 1955 Admit Type: Inpatient Procedure: Upper EUS Proceduralist: Abner Argueta MD - [facility] Digestive Health Indications/Pre-Op Diagnosis: Suspected solid pancreatic neoplasm Medications: General Anesthesia Procedure Description: Risk of bleeding, infection, perforation, pancreatitis, need for surgery, remote chance of and alternatives were discussed, andthe patient gave informed consent. The endoscope [id number] was introduced through the mouth, and advanced to the third part of duodenum. The upper EUS wasaccomplished without difficulty. The patient tolerated the procedure well. Complications: No immediate complications. Estimated Blood Loss & Specimen: Estimated blood loss: none. Specimen collected: Yes and sent to Laboratory Findings: ENDOSCOPIC FINDING: : The entire examined stomach was normal. The examined duodenum was normal. ENDOSONOGRAPHIC FINDING: : There was no sign of significant endosonographic abnormality in the ampulla. No masses were identified. There was dilation in the common bile duct which measured up to 12mm. There was no sign of significant endosonographic abnormality in theleft lobe of the liver and in the right lobe of the liver. No focalpathology was identified. An irregular mass was identified in the pancreatic head. The mass was hypoechoic and heterogenous. The mass measured 20 mm by 17 mm inmaximal cross-sectional diameter. The outer margins were irregular. An intact interface was seen between the mass and the superior mesentericartery, celiac trunk and portal vein suggesting a lack of invasion. [place]edle aspiration for cytology was performed. Color Doppler imaging was utilized prior to needle puncture to confirm a lack of significant vascular structures within the needle path. Seven passes were madewith the 25 gauge needle using a transduodenal approach. A parking lot chauffeur was present and performed a preliminary cytologic examination. The cellularity of the specimen was adequate. Final cytology results are pending. The pancreatic duct had a dilated endosonographic appearance in the pancreatic head, body of the pancreas and tail of the pancreas. The pancreatic duct measured up to 7 mm in diameter in the head, 6 mm inthe body, and 5 mm in the tail. Pancreatic parenchymal abnormalities were noted in the pancreaticbody and pancreatic tail. These consisted of atrophy. Endosonographic imaging in the pancreatic body and pancreatic tail showed no cyst/pseudocyst or mass. The aortopulmonary region (level 5), subcarinal mediastinum (level 7) and celiac region (level 20) nodes were endosonographically normal.No pathologic lymphadenopathy was identified. Impressions/Post-Op Diagnosis: - There was dilation in the common bile duct which measured up to 12mm. - There was no evidence of significant pathology in the left lobe ofthe liver and in the right lobe of the liver. - A mass was identified in the pancreatic head. Tissue was obtainedfrom this exam, and results are pending. However, the endosonographic appearance is consistent with adenocarcinoma. This was staged T2 N0Mx by endosonographic criteria. The staging applies if malignancy is confirmed. Fine needle aspiration performed. Recommendation: - Await cytology results. Abner Argueta MD 09/25/2023 5:42:50 PM This report has been signed electronically. Note Initiated On: 09/25/2023 3:09 PM Abner Argueta MD PROCEDURE ORD * SCAN-CARDIAC STRIP (09/25/2023 9:55 AM CDT) Scanner OTHER * SCAN-CARDIAC STRIP (09/24/2023 7:50 PM CDT) Scanner OTHER * SCAN-CARDIAC STRIP (09/24/2023 4:14 PM CDT) Scanner OTHER * SCAN-CARDIAC STRIP (09/24/2023 7:27 AM CDT) Scanner OTHER * SCAN-CARDIAC STRIP (09/24/2023 12:14 AM CDT) Scanner OTHER * SCAN-CARDIAC STRIP (09/23/2023 4:02 PM CDT) Scanner OTHER * ECHO TTE COMPLETE W CONTRAST (09/23/2023 11:22 AM CDT) AORTIC VALVE MEAN PG 3 mmHg EJECTION FRACTION 59 % LVEDD 3.4 cm Anatomical Region Laterality Modality Ultrasound 09/23/2023 8:42 AM CDT Narrative 09/23/2023 11:57 AM CDT ECHOCARDIOGRAM DENTNO GUZMAN ?Accession#: ?? [id number] : ?1955 68 years Study Date: ?? 09/23/2023 8:42:34 AM Gender: M ? BP: ? 109/60 mmHg Height: 185.00 cm ? BSA: ?2.38 m? ? ? Weight: 116.00 kg ? Tech: ? HR-TRVL ?Referring MD: JOSEF TERAN Site: ? [facility] Reading Location: ANW IP Patient Location: Inpatient. Procedure: 2D w/ Contrast. Indication for study: AFIB Cardiac Rhythm: Regular.Study quality: Good. Final Impressions: 1. Normal left ventricular size, borderline wall thickness, normal global systolic function, calculated EF of 59 %. 2. The aortic valve is sclerotic, no stenosis and no regurgitation. 3. The mitral valve is sclerotic, no mitral regurgitation. 4. Echo contrast was administered to enhance visualization of all left ventricular segments. Comparison There are no prior studies on this patient for comparison purposes. Chamber Sizes and Function Normal left ventricular size, borderline wall thickness, normal global systolic function, calculated EF of 59 %. Left atrial size is normal. Right ventricular cavity size is normal, global systolic RV function is normal. The right atrium is normal. The pulmonary artery is of normal size and origin. The sinus of Valsalva is normal sized. The ascending aorta is normal sized. Valves, RV Pressures and Diastolic Function The aortic valve is sclerotic, no stenosis and no regurgitation. The mitral valve is sclerotic, no mitral regurgitation. Spectral Doppler shows Grade 1 pattern of LV diastolic filling. The tricuspid valve is normal in structure. Tricuspid regurgitation is trace regurgitation. The pulmonic valve is normal. No pulmonary regurgitation. Masses, Effusion, Shunts There is no pericardial effusion. The inferior vena cava is normal sized, respiratory size variation greater than 50%. No left to right shunting was detected by limited color flow Doppler interrogation of the interatrial septum. MEASUREMENTS AND CALCULATIONS 2-D Measurements and LV Function: LVID (d) 3.4 cm Planimetered EF 59 % LVID (s) 2.5 cm LV FS% (2D) ? 26 % IVS (d) ??1.0 cm LVOT diameter ?? 2.3 cm LVPW (d) 1.0 cm HR ?79 bpm Ao Sinus 3.4 cm LA Vol index ?23 ml/m2 Asc Ao ?? 3.1 cm LA ? 3.2 cm Diastology: Mitral ?Tissue Doppler E Peak 0.9 m/s ??e', Septum ? 0.07 m/s A Peak 1.3 m/s ??e', Lateral ?0.08 m/s E/A ?0.7 ?E/e' Average ?? 11.72 DT ? 238 msec Aortic Valve: Vmax ? 1.2 m/s ??SHARLA (V) ?? 3.60 cm? ? ? VTI ?0.23 m ?? SHARLA (I) ?? 3.69 cm? ? ? LVOT V max 1.0 m/s ??Max PG ?5 mmHg LVOT VTI ?? 0.20 m ?? Mean PG ?? 3 mmHg SV ? 84 ml ?Dim Index 0.89 SV index ?? 35 ml/m? ? ? CO ?6.6 l/min ?CI ?2.8 l/min/m? ? ? Mitral Valve: MVA ?3.2 cm? ? ? MV P 1/2 69 msec Tricuspid Valve and estimated PA pressures: Pulmonic Valve: PV Vmax 1.2 m/s Contrast documentation: 2 ml diluted Definity, lot #[id number], [facility]# [id number] was administered peripherally to enhance visualization of all left ventricular segments. . This study was interpreted by an [facility] accredited facility. ??Final ?? Procedure Note Vincent Garcia MD - 09/23/2023 ECHOCARDIOGRAM DENTON GUZMAN : 1955 68 years Study Date: 09/23/2023 8:42:34 AM Gender: M BP: 109/60 mmHg Height: 185.00 cm BSA: 2.38 m? ? ? Weight: 116.00 kg Tech: HR-TRVL Referring MD: JOSEF TERAN Site: [facility] Reading Location: ANW IP Patient Location: Inpatient. Procedure: 2D w/ Contrast. Indication for study: AFIB Cardiac Rhythm: Regular.Study quality: Good. Final Impressions: 1. Normal left ventricular size, borderline wall thickness, normal globalsystolic function, calculated EF of 59 %. 2. The aortic valve is sclerotic, no stenosis and no regurgitation. 3. The mitral valve is sclerotic, no mitral regurgitation. 4. Echo contrast was administered to enhance visualization of all leftventricular segments. Comparison There are no prior studies on this patient for comparison purposes. Chamber Sizes and Function Normal left ventricular size, borderline wall thickness, normal globalsystolic function, calculated EF of 59 %. Left atrial size is normal.Right ventricular cavity size is normal, global systolic RV function isnormal. The right atrium is normal. The pulmonary artery is of normal sizeand origin. The sinus of Valsalva is normal sized. The ascending aorta isnormal sized. Valves, RV Pressures and Diastolic Function The aortic valve is sclerotic, no stenosis and no regurgitation. Themitral valve is sclerotic, no mitral regurgitation. Spectral Doppler showsGrade 1 pattern of LV diastolic filling. The tricuspid valve is normal instructure. Tricuspid regurgitation is trace regurgitation. The pulmonicvalve is normal. No pulmonary regurgitation. Masses, Effusion, Shunts There is no pericardial effusion. The inferior vena cava is normal sized,respiratory size variation greater than 50%. No left to right shunting wasdetected by limited color flow Doppler interrogation of the interatrialseptum. MEASUREMENTS AND CALCULATIONS 2-D Measurements and LV Function: LVID (d) 3.4 cm Planimetered EF 59 % LVID (s) 2.5 cm LV FS% (2D) 26 % IVS (d) 1.0 cm LVOT diameter 2.3 cm LVPW (d) 1.0 cm HR 79 bpm Ao Sinus 3.4 cm LA Vol index 23 ml/m2 Asc Ao 3.1 cm LA 3.2 cm Diastology: Mitral Tissue Doppler E Peak 0.9 m/s e', Septum 0.07 m/s A Peak 1.3 m/s e', Lateral 0.08 m/s E/A 0.7 E/e' Average 11.72 DT 238 msec Aortic Valve: Vmax 1.2 m/s SHARLA (V) 3.60 cm? ? ? VTI 0.23 m SHARLA (I) 3.69 cm? ? ? LVOT V max 1.0 m/s Max PG 5 mmHg LVOT VTI 0.20 m Mean PG 3 mmHg SV 84 ml Dim Index 0.89 SV index 35 ml/m? ? ? CO 6.6 l/min CI 2.8 l/min/m? ? ? Mitral Valve: MVA 3.2 cm? ? ? MV P 1/2 69 msec Tricuspid Valve and estimated PA pressures: Pulmonic Valve: PV Vmax 1.2 m/s Contrast documentation: 2 ml diluted Definity, lot #[id number], [facility]#[id number] was administered peripherally to enhance visualization of allleft ventricular segments. . This study was interpreted by an [facility] accredited facility. Final Josef MADRIGAL ECHO ORD * TSH AM (09/23/2023 8:40 AM CDT) Only the most recent of2 resultswithin the time period is included. TSH 0.43 0.27 - 4.20 uIU/mL 09/23/2023 9:49 AM CDT [facility] Blood BLOOD SPECIMEN / Unknown Butterfly / Unknown 09/23/2023 8:40 AM CDT 09/23/2023 8:48 AM [facility]T [facility] 09/23/2023 9:49 AM CDT In Adults, TSH values between 5.00 and 10.00 uIU/ml do not necessarily indicate the presence of Hypothyroidism. Correlation with clinical findings such as presence of goiter and/or Thyroperoxidase (TPO) Antibody may be helpful. For more information please refer to DONNA 2004; 291: 228-238. Josef Jarvisneelam Efren ROHAN CHEMISTRY [facility] [address] [place] [address], * (ABNORMAL) CBC W PLT NO DIFF (09/23/2023 8:40 AM CDT) WHITE BLOOD COUNT 10.7 4.5 - 11.0 thou/cu mm 09/23/2023 9:00 AM CDT [facility] RED BLOOD COUNT 4.65 4.30 - 5.90 mil/cu mm 09/23/2023 9:00 AM CDT [facility] HEMOGLOBIN 12.3(L) 13.5 - 17.5 g/dL 09/23/2023 9:00 AM CDT [facility] HEMATOCRIT 38.8 37.0 - 53.0 % 09/23/2023 9:00 AM CDT [facility] MCV 83 80 - 100 fL 09/23/2023 9:00 AM CDT [facility] MCH 26.5 26.0 - 34.0 pg 09/23/2023 9:00 AM CDT [facility] MCHC 31.7(L) 32.0 - 36.0 g/dL 09/23/2023 9:00 AM T [facility] RDW 14.6 11.5 - 15.5 % 09/23/2023 9:00 AM CDT [facility] PLATELET COUNT 263 140 - 440 thou/cu mm 09/23/2023 9:00 AM CDT [facility] MPV 11.1(H) 6.5 - 11.0 fL 09/23/2023 9:00 AM CDT [facility] NRBC 0.0 % 09/23/2023 9:00 AM CDT [facility] ABS NRBC 0.0 thou /cu mm 09/23/2023 9:00 AM CDT [facility] Blood BLOOD SPECIMEN / Unknown Butterfly / Unknown 09/23/2023 8:40 AM CDT 09/23/2023 8:49 AM CDT Josef Teran SHERLY HEMATOLOGY [facility] [address] [place] [address], * (ABNORMAL) CA 19-9 AM (09/23/2023 8:40 AM CDT) CA 19-9 962(H) <36 IU/mL 09/23/2023 9:50 AM CDT [facility] Blood BLOOD SPECIMEN / Unknown Butterfly / Unknown 09/23/2023 8:40 AM CDT 09/23/2023 8:48 AM CDT Narrative [facility] - 09/23/2023 9:50 AM CDT The test method changed on 04/05/2022. If this test has been used for serial monitoring, rebaselining is recommended. Rebaselining consists of 2 measurements, collected 3-6 weeks apart. The [employer]a [employer]ys CA 19-9 assay is an electrochemiluminescence immunoassay ECLIA performed on the Freda Lyndon e immunoassy analyzers. ?? Values obtained with different assay methods may be different and cannot be used interchangeably. ? Biotin supplements may cause clinically significant interference for this test assay. If interference is suspected, it is strongly recomended that biotin is discontinued for at least one week prior to retesting. Josef MADRIGAL SEND OUTS Performing Organization Address City/[facility] Co de Phone Number [facility] [address] [place] [address] * (ABNORMAL) Lipase AM (09/23/2023 8:40 AM CDT) Only the most recent of2 resultswithin the time period is included. LIPASE 175.0(H) 13.0 - 60.0 IU/L 09/23/2023 10:17 AM CDT [facility] Blood BLOOD SPECIMEN / Unknown Butterfly / Unknown 09/23/2023 8:40 AM CDT 09/23/2023 8:48 AM CDT Josef MADRIGAL CHEMISTRY Performing Organization Address [facility] Co de Phone Number [facility] [address] [place] [address], * SCAN-CARDIAC STRIP (09/23/2023 7:34 AM CDT) Scanner OTHER * SCAN-CARDIAC STRIP (09/23/2023 1:13 AM CDT) Scanner OTHER * MR ABDOMEN MRCP PANCREAS WWO (09/22/2023 12:00 AM CDT) Anatomical Region Laterality Modality Abdomen, PANCREAS Magnetic Reson ance Nadia HOYOS MR * SCAN-CARDIAC STRIP (09/22/2023 12:00 AM CDT) Narrative 09/22/2023 12:00 AM CDT Ordered by an unspecified provider. Other Clinical Staff OTHER * CT ABDOMEN PELVIS WO (09/19/2023 [...] For Patients: ??As a result of the Century Cures Act, medical imaging exams and [...] For Patients: As a result of the 21st Century Cures Act, medical imagingexams and procedure [...] results. Verify creatinine results ordering a Creatinine (60443.2) eGFR 59(L) >90 mL/min/1.7 3m2 09/19/2023 3:08 [...] [facility] [address] [place] [address], * (ABNORMAL) CBC WITH AUTO DIFFERENTIAL (09/19/2023 2:56 PM CDT) Pathologist [facility] WHITE BLOOD COUNT 10.3 4.5 - 11.0 [...] [facility] [address] [place] [address], * (ABNORMAL) C-REACTIVE PROTEIN (09/19/2023 2:56 PM CDT) C-REACTIVE PROTEIN 4.0(H) <0.5 mg/dL 09/20/2023 5:12 AM CDT [facility] Blood BLOOD SPECIMEN / Unknown Venipuncture / Unknown 09/19/2023 2:56 PM CDT 09/19/2023 2:58 PM CDT Nadia HOYOS CHEMISTRY Performing Organization Address City/[facility]/ZIP Co de Phone Number [facility] [address] [address], * (ABNORMAL) COMP METABOLIC PANEL (09/19/2023 2:56 PM CDT) SODIUM 133(L) 136 - 145 mmol/L 09/20/2023 4:59 AM CDT [facility] POTASSIUM 5.2(H) 3.5 - 5.1 mmol/L 09/20/2023 4:59 AM CDT [facility] CHLORIDE 98 98 - 107 mmol/L 09/20/2023 4:59 AM CDT [facility] CO2,TOTAL 17(L) 22 - 29 mmol/L 09/20/2023 4:59 AM CDT [facility] ANION GAP 18 5 - 18 09/20/2023 4:59 AM CDT [facility] GLUCOSE 215(H) 70 - 99 mg/dL 09/20/2023 4:59 AM CDT [facility] CALCIUM 10.1 8.8 - 10.2 mg/dL 09/20/2023 4:59 AM CDT [facility] BUN 17 8 - 23 mg/dL 09/20/2023 4:59 AM T [facility] CREATININE 1.43(H) 0.70 - 1.20 mg/dL 09/20/2023 4:59 AM T [facility] BUN/CREAT RATIO 12 10 - 20 4:59 AM T [facility] eGFR 53(L) >90 mL/min/1. 73m2 09/20/2023 4:59 AM T [facility] Comment:As of 2021, eG FR is calculated by the CKD-EPI creatinine equation without race adjustment. ??eGFR can be influenced by muscle mass, exercise, and diet. ??The reported eGFR is an estimation only and is only applicable if the renal function is stable. ALBUMIN 3.9(L) 4.0 - 4.9 g/dL 09/20/2023 4:59 AM T [facility] PROTEIN,TOTAL 8.2(H) 6.0 - 8.0 g/dL 09/20/2023 4:59 AM T [facility] BILIRUBIN,TOTAL 5.3(H) 0.0 - 1.2 mg/dL 09/20/2023 4:59 AM CDT [facility] ALK PHOSPHATASE 1,051(H) 40 - 129 IU/L 09/20/2023 4:59 AM T [facility] ALT (SGPT) 243(H) 10 - 50 IU/L 09/20/2023 4:59 AM T [facility] AST (SGOT) 207(H) 10 - 50 IU/L 09/20/2023 4:59 AM T [facility] Blood BLOOD SPECIMEN / Unknown Venipuncture / Unknown 09/19/2023 2:56 PM CDT 09/19/2023 2:58 PM CDT Nadia HOYOS CHEMISTRY [facility] [address] [place] [address], [place] * URINALYSIS MICROSCOPIC (09/01/2023 9:16 AM CDT) [...] [facility] [address] [place] [address], * URINE CULTURE (09/01/2023 9:16 AM CDT) CULTURE No growth (<1,000 CFU/mL) 09/02/2023 2:35 PM CDT [facility] Urine URINE SPECIMEN / Unknown Non-Blood / Unknown 09/01/2023 9:16 AM CDT 09/01/2023 9:23 AM CDT Clarita HOYOS MICROBIOLOGY [facility] [address] [place] [address], [place] * (ABNORMAL) UA W/ SEDIMENT EXAM [...] [facility] [address] [place] [address], * (ABNORMAL) HEMOGLOBIN A1C MONITORING (POCT) (07/21/2023 4:03 PM CDT) HEMOGLOBIN A1C MONITORING (POCT) 7.3(H) <=6.4 % [...] Anemias, Splenectomy ? Chris Potter MD CHEMISTRY [facility] [address] [place] [address], * (ABNORMAL) LIPID PANEL (11/11/2022 11:26 AM CDT) CHOLESTEROL,TOTAL 123 100 - 199 mg/dL 11/11/2022 6:50 PM CDT [facility] Comment: Cholesterol, Total Reference Ranges Desirable <200 mg/dL Borderline 200-239 mg/dL High >=240 mg/dL TRIGLYCERIDES 222(H) <150 mg/dL 11/11/2022 6:50 PM CDT [facility] HDL CHOLESTEROL 31(L) >40 mg/dL 6:50 PM CDT [facility] NON-HDL CHOLESTEROL 92 <145 mg/dl 11/11/2022 6:50 PM CDT [facility] CHOL/HDL RATIO 3.97 <4.50 11/11/2022 6:50 PM CDT [facility] LDL CHOLESTEROL 48 <=130 mg/dL 11/11/2022 6:50 PM CDT [facility] VLDL CHOLESTEROL 44(H) <=30 mg/dL 11/11/2022 6:50 PM CDT [facility] PROVIDER ORDERED STATUS RANDOM 11/11/2022 6:50 PM CDT [facility] Blood BLOOD SPECIMEN / Unknown Venipuncture / Unknown 11/11/2022 11:26 AM CDT 11/11/2022 11:28 AM CDT Chris Potter MD CHEMISTRY [facility] [address] [place] [address], * ANTI HCV (06/17/2021 11:24 AM CDT) HEPATITIS C ANTIBODY Non-React rehan Non-React rehan 06/17/2021 6:14 PM CDT [facility] Comment:Antibodies to HCV no t detected; does not exclude the possibility of exposure to HCV. Blood BLOOD SPECIMEN / Unknown Venipuncture / Unknown 06/17/2021 11:24 AM CDT 06/17/2021 11:26 AM CDT Chris Potter MD SEND OUTS [facility] [address] [place] [address], from Last 3 Months or Most Recently Relevant to Health Maintenance Advance Directives * Full Code (Latest Code Status on File) Date Activated Date Inactivated Comments 09/22/2023 11:17 PM 10/10/2023 11:40 AM Question Answer Comments Code Status Discussion: Reviewed Preferences Care Teams Anesthesiologist/Physician Relationship Specialty Start Date End Date Chris Potter MD [address] [place] [address] PCP - General Family Practice 01/13/21
[2023-10-20] MEDS: 0.9 % SODIUM CHLORIDE 1000 ml 1,000 ML IV ×2 (18:12→19:17)
[2023-10-20] MEDS: ONDANSETRON 2 MG/ML inj 4 MG IVP (18:13)
[2023-10-20 18:24] LABS: Lactate* 3.8 mmol/L (0.5-1.9)
[2023-10-20 18:25] LABS: Basophils Percent Auto 0.1 % (0.0-3.0); Eosinophils Percent Auto 1.1 % (0.0-7.0); Hematocrit 35.7 % (37.0-53.0); Hemoglobin* 11.2 gm/dL (13.5-17.5); Immature Granulocytes Pct Auto 0.9 %; Lymphocytes Percent Auto 5.8 % (20-44); Mean Corpuscular HGB Conc 31 gm/dL (32-36); Mean Corpuscular Hemoglobin 26 pg (26-34); Mean Corpuscular Volume 82 fL (80-100); Monocytes Percent Auto 4.5 % (0.0-11.0); Neutrophils Percent Auto 87.6 % (42.0-72.0); Platelet Count* 352 K/uL (140-440); Red Blood Count 4.38 m/uL (4.30-5.90); White Blood Count* 19.93 K/uL (4.50-11.00)
[2023-10-20 18:26] LABS: Slide Review Reflex No
[2023-10-20 18:38] LABS: Chloride* 96 mmol/L (96-114)
[2023-10-20 18:39] LABS: Sodium* 133 mmol/L (135-149)
[2023-10-20 18:41] LABS: Anion Gap 10 mEq/L (7-15); Bilirubin Direct* 0.8 mg/dL (0.0-0.5); Bilirubin Total* 1.2 mg/dL (0.1-1.5); Carbon Dioxide* 27 mmol/L (20-32); Creatinine* 0.6 mg/dL (0.5-1.5); Est. Creatinine Clearance* 78.79; Estimated Glomerular Filt Rate 104 ml/min; Total Protein* 6.6 g/dL (6.0-8.3)
[2023-10-20 18:42] LABS: Alanine Aminotransferase* 54 U/L (4-50); Alkaline Phosphatase* 362 U/L (40-150); Aspartate Amino Transferase* 71 U/L (12-35); Blood Urea Nitrogen* 20 mg/dL (7-30); Calcium* 8.7 mg/dL (8.4-10.6); Glucose* 247 mg/dL (60-115)
[2023-10-20] MEDS: OXYCODONE 5 MG TABLET 10 MG PO (18:56)
[2023-10-20] MEDS: LACTATED RINGERS 1000 ML 1,000 ML IV (20:24)
[2023-10-20 20:30] VITALS: BP 138/77; PULSE 94
[2023-10-20 21:00] VITALS: BP 141/74; PULSE 91; O2SAT 90
[2023-10-20 21:30] VITALS: BP 138/72; PULSE 94
[2023-10-20 22:00] VITALS: BP 144/79; PULSE 93
[2023-10-20 22:30] VITALS: BP 147/80; PULSE 95; O2SAT 89
== END 2023-10-20 22:45 | disposition home or self-care (01) ==
PROVIDERS: Emergency Provider Family Medicine; PCP Surgery
DX: E86.0 Dehydration (principal); C25.9 Malignant neoplasm of pancreas, unspecified; C78.7 Secondary malignant neoplasm of liver and intrahepatic bile duct
CPT/HCPCS: 36415; 80053; 82248; 83605; 85025; 96374; 99284; A9270; J2405; J7030; J7120

== ENCOUNTER 2023-10-22 14:39 | Outpatient (RCR) | payer MEDICARE, SELFPAY ==
[2023-10-18 11:36] LABS: Basophils Percent Auto 0.2 % (0.0-3.0); Eosinophils Percent Auto 0.9 % (0.0-7.0); Hematocrit 36.2 % (37.0-53.0); Hemoglobin* 11.3 gm/dL (13.5-17.5); Lymphocytes Percent Auto 4.8 % (20-44); Mean Corpuscular HGB Conc 31 gm/dL (32-36); Mean Corpuscular Hemoglobin 26 pg (26-34); Mean Corpuscular Volume 82 fL (80-100); Monocytes Percent Auto 6.5 % (0.0-11.0); Neutrophils Percent Auto 86.6 % (42.0-72.0); Platelet Count* 433 K/uL (140-440); RDW Coefficient of Variation % 13.9 % (11.5-15.5)
[2023-10-18 11:46] LABS: Slide Review Reflex No
[2023-10-18] MEDS: ONDANSETRON 2 MG/ML inj 8 MG IV (11:47)
[2023-10-18] MEDS: 0.9 % SODIUM CHLORIDE 1000 ml 1,000 ML IV (11:47)
[2023-10-18] MEDS: dexAMETHasone 12 MG in 0.9 % SODIUM CHLORIDE 100 ml 100 ML 404.8 MG IVPB (11:47)
[2023-10-18 12:02] LABS: Albumin* 3.3 g/dL (3.3-5.0); Chloride* 93 mmol/L (96-114); Potassium* 5.5 mmol/L (3.6-5.1); Sodium* 130 mmol/L (135-149)
[2023-10-18 12:05] LABS: Alkaline Phosphatase* 423 U/L (40-150); Anion Gap 9 mEq/L (7-15); Aspartate Amino Transferase* 72 U/L (12-35); Bilirubin Total* 1.3 mg/dL (0.1-1.5); Blood Urea Nitrogen* 20 mg/dL (7-30); Carbon Dioxide* 28 mmol/L (20-32); Creatinine* 0.8 mg/dL (0.5-1.5); Est. Creatinine Clearance* 76.52; Estimated Glomerular Filt Rate 96 ml/min; Glucose* 342 mg/dL (60-115); Total Protein* 7.1 g/dL (6.0-8.3)
[2023-10-18 12:06] LABS: Alanine Aminotransferase* 71 U/L (4-50); Calcium* 8.7 mg/dL (8.4-10.6)
--- NOTE | 2023-10-18 14:24 | ONC.NURNOTE ---
Initial visit today with Dr oTwnsend discussed with patient and next steps for getting set up for chemotherapy has made appt with Dr Potter for preop clearance for port placement on 10/22 and patient report that they would prefer to do the chemotherapy teaching on the start date reviewed plan to start with Oxaliplatin/5FU/Leucovorin the first 2 cycles with plan to add irinotecan in at a later treatment date patient and declined the New Chemotherapy Education Binder until his chemo start date requested assistance for transportation option given [facility] Transportation [phone] pending is date of port placement needs chemo start date set up needs follow up provider appts scheduled
--- NOTE | 2023-10-18 15:06 | ONC.NURNOTE ---
Addendum entered by Brianda Hernandez RN 10/19/23 11:50: Dronabinol approved [facility] pharmacy notified Original Note: PA SUBMITTED VIA [employer] FOR DRONABINOL
--- NOTE | 2023-10-18 15:16 | ONC.NURNOTE ---
PSDS = 0 reports no concerns per distress screening
--- NOTE | 2023-10-18 15:16 | ONC.NURNOTE ---
new capecitabine start teaching with patient, son and tombstone erector helper in person and daughter on the phone Tajik education material provided and reviewed dosing schedule with teachback method safe handling for family members, appropiate disposals treatment plan side effects that need to be addressed reviewed contents of new chemotherapy teaching materials in Tajik- no binder given questions addressed and THANH signed
[2023-10-19 23:57] LABS: Cancer Antigen-GI (CA 19-9) 3723 U/mL (<=35)
--- NOTE | 2023-10-20 11:15 | URNOTE ---
Irinotecan(J9206), Oxaliplatin (J9263), Fluorouracil (J9190) and Leucovorin (J0640) has been approved 10/30/2023-10/30/2023. Auth #[id number] Palonosetron ([id number]) has been approved 10/30/2023-05/01/2024 Ref #[id number] Udenyca ([id number]) has been approved 10/30/2023-04/02/2024. Ref #[id number]
== END 2023-11-07 23:59 | disposition home or self-care (01) ==
LOC: CCIC 14:39
PROVIDERS: PCP Surgery; Referring Provider Surgery; Visit Provider Internal Medicine Hematology & Oncology
DX: C25.0 Malignant neoplasm of head of pancreas (principal)
CPT/HCPCS: 36415; 80053; 85025; 86301; 96360; 96376; 99202; 99205; J1100; J2405; J7030

== ENCOUNTER 2023-10-22 15:00 | Outpatient (CLI) | payer MEDICARE, SELFPAY ==
--- NOTE | 2023-10-21 15:50 | PC.NURSE ---
Entered patient's chart to access administrative information to call patient regarding IV infusion for 10/22/23. Patient stated he will call the hospital around 1200 on 10/22/23 to update if he want IVF infusion or not.
[2023-10-22] MEDS: 0.9 % SODIUM CHLORIDE 1000 ml 1,000 ML IV ×2 (15:02→17:25)
[2023-10-22 15:18] VITALS: BP 119/65; PULSE 98; RESP 18; TEMP 36.5; O2SAT 97
--- OUTSIDE RECORDS SUMMARY | 2023-10-23 12:18 | XMS_ITS | Clinical Summary ---
Author Organization [employer] [facility] Address [place], [place] [address] Care Team Providers Care Roofing Apprentice Name Role Phone Chris Potter MD Primary Care Provider [phone] Allergies No known active allergies Medications Medication Sig Dispensed Refills Start Date End Date Status glimepiride (AMARYL) 4 mg tabletIndications: Type 2 diabetes mellitus with diabetic polyneuropathy, with long-term current use of insulin (HC) Take 1 Tablet (4 mg) by mouth once daily with a meal. 90 Tablet 3 11/12/19 23 Active Farxiga 5 mg tabletIndications: Type 2 diabetes mellitus with diabetic polyneuropathy, with long-term current use of insulin (HC),Albuminuria TAKE 1 TABLET(5 MG) BY MOUTH EVERY DAY 90 Tablet 3 01/17/20 23 Active Additional Information Patient taking differently: 5 [...] with meals. 180 Tablet 08/14/19 24 Active acetaminophen (TYLENOL) 325 mg tabletIndications: [...] units 400 or greater....12 units & call MD 10/10/19 24 Active mirtazapine (REMERON) 7.5 mg [...] pain 6-10/10 60 Tablet 10/18/19 24 Active evkaxu-trkkctyi-no ylase (Creon) 6,000-19,000 -30,000 unit delayed-release capsuleIndications :Malignant neoplasm of pancreas metastatic to liver (HC) Take 1 Capsule by mouth three times daily with meals. 90 Capsule 3 10/18/19 24 Active insulin glargine, U-100, (Lantus Solostar U-100 Insulin) 100 unit/mL (3 mL) penIndications:Typ e 2 diabetes mellitus with diabetic polyneuropathy, with long-term current use of insulin (HC) Inject 32 units subcutaneous before bedtime. Product desired: LANTUS SOLOSTAR 30 mL 3 10/23/19 24 Active blood-glucose meterIndications:T ype 2 diabetes [...] 1 12/22/19 22 024 Discontinued(*I P Discontinued) Dexcom G6 Transmitter for continuous blood glucose monitor (CGM)Indications:T ype 2 diabetes mellitus with diabetic polyneuropathy, with long-term current use of insulin (HC) To be used to read blood sugars, follow bookkeeping clerks supervisor directions. 1 Each 4 11/12/19 23 024 Discontinued(*P atient states no longer taking) Dexcom G6 Sensor for continuous blood glucose monitor (CGM)Indications:T ype 2 diabetes mellitus with diabetic polyneuropathy, with long-term current use of insulin (HC) To be used to read blood sugars, follow bookkeeping clerks supervisor directions. 9 Each 3 11/12/19 23 024 Discontinued(*P atient states no longer taking) Dexcom G6 Mechanical Shovel Operator for continuous blood glucose monitor (CGM)Indications:T ype 2 diabetes mellitus with diabetic polyneuropathy, with long-term current use of insulin (HC) To be used to read blood sugars follow bookkeeping clerks supervisor directions. 1 Each 11/12/19 23 024 Discontinued(*P atient states no longer taking) lisinopriL (PRINIVIL; ZESTRIL) 10 mg tabletIndications: HTN [...] BEDTIME. 30 mL 07/15/19 24 024 Discontinued insulin glargine, U-100, (Lantus Solostar U-100 Insulin) 100 unit/mL (3 mL) penIndications:Typ e 2 diabetes mellitus with diabetic polyneuropathy, with long-term current use of insulin (HC) Inject 28 units subcutaneous before bedtime. Product desired: NAKIA BENITEZOSTAR 10/04/19 24 024 Discontinued(*M edication adjustment) lisinopriL (PRINIVIL; ZESTRIL) 5 mg tabletIndications: HTN [...] bed. Length of need 99 months. 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 1 Each 10/04/19 24 024 Discontinued(*I P Discontinued) insulin aspart, U-100, (NOVOLOG FLEXPEN) 100 unit/mL [...] units 400 or greater....12 units & call MD 10/07/19 24 024 Discontinued(Du plicate therapy (E-cancel not sent)) oxyCODONE (ROXICODONE) 5 mg immediate release tabletIndications: [...] sent)) mirtazapine (REMERON) 7.5 mg tablet 10/15/19 24 024 Discontinued(Re order (E-cancel not sent)) Active [...] Encounters Date Type Department Care Team Description 10/23/2023 10:45 AM CDT Preop Visit [facility] [address] [place] [address] Crhis Potter MD Preoperative Exam (Port placement with Dr. Escobar at [facility] 10/26/23) 10/23/2023 Travel 10/19/2023 Transcribe Orders [address] [address] Stephenie Escobar MD 10/19/2023 Transcribe Orders [facility] [address] [place] [address] Margaret Townsend MD 10/18/[address] [address] Chris Potter MD Refill Request (oxyCODONE (ROXICODONE) 5 mg immediate release tablet) 10/18/[address] [address] Chris Potter MD Appointment Request (Needs to be seen soon, getting a port installed for chemo) 10/16/2023 12:35 PM CDT Office Visit [address] [address] Chris Potter MD Follow Up (Wants to get everything and everyone on the same page) 10/16/[address] [address] Chris Potter MD Refill Request (Metoprolol Tartrate) 10/16/2023 Travel 10/13/[address] [address] Chris Potter MD Questions 10/10/2023 Lab Requisition [facility] [phone] Torsten Arias MD 09/30/2023 8:06 AM CDT Anesthesia Event [facility] [address] [place] [address] Misael Hdz MD [facility] 09/30/2023 7:45 AM CDT - 09/30/2023 10:05 AM CDT Surgery [facility] [address] [place] [address] Rafael Bertrand MBBS LAPAROSCOPY STAGING, 09/26/2023 Orders Only [facility] [address] [place] [address] Nadia Zapata PA 1 scan: (1-Ord) [facility], MR ABDOMEN WO/W, 09/22/2023 09/25/2023 3:25 PM CDT - 09/25/2023 4:45 PM CDT Surgery [facility] [address] [address] Abner Argueta MD ENDOSCOPIC ULTRASOUND FINE NEEDLE ASPIRATE UPPER 09/25/2023 3:22 PM CDT Anesthesia Event [facility] [address] [address] Hadley Fontaine MD 09/25/2023 Travel 09/22/2023 10:16 PM CDT - 10/10/2023 9:29 AM CDT Hospital Encounter [facility] [address] [address] [facility], [facility] Hospitalists Of Josef Teran MBBS Shaikh, Valeed Ahmed, MD Nelson, Scott Gregory, MD Bowron, Ramone Vizcarra MD HTN (hypertension) (Primary Dx); Type 2 diabetes mellitus with diabetic polyneuropathy, with long-term current use of insulin (HC); Malignant neoplasm of pancreas metastatic to liver (HC); Atrial fibrillation with RVR (HC); Liver mass, right lobe; Diarrhea, unspecified type; Malignant neoplasm of pancreas, unspecified location of malignancy (HC) Discharge Disposition: Nursing Home Facility 09/21/2023 Telephone [facility] [address] [place] [address] Chris Potter MD Questions 09/21/2023 Telephone [facility] [address] [place] [address] Chris Potter MD Questions (follow up) 09/19/2023 3:30 PM CDT Ancillary Procedure [facility] [address] [place] [address] 09/19/2023 2:30 PM CDT Office Visit [address] [address] Nadia Zapata PA Gi Problem (Can't eat or drink anything without feeling nauseated within 20 min. States he is down 40 lbs in last 6 weeks- has been trying tums and omeprazole with no improvement) 09/19/2023 Travel 09/01/2023 9:25 AM CDT Office Visit [facility] [address] [place] [address] Clarita Naranjo PA UTI 09/01/2023 Travel 08/31/2023 Telephone [facility] [address] [place] [address] Chris Potter MD Medication Management (YEAST INFECTION ) 08/13/[address] [address] Chris Potter MD Refill Request (Metformin) 08/03/[address] [address] Chris Potter MD Refill Request (Atorvastatin) from Last 3 Months Immunizations Name Administration Dates Next Due COVID-19 vaccine (MyLife-Bio NTech 30mcg/0.3mL) 12YO+ CARLITOS-SUCROSE PF, MDV 07/05/2021,06/29/2020,06/08/2020 COVID-19 vaccine (MyLife-Bio NTech 30mcg/0.3mL) PF, MDV 03/03/2021 Influenza, High-dose Quadriv alent Inactivated 12/15/2021,03/03/2021 [...] Sign Reading Time Taken Comments Blood Pressure 123/79 10/23/2023 10:53 AM CDT Pulse 104 10/23/2023 11:28 AM CDT Temperature 36.7 ??C (98.1 ??F) 10/10/2023 8:26 AM CD T Respiratory Rate 16 10/10/2023 8:26 AM CDT Oxygen Saturation 98% 10/23/2023 10:53 AM CDT Inhaled Oxygen Concentration - - Weight 110.2 kg (243 lb) 10/16/2023 12:50 PM CDT Height 185.4 cm (6' 1) 09/23/2023 6:01 AM CDT Body Mass Index 32.06 09/23/2023 6:01 AM CDT Plan of Treatment Upcoming Encounters Date Type Department Care Team (Late st Contact Info) Description 10/23/2023 1:00 PM CDT Telemedicine [facility] [address] [place] [address] Annika Acosta, MS, [facility] [address] [place] [address] 10/24/2023 2:00 PM CDT Office Visit [facility] [address] [place] [address] Torsten Mi MD [address] [facility] [address] [place] [address] 10/26/2023 9:30 AM CDT Office Visit [facility] [address] [place] [address] Stephenie Escobar MD [address] [place] [address] 11/21/2023 10:55 AM CDT Office Visit [facility] [address] [place] [address] Chris Potter MD [address] [place] [address] Health Maintenance Due Date Last Done Comments [...] 65+ Completed AAA screening age 65-74 Completed 09/29/19 24, 09/19/2023, 06/03/2019 (Completed outside of [facility]) Zoster (shingles) series for age 50+ Discontinued Medical Devices Implanted Type Area Cd Reactor Operator Device Identifier Shelf Expiration Date Model / Serial / Lot Stent Biliary [id number] Viabil No Holes Metal - [id number] Implanted:Qty: 1 on 09/25/2023 by Abner Argueta MD at [facility] [employer] [id number] / / [id number] Description:Viabil 10x[address] argueta [...] SCAN-CARDIAC STRIP 09/28/2023 9:59 AM CDT CREATININE OFE 09/28/2023 9:34 AM CDT BUN OFE 09/28/2023 [...] AM CDT Lower urinary tract symptoms (LUTS) LIPID PANEL Routine 11/11/2022 11:26 AM CDT [...] 440 thou/cu mm 10/10/2023 8:29 AM CDT [facility] MPV 11.5(H) 6.5 - 11.0 fL 10/10/2023 8:29 AM CDT [facility] Blood BLOOD SPECIMEN / Unknown Venipuncture / Unknown 10/10/2023 7:48 AM CDT 10/10/2023 8:07 AM CDT Narrative [facility] - 10/10/2023 8:29 AM CDT Necessary every morning while on IV heparin. Josef MADRIGAL HEMATOLOGY Performing Organization Address City/[facility] Co de Phone Number [facility] [address] [place] [address], * POTASSIUM (10/10/2023 7:48 AM CDT) Only the most recent of10 resultswithin the time period is included. POTASSIUM 4.1 3.5 - 5.1 mmol/L 10/10/2023 8:45 AM CDT [facility] Blood BLOOD SPECIMEN / Unknown Venipuncture / Unknown 10/10/2023 7:48 AM CDT 10/10/2023 8:07 AM CDT Charles Dean RN CHEMISTRY Performing Organization Address City/[facility]/ZIP Co de Phone Number [facility] [address] [place] [address], [place] * (ABNORMAL) GLUCOSE METER (10/10/2023 7:05 AM CDT) Only the most recent of81 resultswithin the time period is included. GLUCOSE METER 161(H) 65 - 100 mg/dL 10/10/2023 7:06 AM CDT [facility] Blood BLOOD SPECIMEN / Unknown 10/10/2023 7:05 AM CDT 10/10/2023 7:06 AM CDT Ramone Estrada MD CHEMISTRY Performing Organization Address City/[facility]/ZIP Co de Phone Number [facility] [address] [place] [address], [place] * SODIUM (10/09/2023 8:13 AM CDT) Only the most recent of8 resultswithin the time period is included. Pathologist [facility] SODIUM 137 136 - 145 mmol/L 10/09/2023 9:[address] [facility] Blood BLOOD SPECIMEN / Unknown Venipuncture / Unknown 10/09/2023 8:13 AM CDT 10/09/2023 8:20 AM CDT Ramone Estrada MD CHEMISTRY Performing Organization Address City/[facility]/ZIP Co de Phone Number [facility] [address] [address], [place] * (ABNORMAL) CREATININE (10/09/2023 8:13 AM CDT) Only the most recent of9 resultswithin the time period is included. eGFR >90 >90 mL/min/1.7 3m2 10/09/2023 9:04 AM CDT [facility] Comment:As of 2021, eG FR is calculated by the CKD-EPI creatinine equation without race adjustment. ??eGFR can be influenced by muscle mass, exercise, and diet. ??The reported eGFR is an estimation only and is only applicable if the renal function is stable. CREATININE 0.67(L) 0.70 - 1.20 mg/dL 10/09/2023 9:04 AM CDT [facility] Blood BLOOD SPECIMEN / Unknown Venipuncture / Unknown 10/09/2023 8:13 AM CDT 10/09/2023 8:20 AM CDT Ramone Estrada MD CHEMISTRY [facility] [address] [place] [address], * (ABNORMAL) Hepatic function panel FOR ADD ON (10/09/2023 8:13 AM CDT) Only the most recent of6 resultswithin the time period is included. ALBUMIN 2.3(L) 4.0 - 4.9 g/dL 10/09/2023 2:26 PM CDT [facility] PROTEIN,TOTAL 5.9(L) 6.0 - 8.0 g/dL 10/09/2023 2:26 PM CDT [facility] BILIRUBIN,TOTAL 1.0 0.0 - 1.2 mg/dL 10/09/2023 2:26 PM CDT [facility] BILIRUBIN,DIRECT 0.7(H) 0.0 - 0.3 mg/dL 10/09/2023 2:26 PM CDT [facility] BILIRUBIN,INDIRE CT 0.3 0.2 - 0.8 mg/dL 10/09/2023 2:26 PM CDT [facility] ALK PHOSPHATASE 254(H) 40 - 129 IU/L 10/09/2023 2:26 PM CDT [facility] ALT (SGPT) 44 10 - 50 IU/L 10/09/2023 2:26 PM CDT [facility] AST (SGOT) 50 10 - 50 IU/L 10/09/2023 2:26 PM CDT [facility] Blood BLOOD SPECIMEN / Unknown Venipuncture / Unknown 10/09/2023 8:13 AM CDT 10/09/2023 8:20 AM CDT Ramone Estrada MD CHEMISTRY [facility] [address] [place] [address], * SCAN-CARDIAC STRIP (10/08/2023 6:09 AM CDT) Scanner OTHER * SCAN-CARDIAC STRIP (10/07/2023 3:58 AM CDT) Scanner OTHER * SCAN-CARDIAC STRIP (10/07/2023 3:56 AM CDT) Scanner OTHER * SCAN-CARDIAC STRIP (10/06/2023 7:43 AM CDT) Scanner OTHER * SCAN-CARDIAC STRIP (10/06/2023 12:51 AM CDT) Scanner OTHER * stool pathogen multiplex PCR (10/05/2023 8:35 PM CDT) Campylobacter NOT Detected NOT Detected 10/06/2023 1:[address] [facility] Salmonella NOT Detected NOT Detected 10/06/2023 1:[address] [facility] Shigella NOT Detected NOT Detected 10/06/2023 1:[address] [facility] Vibrio NOT Detected NOT Detected 10/06/2023 1:[address] [facility] Yersinia Enterocolitica NOT Detected NOT Detected 10/06/2023 1:[address] [facility] Shiga Toxin 1 NOT Detected NOT Detected 10/06/2023 1:[address] [facility] Shiga Toxin 2 NOT Detected NOT Detected 10/06/2023 1:[address] [facility] Norovirus NOT Detected NOT Detected 10/06/2023 1:23 PM CDT [facility] Rotavirus NOT Detected NOT Detected 10/06/2023 1:23 PM CDT [facility] Stool STOOL SPECIMEN / Unknown Non-Blood / Unknown 10/05/2023 8:35 PM CDT 10/05/2023 8:46 PM CDT Narrative [facility] - 10/06/2023 1:23 PM CDT This test is a Culture Independent Diagnostic Test (CIDT) therefore isolates are not available for susceptibility testing. ??Antibiotic treatment is often contraindicated and may be detrimental in cases of enteric infections, thus routine susceptibility testing is not recommended. Ramone Estrada MD MICROBIOLOGY Performing Organization Address [facility] Co de Phone Number [facility] [address] [place] [address], * (ABNORMAL) PANCREATIC ELASTASE FECAL (10/05/2023 8:35 PM CDT) Pancreatic Elast Fecal 138(L) >200 ug Elast./g 10/13/2023 2:[address] [facility] Comment: ? Severe Pancreatic Insufficiency: ?<100 ? Moderate Pancreatic Insufficiency: ?? 100 - 200 ? Normal: ? >200 Stool STOOL SPECIMEN / Unknown Non-Blood / Unknown 10/05/2023 8:35 PM CDT 10/05/2023 8:45 PM CDT Narrative [facility] - 10/13/2023 2:09 PM CDT Performed at: ??[address] ??[id number] Valve Tester: Yvon Sexton MD, Phone: ??[phone] Denton Smallwood MD MICROBIOLOGY Performing Organization Address [facility]/ZIP Co de Phone Number [facility]) [address] [place] [address], * CLOSTRIDIOIDES DIFFICILE TOXIN PCR (10/05/2023 8:35 PM CDT) CLOSTRIDIUM DIFFICILE PCR Negative 10/05/2023 9:50 PM CDT [facility] PRESUMPTIVE NAP1 STRAIN Negative 10/05/2023 9:50 PM CDT [facility] Stool STOOL SPECIMEN / Unknown Non-Blood / Unknown 10/05/2023 8:35 PM CDT 10/05/2023 8:[address] [facility] - 10/05/2023 9:50 PM CDT The NAP1 (027 or BI) strain is a hypervirulent strain. Detection may be useful for epidemiological purposes. Ramone Estrada MD MICROBIOLOGY [facility] [address] [place] [address], * SCAN-CARDIAC STRIP (10/05/2023 3:48 PM CDT) Scanner OTHER * SCAN-CARDIAC STRIP (10/05/2023 12:17 AM CDT) Scanner OTHER * SCAN-CARDIAC STRIP (10/04/2023 10:57 AM CDT) Scanner OTHER * (ABNORMAL) Hemoglobin AM (10/04/2023 7:28 AM CDT) Only the most recent of7 resultswithin the time period is included. HEMOGLOBIN 10.6(L) 13.5 - 17.5 g/dL 10/04/2023 8:12 AM CDT [facility] MCV 83 80 - 100 fL 10/04/2023 8:12 AM CDT [facility] Blood BLOOD SPECIMEN / Unknown Venipuncture / Unknown 10/04/2023 7:28 AM CDT 10/04/2023 7:46 AM CDT Narrative [facility] - 10/04/2023 8:12 AM CDT Necessary every morning while on IV heparin. Ramone Estrada MD HEMATOLOGY Performing Organization Address City/State/[facility] Co de Phone Number [facility] [address] [place] [address], * SCAN-CARDIAC STRIP (10/04/2023 1:06 AM CDT) [...] AM CDT) Case Report Pathology Report ?Case: [id number] ? Authorizing Provider: ??Rafael Bertrand, ?? Collected: ? 09/30/2023 0912 ? MBBS ? Ordering Location: ? [facility] ?Received: ?09/30/2023 0925 ? Hospital ? Pathologist: ? [place], Chris Sandor ? IV, MD ? Specimens: ?? A) - Liver Segment 8, Liver segment VIII wedge; rule out metastases ? B) - Liver Segment 2, Liver segment 2 wedge; rule out metastases ? C) - Liver Segment 8, Wedge #2; margin is inked for frozen ? 4 4:56 PM CDT [facility] Final Diagnosis A) LIVER, SEGMENT 8, [...] ?? liver disease 4 4:56 PM T [facility] Comment Formalin-fixed, paraffin-embedded tissue is available for ancillary studies, to request please contact the [facility] ([phone]). Neoplastic tissue available for ancillary studies: ?? [facility] NGS testing: ?- FFPE tissue blocks: B1 and B2 ?- Cytology slides: No cytology slides prepared from this specimen ?? Tests using immunostains and/or FISH (requiring 100 cells): B1 and B2 ?? Send out (outside vendor) testing requiring 5 x 5 mm of tumor: B1 and B2 4 4:56 PM T [facility] Clinical Information Mr. Guzman is a 68 y.o. who presents with a history of pancreatic adenocarcinoma now undergoes staging laparoscopy. PROCEDURE PERFORMED: 1. ??Staging laparoscopy, Intraoperative ultrasound of the liver. 2. ??Laparoscopic segment VIII sub-segmentectomy x 2. 3. ??Laparoscopic segment II sub-segmentectomy. His diagnostic biopsy was performed on 09/25/2023 ([facility] pathology ). 4 4:56 PM T [facility] Gross Description A) Received fresh labeled [...] ??Remainder DPL 10/02/2023 4 4:56 PM T [facility] Intraoperative Consultation A) LIVER, SEGMENT VIII, [...] surgical procedure. ??This testing was performed at: [facility] ?? [address] [place] [address] 4 4:56 PM CDT [facility] Microscopic Description The final diagnosis is based on microscopic examination of appropriate sections of all specimens. 4 4:56 PM CDT [facility] Additional Information Interpreted at [facility] - [address], [place] [address] 4 4:56 PM CDT [facility] Tissue (Liver Segment 8) 09/30/2023 9:12 AM CDT 09/30/2023 9:25 AM CDT Tissue specimen (specimen) (Liver Segment 2) 09/30/2023 9:15 AM CDT 09/30/2023 9:25 AM CDT Tissue specimen (specimen) (Liver Segment 8) 09/30/2023 9:25 AM CDT 09/30/2023 9:35 AM CDT Rafael MADRIGAL PATHOLOGY/CY TOLOGY Performing Organization Address City/State/[facility] Co de Phone Number [facility] [address] [place] [address], [place] * HCHG TUBE PR1, HCHG STYLET PR1, [...] ??Comment: Supplemental O2: supplemental oxygen. ??Comment:. Vessel Register Clerk Additional supplies used to locate vessel: no Needle Catheter size: 20 G. ??Comment:. Events: no complications. Misael Hdz MD ANESTHESIA PX NOTE O RDERABLES * (ABNORMAL) INR AM (09/30/2023 6:49 AM CDT) Only the most recent of3 resultswithin the time period is included. INR 1.3(H) <1.3 09/30/2023 7:35 AM CDT [facility] PROTIME 14.5(H) 10.3 - 12.3 sec 09/30/2023 7:35 AM CDT [facility] Blood BLOOD SPECIMEN / Unknown Venipuncture / Unknown 09/30/2023 6:49 AM CDT 09/30/2023 6:59 AM CDT Narrative [facility] - 09/30/2023 7:35 AM CDT ?Therapeutic [...] if the patient is on UFH. Josef MADRIGAL HEMATOLOGY [facility] [address] [place] [address], * SCAN-CARDIAC STRIP (09/30/2023 12:35 AM CDT) Scanner OTHER * TYPE & SCREEN (09/29/2023 4:29 PM CDT) Pathologist [facility] ABORH B Rh Positive 09/29/2023 5:23 PM CDT [facility] BLOOD BANK ANTIBODY SCREEN Negative Negative 09/29/2023 5:23 PM CDT [facility] BLOOD BANK SPECIMEN EXPIRATION DATE/TIME 10/02/23 23:59 09/29/2023 5:23 PM CDT [facility] Blood BLOOD SPECIMEN / Unknown Venipuncture / Unknown 09/29/2023 4:29 PM CDT 09/29/2023 4:37 PM CDT Ashley HOYOS BLOOD BANK Performing Organization Address City/[facility] Co de Phone Number [facility] B[facility]OD BANK [address] [place] [address], * CT ABDOMEN WO (09/29/2023 11:18 AM [...] - 53.0 % 09/29/2023 3:52 AM CDT [facility] Blood BLOOD SPECIMEN / Unknown Butterfly / Unknown 09/29/2023 3:34 AM CDT 09/29/2023 3:49 AM CDT Narrative [facility] - 09/29/2023 3:52 AM CDT Every morning while on IV heparin. Every morning while on IV heparin. Necessary every morning while on IV heparin. Josef MADRIGAL HEMATOLOGY Performing Organization Address City/[facility]/ZIP Co de Phone Number [facility] [address] [place] [address], * (ABNORMAL) Bilirubin, total AM (09/29/2023 3:34 AM CDT) Only the most recent of2 resultswithin the time period is included. BILIRUBIN,TOTA L 2.3(H) 0.0 - 1.2 mg/dL 09/29/2023 4:23 AM CDT [facility] Blood BLOOD SPECIMEN / Unknown Butterfly / Unknown 09/29/2023 3:34 AM CDT 09/29/2023 3:49 AM CDT Josef MADRIGAL CHEMISTRY Performing Organization Address City/[facility]/ZIP Co de Phone Number [facility] [address] [address], [place] * (ABNORMAL) APTT (09/29/2023 3:34 AM CDT) Only the most recent of3 resultswithin the time period is included. APTT 75(H) 28 - 36 sec 09/29/2023 4:[address] [facility] Blood BLOOD SPECIMEN / Unknown Butterfly / Unknown 09/29/2023 3:34 AM CDT 09/29/2023 3:49 AM CDT Narrative [facility] - 09/29/2023 4:01 AM CDT Therapeutic Range: 57-87 seconds Susan MADRIGAL HEMATOLOGY Performing Organization Address City/[facility] Co de Phone Number [facility] [address] [address], [place] * (ABNORMAL) ALT AM (09/29/2023 3:34 AM CDT) Only the most recent of2 resultswithin the time period is included. ALT (SGPT) 125(H) 10 - 50 IU/L 09/29/2023 4:23 AM CDT [facility] Blood BLOOD SPECIMEN / Unknown Butterfly / Unknown 09/29/2023 3:34 AM CDT 09/29/2023 3:49 AM CDT Josef MADRIGAL CHEMISTRY [facility] [address] [address], [place] * (ABNORMAL) AST AM (09/29/2023 3:34 AM CDT) Only the most recent of2 resultswithin the time period is included. AST (SGOT) 101(H) 10 - 50 IU/L 09/29/2023 4:23 AM CDT [facility] Blood BLOOD SPECIMEN / Unknown Butterfly / Unknown 09/29/2023 3:34 AM CDT 09/29/2023 3:49 AM CDT Josef MADRIGAL CHEMISTRY [facility] [address] [place] [address], * SCAN-CARDIAC STRIP (09/28/2023 8:48 PM CDT) [...] - 2.4 mg/dL 09/28/2023 11:36 AM CDT [facility] Blood BLOOD SPECIMEN / Unknown Venipuncture / Unknown 09/28/2023 10:51 AM CDT 09/28/2023 11:06 AM CDT Mariaaromi Patricia MADRIGAL CHEMISTRY [facility] [address] [place] [address], * (ABNORMAL) Basic metabolic panel TODAY (09/28/2023 10:51 AM CDT) Only the most recent of2 resultswithin the time period is included. SODIUM 139 136 - 145 mmol/L 09/28/2023 11:59 AM CDT [facility] POTASSIUM 3.8 3.5 - 5.1 mmol/L 09/28/2023 11:59 AM CDT [facility] CHLORIDE 104 98 - 107 mmol/L 09/28/2023 11:59 AM CDT [facility] CO2,TOTAL 25 22 - 29 mmol/L 09/28/2023 11:59 AM CDT [facility] ANION GAP 10 5 - 18 09/28/2023 11:59 AM CDT [facility] GLUCOSE 145(H) 70 - 99 mg/dL 09/28/2023 11:59 AM CDT [facility] CALCIUM 8.8 8.8 - 10.2 mg/dL 09/28/2023 11:59 AM CDT [facility] BUN 9 8 - 23 mg/dL 09/28/2023 11:59 AM T [facility] CREATININE 0.77 0.70 - 1.20 mg/dL 09/28/2023 11:59 AM T [facility] BUN/CREAT RATIO 12 10 - 20 11:59 AM CDT [facility] eGFR >90 >90 mL/min/1.7 3m2 09/28/2023 11:59 AM CDT [facility] Comment:As of 2021, eG FR is calculated by the CKD-EPI creatinine equation without race adjustment. ??eGFR can be influenced by muscle mass, exercise, and diet. ??The reported eGFR is an estimation only and is only applicable if the renal function is stable. Blood BLOOD SPECIMEN / Unknown Venipuncture / Unknown 09/28/2023 10:51 AM CDT 09/28/2023 11:06 AM CDT Rachaelscromi Richterdri [employer] CHEMISTRY Performing Organization Address [facility] de Phone Number [facility] [address] [place] [address], * SCAN-CARDIAC STRIP (09/28/2023 10:00 AM CDT) Scanner OTHER * SCAN-CARDIAC STRIP (09/28/2023 9:59 AM CDT) Scanner OTHER * BUN (09/28/2023 9:34 AM CDT) Pathologist [facility] BUN 9 8 - 23 mg/dL 09/28/2023 11:[address] [facility] Blood BLOOD SPECIMEN / Unknown Venipuncture / Unknown 09/28/2023 9:34 AM CDT 09/28/2023 10:39 AM CDT RachaelscMolecular SensingdestinyC[facility] Clinic [facility] Hospitalneelam Efren [employer] CHEMISTRY Performing Organization Address [facility] Phone Number [facility] [address] [place] [address], * EKG 12 LEAD (09/28/2023 9:28 AM [...] NOW QTc 424 ms BEYOND NOW P Franklin 56 degrees BEYOND NOW R Franklin -6 degrees BEYOND NOW T Franklin 14 degrees BEYOND NOW 09/28/2023 9:28 AM CDT 09/28/2023 1:39 PM CDT Josef MADRIGAL EKG ORD BEYOND NOW [place], [place] * SCAN-CARDIAC STRIP (09/28/2023 7:12 AM [...] Case Report Medical Cytology Report ? Case: [id number] ? Authorizing Provider: ??Abner Argueta, ?? Collected: ? 09/25/2023 1541 ? Ordering Location: ? [facility] ?Received: ?09/25/2023 1628 ? Hospital ? Pathologist: ? Angelita Velasquez MD ? Specimen: ?Pancreas Head, mass ? 09/26/2023 11:05 AM [facility] EN[facility]AL LABORATORY Final Diagnosis A) PANCREAS, HEAD, EUS GUIDED FINE NEEDLE ASPIRATION: 1. Positive for malignancy; poorly differentiated carcinoma, compatible with pancreatic primary 2. Insufficient direct smear or cellblock material for ancillary studies 09/26/2023 11:05 AM [facility] Comment PANCREAS ANCILLARY TESTING PROTOCOL This patient's sample meets [facility] criteria* for reflex testing, or such testing has been requested by the ordering physician. Testing will be performed and the results will be communicated in an amendment to this report. If there is a need for ancillary tests other than these, please contact the [facility] ([phone]). Slides available for [facility] NGS testing: QUANTITY NOT SUFFICIENT Blocks available for [facility] NGS testing: QUANTITY NOT SUFFICIENT Blocks available for tests using immunostains and/or FISH (requiring 100 cells): QUANTITY NOT SUFFICIENT Blocks available for send out (outside vendor) testing requiring 5 x 5 mm of tumor: QUANTITY NOT SUFFICIENT *[facility] reflex testing criteria for pancreatic carcinoma - [...] A1-3 and A1-6. 09/26/2023 11:05 AM T [facility]-C [facility] Clinical Information Mr. Guzman is a [...] needle aspiration performed. 09/26/2023 11:05 AM T [facility]-C ENTRFL LABORATORY Gross Description A) Received identified as [...] than 72 hours. 09/26/2023 11:[address] [facility] Adequacy Assessment A) A.S. assessed adequacy from the air-dried smears at the time of the procedure with an impression of Adequate. 09/26/2023 11:[address] [facility] Microscopic Description Specimen adequacy: Adequate for interpretation. All slides were reviewed. The microscopic appearance substantiates the diagnosis. 09/26/2023 11:[address] [facility] Additional Information Cytology is screened at [facility] - [address], [place] [address] and [facility] - [address], [place] [address] and [facility] - [address] [place] [address] [facility] - [address], [place] [address] 09/26/2023 11:[address] [facility] Aspirate (Pancreas Head) 09/25/2023 3:41 PM CDT 09/25/2023 4:28 PM CDT Abner Argueta MD PATHOLOGY/CYTO LOGY [facility] [address] [place] [address], * ENDOSCOPY (09/25/2023 3:10 PM CDT) 09/25/2023 [...] patient gave informed consent. The endoscope [id number] was passed through the mouth, and advanced [...] Argueta MD - 09/25/2023 5:43 PM CDT [facility] Patient Name: Denton Guzman Procedure Date: 09/25/2023 Gender: Male Date of : 1955 Admit Type: Inpatient Procedure: Upper EUS Proceduralist: Abner Argueta MD - [facility] Indications/Pre-Op Diagnosis: Suspected solid pancreatic neoplasm Medications: General Anesthesia Procedure Description: Risk of bleeding, infection, perforation, pancreatitis, need for surgery, remote chance of and alternatives were discussed, andthe patient gave informed consent. The endoscope [id number] was introduced through the mouth, and advanced [...] gauge needle using a transduodenal approach. A firebreak cutter was present and performed a preliminary cytologic [...] CDT Narrative 09/23/2023 11:57 AM CDT ECHOCARDIOGRAM DENTON GUZMAN ?Accession#: ?? [id number] : ?1955 68 years Study Date: ?? 09/23/2023 8:42:34 AM Gender: M ? BP: ? 109/60 mmHg Height: 185.00 cm ? BSA: ?2.38 m? ? ? Weight: 116.00 kg ? Tech: ? HR-TRVL ?Referring MD: JOSEF TERAN Site: ? [facility] Reading [facility] Patient Location: Inpatient. Procedure: 2D w/ Contrast. [...] documentation: 2 ml diluted Definity, lot #[id number], [facility]# [id number] was administered peripherally to enhance visualization of all left ventricular segments. . This study was interpreted by an [facility] accredited facility. ??Final ?? Procedure Note Vincent Garcia MD - 09/23/2023 ECHOCARDIOGRAM DENTON GUZMAN : 1955 68 years Study Date: 09/23/2023 8:42:34 AM Gender: M BP: 109/60 mmHg Height: 185.00 cm BSA: 2.38 m? ? ? Weight: 116.00 kg Tech: HR-TRVL Referring MD: JOSEF TERAN Site: [facility] Reading Location: [facility] Patient Location: Inpatient. [...] documentation: 2 ml diluted Definity, lot #[id number], [facility]#[id number] was administered peripherally to enhance visualization of allleft ventricular segments. . This study was interpreted by an [facility] accredited facility. Final Josef MADRIGAL ECHO ORD * TSH AM (09/23/2023 8:40 AM CDT) Only the most recent of2 resultswithin the time period is included. TSH 0.43 0.27 - 4.20 uIU/mL 09/23/2023 9:[address] [facility] Blood BLOOD SPECIMEN / Unknown Butterfly / Unknown 09/23/2023 8:40 AM CDT 09/23/2023 8:48 AM CDT [facility] - 09/23/2023 9:49 AM CDT In Adults, TSH values between 5.00 and 10.00 uIU/ml do not necessarily indicate the presence of Hypothyroidism. Correlation with clinical findings such as presence of goiter and/or Thyroperoxidase (TPO) Antibody may be helpful. For more information please refer to DONNA 2004; 291: 228-238. Rachaelnita Patricia MADRIGAL CHEMISTRY [facility] [address] [place] [address], * (ABNORMAL) CBC W PLT NO DIFF (09/23/2023 8:40 AM CDT) WHITE BLOOD COUNT 10.7 4.5 - 11.0 thou/cu mm 09/23/2023 9:00 AM CDT [facility] RED BLOOD COUNT 4.65 4.30 - 5.90 mil/cu mm 09/23/2023 9:00 AM CDT [facility] HEMOGLOBIN 12.3(L) 13.5 - 17.5 g/dL 09/23/2023 9:00 AM CDT [facility] HEMATOCRIT 38.8 37.0 - 53.0 % 09/23/2023 9:00 AM CDT [facility] MCV 83 80 - 100 fL 09/23/2023 9:00 AM CDT [facility] MCH 26.5 26.0 - 34.0 pg 09/23/2023 9:00 AM CDT [facility] MCHC 31.7(L) 32.0 - 36.0 g/dL 09/23/2023 9:00 AM CDT [facility] RDW 14.6 11.5 - 15.5 % 09/23/2023 9:00 AM CDT [facility] PLATELET COUNT 263 140 - 440 thou/cu mm 09/23/2023 9:00 AM CDT [facility] MPV 11.1(H) 6.5 - 11.0 fL 09/23/2023 9:00 AM CDT [facility]ATORY NRBC 0.0 % 09/23/2023 9:00 AM CDT [facility] ABS NRBC 0.0 thou /cu mm 09/23/2023 9:00 AM CDT [facility] Blood BLOOD SPECIMEN / Unknown Butterfly / Unknown 09/23/2023 8:40 AM CDT 09/23/2023 8:49 AM CDT Mariaaoswaldjose MADRIGAL HEMATOLOGY [facility] [address] [place] [address], * (ABNORMAL) CA 19-9 AM (09/23/2023 8:40 AM CDT) CA 19-9 962(H) <36 IU/mL 09/23/2023 9:[address] [facility] Blood BLOOD SPECIMEN / Unknown Butterfly / Unknown 09/23/2023 8:40 AM CDT 09/23/2023 8:48 AM CDT Narrative [facility] - 09/23/2023 9:50 AM CDT The [...] least one week prior to retesting. Josef PAIZ SEND OUTS Performing Organization Address City/[facility] Co de Phone Number [facility] [address] [place], [place] [id number], * (ABNORMAL) Lipase AM (09/23/2023 8:40 AM CDT) Only the most recent of2 resultswithin the time period is included. LIPASE 175.0(H) 13.0 - 60.0 IU/L 09/23/2023 10:17 AM CDT [facility] Blood BLOOD SPECIMEN / Unknown Butterfly / Unknown 09/23/2023 8:40 AM CDT 09/23/2023 8:48 AM CDT Josef MADRIGAL CHEMISTRY Performing Organization Address City/[facility] Co de Phone Number [facility] [address] [place] [address], * SCAN-CARDIAC STRIP (09/23/2023 7:34 AM CDT) [...] - 1.11 mg/dL 09/19/2023 3:08 PM CDT [facility] Comment:Caution: Patients ta rosette Hydroxyurea have falsely increased iStat Creatinine results. Verify creatinine results ordering a Creatinine (05297.2) eGFR 59(L) >90 mL/min/1.7 3m2 09/19/2023 3:08 PM CDT [facility] Comment:As of 2021, eG FR is calculated by the CKD-EPI creatinine equation without race adjustment. eGFR can be influenced by muscle mass, exercise, and diet. The reported eGFR is an estimation only and is only applicable if the renal function is stable. Blood BLOOD SPECIMEN / Unknown 09/19/2023 3:06 PM CDT 09/19/2023 3:08 PM CDT Nadia HOYOS CHEMISTRY [facility] [address] [place] [address], [place] [phone] * (ABNORMAL) CBC WITH AUTO DIFFERENTIAL (09/19/2023 2:56 PM CDT) WHITE BLOOD COUNT 10.3 4.5 - 11.0 thou/cu mm 09/19/2023 3:10 PM CDT [facility] RED BLOOD COUNT 5.11 4.30 - 5.90 mil/cu mm 09/19/2023 3:10 PM CDT [facility] HEMOGLOBIN 13.8 13.5 - 17.5 g/dL 09/19/2023 3:10 PM CDT [facility] HEMATOCRIT 41.9 37.0 - 53.0 % 09/19/2023 3:10 PM CDT [facility] MCV 82 80 - 100 fL 09/19/2023 3:10 PM CDT [facility] MCH 27.0 26.0 - 34.0 pg 09/19/2023 3:10 PM CDT [facility] MCHC 32.9 32.0 - 36.0 g/dL 09/19/2023 3:10 PM CDT [facility] RDW 15.3 11.5 - 15.5 % 09/19/2023 3:10 PM CDT [facility] PLATELET COUNT 377 140 - 440 thou/cu mm 09/19/2023 3:10 PM CDT [facility] MPV 11.4(H) 6.5 - 11.0 fL 09/19/2023 3:10 PM CDT [facility] % NEUT 75.4 % 09/19/2023 3:10 PM CDT [facility] % LYMPH 13.5 % 09/19/2023 3:10 PM CDT [facility] % MONO 9.0 % 09/19/2023 3:10 PM CDT [facility] % EOS 1.8 % 09/19/2023 3:10 PM CDT [facility] % BASO 0.3 % 09/19/2023 3:10 PM CDT [facility] ABSOLUTE NEUTROPHILS 7.7(H) 1.7 - 7.0 thou/cu mm 09/19/2023 3:10 PM CDT [facility] ABSOLUTE LYMPHOCYTES 1.4 0.9 - 2.9 thou/cu mm 09/19/2023 3:10 PM CDT [facility] ABSOLUTE MONOCYTES 0.9(H) <0.9 thou/cu mm 09/19/2023 3:10 PM CDT [facility] ABSOLUTE EOSINOPHILS 0.2 <0.5 thou/cu mm 09/19/2023 3:10 PM CDT [facility] ABSOLUTE BASOPHILS 0.0 <0.3 thou/cu mm 09/19/2023 3:10 PM CDT [facility] Blood BLOOD SPECIMEN / Unknown Venipuncture / Unknown 09/19/2023 2:56 PM CDT 09/19/2023 2:58 PM CDT Nadia HOYOS HEMATOLOGY [facility] [address] [place] [address], [place] [phone] * (ABNORMAL) C-REACTIVE PROTEIN (09/19/2023 2:56 PM CDT) Pathologist [facility] C-REACTIVE PROTEIN 4.0(H) <0.5 mg/dL 09/20/2023 5:12 AM CDT [facility] Blood BLOOD SPECIMEN / Unknown Venipuncture / Unknown 09/19/2023 2:56 PM CDT 09/19/2023 2:58 PM CDT Nadia HOYOS CHEMISTRY Performing Organization Address City/[facility]/ZIP Co de Phone Number [facility] [address] [place] [address], [place] * (ABNORMAL) COMP METABOLIC PANEL (09/19/2023 2:56 PM CDT) Pathologist [facility] SODIUM 133(L) 136 - 145 mmol/L 09/20/2023 4:59 AM CDT [facility] POTASSIUM 5.2(H) 3.5 - 5.1 mmol/L 09/20/2023 4:59 AM CDT [facility] CHLORIDE 98 98 - 107 mmol/L 09/20/2023 4:59 AM CDT [facility] CO2,TOTAL 17(L) 22 - 29 mmol/L 09/20/2023 4:59 AM CDT [facility] ANION GAP 18 5 - 18 09/20/2023 4:59 AM CDT [facility] GLUCOSE 215(H) 70 - 99 mg/dL 09/20/2023 4:59 AM CDT [facility] CALCIUM 10.1 8.8 - 10.2 mg/dL 09/20/2023 4:59 AM CDT [facility] BUN 17 8 - 23 mg/dL 09/20/2023 4:59 AM T [facility] CREATININE 1.43(H) 0.70 - 1.20 mg/dL 09/20/2023 4:59 AM T [facility] BUN/CREAT RATIO 12 10 - 20 4:59 AM T [facility] eGFR 53(L) >90 mL/min/1. 73m2 09/20/2023 4:59 AM T [facility] Comment:As of 2021, eG FR is calculated by the CKD-EPI creatinine equation without race adjustment. ??eGFR can be influenced by muscle mass, exercise, and diet. ??The reported eGFR is an estimation only and is only applicable if the renal function is stable. ALBUMIN 3.9(L) 4.0 - 4.9 g/dL 09/20/2023 4:59 AM T [facility] PROTEIN,TOTAL 8.2(H) 6.0 - 8.0 g/dL 09/20/2023 4:59 AM T [facility] BILIRUBIN,TOTAL 5.3(H) 0.0 - 1.2 mg/dL 09/20/2023 4:59 AM T [facility] ALK PHOSPHATASE 1,051(H) 40 - 129 IU/L 09/20/2023 4:59 AM T [facility] ALT (SGPT) 243(H) 10 - 50 IU/L 09/20/2023 4:59 AM T [facility] AST (SGOT) 207(H) 10 - 50 IU/L 09/20/2023 4:59 AM T [facility] Blood BLOOD SPECIMEN / Unknown Venipuncture / Unknown 09/19/2023 2:56 PM CDT 09/19/2023 2:58 PM CDT Nadia HOYOS CHEMISTRY Performing Organization Address City/[facility]/ZIP Co de Phone Number [facility] [address] [place] [address], [place] * URINALYSIS MICROSCOPIC (09/01/2023 9:16 AM CDT) RBC 0-2 0-2, None Seen /HPF 09/01/2023 9:31 AM CDT [facility] WBC None Seen 0-2, 3-5, None Seen /HPF 09/01/2023 9:31 AM CDT [facility] BACTERIA None Seen None Seen, Rare, Few Bacteria/ HPF 09/01/2023 9:31 AM CDT [facility] EPITHELIAL CELLS Few None Seen, Few Epi/HPF 09/01/2023 9:31 AM CDT [facility] Urine URINE SPECIMEN / Unknown Non-Blood / Unknown 09/01/2023 9:16 AM CDT 09/01/2023 9:23 AM CDT Clarita HOYOS URINE Performing Organization Address [facility]/ZIP Co de Phone Number [facility] [address] [place] [address], [place] [phone] * URINE CULTURE (09/01/2023 9:16 AM CDT) CULTURE No growth (<1,000 CFU/mL) 09/02/2023 2:35 PM CDT [facility] Urine URINE SPECIMEN / Unknown Non-Blood / Unknown 09/01/2023 9:16 AM CDT 09/01/2023 9:23 AM CDT Clarita HOYOS MICROBIOLOGY Performing Organization Address City/[facility]/ZIP Co de Phone Number [facility] [address] [place] [address], [place] * (ABNORMAL) UA W/ SEDIMENT EXAM REFLEXED PER CRITERIA (09/01/2023 9:16 AM CDT) COLOR Yellow Yellow Color 09/01/2023 9:31 AM CDT [facility] CLARITY Clear Clear Clarity 09/01/2023 9:31 AM CDT [facility] SPECIFIC GRAVITY,URINE <=1.005(A) 1.010, 1.015, 1.020, 1.025 09/01/2023 9:31 AM CDT [facility] PH,URINE 5.0(A) 6.0, 7.0, 8.0, 5.5, 6.5, 7.5, 8.5 09/01/2023 9:31 AM CDT [facility] UROBILINOGEN, QUALITATIVE Normal Normal EU/dl 09/01/2023 9:31 AM CDT [facility] PROTEIN, URINE Negative Negative mg/dL 09/01/2023 9:31 AM CDT [facility] GLUCOSE, URINE >=1000(A) Negative mg/dL 09/01/2023 9:31 AM CDT [facility] KETONES,URINE Negative Negative mg/dL 09/01/2023 9:31 AM CDT [facility] BILIRUBIN,URI NE Negative Negative 09/01/2023 9:31 AM CDT [facility] OCCULT BLOOD,URINE Trace(A) Negative 09/01/2023 9:31 AM CDT [facility] NITRITE Negative Negative 09/01/2023 9:31 AM CDT [facility] LEUKOCYTE ESTERASE Negative Negative 09/01/2023 9:31 AM T [facility] Urine URINE SPECIMEN / Unknown Non-Blood / Unknown 09/01/2023 9:16 AM CDT 09/01/2023 9:23 AM CDT Clarita HOYOS URINE [facility] [address] [place] [address], * (ABNORMAL) LIPID PANEL (11/11/2022 11:26 AM CDT) CHOLESTEROL,TOTAL 123 100 - 199 mg/dL 11/11/2022 6:50 PM CDT [facility] Comment: Cholesterol, Total Reference Ranges Desirable <200 mg/dL Borderline 200-239 mg/dL High >=240 mg/dL TRIGLYCERIDES 222(H) <150 mg/dL 11/11/2022 6:50 PM CDT [facility] HDL CHOLESTEROL 31(L) >40 mg/dL 6:50 PM CDT [facility] NON-HDL CHOLESTEROL 92 <145 mg/dl 11/11/2022 6:50 PM CDT [facility] CHOL/HDL RATIO 3.97 <4.50 11/11/2022 6:50 PM CDT [facility] LDL CHOLESTEROL 48 <=130 mg/dL 11/11/2022 6:50 PM CDT [facility] VLDL CHOLESTEROL 44(H) <=30 mg/dL 11/11/2022 6:50 PM CDT [facility] PROVIDER ORDERED STATUS RANDOM 11/11/2022 6:50 PM CDT [facility] Blood BLOOD SPECIMEN / Unknown Venipuncture / Unknown 11/11/2022 11:26 AM CDT 11/11/2022 11:28 AM CDT Chris Potter MD CHEMISTRY Performing Organization Address [facility]/ZIP Co de Phone Number [facility] [address] [place] [address], * ANTI HCV (06/17/2021 11:24 AM CDT) HEPATITIS C ANTIBODY Non-React rehan Non-React rehan 06/17/2021 6:14 PM CDT [facility] Comment:Antibodies to HCV no t detected; does not exclude the possibility of exposure to HCV. Blood BLOOD SPECIMEN / Unknown Venipuncture / Unknown 06/17/2021 11:24 AM CDT 06/17/2021 11:26 AM CDT Chris Potter MD [facility] [address] [place] [address], from Last 3 Months or Most Recently Relevant to Health Maintenance Advance Directives * Full Code (Latest Code Status on File) Date Activated Date Inactivated Comments 09/22/2023 11:17 PM 10/10/2023 11:40 AM Question Answer Comments Code Status Discussion: Reviewed Preferences Care Teams Roofing Apprentice Relationship Specialty Start Date End Date Chris Potter MD [address] [place] [address] PCP - General Family Practice 01/13/21
== END 2023-10-22 15:01 | disposition home or self-care (01) ==
LOC: EDOUT 10-23 12:15
PROVIDERS: PCP Surgery; Visit Provider Family Medicine
DX: E86.0 Dehydration (principal); C25.9 Malignant neoplasm of pancreas, unspecified; C78.7 Secondary malignant neoplasm of liver and intrahepatic bile duct
CPT/HCPCS: 96365; J7030

== ENCOUNTER 2023-10-24 15:10 | Outpatient (CLI) | payer MEDICARE, SELFPAY ==
--- OUTSIDE RECORDS SUMMARY | 2023-10-28 14:59 | XMS_ITS | Continuity of Care Document ---
Author Organization [facility] Address [address] [address] [place] [address] Phone Care Team Providers Care Ventilating Equipment Installer Name Role Phone Zahraa BEAL, Duncan Unavailable [...] Provider Providers Copied on Encounter [facility], [address] [address], [place], [place], [id number], tel:[phone] [facility] No Information 4 Zahraa Song. [address] [place] [address], [place] [address], [place], [place], [id number], [place]. tel:[phone] [facility] St[facility] 15 M [facility], [address] [address], [place], [place], [id number], tel:[phone] [facility] No Information 4 Laura Jarrett. [address] [place] [address], [facility] [address], [place], [place], [id number], [place]. tel:[phone] Referring Provider: Abner Castellanos MD, [address] [place], [place] [address] [place], [place], [address] . tel:[phone] [facility], [address] [address], [place], [place], [id number], tel:[phone] [facility] No Information Sep- 4 Jasmin Levine. [facility], [facility] [address], [place], [place], [id number], [place]. tel:[phone] Referring Provider: Abner Castellanos MD, [address] [place] [address] [address], [place], [address] . tel:[phone] [facility] Minr Compl [facility], [address] [address], [place], [place], [id number], tel:[phone] [facility] No Information 4 Carlos Enrique Graham. [address] [place] [address], [facility] [address], [place], [place], [id number], [place]. tel:[phone] Referring Provider: Gladys DEY, [address] [place] [address] [address], [place], [address] . tel:[phone] Init Hosp-da E&m Mod Severity [facility], [address] [address], [place], [place], [id number], tel:[phone] [facility] No Information 4 Johnnie Vizcarra. [address] [place] [address], [facility] [address], [place], [place], [id number], [place]. tel:[phone] Referring Provider: Chris Lugo, [address] [place], [address]. tel:[phone] Family History Family Member Type Diagnosis Age [...]
--- OUTSIDE RECORDS SUMMARY | 2023-10-28 14:59 | XMS_ITS | Clinical Summary ---
Author Organization [employer] Address [place], [place] [address] Care Team Providers Care Well Digger Name Role Phone Chris Potter MD Primary Care Provider [phone] Allergies No known active allergies Medications Medication [...] pain 6-10/10 60 Tablet 10/18/19 24 Active uhkyse-mipgleeh-qk ylase (Creon) 6,000-19,000 -30,000 unit delayed-release capsuleIndications [...] be used to read blood sugars, follow chief operator synthesis directions. 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 1 Each 11/12/19 23 024 Discontinued(*P [...] bed. Length of need 99 months. Bed patient support specialist:yes 1 Each 10/04/19 24 024 Discontinued(*I P [...] Encounters Date Type Department Care Team Description 10/28/2023 11:30 AM CDT Hospital Encounter [facility] [address] [place] [address] [facility], [facility] Hospitalists Of 10/28/2023 Telephone [facility] [address] [place] [address] Colin Montgomery MD 10/27/2023 Orders Only [facility] Scanner 1 scan: (1-Ord) [facility], CT HEAD/BRAIN WO, 10/27/2023 10/26/2023 4:00 PM CDT Ancillary Procedure [facility] [address] [place] [address] Arrived 10/26/2023 Orders Only [facility] Scanner 1 scan: (1-Ord) [place], RT INTERNAL JUGULAR PORT A CATHETER PLACEMENT, 10/26/2023 10/26/2023 Orders Only [facility] Scanner 1 scan: (1-Ord) TOWNER, CHEST, 10/26/2023 10/26/2023 Travel 10/24/2023 2:00 PM CDT Office Visit [facility] [address] [place] [address] Torsten Mi MD Consult (Atrial fib/) 10/23/2023 10:45 AM CDT Preop Visit [facility] [address] [place] [address] Chris Potter MD Preoperative Exam (Port placement with Dr. Escobar at [facility] 10/26/23) 10/23/2023 Telephone [facility] [address] [place] [address] Annika Acosta MS, [facility] Appointment Reminder 10/23/2023 Travel 10/19/2023 Transcribe Orders [facility] [address] [place] [address] Stephenie Escobar MD 10/19/2023 Transcribe Orders [facility] [address] [place] [address] Margaret Townsend MD 10/18/2023 Refill [facility] [address] [place] [address] Chris Potter MD Refill Request (oxyCODONE (ROXICODONE) 5 mg immediate release tablet) 10/18/2023 Telephone [facility] [address] [place] [address] Chris Potter MD Appointment Request (Needs to be seen soon, getting a port installed for chemo) 10/16/2023 12:35 PM CDT Office Visit [facility] [address] [place] [address] Chris Potter MD Follow Up (Wants to get everything and everyone on the same page) 10/16/2023 Refill [facility] [address] [place] [address] Chris Potter MD Refill Request (Metoprolol Tartrate) 10/16/2023 Travel 10/13/2023 Telephone [facility] [address] [place] [address] Chris Potter MD Questions 10/10/2023 Lab Requisition [facility] [phone] Torsten Arias MD 09/30/2023 8:06 AM CDT Anesthesia Event [facility] [address] [place] [address] Misael Hdz MD Pascoe, Curtis Ward, THERAPEUTIC SPECIALIST 09/30/2023 7:45 AM CDT - 09/30/2023 10:05 AM CDT Surgery [facility] [address] [place] [address] Rafael Bertrand MBBS LAPAROSCOPY STAGING, 09/26/2023 Orders Only [facility] [address] [facility] [place] [address] Nadia Zapata PA 1 scan: (1-Ord) [facility], MR ABDOMEN WO/W, 09/22/2023 09/25/2023 3:25 PM CDT - 09/25/2023 4:45 PM CDT Surgery [facility] [address] [place] [address] Abner Argueta MD ENDOSCOPIC ULTRASOUND FINE NEEDLE ASPIRATE UPPER 09/25/2023 3:22 PM CDT Anesthesia Event [facility] [address] [place] [address] Hadley Fontaine MD 09/25/2023 Travel 09/22/2023 10:16 PM CDT - 10/10/2023 9:29 AM CDT Hospital Encounter [facility] [address] [place] [address] [facility] Hospitalists Of Gerda Schwartz MBBS Shaikh, Valeed Ahmed, MD Nelson, Scott [...] (HC) Discharge Disposition: [facility] Facility 09/21/2023 Telephone [facility] [address] [place] [address] Chris Potter MD Questions 09/21/2023 Telephone [facility] [address] [place] [address] Chris Potter MD Questions (follow up) 09/19/2023 3:30 PM CDT Ancillary Procedure [facility] [address] [place] [address] 09/19/2023 2:30 PM CDT Office Visit [facility] [address] [facility] [address] Nadia Zapata PA Gi Problem (Can't eat or drink anything without feeling nauseated within 20 min. States he is down 40 lbs in last 6 weeks- has been trying tums and omeprazole with no improvement) 09/19/2023 Travel 09/01/2023 9:25 AM CDT Office Visit [facility] [address] [place] [address] Clarita Naranjo PA UTI 09/01/2023 Travel 08/31/2023 Telephone [facility] [address] [place] [address] Chris Potter MD Medication Management (YEAST INFECTION ) 08/13/2023 Refill [facility] [address] [place] [address] Chris Potter MD Refill Request (Metformin) 08/03/2023 Refill [facility] [address] [place] [address] Chris Potter MD Refill Request (Atorvastatin) from Last 3 Months Immunizations Name Administration Dates Next Due COVID-19 vaccine (Informed Tr[employer] NTech 30mcg/0.3mL) 12YO+ CARLITOS-SUCROSE MILDRED MANRIQUE 07/05/2021,06/29/2020,06/08/2020 COVID-19 vaccine (Informed [employer] 30mcg/0.3mL) MILDRED MANRIQUE 03/03/2021 Influenza, High-dose [...] Care Team (Late st Contact Info) Description 10/30/2023 10:45 AM CDT Office Visit [facility] [address] [place] [address] Chris Potter MD [address] [place] [address] 11/21/2023 10:55 AM CDT Office Visit [facility] [address] [place] [address] Chris Potter MD [address] [place] [address] Health Maintenance Due Date Last Done Comments [...] 50+ Discontinued Medical Devices Implanted Type Area Network Admin Device Identifier Shelf Expiration Date Model / Serial / Lot Stent Biliary [id number] Viabil No Holes Metal - [id number] Implanted:Qty: 1 on 09/25/2023 by Abner Argueta MD at [facility] Rue89 [id number] / / [id number] Description:Viabil 10x40 ear[address] dr argueta Procedures Procedure Name Priority Date/Time Associated Diagnosis Comments SCAN-CT INTERPRETATION 12:00 AM CDT ECHO TTE COMPLETE WO CONTRAST Routine 10/26/2023 1:56 PM CDT Heart failure (HC) SCAN-RADIOLOGY REPORT 10/26/2023 12:00 AM CDT SCAN-OPERATIVE/PROCEDURE REPORT 10/26/2023 12:00 AM CDT POTASSIUM Early AM 10/10/2023 7:48 AM CDT [...] STENT PLACEMENT 09/25/2023 3:12 PM CDT See note ENDOSCOPIC ULTRASOUND FINE NEEDLE ASPIRATE UPPER 09/25/2023 3:12 PM CDT See note ENDOSCOPY 09/25/2023 3:10 PM CDT ENDOSCOPY [...] Recently Relevant to Health Maintenance Results * SCAN-CT INTERPRETATION (10/27/2023 12:00 AM CDT) Anatomical Region Laterality Modality Other Scanner OTHER * ECHO TTE COMPLETE WO CONTRAST (10/26/2023 1:56 PM CDT) Only the most recent of2 resultswithin the time period is included. AORTIC VALVE MEAN PG 4 mmHg EJECTION FRACTION 62 % LVEDD 4.0 cm Anatomical Region Laterality Modality Ultrasound 10/26/2023 1:30 PM CDT Narrative 10/26/2023 2:20 PM CDT ECHOCARDIOGRAM DENTON GUZMAN ?Accession#: ?? [id number] : ?1955 68 years Study Date: ?? 10/26/2023 1:30:17 PM Gender: M ? BP: ? 112/69 mmHg Height: 185.00 cm ? BSA: ?2.34 m? ? ? Weight: 111.00 kg ? Tech: ? MJW ?Referring MD: MARIANNE FARRELL Site: ? [facility] Reading Location: [facility] Patient Location: Inpatient. Procedure: 2D, Color Doppler and Spectral Doppler. Indication for study: CHF Cardiac Rhythm: Irregular.Study quality: Good. Imaging limitations: This study was subject to imaging limitations due to body habitus and a prominent lung artifact. Final Impressions: 1. Normal left ventricular size, mildly increased wall thickness, normal global systolic function, calculated EF of 62 %. 2. The aortic valve is trileaflet and sclerotic, no stenosis and trivial regurgitation. Chamber Sizes and Function Normal left ventricular size, mildly increased wall thickness, normal global systolic function, calculated EF of 62 %. Left atrial size is normal. Left atrial pressure is normal. Right ventricular cavity size is normal, global systolic RV function is normal. RV wall thickness is normal. The right atrium is normal. Right atrial volume index is 17 ml/m? ? ?. Right atrial area is 15 cm? ? ?. The pulmonary artery is of normal size and origin. The sinus of Valsalva is normal sized. The ascending aorta is normal sized. Valves, RV Pressures and Diastolic Function The aortic valve is trileaflet and sclerotic, no stenosis and trivial regurgitation. The mitral valve is normal in structure, no mitral regurgitation. Spectral Doppler shows Grade [...] 2-D Measurements and LV Function: LVID (d) 4.0 cm Planimetered EF 62 % LVID (s) 2.2 cm LV FS% (2D) ? 45 % IVS (d) ??1.2 cm LVOT diameter ?? 2.5 cm LVPW (d) 1.1 cm HR ?90 bpm Ao Sinus 3.8 cm LA Vol index ?30 ml/m2 Asc Ao ?? 3.8 cm RA Vol index ?17 ml/m2 LA ? 4.4 cm RA area ? 15 cm?RV Max 4C (d) ?? 4.1 cm Diastology: Mitral ?Tissue Doppler E Peak 0.8 m/s ??e', Septum ? 0.05 m/s A Peak 1.2 m/s ??e', Lateral ?0.07 m/s E/A ?0.6 ?E/e' Average ?? 13.16 DT ? 229 msec Aortic Valve: Vmax ? 1.3 m/s ??SHARLA (V) ?? 4.01 cm? ? ? VTI ?0.26 m ?? SHARLA (I) ?? 4.03 cm? ? ? LVOT V max ? 1.1 m/s ??Max PG ?7 mmHg LVOT VTI ? 0.22 m ?? Mean PG ?? 4 mmHg SV ? 104 ml ?? Dim Index 0.85 SV index ? 44 ml/m? ? ? CO ?9.4 l/min AV Ejection Time 0.27 sec CI ?4.0 l/min/m? ? ? AV Flow Rate ? 391 ml/s Mitral Valve: MVA ?3.3 cm? ? ? MV P 1/2 66 msec Tricuspid Valve and estimated PA pressures: TAPSE 2.2 cm Pulmonic Valve: PV AT 121 msec . This study was interpreted by an [facility] accredited facility. CC: Med/Surg - IP [facility], HIM (med records) [facility]. ??Final ?? Procedure Note Lelo Vee MD - 10/26/2023 ECHOCARDIOGRAM DENTON GUZMAN : 1955 68 years Study Date: 10/26/2023 1:30:17 PM Gender: M BP: 112/69 mmHg Height: 185.00 cm BSA: 2.34 m? ? ? Weight: 111.00 kg Tech: HAWA Referring MD: MARIANNE FARRELL Site: [facility] Reading Location: [facility] Patient Location: Inpatient. Procedure: 2D, Color Doppler and Spectral Doppler. Indication for study: CHF Cardiac Rhythm: Irregular.Study quality: Good. Imaging limitations: This study was subject to imaging limitations due tobody habitus and a prominent lung artifact. Final Impressions: 1. Normal left ventricular size, mildly increased wall thickness, normalglobal systolic function, calculated EF of 62 %. 2. The aortic valve is trileaflet and sclerotic, no stenosis and trivialregurgitation. Chamber Sizes and Function Normal left ventricular size, mildly increased wall thickness, normalglobal systolic function, calculated EF of 62 %. Left atrial size isnormal. Left atrial pressure is normal. Right ventricular cavity size isnormal, global systolic RV function is normal. RV wall thickness isnormal. The right atrium is normal. Right atrial volume index is 17ml/m? ? ?. Right atrial area is 15 cm? ? ?. The pulmonary artery is of normalsize and origin. The sinus of Valsalva is normal sized. The ascendingaorta is normal sized. Valves, RV Pressures and Diastolic Function The aortic valve is trileaflet and sclerotic, no stenosis and trivialregurgitation. The mitral valve is normal in structure, no mitralregurgitation. Spectral Doppler shows Grade 1 pattern of LV diastolicfilling. The tricuspid valve is normal in structure. Tricuspidregurgitation is trace regurgitation. The pulmonic valve is normal. Nopulmonary regurgitation. Masses, Effusion, Shunts There is no pericardial effusion. The inferior vena cava is normal sized,respiratory size variation greater than 50%. No left to right shunting wasdetected by limited color flow Doppler interrogation of the interatrialseptum. MEASUREMENTS AND CALCULATIONS 2-D Measurements and LV Function: LVID (d) 4.0 cm Planimetered EF 62 % LVID (s) 2.2 cm LV FS% (2D) 45 % IVS (d) 1.2 cm LVOT diameter 2.5 cm LVPW (d) 1.1 cm HR 90 bpm Ao Sinus 3.8 cm LA Vol index 30 ml/m2 Asc Ao 3.8 cm RA Vol index 17 ml/m2 LA 4.4 cm RA area 15 cm? ? ? RV Max 4C (d) 4.1 cm Diastology: Mitral Tissue Doppler E Peak 0.8 m/s e', Septum 0.05 m/s A Peak 1.2 m/s e', Lateral 0.07 m/s E/A 0.6 E/e' Average 13.16 DT 229 msec Aortic Valve: Vmax 1.3 m/s SHARAL (V) 4.01 cm? ? ? VTI 0.26 m SHARLA (I) 4.03 cm? ? ? LVOT V max 1.1 m/s Max PG 7 mmHg LVOT VTI 0.22 m Mean PG 4 mmHg SV 104 ml Dim Index 0.85 SV index 44 ml/m? ? ? CO 9.4 l/min AV Ejection Time 0.27 sec CI 4.0 l/min/m? ? ? AV Flow Rate 391 ml/s Mitral Valve: MVA 3.3 cm? ? ? MV P 1/2 66 msec Tricuspid Valve and estimated PA pressures: TAPSE 2.2 cm Pulmonic Valve: PV AT 121 msec . This study was interpreted by an [facility] accredited facility. CC: Med/Surg - IP [facility], HIM (med records) [facility]. Final Marianne Farrell MD ECHO ORD * SCAN-RADIOLOGY REPORT (10/26/2023 12:00 AM CDT) Anatomical Region Laterality Modality Other Scanner OTHER * SCAN-OPERATIVE/PROCEDURE REPORT (10/26/2023 12:00 AM CDT) Scanner OTHER * (ABNORMAL) PLATELET COUNT (10/10/2023 7:48 AM CDT) Only the most recent of13 resultswithin the time period is included. PLATELET COUNT 293 140 - 440 thou/cu mm 10/10/2023 8:29 AM CDT [facility] MPV 11.5(H) 6.5 - 11.0 fL 10/10/2023 8:29 AM CDT [facility] Blood BLOOD SPECIMEN / Unknown Venipuncture / Unknown 10/10/2023 7:48 AM CDT 10/10/2023 8:07 AM CDT Narrative [facility] - 10/10/2023 8:29 AM CDT Necessary every morning while on IV heparin. Gerda MADRIGAL HEMATOLOGY [facility] [address] [place] [address], * POTASSIUM (10/10/2023 7:48 AM CDT) Only the most recent of10 resultswithin the time period is included. POTASSIUM 4.1 3.5 - 5.1 mmol/L 10/10/2023 8:[address] [facility] Blood BLOOD SPECIMEN / Unknown Venipuncture / Unknown 10/10/2023 7:48 AM CDT 10/10/2023 8:07 AM CDT Charles Dean RN CHEMISTRY Performing Organization Address [facility] Co de Phone Number [facility] [address] [place] [address], [place] * (ABNORMAL) GLUCOSE METER (10/10/2023 7:05 AM CDT) Only the most recent of81 resultswithin the time period is included. GLUCOSE METER 161(H) 65 - 100 mg/dL 10/10/2023 7:06 AM CDT [facility] Blood BLOOD SPECIMEN / Unknown 10/10/2023 7:05 AM CDT 10/10/2023 7:06 AM CDT Ramone Estrada MD CHEMISTRY Performing Organization Address [facility] Phone Number [facility] [address] [place] [address], [place] * SODIUM (10/09/2023 8:13 AM CDT) Only the most recent of8 resultswithin the time period is included. SODIUM 137 136 - 145 mmol/L 10/09/2023 9:04 AM CDT [facility] Blood BLOOD SPECIMEN / Unknown Venipuncture / Unknown 10/09/2023 8:13 AM CDT 10/09/2023 8:20 AM CDT Ramone Estrada MD CHEMISTRY Performing Organization Address [facility] Co de Phone Number [facility] [address] [address], [place] * (ABNORMAL) CREATININE (10/09/2023 8:13 AM CDT) Only the most recent of9 resultswithin the time period is included. eGFR >90 >90 mL/min/1.7 3m2 10/09/2023 9:04 AM CDT [facility] Comment:As of 2021, eG FR is calculated by the CKD-EPI creatinine equation without race adjustment. ??eGFR can be influenced by muscle mass, exercise, and diet. ??The reported eGFR is an estimation only and is only applicable if the renal function is stable. CREATININE 0.67(L) 0.70 - 1.20 mg/dL 10/09/2023 9:04 AM CDT [facility] Blood BLOOD SPECIMEN / Unknown Venipuncture / Unknown 10/09/2023 8:13 AM CDT 10/09/2023 8:20 AM CDT Ramone Estrada MD CHEMISTRY [facility] [address] [place] [address], * (ABNORMAL) Hepatic function panel FOR ADD ON (10/09/2023 8:13 AM CDT) Only the most recent of6 resultswithin the time period is included. ALBUMIN 2.3(L) 4.0 - 4.9 g/dL 10/09/2023 2:26 PM CDT [facility] PROTEIN,TOTAL 5.9(L) 6.0 - 8.0 g/dL 10/09/2023 2:26 PM CDT [facility] BILIRUBIN,TOTAL 1.0 0.0 - 1.2 mg/dL 10/09/2023 2:26 PM CDT [facility] BILIRUBIN,DIRECT 0.7(H) 0.0 - 0.3 mg/dL 10/09/2023 2:26 PM CDT [facility] BILIRUBIN,INDIRE CT 0.3 0.2 - 0.8 mg/dL 10/09/2023 2:26 PM CDT [facility] ALK PHOSPHATASE 254(H) 40 - 129 IU/L 10/09/2023 2:26 PM CDT [facility] ALT (SGPT) 44 10 - 50 IU/L 10/09/2023 2:26 PM CDT [facility] AST (SGOT) 50 10 - 50 IU/L 10/09/2023 2:26 PM CDT [facility] Blood BLOOD SPECIMEN / Unknown Venipuncture / Unknown 10/09/2023 8:13 AM CDT 10/09/2023 8:20 AM CDT Ramone Estrada MD CHEMISTRY [facility] [address] [place] [address], * SCAN-CARDIAC STRIP (10/08/2023 6:09 AM CDT) Scanner OTHER * SCAN-CARDIAC STRIP (10/07/2023 3:58 AM CDT) Scanner OTHER * SCAN-CARDIAC STRIP (10/07/2023 3:56 AM CDT) Scanner OTHER * SCAN-CARDIAC STRIP (10/06/2023 7:43 AM CDT) Scanner OTHER * SCAN-CARDIAC STRIP (10/06/2023 12:51 AM CDT) Scanner OTHER * stool pathogen multiplex PCR (10/05/2023 8:35 PM CDT) Campylobacter NOT Detected NOT Detected 10/06/2023 1:23 PM CDT [facility] Salmonella NOT Detected NOT Detected 10/06/2023 1:23 PM CDT [facility] Shigella NOT Detected NOT Detected 10/06/2023 1:23 PM CDT [facility] Vibrio NOT Detected NOT Detected 10/06/2023 1:23 PM CDT [facility] Yersinia Enterocolitica NOT Detected NOT Detected 10/06/2023 1:23 PM CDT [facility] Shiga Toxin 1 NOT Detected NOT Detected 10/06/2023 1:23 PM CDT [facility] Shiga Toxin 2 NOT Detected NOT Detected 10/06/2023 1:23 PM CDT [facility] Norovirus NOT Detected NOT Detected 10/06/2023 1:23 PM CDT [facility] Rotavirus NOT Detected NOT Detected 10/06/2023 1:23 PM CDT [facility] Stool STOOL SPECIMEN / Unknown Non-Blood / Unknown 10/05/2023 8:35 PM CDT 10/05/2023 8:46 PM CDT Narrative [facility] - 10/06/2023 1:23 PM CDT This test is a Culture Independent Diagnostic Test (CIDT) therefore isolates are not available for susceptibility testing. ??Antibiotic treatment is often contraindicated and may be detrimental in cases of enteric infections, thus routine susceptibility testing is not recommended. Ramone Estrada MD MICROBIOLOGY [facility] [address] [place] [address], * (ABNORMAL) PANCREATIC ELASTASE FECAL (10/05/2023 8:35 PM CDT) Pancreatic Elast Fecal 138(L) >200 ug Elast./g 10/13/2023 2:09 PM CDT [facility] TEST[facility] (CET) Comment: ? Severe Pancreatic Insufficiency: ?<100 ? Moderate Pancreatic Insufficiency: ?? 100 - 200 ? Normal: ? >200 Stool STOOL SPECIMEN / Unknown Non-Blood / Unknown 10/05/2023 8:35 PM CDT 10/05/2023 8:45 PM CDT [facility] FOR ESOTERIC TESTING (CET) - 10/13/2023 2:09 PM CDT Performed at: ?[address], [place], [place] ??[id number] Coal Sample Tester: Yvon Sexton MD, Phone: ??[phone] Denton Smallwood MD MICROBIOLOGY Performing Organization Address [facility] de Phone Number [facility] (CET) [address] [place] [address], * CLOSTRIDIOIDES DIFFICILE TOXIN PCR (10/05/2023 8:35 PM CDT) Pathologist [facility] CLOSTRIDIUM DIFFICILE PCR Negative 10/05/2023 9:50 PM CDT [facility] PRESUMPTIVE NAP1 STRAIN Negative 10/05/2023 9:50 PM CDT [facility] Stool STOOL SPECIMEN / Unknown Non-Blood / Unknown 10/05/2023 8:35 PM CDT 10/05/2023 8:45 PM CDT Narrative [facility] - 10/05/2023 9:50 PM CDT The NAP1 (027 or BI) strain is a hypervirulent strain. Detection may be useful for epidemiological purposes. Ramone Estrada MD MICROBIOLOGY Performing Organization Address [facility] Co de Phone Number [facility] [address] [place] [address] * SCAN-CARDIAC STRIP (10/05/2023 3:48 PM CDT) Scanner OTHER * SCAN-CARDIAC STRIP (10/05/2023 12:17 AM CDT) Scanner OTHER * SCAN-CARDIAC STRIP (10/04/2023 10:57 AM CDT) Scanner OTHER * (ABNORMAL) Hemoglobin AM (10/04/2023 7:28 AM CDT) Only the most recent of7 resultswithin the time period is included. Pathologist [facility] HEMOGLOBIN 10.6(L) 13.5 - 17.5 g/dL 10/04/2023 8:12 AM CDT [facility] MCV 83 80 - 100 fL 10/04/2023 8:12 AM CDT [facility] Blood BLOOD SPECIMEN / Unknown Venipuncture / Unknown 10/04/2023 7:28 AM CDT 10/04/2023 7:46 AM CDT Narrative [facility] - 10/04/2023 8:12 AM CDT Necessary every morning while on IV heparin. Ramone Estrada MD HEMATOLOGY [facility] [address] [place] [address], * SCAN-CARDIAC STRIP (10/04/2023 1:06 AM CDT) [...] AM CDT) Case Report Pathology Report ?Case: [id number] ? Authorizing Provider: ??Rafael Bertrand, ?? Collected: ? 09/30/2023 0912 ? MBBS ? Ordering Location: ? [facility] ?Received: ?09/30/2023 0925 ? Hospital ? Pathologist: ? Chris, Chris Sandor ? IV, MD ? Specimens: ?? A) - Liver Segment 8, Liver segment VIII wedge; rule out metastases ? B) - Liver Segment 2, Liver segment 2 wedge; rule out metastases ? C) - Liver Segment 8, Wedge #2; margin is inked for frozen ? 4 4:56 PM CDT [facility] Final Diagnosis A) LIVER, SEGMENT [...] chronic ?? liver disease 4 4:56 PM CDT [facility] Comment Formalin-fixed, paraffin-embedded tissue is available for ancillary studies, to request please contact the [facility] ([phone]). Neoplastic tissue available for ancillary studies: ?? [facility] NGS testing: ?- FFPE tissue blocks: B1 and B2 ?- Cytology slides: No cytology slides prepared from this specimen ?? Tests using immunostains and/or FISH (requiring 100 cells): B1 and B2 ?? Send out (outside vendor) testing requiring 5 x 5 mm of tumor: B1 and B2 4:56 PM T [facility] Clinical Information Mr. Guzman is a 68 y.o. who presents with a history of pancreatic adenocarcinoma now undergoes staging laparoscopy. PROCEDURE PERFORMED: 1. ??Staging laparoscopy, Intraoperative ultrasound of the liver. 2. ??Laparoscopic segment VIII sub-segmentectomy x 2. 3. ??Laparoscopic segment II sub-segmentectomy. His diagnostic biopsy was performed on 09/25/2023 ([facility] pathology ). 4:56 PM T [facility] Gross Description A) Received fresh labeled [...] ??Remainder DPL 10/02/2023 4 4:56 PM T [facility] Intraoperative Consultation A) LIVER, SEGMENT VIII, [...] surgical procedure. ??This testing was performed at: [facility] ?? [address] [place] [address] 4 4:56 PM CDT [facility] Microscopic Description The final diagnosis is based on microscopic examination of appropriate sections of all specimens. 4 4:56 PM CDT [facility] Additional Information Interpreted at [facility] - [address], [place] [address] 4 4:56 PM CDT [facility] Tissue (Liver Segment 8) 09/30/2023 9:12 AM CDT 09/30/2023 9:25 AM CDT Tissue specimen (specimen) (Liver Segment 2) 09/30/2023 9:15 AM CDT 09/30/2023 9:25 AM CDT Tissue specimen (specimen) (Liver Segment 8) 09/30/2023 9:25 AM CDT 09/30/2023 9:35 AM CDT Rafael MADRIGAL PATHOLOGY/CY TOLOGY [facility] [address] [place] [address], * HCHG TUBE PR1, HCHG STYLET PR1, [...] ??Comment: Supplemental O2: supplemental oxygen. ??Comment:. Vessel Nut Former Additional supplies used to locate vessel: no Needle Catheter size: 20 G. ??Comment:. Events: no complications. Misael Hdz MD ANESTHESIA PX NOTE O RDERABLES * (ABNORMAL) INR AM (09/30/2023 6:49 AM CDT) Only the most recent of3 resultswithin the time period is included. INR 1.3(H) <1.3 09/30/2023 7:[address] [facility] PROTIME 14.5(H) 10.3 - 12.3 sec 09/30/2023 7:35 AM CDT [facility] Blood BLOOD SPECIMEN / Unknown Venipuncture / Unknown 09/30/2023 6:49 AM CDT 09/30/2023 6:59 AM CDT Narrative [facility] - 09/30/2023 7:35 AM CDT ?Therapeutic [...] seconds if the patient is on UFH. Gerda MADRIGAL HEMATOLOGY [facility] [address] [place] [address], [place] * SCAN-CARDIAC STRIP (09/30/2023 12:35 AM CDT) Scanner OTHER * TYPE & SCREEN (09/29/2023 4:29 PM CDT) Pathologist [facility] ABORH B Rh Positive 09/29/2023 5:23 PM CDT [facility] ANTIBODY SCREEN Negative Negative 09/29/2023 5:23 PM CDT [facility] B[facility] SPECIMEN EXPIRATION DATE/TIME 10/02/23 23:59 09/29/2023 5:23 PM CDT [facility] Blood BLOOD SPECIMEN / Unknown Venipuncture / Unknown 09/29/2023 4:29 PM CDT 09/29/2023 4:37 PM CDT Ashley HOYOS BLOOD BANK [facility] B[facility]OD BANK [address] [place] [address], [place] [phone] * CT ABDOMEN WO (09/29/2023 11:18 AM [...] - 53.0 % 09/29/2023 3:52 AM CDT [facility] Blood BLOOD SPECIMEN / Unknown Butterfly / Unknown 09/29/2023 3:34 AM CDT 09/29/2023 3:49 AM CDT Narrative [facility] - 09/29/2023 3:52 AM CDT Every morning while on IV heparin. Every morning while on IV heparin. Necessary every morning while on IV heparin. Gerda MADRIGAL HEMATOLOGY [facility] [address] [place] [address], * (ABNORMAL) Bilirubin, total AM (09/29/2023 3:34 AM CDT) Only the most recent of2 resultswithin the time period is included. BILIRUBIN,TOTA L 2.3(H) 0.0 - 1.2 mg/dL 09/29/2023 4:23 AM CDT [facility] Blood BLOOD SPECIMEN / Unknown Butterfly / Unknown 09/29/2023 3:34 AM CDT 09/29/2023 3:49 AM CDT Gerda MADRIGAL CHEMISTRY Performing Organization Address [facility]/ZIP Co de Phone Number [facility] [address] [address], [place] * (ABNORMAL) APTT (09/29/2023 3:34 AM CDT) Only the most recent of3 resultswithin the time period is included. APTT 75(H) 28 - 36 sec 09/29/2023 4:01 AM CDT [facility] Blood BLOOD SPECIMEN / Unknown Butterfly / Unknown 09/29/2023 3:34 AM CDT 09/29/2023 3:49 AM CDT Narrative [facility] - 09/29/2023 4:01 AM CDT Therapeutic Range: 57-87 seconds Susan MADRIGAL HEMATOLOGY Performing Organization Address [facility] Co de Phone Number [facility] [address] [id number], [place] * (ABNORMAL) ALT AM (09/29/2023 3:34 AM CDT) Only the most recent of2 resultswithin the time period is included. ALT (SGPT) 125(H) 10 - 50 IU/L 09/29/2023 4:23 AM CDT [facility] Blood BLOOD SPECIMEN / Unknown Butterfly / Unknown 09/29/2023 3:34 AM CDT 09/29/2023 3:49 AM CDT Gerda MADRIGAL CHEMISTRY Performing Organization Address City/[facility]/ZIP Co de Phone Number [facility] [address] [place] [address], [place] * (ABNORMAL) AST AM (09/29/2023 3:34 AM CDT) Only the most recent of2 resultswithin the time period is included. AST (SGOT) 101(H) 10 - 50 IU/L 09/29/2023 4:23 AM CDT [facility] Blood BLOOD SPECIMEN / Unknown Butterfly / Unknown 09/29/2023 3:34 AM CDT 09/29/2023 3:49 AM CDT Gerda MADRIGAL CHEMISTRY [facility] [address] [place] [address], * SCAN-CARDIAC STRIP (09/28/2023 8:48 PM CDT) [...] - 2.4 mg/dL 09/28/2023 11:36 AM CDT [facility] Blood BLOOD SPECIMEN / Unknown Venipuncture / Unknown 09/28/2023 10:51 AM CDT 09/28/2023 11:06 AM CDT Gerda PAIZ CHEMISTRY [facility] [address] [place] [address], * (ABNORMAL) Basic metabolic panel TODAY (09/28/2023 10:51 AM CDT) Only the most recent of2 resultswithin the time period is included. Pathologist [facility] SODIUM 139 136 - 145 mmol/L 09/28/2023 11:59 AM CDT [facility] POTASSIUM 3.8 3.5 - 5.1 mmol/L 09/28/2023 11:59 AM T [facility] CHLORIDE 104 98 - 107 mmol/L 09/28/2023 11:59 AM T [facility] CO2,TOTAL 25 22 - 29 mmol/L 09/28/2023 11:59 AM T [facility] ANION GAP 10 5 - 18 09/28/2023 11:59 AM T [facility] GLUCOSE 145(H) 70 - 99 mg/dL 09/28/2023 11:59 AM T [facility] CALCIUM 8.8 8.8 - 10.2 mg/dL 09/28/2023 11:59 AM CDT [facility] BUN 9 8 - 23 mg/dL 09/28/2023 11:59 AM T [facility] CREATININE 0.77 0.70 - 1.20 mg/dL 09/28/2023 11:59 AM T [facility] BUN/CREAT RATIO 12 10 - 20 11:59 AM T [facility] eGFR >90 >90 mL/min/1.7 3m2 09/28/2023 11:59 AM CDT [facility] Comment:As of 2021, eG FR is calculated by the CKD-EPI creatinine equation without race adjustment. ??eGFR can be influenced by muscle mass, exercise, and diet. ??The reported eGFR is an estimation only and is only applicable if the renal function is stable. Blood BLOOD SPECIMEN / Unknown Venipuncture / Unknown 09/28/2023 10:51 AM CDT 09/28/2023 11:06 AM CDT Gerda Schwartz [employer] CHEMISTRY [facility] [address] [place] [address], * SCAN-CARDIAC STRIP (09/28/2023 10:00 AM CDT) Scanner OTHER * SCAN-CARDIAC STRIP (09/28/2023 9:59 AM CDT) Scanner OTHER * BUN (09/28/2023 9:34 AM CDT) BUN 9 8 - 23 mg/dL 09/28/2023 11:07 AM CDT [facility] Blood BLOOD SPECIMEN / Unknown Venipuncture / Unknown 09/28/2023 9:34 AM CDT 09/28/2023 10:39 AM CDT RachaelShiny Adsjose Schwartz [employer] CHEMISTRY [facility] [address] [place] [address], * EKG 12 LEAD (09/28/2023 9:28 AM [...] NOW QTc 424 ms BEYOND NOW P [place] 56 degrees BEYOND NOW R [place] -6 degrees BEYOND NOW T [place] 14 degrees BEYOND NOW 09/28/2023 9:28 AM CDT 09/28/2023 1:39 PM CDT Gerda MADRIGAL EKG ORD BEYOND NOW [place], [place] * SCAN-CARDIAC STRIP (09/28/2023 7:12 AM [...] Case Report Medical Cytology Report ? Case: [id number] ? Authorizing Provider: ??Abner Argueta, ?? Collected: ? 09/25/2023 1541 ? MD ? Ordering Location: ? [facility] ?Received: ?09/25/2023 1628 ? Hospital ? Pathologist: ? Angelita Velasquez, ? Specimen: ?Pancreas Head, mass ? 09/26/2023 11:05 AM T [facility] Final Diagnosis A) PANCREAS, HEAD, EUS GUIDED FINE NEEDLE ASPIRATION: 1. Positive for malignancy; poorly differentiated carcinoma, compatible with pancreatic primary 2. Insufficient direct smear or cellblock material for ancillary studies 09/26/2023 11:05 AM T [facility] Comment PANCREAS ANCILLARY TESTING PROTOCOL This patient's sample meets [facility] criteria* for reflex testing, or such testing has been requested by the ordering physician. Testing will be performed and the results will be communicated in an amendment to this report. If there is a need for ancillary tests other than these, please contact the [facility] ([phone]). Slides available for [facility] N[facility] testing: QUANTITY NOT SUFFICIENT Blocks available for [facility] NGS testing: QUANTITY NOT SUFFICIENT Blocks available for tests using immunostains and/or FISH (requiring 100 cells): QUANTITY NOT SUFFICIENT Blocks available for send out (outside vendor) testing requiring 5 x 5 mm of tumor: QUANTITY NOT SUFFICIENT *[facility] reflex testing criteria for pancreatic carcinoma - [...] A1-3 and A1-6. 09/26/2023 11:05 AM T [facility] [employer] [facility] Clinical Information Mr. Guzman is a [...] needle aspiration performed. 09/26/2023 11:05 AM T [facility] [employer] [facility] Gross Description A) Received identified as [...] than 72 hours. 09/26/2023 11:05 AM CDT [facility] Adequacy Assessment A) A.S. assessed adequacy from the air-dried smears at the time of the procedure with an impression of Adequate. 09/26/2023 11:05 AM CDT [facility] Microscopic Description Specimen adequacy: Adequate for interpretation. All slides were reviewed. The microscopic appearance substantiates the diagnosis. 09/26/2023 11:05 AM CDT [facility] Additional Information Cytology is screened at [facility] - [address], [place] [address] and [facility] - [address] [address] and [facility] - [address] [place] [address] Interpreted at [facility] - [address], [place] [address] 09/26/2023 11:05 AM CDT [facility] Aspirate (Pancreas Head) 09/25/2023 3:41 PM CDT 09/25/2023 4:28 PM CDT Abner Argueta MD PATHOLOGY/CYTO LOGY [facility] [address] [place] [address], * ENDOSCOPY (09/25/2023 3:10 PM CDT) 09/25/2023 3:10 PM CDT Narrative Transcriptions Abner Argueta MD - 09/25/2023 5:45 PM CDT [facility] Patient Name: Denton Guzman Procedure Date: 09/25/2023 Gender: Male Date of : 1955 Admit Type: Inpatient Procedure: ERCP Proceduralist: Abner Argueta MD - [facility] Indications/Pre-Op Diagnosis: Jaundice Medications: General Anesthesia Procedure Description: Risk of bleeding, infection, perforation, pancreatitis, need for surgery, remote chance of and alternatives were discussed, andthe patient gave informed consent. The endoscope [id number] was passed through the mouth, and advanced [...] Argueta MD - 09/25/2023 5:43 PM CDT [facility] Patient Name: Denton Guzman Procedure Date: 09/25/2023 Gender: Male Date of : 1955 Admit Type: Inpatient Procedure: Upper EUS Proceduralist: Abner Argueta MD - [facility] Indications/Pre-Op Diagnosis: Suspected solid pancreatic neoplasm Medications: General Anesthesia Procedure Description: Risk of bleeding, infection, perforation, pancreatitis, need for surgery, remote chance of and alternatives were discussed, andthe patient gave informed consent. The endoscope [id number] was introduced through the mouth, and advanced [...] gauge needle using a transduodenal approach. A information security was present and performed a preliminary cytologic [...] (09/23/2023 4:02 PM CDT) Scanner OTHER * TSH AM (09/23/2023 8:40 AM CDT) Only the most recent of2 resultswithin the time period is included. TSH 0.43 0.27 - 4.20 uIU/mL 09/23/2023 9:49 AM CDT [facility] Blood BLOOD SPECIMEN / Unknown Butterfly / Unknown 09/23/2023 8:40 AM CDT 09/23/2023 8:48 AM CDT [facility] - 09/23/2023 9:49 AM CDT In Adults, TSH values between 5.00 and 10.00 uIU/ml do not necessarily indicate the presence of Hypothyroidism. Correlation with clinical findings such as presence of goiter and/or Thyroperoxidase (TPO) Antibody may be helpful. For more information please refer to DONNA 2004; 291: 228-238. Gerda MADRIGAL CHEMISTRY [facility] [address] [place] [address], * (ABNORMAL) CBC W PLT NO DIFF (09/23/2023 8:40 AM CDT) WHITE BLOOD COUNT 10.7 4.5 - 11.0 thou/cu mm 09/23/2023 9:00 AM CDT [facility] RED BLOOD COUNT 4.65 4.30 - 5.90 mil/cu mm 09/23/2023 9:00 AM CDT [facility] HEMOGLOBIN 12.3(L) 13.5 - 17.5 g/dL 09/23/2023 9:00 AM T [facility] HEMATOCRIT 38.8 37.0 - 53.0 % 09/23/2023 9:00 AM T [facility] MCV 83 80 - 100 fL 09/23/2023 9:00 AM CDT [facility] MCH 26.5 26.0 - 34.0 pg 09/23/2023 9:00 AM CDT [facility] MCHC 31.7(L) 32.0 - 36.0 g/dL 09/23/2023 9:00 AM T [facility] RDW 14.6 11.5 - 15.5 % 09/23/2023 9:00 AM T [facility] PLATELET COUNT 263 140 - 440 thou/cu mm 09/23/2023 9:00 AM CDT [facility] MPV 11.1(H) 6.5 - 11.0 fL 09/23/2023 9:00 AM CDT [facility] NRBC 0.0 % 09/23/2023 9:00 AM CDT [facility] ABS NRBC 0.0 thou /cu mm 09/23/2023 9:00 AM CDT [facility] Blood BLOOD SPECIMEN / Unknown Butterfly / Unknown 09/23/2023 8:40 AM CDT 09/23/2023 8:49 AM CDT Gerda MADRIGAL HEMATOLOGY [facility] [address] [place] [address], * (ABNORMAL) CA 19-9 AM (09/23/2023 8:40 AM CDT) CA 19-9 962(H) <36 IU/mL 09/23/2023 9:50 AM CDT [facility] Blood BLOOD SPECIMEN / Unknown Butterfly / Unknown 09/23/2023 8:40 AM CDT 09/23/2023 8:48 AM CDT Narrative [facility] - 09/23/2023 9:50 AM CDT The test method changed on 04/05/2022. If this test has been used for serial monitoring, rebaselining is recommended. Rebaselining consists of 2 measurements, collected 3-6 weeks apart. The [employer] CA 19-9 assay is an electrochemiluminescence immunoassay ECLIA performed on the UM[employer] e immunoassy analyzers. ?? Values obtained with different assay methods may be different and cannot be used interchangeably. ? Biotin supplements may cause clinically significant interference for this test assay. If interference is suspected, it is strongly recomended that biotin is discontinued for at least one week prior to retesting. Gerda MADRIGAL SEND OUTS [facility] [address] [place] [address], * (ABNORMAL) Lipase AM (09/23/2023 8:40 AM CDT) Only the most recent of2 resultswithin the time period is included. LIPASE 175.0(H) 13.0 - 60.0 IU/L 09/23/2023 10:17 AM CDT [facility] Blood BLOOD SPECIMEN / Unknown Butterfly / Unknown 09/23/2023 8:40 AM CDT 09/23/2023 8:48 AM CDT Gerda MADRIGAL CHEMISTRY [facility] [address] [place] [address], [place] * SCAN-CARDIAC STRIP (09/23/2023 7:34 AM CDT) [...] 9:01:07 AM (Electronically Signed) Procedure Note Shayla Thompson DO - 09/20/2023 For Patients: As a [...] * (ABNORMAL) CREATININE,ISTAT (09/19/2023 3:06 PM CDT) [facility] CREATININE, POCT 1.30(H) 0.57 - 1.11 mg/dL 09/19/2023 3:08 PM CDT [facility] Comment:Caution: Patients ta rosette Hydroxyurea have falsely increased iStat Creatinine results. Verify creatinine results ordering a Creatinine (80417.2) eGFR 59(L) >90 mL/min/1.7 3m2 09/19/2023 3:08 PM CDT [facility] Comment:As of 2021, eG FR is calculated by the CKD-EPI creatinine equation without race adjustment. eGFR can be influenced by muscle mass, exercise, and diet. The reported eGFR is an estimation only and is only applicable if the renal function is stable. Blood BLOOD SPECIMEN / Unknown 09/19/2023 3:06 PM CDT 09/19/2023 3:08 PM CDT Nadia HOYOS CHEMISTRY [facility] [address] [place] [address], * (ABNORMAL) CBC WITH AUTO DIFFERENTIAL (09/19/2023 2:56 PM CDT) [facility] WHITE BLOOD COUNT 10.3 4.5 - 11.0 thou/cu mm 09/19/2023 3:10 PM CDT [facility] RED BLOOD COUNT 5.11 4.30 - 5.90 mil/cu mm 09/19/2023 3:10 PM CDT [facility] HEMOGLOBIN 13.8 13.5 - 17.5 g/dL 09/19/2023 3:10 PM CDT [facility] HEMATOCRIT 41.9 37.0 - 53.0 % 09/19/2023 3:10 PM CDT [facility] MCV 82 80 - 100 fL 09/19/2023 3:10 PM CDT [facility] MCH 27.0 26.0 - 34.0 pg 09/19/2023 3:10 PM CDT [facility] MCHC 32.9 32.0 - 36.0 g/dL 09/19/2023 3:10 PM CDT [facility] RDW 15.3 11.5 - 15.5 % 09/19/2023 3:10 PM CDT [facility] PLATELET COUNT 377 140 - 440 thou/cu mm 09/19/2023 3:10 PM CDT [facility] MPV 11.4(H) 6.5 - 11.0 fL 09/19/2023 3:10 PM CDT [facility] % NEUT 75.4 % 09/19/2023 3:10 PM CDT [facility] % LYMPH 13.5 % 09/19/2023 3:10 PM CDT [facility] % MONO 9.0 % 09/19/2023 3:10 PM CDT [facility] % EOS 1.8 % 09/19/2023 3:10 PM CDT [facility] % BASO 0.3 % 09/19/2023 3:10 PM CDT [facility] ABSOLUTE NEUTROPHILS 7.7(H) 1.7 - 7.0 thou/cu mm 09/19/2023 3:10 PM CDT [facility] ABSOLUTE LYMPHOCYTES 1.4 0.9 - 2.9 thou/cu mm 09/19/2023 3:10 PM CDT [facility] ABSOLUTE MONOCYTES 0.9(H) <0.9 thou/cu mm 09/19/2023 3:10 PM CDT [facility] ABSOLUTE EOSINOPHILS 0.2 <0.5 thou/cu mm 09/19/2023 3:10 PM CDT [facility] ABSOLUTE BASOPHILS 0.0 <0.3 thou/cu mm 09/19/2023 3:10 PM CDT [facility] Blood BLOOD SPECIMEN / Unknown Venipuncture / Unknown 09/19/2023 2:56 PM CDT 09/19/2023 2:58 PM CDT Nadia HOYOS HEMATOLOGY Performing Organization Address City/[facility]/ZIP Co de Phone Number [facility] [address] [place] [address], * (ABNORMAL) C-REACTIVE PROTEIN (09/19/2023 2:56 PM CDT) Pathologist [facility] C-REACTIVE PROTEIN 4.0(H) <0.5 mg/dL 09/20/2023 5:12 AM CDT [facility] Blood BLOOD SPECIMEN / Unknown Venipuncture / Unknown 09/19/2023 2:56 PM CDT 09/19/2023 2:58 PM CDT Nadia HOYOS CHEMISTRY Performing Organization Address [facility]/ZIP Co de Phone Number [facility] [address] [place] [phone], * (ABNORMAL) COMP METABOLIC PANEL (09/19/2023 2:56 PM CDT) SODIUM 133(L) 136 - 145 mmol/L 09/20/2023 4:59 AM CDT [facility] POTASSIUM 5.2(H) 3.5 - 5.1 mmol/L 09/20/2023 4:59 AM CDT [facility] CHLORIDE 98 98 - 107 mmol/L 09/20/2023 4:59 AM CDT [facility] CO2,TOTAL 17(L) 22 - 29 mmol/L 09/20/2023 4:59 AM CDT [facility] ANION GAP 18 5 - 18 09/20/2023 4:59 AM CDT [facility] GLUCOSE 215(H) 70 - 99 mg/dL 09/20/2023 4:59 AM [facility] CALCIUM 10.1 8.8 - 10.2 mg/dL 09/20/2023 4:59 AM [facility] BUN 17 8 - 23 mg/dL 09/20/2023 4:59 AM [facility] CREATININE 1.43(H) 0.70 - 1.20 mg/dL 09/20/2023 4:59 AM [facility] BUN/CREAT RATIO 12 10 - 20 4:59 AM [facility] eGFR 53(L) >90 mL/min/1. 73m2 09/20/2023 4:59 AM [facility] Comment:As of 2021, eG FR is calculated by the CKD-EPI creatinine equation without race adjustment. ??eGFR can be influenced by muscle mass, exercise, and diet. ??The reported eGFR is an estimation only and is only applicable if the renal function is stable. ALBUMIN 3.9(L) 4.0 - 4.9 g/dL 09/20/2023 4:59 AM [facility] PROTEIN,TOTAL 8.2(H) 6.0 - 8.0 g/dL 09/20/2023 4:59 AM [facility] BILIRUBIN,TOTAL 5.3(H) 0.0 - 1.2 mg/dL 09/20/2023 4:59 AM [facility] ALK PHOSPHATASE 1,051(H) 40 - 129 IU/L 09/20/2023 4:59 AM [facility] ALT (SGPT) 243(H) 10 - 50 IU/L 09/20/2023 4:59 AM [facility] AST (SGOT) 207(H) 10 - 50 IU/L 09/20/2023 4:59 AM [facility] Blood BLOOD SPECIMEN / Unknown Venipuncture / Unknown 09/19/2023 2:56 PM CDT 09/19/2023 2:58 PM CDT Nadia HOYOS CHEMISTRY [facility] [address] [address], [place] * URINALYSIS MICROSCOPIC (09/01/2023 9:16 AM CDT) RBC 0-2 0-2, None Seen /HPF 09/01/2023 9:31 AM CDT [facility] WBC None Seen 0-2, 3-5, None Seen /HPF 09/01/2023 9:31 AM CDT [facility] BACTERIA None Seen None Seen, Rare, Few Bacteria/ HPF 09/01/2023 9:31 AM CDT [facility] EPITHELIAL CELLS Few None Seen, Few Epi/HPF 09/01/2023 9:31 AM CDT [facility] Urine URINE SPECIMEN / Unknown Non-Blood / Unknown 09/01/2023 9:16 AM CDT 09/01/2023 9:23 AM CDT Clarita HOYOS URINE Performing Organization Address City/[facility]/ZIP Co de Phone Number [facility] [address] [id number], [place] [phone] * URINE CULTURE (09/01/2023 9:16 AM CDT) CULTURE No growth (<1,000 CFU/mL) 09/02/2023 2:35 PM CDT [facility] Urine URINE SPECIMEN / Unknown Non-Blood / Unknown 09/01/2023 9:16 AM CDT 09/01/2023 9:23 AM CDT [facility] [address] [place] [id number], [place] * (ABNORMAL) UA W/ SEDIMENT EXAM REFLEXED PER CRITERIA (09/01/2023 9:16 AM CDT) COLOR Yellow Yellow Color 09/01/2023 9:31 AM CDT [facility] CLARITY Clear Clear Clarity 09/01/2023 9:31 AM CDT [facility] SPECIFIC GRAVITY,URINE <=1.005(A) 1.010, 1.015, 1.020, 1.025 09/01/2023 9:31 AM CDT [facility] PH,URINE 5.0(A) 6.0, 7.0, 8.0, 5.5, 6.5, 7.5, 8.5 09/01/2023 9:31 AM CDT [facility] UROBILINOGEN, QUALITATIVE Normal Normal EU/dl 09/01/2023 9:31 AM CDT [facility] PROTEIN, URINE Negative Negative mg/dL 09/01/2023 9:31 AM CDT [facility] GLUCOSE, URINE >=1000(A) Negative mg/dL 09/01/2023 9:31 AM CDT [facility] KETONES,URINE Negative Negative mg/dL 09/01/2023 9:31 AM CDT [facility] BILIRUBIN,URI NE Negative Negative 09/01/2023 9:31 AM CDT [facility] OCCULT BLOOD,URINE Trace(A) Negative 09/01/2023 9:31 AM CDT [facility] NITRITE Negative Negative 09/01/2023 9:31 AM CDT [facility] LEUKOCYTE ESTERASE Negative Negative 09/01/2023 9:31 AM CDT [facility] Urine URINE SPECIMEN / Unknown Non-Blood / Unknown 09/01/2023 9:16 AM CDT 09/01/2023 9:23 AM CDT Clarita HOYOS URINE [facility] [address] [place] [address], [place] [phone] * (ABNORMAL) LIPID PANEL (11/11/2022 11:26 AM CDT) CHOLESTEROL,TOTAL 123 100 - 199 mg/dL 11/11/2022 6:50 PM CDT [facility] Comment: Cholesterol, Total Reference Ranges Desirable <200 mg/dL Borderline 200-239 mg/dL High >=240 mg/dL TRIGLYCERIDES 222(H) <150 mg/dL 11/11/2022 6:50 PM CDT [facility] HDL CHOLESTEROL 31(L) >40 mg/dL 6:50 PM CDT [facility] NON-HDL CHOLESTEROL 92 <145 mg/dl 11/11/2022 6:50 PM CDT [facility] CHOL/HDL RATIO 3.97 <4.50 11/11/2022 6:50 PM CDT [facility] LDL CHOLESTEROL 48 <=130 mg/dL 11/11/2022 6:50 PM CDT [facility] VLDL CHOLESTEROL 44(H) <=30 mg/dL 11/11/2022 6:50 PM CDT [facility] PROVIDER ORDERED STATUS RANDOM 11/11/2022 6:50 PM CDT [facility] Blood BLOOD SPECIMEN / Unknown Venipuncture / Unknown 11/11/2022 11:26 AM CDT 11/11/2022 11:28 AM CDT Chris Potter MD CHEMISTRY [facility] [address] [place] [address], [place] * ANTI HCV (06/17/2021 11:24 AM CDT) HEPATITIS C ANTIBODY Non-React rehan Non-React rehan 06/17/2021 6:14 PM CDT [facility] Comment:Antibodies to HCV no t detected; does not exclude the possibility of exposure to HCV. Blood BLOOD SPECIMEN / Unknown Venipuncture / Unknown 06/17/2021 11:24 AM CDT 06/17/2021 11:26 AM CDT Chris Potter MD SEND OUTS [facility] [address] [place] [address], from Last 3 Months or Most Recently Relevant to Health Maintenance Advance Directives * Full Code (Latest Code Status on File) Date Activated Date Inactivated Comments 09/22/2023 11:17 PM 10/10/2023 11:40 AM Question Answer Comments Code Status Discussion: Reviewed Preferences Care Teams Well Digger Relationship Specialty Start Date End Date Chris Potter MD [address] [place] [address] PCP - General Family Practice 01/13/21
== END 2023-10-24 15:11 | disposition home or self-care (01) ==
LOC: AMB 10-28 14:57
PROVIDERS: PCP Surgery; Visit Provider Family Medicine
DX: R53.1 Weakness (principal)
CPT/HCPCS: A0425; A0429

== ENCOUNTER 2023-10-24 15:45 | Observation (INO) | payer MEDICARE, SELFPAY ==
[2023-10-24] VITALS (7 sets, daily range): BP systolic 125–140; BP diastolic 68–76; PULSE 75–107; RESP 18–20; TEMP 36.2–36.8; O2SAT 90–97; BMI 31.7; BMI 32.8
[2023-10-24] MEDS: 0.9 % SODIUM CHLORIDE 1000 ml 1,000 ML IV ×2 (16:50→18:22)
--- NOTE | 2023-10-24 17:15 | ED_ITS ---
HPI - General Adult General Chief complaint: Weakness Stated complaint: weakness Time Seen by Provider: 10/24/23 16:08 Source: patient Mode of arrival: EMS Limitations: no limitations History of Present Illness HPI narrative: 68-year-old male presenting to the ER today with weakness. Patient has a recent history of metastatic pancreatic cancer. He he scheduled to have port surgery this week and to start chemotherapy next Monday. He was at a routine cardiology follow-up appointment today when he had to transfer out of the wheelchair and he was unable to. He stated that he struggled for so long that he expended himself and had no energy to move after that. Therefore, the clinical the ambulance and he was brought here. Patient states that he has not been eating any solid foods for quite a while now he drinks orange juice and Gatorade, small amounts, throughout the day. He has been coming to the ER for frequent IV fluids. His last treatment of IV fluids was Monday. He denies fevers, vomiting. He simply is not tolerate any oral intake. He has lost a significant amount of weight since this all started. He did spends several days at [facility] after he had his diagnostic workup at [facility], which included several biopsies, this was approximately 2 weeks ago. He lives at home with his and they are severely disabled adult son. He states that he is able to navigate the home with a cane. He states that after using up all his energy in the clinic today, he feels like he cannot navigate his home. Related Data Home Medications ?Medication ?Instructions ?Recorded ?Confirmed atorvastatin 40 mg tablet 40 mg PO DAILY 09/22/23 10/24/23 acetaminophen 325 mg tablet 650 mg PO QID PRN 10/18/23 10/18/23 (Tylenol) apixaban 5 mg tablet (Eliquis) 5 mg PO BID 10/18/23 10/24/23 cyclobenzaprine 5 mg tablet 5 mg PO TID PRN 10/18/23 10/24/23 insulin glargine 100 unit/mL 26 unit subcut QPM 10/18/23 10/24/23 subcutaneous solution (Lantus U-100 Insulin) mirtazapine 7.5 mg tablet 7.5 mg PO QDAY 10/18/23 10/24/23 ondansetron 4 mg disintegrating 4 mg PO Q8H 10/18/23 10/24/23 tablet oxycodone 5 mg tablet 5 - 15 mg PO QID PRN 10/18/23 10/24/23 polyethylene glycol 3350 17 4 g PO ONCE PRN 10/18/23 10/24/23 gram/dose oral powder (Miralax) dapagliflozin propanediol 5 mg 5 mg PO DAILY 10/24/23 10/24/23 tablet (Farxiga) glimepiride 4 mg tablet 4 mg PO DAILY 10/24/23 10/24/23 insulin aspart U-100 100 unit/mL 1 sliding scale dose subcut 10/24/23 10/24/23 (3 mL) subcutaneous pen USEASDIRECTD metformin 1,000 mg tablet 1,000 mg PO BID 10/24/23 10/24/23 metoprolol tartrate 50 mg tablet 50 mg PO BID 10/24/23 10/24/23 Previous Rx's ?Medication ?Instructions ?Recorded dronabinol 5 mg capsule (Marinol) 5 mg PO BID #60 caps 10/18/23 [id number] 1 cap PO TID #90 caps 10/18/23 6,000-19,000-30,000 unit capsule,delayed rel (Creon) metoclopramide HCl 5 mg tablet 5 mg PO QDAY #30 tabs 10/18/23 (Reglan) prochlorperazine maleate 5 mg 5 mg PO BID PRN nausea and 10/18/23 tablet (Compazine) vomiting #60 tabs Allergies Allergy/AdvReac Type Severity Reaction Status Date / Time No Known Drug Allergies Allergy Verified 10/20/23 17:17 Review of Systems Status of ROS: Reports: 10 or more systems reviewed and unremarkable except as noted in History and below [facility] Medical History Albuminuria ?R80.9 - Proteinuria, unspecified (ICD-10) Stage 3a chronic kidney disease ?N18.31 - Chronic kidney disease, stage 3a (ICD-10) Detached retina ?H33.20 - Serous retinal detachment, unspecified eye (ICD-10) Hyperlipidemia ?E78.5 - Hyperlipidemia, unspecified (ICD-10) Hypertension ?I10 - Essential (primary) hypertension (ICD-10) Type 2 diabetes mellitus without complication, with long-term current use of insulin ?E11.9 - Type 2 diabetes mellitus without complications (ICD-10) ?Z79.4 - 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) use of insulin (ICD-10) Pancreatic cancer metastasized to liver ?C25.9 - Malignant neoplasm of pancreas, unspecified (ICD-10) ?C78.7 - Secondary malignant neoplasm of liver and intrahepatic bile duct (ICD-10) Surgical History History of liver biopsy ?Z98.890 - Other specified postprocedural states (ICD-10) Social History Smoking Status: Current some day smoker What tobacco products do you use: cigarettes Do you use any of these nicotine containing products: None Second hand tobacco smoke exposure: No How often do you have a drink containing alcohol: 2-4 times a month How often do you have six or more drinks on one occasion: Never AUDIT-C Alcohol total score: 2 Non-prescribed substance use: denies use service: No Exam Narrative: Exam Narrative: Overweight patient in no acute distress. Alert and oriented x3. Answers questions appropriately. Mood and affect are appropriate. Thoughts are goal oriented and rational. No tangential or magical thinking noted. Patient speaks in full sentences without needing to catch his breath. Patient appears quite haq and pale in color. HEENT: Normocephalic atraumatic. Pupils are equally round reactive to light. Extraocular muscles are intact. Dry mucous membranes. Neck is soft. Cardiovascular: Heart is regular rate and rhythm. Lungs: Clear to auscultation bilaterally. Abdomen: Soft and nontender nondistended with normal bowel sounds. Extremities: Patient has trace edema of the bilateral lower extremities. He has some mild puffiness of the upper extremities as well. There is no pitting edema of the abdominal wall. Skin: Warm, dry and pale/ashen. Const: Vital Signs, click to edit/add: Vital Signs - 24 hr 10/24/23 15:49 Temperature 97.2 F L Pulse Rate [Pulse Oximeter] 94 Respiratory Rate 20 Blood Pressure [Ri ght Upper Arm] 125/68 Pulse Oximetry 97 Course Course ED Course: IV is established and patient received Zofran and normal saline. Had a long conversation with the patient and his about his current living condition. is very concerned that she cannot take care of him in this condition. We discussed that we will hydrate him, see if he tolerates oral intake, and reassess strength at that time. The meantime, we did do some blood work. Patient continues to have an elevated white cell count 18.04, hemoglobin is 11.1 - these are largely unchanged from previous CBCs this month. Sodium was low at 129, potassium 3.9. His glucose was elevated at 351. We did give him 5 units of regular insulin, blood sugar went down to 258. His LFTs continue to be abnormal although no significant change from previous LFTs. UA shows 2+ glucose 2+ protein 1+ bilirubin. After receiving a L of normal saline patient still refused to have any oral intake. He was able to take a few steps with a walker, however he was unable to stand up without assistance. I did speak to our hospitalist will accept the patient for admission. I did speak to the patient and his that fdc is likely not an option if he is going to get chemotherapy and we half to get him strong and hydrated enough tonight to plan on discharging him to home tomorrow. Vital Signs Vital signs: Initial Vital Signs Temperature 97.2 F L 10/24/23 15:49 Temperature Source Temporal Artery Scan 10/24/23 15:49 Pulse Rate 94 10/24/23 15:49 Respiratory Rate 20 10/24/23 15:49 Blood Pressure 125/68 10/24/23 15:49 Blood Pressure Mean 87 10/24/23 15:49 Blood Pressure Position Supine 10/24/23 15:49 Pulse Oximetry 97 10/24/23 15:49 Vital Signs Temperature 97.2 F L 10/24/23 15:49 Pulse Rate 94 10/24/23 15:49 Respiratory Rate 20 10/24/23 15:49 Blood Pressure 125/68 10/24/23 15:49 Pulse Oximetry 97 10/24/23 15:49 Temperature 97.2 F L 10/24/23 15:49 Pulse Rate 94 10/24/23 15:49 Respiratory Rate 20 10/24/23 15:49 Blood Pressure 125/68 10/24/23 15:49 Pulse Oximetry 97 10/24/23 15:49 Medications Administered Medications: Discontinued Medications Generic Name Dose Route Start Last Admin Trade Name Freq PRN Reason Stop Dose Admin Sodium Chloride 1,000 mls @ 1,000 mls/hr 10/24/23 16:32 10/24/23 18:06 0.9 % Sodium Chloride 1000 Ml IV 10/24/23 17:31 Infused .Q1H ONE Infusion Sodium Chloride 1,000 mls @ 1,000 mls/hr 10/24/23 17:15 10/24/23 19:29 0.9 % Sodium Chloride 1000 Ml IV 10/24/23 18:14 Infused .Q1H KYLAH Infusion Insulin Human Regular 5 unit 10/24/23 18:11 10/24/23 18:22 Insulin Regular, Human 100 Unit/Ml Vial IVP 10/24/23 18:12 5 unit ONCE ONE Administration Ondansetron HCl 4 mg 10/24/23 17:20 10/24/23 17:29 Ondansetron 2 Mg/Ml Inj IVP 10/24/23 17:21 4 mg ONCE ONE Administration Medical Decision Making MDM Narrative Medical decision making narrative: 68-year-old male with dehydration and weakness secondary to metastatic pancreatic cancer. Patient will be admitted for further management. Lab Data Lab results reviewed: Yes I reviewed the patient's lab results Labs: Lab Results 10/24/23 10/24/23 Range/Units 17:30 19:42 WBC 18.04 H (4.50-11.00) K/uL RBC 4.38 (4.30-5.90) m/uL Hgb 11.1 L (13.5-17.5) gm/dL Hct 34.8 L (37.0-53.0) % MCV 80 (80-100) fL MCH 25 L (26-34) pg MCHC 32 (32-36) gm/dL RDW Coeff of Guerda 14.2 (11.5-15.5) % Plt Count 151 (140-440) K/uL Neut % (Auto) 87.8 H (42.0-72.0) % Lymph % (Auto) 5.2 L (20-44) % [place] % (Auto) 5.4 (0.0-11.0) % Eos % (Auto) 0.2 (0.0-7.0) % Baso % (Auto) 0.1 (0.0-3.0) % Neut # (Auto) 15.80 H (1.7-7.0) K/uL Lymph # (Auto) 0.90 (0.90-2.90) K/uL [place] # (Auto) 1.00 H (0.00-0.90) K/UL Eos # (Auto) 0.00 (0.00-0.50) K/uL Baso # (Auto) 0.00 (0.00-0.30) K/uL Abs Immat Gran (auto) 0.20 (0.00-0.30) K/uL Imm/Tot Granulo (auto) 1.3 % Sodium 129 L (135-149) mmol/L Potassium 3.9 (3.6-5.1) mmol/L Chloride 96 (96-114) mmol/L Carbon Dioxide 25 (20-32) mmol/L Anion Gap 8 (7-15) mEq/L BUN 21 (7-30) mg/dL Creatinine 0.7 (0.5-1.5) mg/dL Estimated Creat Clear 78.79 Estimated GFR 100 ml/min Glucose 351 H* (60-115) mg/dL Calcium 8.3 L (8.4-10.6) mg/dL Total Bilirubin 1.2 (0.1-1.5) mg/dL Direct Bilirubin 0.8 H (0.0-0.5) mg/dL AST 73 H (12-35) U/L ALT 49 (4-50) U/L Alkaline Phosphatase 307 H (40-150) U/L Total Protein 5.9 L (6.0-8.3) g/dL Albumin 2.6 L (3.3-5.0) g/dL Urine Color Dark yellow (Yellow) Urine Appearance Slightly Cloudy A (Clear) Urine pH 5.5 (5.0-8.5) Ur Specific [place] 1.020 (1.000-1.030) Urine Protein 2+ A (Negative) Urine Glucose (UA) 3+ A (Negative) Urine Ketones Trace A (Negative) Urine Blood Negative (Negative) Urine Nitrite Negative (Negative) Urine Bilirubin 1+ A (Negative) Urine Urobilinogen 1.0 (0.2-1.0) Ur Leukocyte Esterase Negative (Negative) Urine RBC 0-2 (0-2) Urine WBC 2-5 (0-5) Ur Squamous Epith Cells Moderate A (None-Few) Urine Bacteria Moderate A (None) Fine Granular Casts Moderate A (None) Discharge Plan Discharge Clinical Impression: Dehydration, Anorexia, Weakness Patient Disposition: Admitted As Observation Condition: Unchanged Prescriptions: No Action acetaminophen [Tylenol] 325 mg tablet 650 mg PO QID PRN Eliquis 5 mg tablet 5 mg PO BID Hold Instructions: Doctor's Order cyclobenzaprine 5 mg tablet 5 mg PO TID PRN mirtazapine 7.5 mg tablet 7.5 mg PO QDAY ondansetron 4 mg tablet,disintegrating 4 mg PO Q8H oxycodone 5 mg tablet 5 - 15 mg PO QID PRN polyethylene glycol 3350 [Miralax] 17 gram/dose powder 4 g PO ONCE PRN Creon 6,000-19,000 -30,000 unit capsule,delayed release(DR/EC) 1 cap PO TID Qty: 90 0RF Rx Instructions: do not exceed 10,000 unit/kg lipase per 24 hrs dronabinol [Marinol] 5 mg capsule 5 mg PO BID Qty: 60 0RF Rx Instructions: administer before lunch and evening meal/dinner metoclopramide HCl [Reglan] 5 mg tablet 5 mg PO QDAY Qty: 30 0RF prochlorperazine maleate [Compazine] 5 mg tablet 5 mg PO BID PRN (Reason: nausea and vomiting) Qty: 60 0RF atorvastatin 40 mg tablet 40 mg PO DAILY insulin glargine [Lantus U-100 Insulin] 100 unit/mL solution 26 unit subcut QPM dapagliflozin propanediol [Farxiga] 5 mg tablet 5 mg PO DAILY glimepiride 4 mg tablet 4 mg PO DAILY Hold Instructions: Doctor's Order insulin aspart U-100 100 unit/mL (3 mL) insulin pen 1 sliding scale dose subcut USEASDIRECTD metformin 1,000 mg tablet 1,000 mg PO BID Hold Instructions: Doctor's Order metoprolol tartrate 50 mg tablet 50 mg PO BID Follow Up/Referrals: Chris Potter MD [Primary Care Provider] -
--- OUTSIDE RECORDS SUMMARY | 2023-10-24 17:22 | XMS_ITS | Continuity of Care Document ---
Author Organization [facility] Address [address] [address] [place] [address] Phone Care Team Providers Care Machine Tech Name Role Phone Zahraa BEAL, Duncan Unavailable [...] Diagnoses Date Provider Providers Copied on Encounter [facility], [address] [address], [place], [place], [id number], tel:[phone] [facility] No Information 4 Zahraa Song. [address] [place] [address], [place] [address], [place], [place], [id number], [place]. tel:[phone] [facility] 15 M [facility], [address] [address], [place], [place], [id number], tel:[phone] [facility] No Information 4 Laura Jarrett. [address] [place] [address], [facility] [address], [place], [place], [id number], [place]. tel:[phone] Referring Provider: Abner Castellanos MD, [address] [place], [place] [address] [place], [place], [address] . tel:[phone] [facility], [address] [address], [place], [place], [id number], tel:[phone] [facility] No Information Sep- 4 Jasmin Levine. [facility], [facility] [address], [place], [place], [id number], [place]. tel:[phone] Referring Provider: Abner Castellanos MD, [address] [place] [address] [address], [place], [address] . tel:[phone] [facility] Minr Compl [facility], [address] [address], [place], [place], [id number], tel:[phone] [facility] No Information 4 Carlos Enrique Graham. [address] [place] [address], [facility] [address], [place], [place], [id number], [place]. tel:[phone] Referring Provider: Gladys DEY, [address] [place] [address] [address], [place], [address] . tel:[phone] Init [facility]osp[facility]m Mod Severity [facility], [address] [address], [place], [place], [id number], tel:[phone] [facility] No Information 4 Johnnie Vizcarra. [address] [place] [address], [facility] [address], [place], [place], [id number], [place]. tel:[phone] Referring Provider: Chris Lugo, [address] [place], [address]. tel:[phone] Family History Family Member Type Diagnosis Age At Onset No Information Payers Payer name Insurance type Covered democrat ID Authoriza tion(s) No Information Social History [...]
--- OUTSIDE RECORDS SUMMARY | 2023-10-24 17:23 | XMS_ITS | Clinical Summary ---
Author Organization [facility] Address [place], [place] [address] Care Team Providers Care Folding Machine Operator Name Role Phone Chris Potter MD Primary Care Provider [phone] Allergies No known active allergies Medications Medication [...] pain 6-10/10 60 Tablet 10/18/19 24 Active dzvebd-couksaks-mx ylase (Creon) 6,000-19,000 -30,000 unit delayed-release capsuleIndications [...] be used to read blood sugars, follow real time operator directions. 1 Each 4 11/12/19 23 024 Discontinued(*P atient states no longer taking) Dexcom G6 Sensor for continuous blood glucose monitor (CGM)Indications:T ype 2 diabetes mellitus with diabetic polyneuropathy, with long-term current use of insulin (HC) To be used to read blood sugars, follow real time operator directions. 9 Each 3 11/12/19 23 024 Discontinued(*P atient states no longer taking) Dexcom G6 Filter Machine Operator for continuous blood glucose monitor (CGM)Indications:T ype 2 diabetes mellitus with diabetic polyneuropathy, with long-term current use of insulin (HC) To be used to read blood sugars follow real time operator directions. 1 Each 11/12/19 23 024 Discontinued(*P [...] bed. Length of need 99 months. 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 Escobar at [facility] 10/26/23) 10/23/2023 Telephone [facility] [address] [place] [address] Annika Acosta MS, [facility] Appointment Reminder 10/23/2023 Travel 10/19/2023 Transcribe Orders [facility] [address] [place] [address] Stephenie Escobar MD 10/19/2023 Transcribe Orders [facility] [address], [place] [address] Margaret Townesnd MD 10/18/2023 Refill [facility] [address] [place] [address] Chris Potter MD Refill Request (oxyCODONE (ROXICODONE) 5 mg immediate release tablet) 10/18/2023 Telephone [facility] [address] [place] [address] Chris Potter MD Appointment Request (Needs to be seen soon, getting a port installed for chemo) 10/16/2023 12:35 PM CDT Office Visit [facility] [address] [place] [address] Chris Potter MD Follow Up (Wants to get everything and everyone on the same page) 10/16/2023 Refill [facility] [address] [place] [address] Chris Potter MD Refill Request (Metoprolol Tartrate) 10/16/2023 Travel 10/13/2023 Telephone [facility] [address] [place] [address] Chris Potter MD Questions 10/10/2023 Lab Requisition [facility] [phone] Torsten Arias MD 09/30/2023 8:06 AM CDT Anesthesia Event [facility] [address] [place] [address] Misael Hdz MD [facility], [facility] 09/30/2023 7:45 AM CDT - 09/30/2023 10:05 AM CDT Surgery [facility] [address], [place] [address] Rafael Bertrand MBBS LAPAROSCOPY STAGING, 09/26/2023 Orders Only [facility] [address] [place] [address] Nadia Zapata PA 1 scan: (1-Ord) [facility], MR ABDOMEN WO/W, 09/22/2023 09/25/2023 3:25 PM CDT - 09/25/2023 4:45 PM CDT Surgery [facility] [address] [place] [address] Abner Argueta MD ENDOSCOPIC ULTRASOUND FINE NEEDLE ASPIRATE UPPER 09/25/2023 3:22 PM CDT Anesthesia Event [facility] [address] [place] [address] Hadley Fontaine MD 09/25/2023 Travel 09/22/2023 10:16 PM CDT - 10/10/2023 9:29 AM CDT Hospital Encounter [facility] [address] [place] [address] Tello, Anw [facility], ROHAN Kendrick Valeed Ahmed, MD Nelson, Scott Gregory, MD Bowron, Christopher Scott, MD HTN (hypertension) (Primary Dx); Type 2 diabetes mellitus with diabetic polyneuropathy, with long-term current use of insulin (HC); Malignant neoplasm of pancreas metastatic to liver (HC); Atrial fibrillation with RVR (HC); Liver mass, right lobe; Diarrhea, unspecified type; Malignant neoplasm of pancreas, unspecified location of malignancy (HC) Discharge Disposition: [facility] Facility 09/21/[address] [address] Chris Potter MD Questions 09/21/[address] [address] Chris Potter MD Questions (follow up) 09/19/2023 3:30 PM CDT Ancillary Procedure [address] [address] 09/19/2023 2:30 PM CDT Office Visit [address] [address] Nadia Zapata PA Gi Problem (Can't eat or drink anything without feeling nauseated within 20 min. States he is down 40 lbs in last 6 weeks- has been trying tums and omeprazole with no improvement) 09/19/2023 Travel 09/01/2023 9:25 AM CDT Office Visit [address] [address] Clarita Naranjo PA UTI 09/01/2023 Travel 08/31/[address] [address] Chris Potter MD Medication Management (YEAST INFECTION ) 08/13/[address] [address] Chris Potter MD Refill Request (Metformin) 08/03/[address] [address] Chris Potter MD Refill Request (Atorvastatin) from Last 3 Months Immunizations Name Administration Dates Next Due COVID-19 vaccine (PointCare-Bio NTech 30mcg/0.3mL) 12YO+ CARLITOS-SUCROSE PF, MDV 07/05/2021,06/29/2020,06/08/2020 COVID-19 vaccine (Pfizer-Bio NTech 30mcg/0.3mL) PF, MDV 03/03/2021 Influenza, High-dose Quadriv alent Inactivated 12/15/2021,03/03/2021 Pneumococcal Conj 20-valent (Prevnar 20) 023 Family History Medical History Relation Name Comments Cancer Father Bone primary Diabetes Maternal Grandmother Glaucoma Maternal Uncle Diabetes Mother Heart attack Mother Relation Name Status Comments Father Maternal Grandmother Maternal Uncle Mother Social History Tobacco Use Types Packs/Day Years Used Date Smoking Tobacco: Former Cigars S tarted: 1984 Smokeless Tobacco: Never Tobacco Cessation:Counseling Given: Yes Comments:occ. cigar Alcohol Use Standard Drinks/Week Comments [...] Sign Reading Time Taken Comments Blood Pressure 102/70 10/24/2023 2:24 PM CDT Pulse 95 10/24/2023 2:24 PM CDT Temperature 36.7 ??C (98.1 ??F) 10/10/2023 8:26 AM CD T Respiratory Rate 16 10/10/2023 8:26 AM CDT Oxygen Saturation 98% 10/24/2023 2:24 PM CDT Inhaled Oxygen Concentration - - Weight 110.2 kg (243 lb) 10/16/2023 12:50 PM CDT Height 185.4 cm (6' 1) 09/23/2023 6:01 AM CDT Body Mass Index 32.06 09/23/2023 6:01 AM CDT Plan of Treatment Upcoming Encounters Date Type Department Care Team (Late st Contact Info) Description 10/26/2023 9:30 AM CDT Office Visit [facility] [address] [place] [address] Stephenie Escobar MD [address] [place] [address] 11/21/2023 10:55 AM CDT Office Visit [facility] [address] [place] [address] Chris Potter MD [address] [place] [address] Health Maintenance Due Date Last Done Comments [...] Completed 3 AAA screening age 65-74 Completed 09/29/19, 09/19/2023, 06/03/2019 ([facility] Zoster (shingles) series for age 50+ Discontinued Medical Devices Implanted Type Area Compliance Director Device Identifier Shelf Expiration Date Model / Serial / Lot Stent Biliary [id number] Viabil No Holes Metal - [id number] Implanted:Qty: 1 on 09/25/2023 by Abner Argueta MD at [facility] [employer] [id number] / / [id number] Description:Viabil 10x40 earl m[address] by dr argueta [...] of13 resultswithin the time period is included. [facility] PLATELET COUNT 293 140 - 440 thou/cu mm 10/10/2023 8:29 AM CDT [facility] MPV 11.5(H) 6.5 - 11.0 fL 10/10/2023 8:29 AM CDT [facility] Blood BLOOD SPECIMEN / Unknown Venipuncture / Unknown 10/10/2023 7:48 AM CDT 10/10/2023 8:07 AM CDT Narrative [facility] - 10/10/2023 8:29 AM CDT Necessary every morning while on IV heparin. Josef MADRIGAL HEMATOLOGY Performing Organization Address City/[facility]/ZIP Co de Phone Number [facility] [address] [place] [address], * POTASSIUM (10/10/2023 7:48 AM CDT) Only the most recent of10 resultswithin the time period is included. [facility] POTASSIUM 4.1 3.5 - 5.1 mmol/L 10/10/2023 8:45 AM CDT [facility] Blood BLOOD SPECIMEN / Unknown Venipuncture / Unknown 10/10/2023 7:48 AM CDT 10/10/2023 8:07 AM CDT Charles Dean RN CHEMISTRY [facility] [address] [place] [address], * (ABNORMAL) GLUCOSE METER (10/10/2023 7:05 AM CDT) Only the most recent of81 resultswithin the time period is included. [facility] GLUCOSE METER 161(H) 65 - 100 mg/dL 10/10/2023 7:06 AM CDT [facility] Blood BLOOD SPECIMEN / Unknown 10/10/2023 7:05 AM CDT 10/10/2023 7:06 AM CDT Ramone Estrada MD CHEMISTRY Performing Organization Address [facility] Co de Phone Number [facility] [address] [place] [address], [place] * SODIUM (10/09/2023 8:13 AM CDT) Only the most recent of8 resultswithin the time period is included. SODIUM 137 136 - 145 mmol/L 10/09/2023 9:04 AM CDT [facility] Blood BLOOD SPECIMEN / Unknown Venipuncture / Unknown 10/09/2023 8:13 AM CDT 10/09/2023 8:20 AM CDT Ramone Estrada MD CHEMISTRY Performing Organization Address [facility] Phone Number [facility] [address] [place] [address], [place] * (ABNORMAL) CREATININE (10/09/2023 8:13 AM CDT) Only the most recent of9 resultswithin the time period is included. eGFR >90 >90 mL/min/1.7 3m2 10/09/2023 9:04 AM CDT [facility] Comment:As of 2021, eG FR is calculated by the CKD-EPI creatinine equation without race adjustment. ??eGFR can be influenced by muscle mass, exercise, and diet. ??The reported eGFR is an estimation only and is only applicable if the renal function is stable. CREATININE 0.67(L) 0.70 - 1.20 mg/dL 10/09/2023 9:04 AM CDT [facility] Blood BLOOD SPECIMEN / Unknown Venipuncture / Unknown 10/09/2023 8:13 AM CDT 10/09/2023 8:20 AM CDT Ramone Estrada MD CHEMISTRY Performing Organization Address City/[facility]/ZIP Co de Phone Number [facility] [address] [place] [address], * (ABNORMAL) Hepatic function panel FOR ADD ON (10/09/2023 8:13 AM CDT) Only the most recent of6 resultswithin the time period is included. ALBUMIN 2.3(L) 4.0 - 4.9 g/dL 10/09/2023 2:26 PM CDT [facility] PROTEIN,TOTAL 5.9(L) 6.0 - 8.0 g/dL 10/09/2023 2:26 PM CDT [facility] BILIRUBIN,TOTAL 1.0 0.0 - 1.2 mg/dL 10/09/2023 2:26 PM CDT [facility] BILIRUBIN,DIRECT 0.7(H) 0.0 - 0.3 mg/dL 10/09/2023 2:26 PM CDT [facility] BILIRUBIN,INDIRE CT 0.3 0.2 - 0.8 mg/dL 10/09/2023 2:26 PM CDT [facility] ALK PHOSPHATASE 254(H) 40 - 129 IU/L 10/09/2023 2:26 PM CDT [facility] ALT (SGPT) 44 10 - 50 IU/L 10/09/2023 2:26 PM CDT [facility] AST (SGOT) 50 10 - 50 IU/L 10/09/2023 2:26 PM CDT [facility] Blood BLOOD SPECIMEN / Unknown Venipuncture / Unknown 10/09/2023 8:13 AM CDT 10/09/2023 8:20 AM CDT Ramone Estrada MD CHEMISTRY Performing Organization Address City/[facility]/ZIP Co de Phone Number [facility] [address] [place] [address], [place] * SCAN-CARDIAC STRIP (10/08/2023 6:09 AM CDT) Scanner OTHER * SCAN-CARDIAC STRIP (10/07/2023 3:58 AM CDT) Scanner OTHER * SCAN-CARDIAC STRIP (10/07/2023 3:56 AM CDT) Scanner OTHER * SCAN-CARDIAC STRIP (10/06/2023 7:43 AM CDT) Scanner OTHER * SCAN-CARDIAC STRIP (10/06/2023 12:51 AM CDT) Scanner OTHER * stool pathogen multiplex PCR (10/05/2023 8:35 PM CDT) Campylobacter NOT Detected NOT Detected 10/06/2023 1:23 PM CDT [facility] Salmonella NOT Detected NOT Detected 10/06/2023 1:23 PM CDT [facility] Shigella NOT Detected NOT Detected 10/06/2023 1:23 PM CDT [facility] Vibrio NOT Detected NOT Detected 10/06/2023 1:23 PM CDT [facility] Yersinia Enterocolitica NOT Detected NOT Detected 10/06/2023 1:23 PM CDT [facility] Shiga Toxin 1 NOT Detected NOT Detected 10/06/2023 1:23 PM CDT [facility] Shiga Toxin 2 NOT Detected NOT Detected 10/06/2023 1:23 PM CDT [facility] Norovirus NOT Detected NOT Detected 10/06/2023 1:23 PM CDT [facility] Rotavirus NOT Detected NOT Detected 10/06/2023 1:23 PM CDT [facility] Stool STOOL SPECIMEN / Unknown Non-Blood / Unknown 10/05/2023 8:35 PM CDT 10/05/2023 8:46 PM CDT Narrative [facility] - 10/06/2023 1:23 PM CDT This test is a Culture Independent Diagnostic Test (CIDT) therefore isolates are not available for susceptibility testing. ??Antibiotic treatment is often contraindicated and may be detrimental in cases of enteric infections, thus routine susceptibility testing is not recommended. Ramone Estrada MD MICROBIOLOGY Performing Organization Address [facility] Co de Phone Number [facility] [address] [place] [address], * (ABNORMAL) PANCREATIC ELASTASE FECAL (10/05/2023 8:35 PM CDT) Pancreatic Elast Fecal 138(L) >200 ug Elast./g 10/13/2023 2:09 PM CDT [facility] ES[facility]ERIC TESTING (CET) Comment: ? Severe Pancreatic Insufficiency: ?<100 ? Moderate Pancreatic Insufficiency: ?? 100 - 200 ? Normal: ? >200 Stool STOOL SPECIMEN / Unknown Non-Blood / Unknown 10/05/2023 8:35 PM CDT 10/05/2023 8:45 PM CDT [facility] FOR ESOTERIC TESTING (CET) - 10/13/2023 2:09 PM CDT Performed at: ??[address] ??[id number] [place]: Yvon Sexton MD, Phone: ??[phone] Denton Smallwood MD MICROBIOLOGY Performing Organization Address [facility] Co de Phone Number [facility] FOR ESOTERIC TESTING (CET) [address] [place] [address], * CLOSTRIDIOIDES DIFFICILE TOXIN PCR (10/05/2023 8:35 PM CDT) CLOSTRIDIUM DIFFICILE PCR Negative 10/05/2023 9:50 PM CDT [facility] PRESUMPTIVE NAP1 STRAIN Negative 10/05/2023 9:50 PM CDT [facility] Stool STOOL SPECIMEN / Unknown Non-Blood / Unknown 10/05/2023 8:35 PM CDT 10/05/2023 8:45 PM CDT Narrative [facility] - 10/05/2023 9:50 PM CDT The NAP1 (027 or BI) strain is a hypervirulent strain. Detection may be useful for epidemiological purposes. Ramone Estrada MD MICROBIOLOGY Performing Organization Address [facility] Co de Phone Number [facility] [address] [place] [address], * SCAN-CARDIAC STRIP (10/05/2023 3:48 PM CDT) Scanner OTHER * SCAN-CARDIAC STRIP (10/05/2023 12:17 AM CDT) Scanner OTHER * SCAN-CARDIAC STRIP (10/04/2023 10:57 AM CDT) Scanner OTHER * (ABNORMAL) Hemoglobin AM (10/04/2023 7:28 AM CDT) Only the most recent of7 resultswithin the time period is included. HEMOGLOBIN 10.6(L) 13.5 - 17.5 g/dL 10/04/2023 8:12 AM CDT [facility] MCV 83 80 - 100 fL 10/04/2023 8:12 AM CDT [facility] Blood BLOOD SPECIMEN / Unknown Venipuncture / Unknown 10/04/2023 7:28 AM CDT 10/04/2023 7:46 AM CDT Narrative [facility] - 10/04/2023 8:12 AM CDT Necessary every morning while on IV heparin. Ramone Estrada MD HEMATOLOGY Performing Organization Address City/[facility]/ZIP Co de Phone Number [facility] [address] [place] [address], * SCAN-CARDIAC STRIP (10/04/2023 1:06 AM CDT) [...] AM CDT) Case Report Pathology Report ?Case: [id number] ? Authorizing Provider: ??Rafael Bertrand, ?? Collected: ? 09/30/2023 0912 ? MBBS ? Ordering Location: ? [facility] ?Received: ?09/30/2023 0925 ? Hospital ? Pathologist: ? [place], Chris Sandor ? IV, MD ? Specimens: ?? A) - Liver Segment 8, Liver segment VIII wedge; rule out metastases ? B) - Liver Segment 2, Liver segment 2 wedge; rule out metastases ? C) - Liver Segment 8, Wedge #2; margin is inked for frozen ? 4 4:56 PM CDT [facility] Final Diagnosis A) LIVER, SEGMENT 8, [...] ?? liver disease 4 4:56 PM T [facility] Comment Formalin-fixed, paraffin-embedded tissue is available for ancillary studies, to request please contact the [facility] ([phone]). Neoplastic tissue available for ancillary studies: ?? [facility] NGS testing: ?- FFPE tissue blocks: B1 and B2 ?- Cytology slides: No cytology slides prepared from this specimen ?? Tests using immunostains and/or FISH (requiring 100 cells): B1 and B2 ?? Send out (outside vendor) testing requiring 5 x 5 mm of tumor: B1 and B2 4 4:56 PM T [facility] Clinical Information Mr. Guzman is a 68 y.o. who presents with a history of pancreatic adenocarcinoma now undergoes staging laparoscopy. PROCEDURE PERFORMED: 1. ??Staging laparoscopy, Intraoperative ultrasound of the liver. 2. ??Laparoscopic segment VIII sub-segmentectomy x 2. 3. ??Laparoscopic segment II sub-segmentectomy. His diagnostic biopsy was performed on 09/25/2023 ([facility] pathology ). 4 4:56 PM CDT [facility] Gross Description A) Received fresh [...] 2. ??Remainder DPL 10/02/2023 4 4:56 PM CDT [facility] Intraoperative Consultation A) LIVER, SEGMENT [...] surgical procedure. ??This testing was performed at: [facility] ?? [address] [place] [address] 4 4:56 PM CDT [facility] Microscopic Description The final diagnosis is based on microscopic examination of appropriate sections of all specimens. 4 4:56 PM CDT [facility] Additional Information Interpreted at [facility] - [address] [facility] [address] [address] 4 4:56 PM CDT [facility] Tissue (Liver Segment 8) 09/30/2023 9:12 AM CDT 09/30/2023 9:25 AM CDT Tissue specimen (specimen) (Liver Segment 2) 09/30/2023 9:15 AM CDT 09/30/2023 9:25 AM CDT Tissue specimen (specimen) (Liver Segment 8) 09/30/2023 9:25 AM CDT 09/30/2023 9:35 AM CDT Rafael MADRIGAL PATHOLOGY/CY TOLOGY [facility] [address] [place] [address], * HCHG TUBE PR1, HCHG STYLET PR1, [...] ??Comment: Supplemental O2: supplemental oxygen. ??Comment:. Vessel Sack Sorter Additional supplies used to locate vessel: no Needle Catheter size: 20 G. ??Comment:. Events: no complications. Misael Hdz MD ANESTHESIA PX NOTE O RDERABLES * (ABNORMAL) INR AM (09/30/2023 6:49 AM CDT) Only the most recent of3 resultswithin the time period is included. INR 1.3(H) <1.3 09/30/2023 7:35 AM CDT [facility] PROTIME 14.5(H) 10.3 - 12.3 sec 09/30/2023 7:35 AM CDT [facility] Blood BLOOD SPECIMEN / Unknown Venipuncture / Unknown 09/30/2023 6:49 AM CDT 09/30/2023 6:59 AM CDT Narrative [facility] - 09/30/2023 7:35 AM CDT ?Therapeutic [...] if the patient is on UFH. Josef PAIZBS HEMATOLOGY [facility] [address] [place] [address], * SCAN-CARDIAC STRIP (09/30/2023 12:35 AM CDT) Scanner OTHER * TYPE & SCREEN (09/29/2023 4:29 PM CDT) Pathologist [facility] ABORH B Rh Positive 09/29/2023 5:23 PM CDT [facility]ENTRAL [facility] BLOOD BANK ANTIBODY SCREEN Negative Negative 09/29/2023 5:23 PM CDT [facility] BLOOD BANK SPECIMEN EXPIRATION DATE/TIME 10/02/23 23:59 09/29/2023 5:23 PM CDT [facility] BLOOD BANK Blood BLOOD SPECIMEN / Unknown Venipuncture / Unknown 09/29/2023 4:29 PM CDT 09/29/2023 4:37 PM CDT Ashley HOYOS BLOOD BANK Performing Organization Address City/[facility] Co de Phone Number [facility] [address] [place] [place] [phone], * CT ABDOMEN WO (09/29/2023 11:18 AM [...] @ 09/29/2023 10:45:27 AM (Electronically Signed) Manav WILKS * SCAN-CARDIAC STRIP (09/29/2023 9:58 AM CDT) Scanner OTHER * SCAN-CARDIAC STRIP (09/29/2023 7:13 AM CDT) Scanner OTHER * (ABNORMAL) HEMATOCRIT (09/29/2023 3:34 AM CDT) Only the most recent of2 resultswithin the time period is included. HEMATOCRIT 34.0(L) 37.0 - 53.0 % 09/29/2023 3:52 AM CDT [facility] Blood BLOOD SPECIMEN / Unknown Butterfly / Unknown 09/29/2023 3:34 AM CDT 09/29/2023 3:49 AM CDT Narrative [facility] - 09/29/2023 3:52 AM CDT Every morning while on IV heparin. Every morning while on IV heparin. Necessary every morning while on IV heparin. Josef MADRIGAL HEMATOLOGY Performing Organization Address [facility] Co de Phone Number [facility] [address] [place] [address], * (ABNORMAL) Bilirubin, total AM (09/29/2023 3:34 AM CDT) Only the most recent of2 resultswithin the time period is included. BILIRUBIN,TOTA L 2.3(H) 0.0 - 1.2 mg/dL 09/29/2023 4:23 AM CDT [facility] Blood BLOOD SPECIMEN / Unknown Butterfly / Unknown 09/29/2023 3:34 AM CDT 09/29/2023 3:49 AM CDT Josef PAIZ CHEMISTRY Performing Organization Address City/[facility] Co de Phone Number [facility] [address] [place] [address], * (ABNORMAL) APTT (09/29/2023 3:34 AM CDT) Only the most recent of3 resultswithin the time period is included. APTT 75(H) 28 - 36 sec 09/29/2023 4:01 AM CDT [facility] Blood BLOOD SPECIMEN / Unknown Butterfly / Unknown 09/29/2023 3:34 AM CDT 09/29/2023 3:49 AM CDT Narrative [facility] - 09/29/2023 4:01 AM CDT Therapeutic Range: 57-87 seconds Susan MADRIGAL HEMATOLOGY Performing Organization Address [facility] Co de Phone Number [facility] [address] [address], [place] * (ABNORMAL) ALT AM (09/29/2023 3:34 AM CDT) Only the most recent of2 resultswithin the time period is included. ALT (SGPT) 125(H) 10 - 50 IU/L 09/29/2023 4:23 AM CDT [facility] Blood BLOOD SPECIMEN / Unknown Butterfly / Unknown 09/29/2023 3:34 AM CDT 09/29/2023 3:49 AM CDT Josef MADRIGAL CHEMISTRY Performing Organization Address [facility] Co de Phone Number [facility] [address] [address], [place] * (ABNORMAL) AST AM (09/29/2023 3:34 AM CDT) Only the most recent of2 resultswithin the time period is included. AST (SGOT) 101(H) 10 - 50 IU/L 09/29/2023 4:23 AM CDT [facility] Blood BLOOD SPECIMEN / Unknown Butterfly / Unknown 09/29/2023 3:34 AM CDT 09/29/2023 3:49 AM CDT Josef MADRIGAL CHEMISTRY Performing Organization Address City/[facility]/ZIP Co de Phone Number [facility] [address] [address], [place] * SCAN-CARDIAC STRIP (09/28/2023 8:48 PM CDT) [...] - 2.4 mg/dL 09/28/2023 11:36 AM CDT [facility] Blood BLOOD SPECIMEN / Unknown Venipuncture / Unknown 09/28/2023 10:51 AM CDT 09/28/2023 11:06 AM CDT Josef MADRIGAL CHEMISTRY [facility] [address] [place] [address], [place] * (ABNORMAL) Basic metabolic panel TODAY (09/28/2023 10:51 AM CDT) Only the most recent of2 resultswithin the time period is included. SODIUM 139 136 - 145 mmol/L 09/28/2023 11:59 AM CDT [facility] TRAL LABORATORY POTASSIUM 3.8 3.5 - 5.1 mmol/L 09/28/2023 11:59 AM T [facility] TRAL LABORATORY CHLORIDE 104 98 - 107 mmol/L 09/28/2023 11:59 AM CDT [facility] TRAL LABORATORY CO2,TOTAL 25 22 - 29 mmol/L 09/28/2023 11:59 AM T [facility] TRAL LABORATORY ANION GAP 10 5 - 18 09/28/2023 11:59 AM T [facility] TRAL LABORATORY GLUCOSE 145(H) 70 - 99 mg/dL 09/28/2023 11:59 AM T [facility] TRAL LABORATORY CALCIUM 8.8 8.8 - 10.2 mg/dL 09/28/2023 11:59 AM T [facility] TRAL LABORATORY BUN 9 8 - 23 mg/dL 09/28/2023 11:59 AM T [facility] TRAL LABORATORY CREATININE 0.77 0.70 - 1.20 mg/dL 09/28/2023 11:59 AM T [facility] TRAL LABORATORY BUN/CREAT RATIO 12 10 - 20 11:59 AM T [facility] TRAL LABORATORY eGFR >90 >90 mL/min/1.7 3m2 09/28/2023 11:59 AM T [facility] TRAL LABORATORY Comment:As of 2021, eG FR is calculated by the CKD-EPI creatinine equation without race adjustment. ??eGFR can be influenced by muscle mass, exercise, and diet. ??The reported eGFR is an estimation only and is only applicable if the renal function is stable. Blood BLOOD SPECIMEN / Unknown Venipuncture / Unknown 09/28/2023 10:51 AM CDT 09/28/2023 11:06 AM CDT Josef MADRIGAL CHEMISTRY Performing Organization Address [facility] de Phone Number [facility] [address] [place], [place] [id number], * SCAN-CARDIAC STRIP (09/28/2023 10:00 AM CDT) Scanner OTHER * SCAN-CARDIAC STRIP (09/28/2023 9:59 AM CDT) Scanner OTHER * BUN (09/28/2023 9:34 AM CDT) BUN 9 8 - 23 mg/dL 09/28/2023 11:07 AM CDT [facility] Blood BLOOD SPECIMEN / Unknown Venipuncture / Unknown 09/28/2023 9:34 AM CDT 09/28/2023 10:39 AM CDT Josef MADRIGAL CHEMISTRY Performing Organization Address [facility] de Phone Number [facility] [address] [place] [address], * EKG 12 LEAD (09/28/2023 9:28 AM [...] NOW QTc 424 ms BEYOND NOW P Hardtner 56 degrees BEYOND NOW R Hardtner -6 degrees BEYOND NOW T Hardtner 14 degrees BEYOND NOW 09/28/2023 9:28 AM CDT 09/28/2023 1:39 PM CDT Josef MADRIGAL EKG ORD BEYOND NOW [place], [place] * SCAN-CARDIAC STRIP (09/28/2023 7:12 AM [...] ??See operative/procedure report for further information. Abner Ari Argueta MD FLUOROSCOPY * HCHG TUBE PR1, [...] Case Report Medical Cytology Report ? Case: [id number] ? Authorizing Provider: ??Abner Argueta, ?? Collected: ? 09/25/2023 1541 ? Ordering Location: ? [facility] ?Received: ?09/25/2023 1628 ? Hospital ? Pathologist: ? Angelita Velasquez MD ? Specimen: ?Pancreas Head, mass ? 09/26/2023 11:05 AM CDT [facility] LABOR[facility]-C ENTRAL LABORATORY Final Diagnosis A) PANCREAS, HEAD, EUS GUIDED FINE NEEDLE ASPIRATION: 1. Positive for malignancy; poorly differentiated carcinoma, compatible with pancreatic primary 2. Insufficient direct smear or cellblock material for ancillary studies 09/26/2023 11:05 AM T [facility] LABORAT[facility]-C ENTRAL LABORATORY Comment PANCREAS ANCILLARY TESTING PROTOCOL This patient's sample meets [facility] criteria* for reflex testing, or such testing has been requested by the ordering physician. Testing will be performed and the results will be communicated in an amendment to this report. If there is a need for ancillary tests other than these, please contact the [facility] ([phone]). Slides available for [facility] NGS testing: QUANTITY NOT SUFFICIENT Blocks available for [facility] NGS testing: QUANTITY NOT SUFFICIENT Blocks available for tests using immunostains and/or FISH (requiring 100 cells): QUANTITY NOT SUFFICIENT Blocks available for send out (outside vendor) testing requiring 5 x 5 mm of tumor: QUANTITY NOT SUFFICIENT *[facility] reflex testing criteria for pancreatic carcinoma - At diagnosis or if not previously performed: ??Mismatch repair enzyme immunohistochemist ry, KRAS testing by NGS (may omit KRAS if large sendout NGS panel planned using sufficient tissue or if definite acinar cell or neuroendocrine carcinoma histology) This case was seen in consultation with Dr. Lawson, who has reviewed slides A1-3 and A1-6. 09/26/2023 11:05 AM [facility] Clinical Information Mr. Guzman is a 68 [...] Fine needle aspiration performed. 09/26/2023 11:05 AM [facility] Gross Description A) Received identified as pancreas [...] more than 72 hours. 09/26/2023 11:05 AM [facility] Adequacy Assessment A) A.S. assessed adequacy from the air-dried smears at the time of the procedure with an impression of Adequate. 09/26/2023 11:05 AM CDT [facility] LABORATORY Microscopic Description Specimen adequacy: Adequate for interpretation. All slides were reviewed. The microscopic appearance substantiates the diagnosis. 09/26/2023 11:05 AM CDT [facility] Additional Information Cytology is screened at [facility] Laboratory - [address], [place] [address] and [facility] Laboratory - [address], [place] [address] and [facility] - [address] [place] [address] Interpreted at [facility] - [address], [place] [address] 09/26/2023 11:05 AM CDT [facility] Aspirate (Pancreas Head) 09/25/2023 3:41 PM CDT 09/25/2023 4:28 PM CDT Abner Argueta MD PATHOLOGY/[facility] [address] [place] [address], * ENDOSCOPY (09/25/2023 3:10 PM CDT) 09/25/2023 3:10 PM CDT Narrative Transcriptions Abner Argueta MD - 09/25/2023 5:45 PM CDT [facility] Patient Name: Denton Guzman Procedure Date: 09/25/2023 Gender: Male Date of : 1955 Admit Type: Inpatient Procedure: ERCP Proceduralist: Abner Argueta MD - [place] [facility] Indications/Pre-Op Diagnosis: Jaundice Medications: General Anesthesia Procedure Description: Risk of bleeding, infection, perforation, pancreatitis, need for surgery, remote chance of and alternatives were discussed, andthe patient gave informed consent. The endoscope [id number] was passed through the mouth, and advanced [...] CDT) 09/25/2023 3:09 PM CDT Narrative Transcriptions Abnre Argueta MD - 09/25/2023 5:43 PM CDT [facility] Patient Name: Denton Guzman Procedure Date: 09/25/2023 Gender: Male Date of : 1955 Admit Type: Inpatient Procedure: Upper EUS Proceduralist: Abner Argueta MD - [facility] Indications/Pre-Op Diagnosis: Suspected solid pancreatic neoplasm Medications: General Anesthesia Procedure Description: Risk of bleeding, infection, perforation, pancreatitis, need for surgery, remote chance of and alternatives were discussed, andthe patient gave informed consent. The endoscope [id number] was introduced through the mouth, and advanced [...] gauge needle using a transduodenal approach. A sales correspondence clerk was present and performed a preliminary cytologic [...] AM CDT ECHOCARDIOGRAM DENTON GUZMAN ?Accession#: ?? [id number] : ?1955 68 years Study Date: ?? 09/23/2023 8:42:34 AM Gender: M ? BP: ? 109/60 mmHg Height: 185.00 cm ? BSA: ?2.38 m? ? ? Weight: 116.00 kg ? Tech: ? HR-TRVL ?Referring MD: JOSEF TERAN Site: ? [facility] Reading Location: ANW IP Patient Location: Inpatient. [...] 2 ml diluted Definity, lot #[id number], [facility]# [id number] was administered peripherally to enhance visualization of all left ventricular segments. . This study was interpreted by an [facility] accredited facility. ??Final ?? Procedure Note Vincent Garcia MD - 09/23/2023 ECHOCARDIOGRAM DENTON GUZMAN : 1955 68 years Study Date: 09/23/2023 8:42:34 AM Gender: M BP: 109/60 mmHg Height: 185.00 cm BSA: 2.38 m? ? ? Weight: 116.00 kg Tech: HR-TRVL Referring MD: JOSEF TERAN Site: [facility] Reading Location: ANW IP Patient Location: Inpatient. [...] 2 ml diluted Definity, lot #[id number], [facility]#[id number] was administered peripherally to enhance visualization of allleft ventricular segments. . This study was interpreted by an [facility] accredited facility. Final Josef MADRIGAL ECHO ORD * TSH AM (09/23/2023 8:40 AM CDT) Only the most recent of2 resultswithin the time period is included. TSH 0.43 0.27 - 4.20 uIU/mL 09/23/2023 9:49 AM CDT [facility] Blood BLOOD SPECIMEN / Unknown Butterfly / Unknown 09/23/2023 8:40 AM CDT 09/23/2023 8:48 AM CDT [facility] LABORATORY - 09/23/2023 9:49 AM CDT In Adults, TSH values between 5.00 and 10.00 uIU/ml do not necessarily indicate the presence of Hypothyroidism. Correlation with clinical findings such as presence of goiter and/or Thyroperoxidase (TPO) Antibody may be helpful. For more information please refer to DONNA 2004; 291: 228-238. Josef Richterdri [facility] [address] [place] [address], * (ABNORMAL) CBC W PLT NO DIFF (09/23/2023 8:40 AM CDT) WHITE BLOOD COUNT 10.7 4.5 - 11.0 thou/cu mm 09/23/2023 9:00 AM CDT [facility] TRAL LABORATORY RED BLOOD COUNT 4.65 4.30 - 5.90 mil/cu mm 09/23/2023 9:00 AM CDT [facility] TRAL LABORATORY HEMOGLOBIN 12.3(L) 13.5 - 17.5 g/dL 09/23/2023 9:00 AM T [facility] TRAL LABORATORY HEMATOCRIT 38.8 37.0 - 53.0 % 09/23/2023 9:00 AM T [facility] TRAL LABORATORY MCV 83 80 - 100 fL 09/23/2023 9:00 AM CDT [facility] TRAL LABORATORY MCH 26.5 26.0 - 34.0 pg 09/23/2023 9:00 AM CDT [facility] TRAL LABORATORY MCHC 31.7(L) 32.0 - 36.0 g/dL 09/23/2023 9:00 AM T [facility] TRAL LABORATORY RDW 14.6 11.5 - 15.5 % 09/23/2023 9:00 AM T [facility] TRAL LABORATORY PLATELET COUNT 263 140 - 440 thou/cu mm 09/23/2023 9:00 AM CDT [facility] TRAL LABORATORY MPV 11.1(H) 6.5 - 11.0 fL 09/23/2023 9:00 AM T [facility] TRAL LABORATORY NRBC 0.0 % 09/23/2023 9:00 AM T [facility] TRAL LABORATORY ABS NRBC 0.0 thou /cu mm 09/23/2023 9:00 AM T [facility] TRAL LABORATORY Blood BLOOD SPECIMEN / Unknown Butterfly / Unknown 09/23/2023 8:40 AM CDT 09/23/2023 8:49 AM CDT Josef MADRIGAL HEMATOLOGY [facility] [address] [place] [address], [place] * (ABNORMAL) CA 19-9 AM (09/23/2023 8:40 AM CDT) CA 19-9 962(H) <36 IU/mL 09/23/2023 9:50 AM CDT [facility] Blood BLOOD SPECIMEN / Unknown Butterfly / Unknown 09/23/2023 8:40 AM CDT 09/23/2023 8:48 AM CDT Narrative [facility] - 09/23/2023 9:50 AM CDT The [...] Josef MADRIGAL SEND OUTS Performing Organization Address City/[facility]/ZIP Co de Phone Number [facility] [address] [place] [address], * (ABNORMAL) Lipase AM (09/23/2023 8:40 AM CDT) Only the most recent of2 resultswithin the time period is included. LIPASE 175.0(H) 13.0 - 60.0 IU/L 09/23/2023 10:17 AM CDT [facility] Blood BLOOD SPECIMEN / Unknown Butterfly / Unknown 09/23/2023 8:40 AM CDT 09/23/2023 8:48 AM CDT Josef MADRIGAL CHEMISTRY [facility] [address] [place] [address], * SCAN-CARDIAC STRIP (09/23/2023 7:34 AM CDT) [...] record. Dictated by Shayla Thompson MD @ Sadi 2023 ??9:06AM (Electronically Signed) Narrative 09/20/2023 9:01 [...] - 1.11 mg/dL 09/19/2023 3:08 PM CDT [facility] Comment:Caution: Patients ta rosette Hydroxyurea have falsely increased iStat Creatinine results. Verify creatinine results ordering a Creatinine (81553.2) eGFR 59(L) >90 mL/min/1.7 3m2 09/19/2023 3:08 PM CDT [facility] Comment:As of 2021, eG FR is calculated by the CKD-EPI creatinine equation without race adjustment. eGFR can be influenced by muscle mass, exercise, and diet. The reported eGFR is an estimation only and is only applicable if the renal function is stable. Blood BLOOD SPECIMEN / Unknown 09/19/2023 3:06 PM CDT 09/19/2023 3:08 PM CDT Nadia HOYOS CHEMISTRY [facility] [address] [place] [address], * (ABNORMAL) CBC WITH AUTO DIFFERENTIAL (09/19/2023 2:56 PM CDT) [facility] WHITE BLOOD COUNT 10.3 4.5 - 11.0 thou/cu mm 09/19/2023 3:10 PM CDT [facility] RED BLOOD COUNT 5.11 4.30 - 5.90 mil/cu mm 09/19/2023 3:10 PM CDT [facility] HEMOGLOBIN 13.8 13.5 - 17.5 g/dL 09/19/2023 3:10 PM CDT [facility] HEMATOCRIT 41.9 37.0 - 53.0 % 09/19/2023 3:10 PM CDT [facility] MCV 82 80 - 100 fL 09/19/2023 3:10 PM CDT [facility] MCH 27.0 26.0 - 34.0 pg 09/19/2023 3:10 PM CDT [facility] MCHC 32.9 32.0 - 36.0 g/dL 09/19/2023 3:10 PM CDT [facility] RDW 15.3 11.5 - 15.5 % 09/19/2023 3:10 PM CDT [facility] PLATELET COUNT 377 140 - 440 thou/cu mm 09/19/2023 3:10 PM CDT [facility] MPV 11.4(H) 6.5 - 11.0 fL 09/19/2023 3:10 PM CDT [facility] % NEUT 75.4 % 09/19/2023 3:10 PM CDT [facility] % LYMPH 13.5 % 09/19/2023 3:10 PM CDT [facility] % MONO 9.0 % 09/19/2023 3:10 PM CDT [facility] % EOS 1.8 % 09/19/2023 3:10 PM CDT [facility] % BASO 0.3 % 09/19/2023 3:10 PM CDT [facility] ABSOLUTE NEUTROPHILS 7.7(H) 1.7 - 7.0 thou/cu mm 09/19/2023 3:10 PM CDT [facility] ABSOLUTE LYMPHOCYTES 1.4 0.9 - 2.9 thou/cu mm 09/19/2023 3:10 PM CDT [facility] ABSOLUTE MONOCYTES 0.9(H) <0.9 thou/cu mm 09/19/2023 3:10 PM CDT [facility] ABSOLUTE EOSINOPHILS 0.2 <0.5 thou/cu mm 09/19/2023 3:10 PM CDT [facility] ABSOLUTE BASOPHILS 0.0 <0.3 thou/cu mm 09/19/2023 3:10 PM CDT [facility] Blood BLOOD SPECIMEN / Unknown Venipuncture / Unknown 09/19/2023 2:56 PM CDT 09/19/2023 2:58 PM CDT Nadia HOYOS HEMATOLOGY [facility] [address] [place] [id number], * (ABNORMAL) C-REACTIVE PROTEIN (09/19/2023 2:56 PM CDT) Pathologist [facility] C-REACTIVE PROTEIN 4.0(H) <0.5 mg/dL 09/20/2023 5:12 AM CDT [facility] Blood BLOOD SPECIMEN / Unknown Venipuncture / Unknown 09/19/2023 2:56 PM CDT 09/19/2023 2:58 PM CDT Nadia HOYOS CHEMISTRY [facility] [address] [place] [address], * (ABNORMAL) COMP METABOLIC PANEL (09/19/2023 2:56 PM CDT) Pathologist [facility] SODIUM 133(L) 136 - 145 mmol/L 09/20/2023 4:59 AM CDT [facility] TRAL LABORATORY POTASSIUM 5.2(H) 3.5 - 5.1 mmol/L 09/20/2023 4:59 AM T [facility] TRAL LABORATORY CHLORIDE 98 98 - 107 mmol/L 09/20/2023 4:59 AM CDT [facility] TRAL LABORATORY CO2,TOTAL 17(L) 22 - 29 mmol/L 09/20/2023 4:59 AM T [facility] TRAL LABORATORY ANION GAP 18 5 - 18 09/20/2023 4:59 AM T [facility] TRAL LABORATORY GLUCOSE 215(H) 70 - 99 mg/dL 09/20/2023 4:59 AM CDT [facility] TRAL LABORATORY CALCIUM 10.1 8.8 - 10.2 mg/dL 09/20/2023 4:59 AM T [facility] TRAL LABORATORY BUN 17 8 - 23 mg/dL 09/20/2023 4:59 AM T [facility] TRAL LABORATORY CREATININE 1.43(H) 0.70 - 1.20 mg/dL 09/20/2023 4:59 AM CDT [facility] TRAL LABORATORY BUN/CREAT RATIO 12 10 - 20 4:59 AM CDT [facility] eGFR 53(L) >90 mL/min/1. 73m2 09/20/2023 4:59 AM CDT [facility] TRAL LABORATORY Comment:As of 2021, eG FR is calculated by the CKD-EPI creatinine equation without race adjustment. ??eGFR can be influenced by muscle mass, exercise, and diet. ??The reported eGFR is an estimation only and is only applicable if the renal function is stable. ALBUMIN 3.9(L) 4.0 - 4.9 g/dL 09/20/2023 4:59 AM CDT [facility] TRAL LABORATORY PROTEIN,TOTAL 8.2(H) 6.0 - 8.0 g/dL 09/20/2023 4:59 AM CDT [facility] LABORAT[facility] BILIRUBIN,TOTAL 5.3(H) 0.0 - 1.2 mg/dL 09/20/2023 4:59 AM CDT [facility] TRAL LABORATORY ALK PHOSPHATASE 1,051(H) 40 - 129 IU/L 09/20/2023 4:59 AM CDT [facility] ALT (SGPT) 243(H) 10 - 50 IU/L 09/20/2023 4:59 AM CDT [facility] TRAL LABORATORY AST (SGOT) 207(H) 10 - 50 IU/L 09/20/2023 4:59 AM CDT [facility] Blood BLOOD SPECIMEN / Unknown Venipuncture / Unknown 09/19/2023 2:56 PM CDT 09/19/2023 2:58 PM CDT Nadia HOYOS CHEMISTRY [facility] [address] [place] [address], * URINALYSIS MICROSCOPIC (09/01/2023 9:16 AM CDT) RBC 0-2 0-2, None Seen /HPF 09/01/2023 9:31 AM CDT [facility] WBC None Seen 0-2, 3-5, None Seen /HPF 09/01/2023 9:31 AM CDT [facility] BACTERIA None Seen None Seen, Rare, Few Bacteria/ HPF 09/01/2023 9:31 AM CDT [facility] EPITHELIAL CELLS Few None Seen, Few Epi/HPF 09/01/2023 9:31 AM CDT [facility] Urine URINE SPECIMEN / Unknown Non-Blood / Unknown 09/01/2023 9:16 AM CDT 09/01/2023 9:23 AM CDT Clarita HOYOS URINE [facility] [address] [place] [address], * URINE CULTURE (09/01/2023 9:16 AM CDT) CULTURE No growth (<1,000 CFU/mL) 09/02/2023 2:35 PM CDT [facility] Urine URINE SPECIMEN / Unknown Non-Blood / Unknown 09/01/2023 9:16 AM CDT 09/01/2023 9:23 AM CDT Clarita HOYOS [facility]Y [facility] [address] [address], * (ABNORMAL) UA W/ SEDIMENT EXAM REFLEXED PER CRITERIA (09/01/2023 9:16 AM CDT) COLOR Yellow Yellow Color 09/01/2023 9:31 AM CDT [facility] CLARITY Clear Clear Clarity 09/01/2023 9:31 AM CDT [facility] SPECIFIC GRAVITY,URINE <=1.005(A) 1.010, 1.015, 1.020, 1.025 09/01/2023 9:31 AM CDT [facility] PH,URINE 5.0(A) 6.0, 7.0, 8.0, 5.5, 6.5, 7.5, 8.5 09/01/2023 9:31 AM CDT [facility] UROBILINOGEN, QUALITATIVE Normal Normal EU/dl 09/01/2023 9:31 AM CDT [facility] PROTEIN, URINE Negative Negative mg/dL 09/01/2023 9:31 AM CDT [facility] GLUCOSE, URINE >=1000(A) Negative mg/dL 09/01/2023 9:31 AM CDT [facility] KETONES,URINE Negative Negative mg/dL 09/01/2023 9:31 AM CDT [facility] BILIRUBIN,URI NE Negative Negative 09/01/2023 9:31 AM CDT [facility] OCCULT BLOOD,URINE Trace(A) Negative 09/01/2023 9:31 AM CDT [facility] NITRITE Negative Negative 09/01/2023 9:31 AM CDT [facility] LEUKOCYTE ESTERASE Negative Negative 09/01/2023 9:31 AM T [facility] Urine URINE SPECIMEN / Unknown Non-Blood / Unknown 09/01/2023 9:16 AM CDT 09/01/2023 9:23 AM CDT Clarita HOYOS URINE [facility] [address] [place] [address], * (ABNORMAL) LIPID PANEL (11/11/2022 11:26 AM CDT) CHOLESTEROL,TOTAL 123 100 - 199 mg/dL 11/11/2022 6:50 PM CDT [facility] TRAL LABORATORY Comment: Cholesterol, Total Reference Ranges Desirable <200 mg/dL Borderline 200-239 mg/dL High >=240 mg/dL TRIGLYCERIDES 222(H) <150 mg/dL 11/11/2022 6:50 PM T [facility] TRAL LABORATORY HDL CHOLESTEROL 31(L) >40 mg/dL 6:50 PM CDT [facility] TRAL LABORATORY NON-HDL CHOLESTEROL 92 <145 mg/dl 11/11/2022 6:50 PM CDT [facility] TRAL LABORATORY CHOL/HDL RATIO 3.97 <4.50 11/11/2022 6:50 PM CDT [facility] TRAL LABORAT[facility] LDL CHOLESTEROL 48 <=130 mg/dL 11/11/2022 6:50 PM CDT [facility] TRAL LABORATORY VLDL CHOLESTEROL 44(H) <=30 mg/dL 11/11/2022 6:50 PM CDT [facility] TRAL LABORATORY PROVIDER ORDERED STATUS RANDOM 11/11/2022 6:50 PM CDT [facility] TRAL LABORATORY Blood BLOOD SPECIMEN / Unknown Venipuncture / Unknown 11/11/2022 11:26 AM CDT 11/11/2022 11:28 AM CDT Chris Potter MD CHEMISTRY Performing Organization Address City/[facility]/ZIP Co de Phone Number [facility] [employer] LABORAT[facility] [address] [place] [address], [place] * ANTI HCV (06/17/2021 11:24 AM CDT) HEPATITIS C ANTIBODY Non-React rehan Non-React rehan 06/17/2021 6:14 PM CDT [facility] TRAL LABORATORY Comment:Antibodies to HCV no t detected; does not exclude the possibility of exposure to HCV. Blood BLOOD SPECIMEN / Unknown Venipuncture / Unknown 06/17/2021 11:24 AM CDT 06/17/2021 11:26 AM CDT Chris Potter MD SEND OUTS [facility] 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
[2023-10-24] MEDS: ONDANSETRON 2 MG/ML inj 4 MG IVP (17:29)
[2023-10-24 17:51] LABS: Basophils Percent Auto 0.1 % (0.0-3.0); Eosinophils Percent Auto 0.2 % (0.0-7.0); Hematocrit 34.8 % (37.0-53.0); Hemoglobin* 11.1 gm/dL (13.5-17.5); Immature Granulocytes Pct Auto 1.3 %; Lymphocytes Percent Auto 5.2 % (20-44); Mean Corpuscular HGB Conc 32 gm/dL (32-36); Mean Corpuscular Hemoglobin 25 pg (26-34); Mean Corpuscular Volume 80 fL (80-100); Monocytes Percent Auto 5.4 % (0.0-11.0); Neutrophils Percent Auto 87.8 % (42.0-72.0); Platelet Count* 151 K/uL (140-440); RDW Coefficient of Variation % 14.2 % (11.5-15.5); Red Blood Count 4.38 m/uL (4.30-5.90); White Blood Count* 18.04 K/uL (4.50-11.00)
[2023-10-24 17:56] LABS: Slide Review Reflex No
[2023-10-24 17:59] LABS: Albumin* 2.6 g/dL (3.3-5.0); Chloride* 96 mmol/L (96-114)
[2023-10-24 18:00] LABS: Potassium* 3.9 mmol/L (3.6-5.1); Sodium* 129 mmol/L (135-149)
[2023-10-24 18:02] LABS: Anion Gap 8 mEq/L (7-15); Aspartate Amino Transferase* 73 U/L (12-35); Bilirubin Direct* 0.8 mg/dL (0.0-0.5); Bilirubin Total* 1.2 mg/dL (0.1-1.5); Blood Urea Nitrogen* 21 mg/dL (7-30); Carbon Dioxide* 25 mmol/L (20-32); Creatinine* 0.7 mg/dL (0.5-1.5); Est. Creatinine Clearance* 78.79; Estimated Glomerular Filt Rate 100 ml/min; Total Protein* 5.9 g/dL (6.0-8.3)
[2023-10-24 18:03] LABS: Alanine Aminotransferase* 49 U/L (4-50); Alkaline Phosphatase* 307 U/L (40-150); Calcium* 8.3 mg/dL (8.4-10.6)
[2023-10-24 18:05] LABS: Glucose* 351 mg/dL (60-115)
[2023-10-24] MEDS: INSULIN REGULAR, HUMAN 100 UNIT/ML VIAL IVP (18:22)
[2023-10-24 19:55] LABS: Appearance Urine Slightly Cloudy (Clear); Bilirubin Urine 1+ (Negative); Blood Urine Negative (Negative); Color Urine Dark yellow (Yellow); Glucose Urine 3+ (Negative); Ketones Urine Trace (Negative); Leukocyte Esterase Urine Negative (Negative); Nitrite Urine Negative (Negative); Protein Urine 2+ (Negative); pH Urine 5.5 (5.0-8.5)
[2023-10-24 20:07] LABS: Bacteria Urine Moderate; RBC Urine 0-2 (0-2); Squamous Epithelial Cell Urine Moderate (None-Few)
[2023-10-24 20:08] LABS: Fine Granular Casts Urine Moderate
[2023-10-24] MEDS: METOPROLOL TARTRATE 50 MG TABLET PO (21:49)
[2023-10-24] MEDS: ACETAMINOPHEN 325 MG TABLET 650 MG PO (21:49)
[2023-10-24] MEDS: OXYCODONE 5 MG TABLET PO (21:49)
[2023-10-24] MEDS: ONDANSETRON ODT 4 MG TAB PO (21:50)
--- NOTE | 2023-10-24 23:26 | PM.IMHP1 ---
Hospitalist- H&P: HPI History of Present Illness Time Seen by Provider: 21:15 Date Seen: 10/24/23 Chief complaint: weakness Narrative: Denton Pemberton is a 68 year old male was recently diagnosed with metastatic pancreatic cancer who had a significant bout of weakness today. He is scheduled to have a port placed later this week and to start palliative chemotherapy on Monday. He had a cardiology appointment today for which he called a medical transport company to get him there, but he tells me that they brought a wheelchair that was broken and too low, so he had difficulty getting out of the chair. He says that rather than getting different equipment or somebody to help, he had to try to get out of the wheelchair himself and he struggled for so long that he eventually were himself out completely and was unable to get out of the chair at all. He is starting to feel a bit better now after some fluids in the ER and was able to sit up in the bed on his own. He tells me that he could not go home for the night because his cannot help him much and would not be able to help him get out of a chair or a bed and they have a chronically severely disabled son at home. He has diabetes for which he had been using insulin, but recently stopped his diabetic medications because he is not eaten anything solid in several weeks. He has also been unintentionally losing weight, about 35 lb over the last few months. He has been able to drink small amounts of juice, Gatorade and water. He has been dehydrated frequently for which he has come to the ER to get fluids. Review of Systems Status of ROS: Reports: 6 or more systems reviewed and unremarkable except as noted in History and below [facility] Medical History (Updated 10/24/23 @ 23:42 by Jaimie Garcia MD) Albuminuria ?R80.9 - Proteinuria, unspecified (ICD-10) Stage 3a chronic kidney disease ?N18.31 - Chronic kidney disease, stage 3a (ICD-10) Detached retina ?H33.20 - Serous retinal detachment, unspecified eye (ICD-10) Hyperlipidemia ?E78.5 - Hyperlipidemia, unspecified (ICD-10) Hypertension ?I10 - Essential (primary) hypertension (ICD-10) Type 2 diabetes mellitus without complication, with long-term current use of insulin ?E11.9 - Type 2 diabetes mellitus without complications (ICD-10) ?Z79.4 - 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) use of insulin (ICD-10) Pancreatic cancer metastasized to liver ?C25.9 - Malignant neoplasm of pancreas, unspecified (ICD-10) ?C78.7 - Secondary malignant neoplasm of liver and intrahepatic bile duct (ICD-10) Surgical History History of liver biopsy ?Z98.890 - Other specified postprocedural states (ICD-10) Social History What is your current living situation?: I presently have a place to live Problems where you live: no known problems Problems where you live details: N/A In the past 12 months, utilities in danger of being shut off: no In past 12 months, lack of transportation kept you from medical appts, meetings, work, or getting things needed for daily living: no In the past 12 mos, have been you worried that your food would run out before you had money to buy more?: never true In the past 12 mos, the food you bought just didn't last and you didn't have money to buy more?: never true Highest level of school completed/degree received: Bachelor's degree Smoking Status: Former smoker What tobacco products do you use: cigarettes Smoking quit date/years: <= 15 years ago Do you use any of these nicotine containing products: None Second hand tobacco smoke exposure: Yes () How often do you have a drink containing alcohol: monthly or less Alcohol type: beer How many standard drinks containing alcohol do you have on a typical day: 1 or 2 How often do you have six or more drinks on one occasion: Never AUDIT-C Alcohol total score: 1 Non-prescribed substance use: denies use Caffeine: No How often does anyone, including family, friends and others, physically hurt you: never How often does anyone, including family, friends and others, insult or talk down to you: never How often does anyone, including family, friends and others, threaten you with harm: never How often does anyone, including family, friends and others, scream or curse at you: never service: No Meds Home Medications and Allergies Home Medications ?Medication ?Instructions ?Recorded ?Confirmed ?Type atorvastatin 40 mg tablet 40 mg PO HS 09/22/23 10/24/23 History acetaminophen 325 mg tablet 650 mg PO QID PRN 10/18/23 10/24/23 History (Tylenol) apixaban 5 mg tablet (Eliquis) 5 mg PO BID 10/18/23 10/24/23 History insulin glargine 100 unit/mL 28 unit subcut QPM 10/18/23 10/24/23 History subcutaneous solution (Lantus U-100 Insulin) mirtazapine 7.5 mg tablet 7.5 mg PO HS 10/18/23 10/24/23 History ondansetron 4 mg disintegrating 4 mg PO Q8H 10/18/23 10/24/23 History tablet oxycodone 5 mg tablet 5 - 15 mg PO QID PRN 10/18/23 10/24/23 History polyethylene glycol 3350 17 4 g PO ONCE PRN 10/18/23 10/24/23 History gram/dose oral powder (Miralax) dapagliflozin propanediol 5 mg 5 mg PO DAILY 10/24/23 10/24/23 History tablet (Farxiga) glimepiride 4 mg tablet 4 mg PO DAILY 10/24/23 10/24/23 History insulin aspart U-100 100 unit/mL 1 sliding scale dose subcut 10/24/23 10/24/23 History (3 mL) subcutaneous pen USEASDIRECTD metformin 1,000 mg tablet 1,000 mg PO BID 10/24/23 10/24/23 History metoclopramide HCl 5 mg tablet 5 mg PO BID-TID PRN nausea and 10/24/23 10/24/23 History (Reglan) vomiting metoprolol tartrate 50 mg tablet 50 mg PO BID 10/24/23 10/24/23 History Allergies Allergy/AdvReac Type Severity Reaction Status Date / Time No Known Drug Allergies Allergy Verified 10/20/23 17:17 Exam Narrative: Exam Narrative: General: No acute distress. Awake alert oriented x3. Pallor noted, no jaundice. Obese, but with loose skin consistent with recent rapid weight loss. Muscle wasting noted. HEENT: Normocephalic atraumatic, pupils equally round and reactive to light and accommodation. Oropharynx clear. Mucous membranes are moist. No cervical lymphadenopathy, thyromegaly or carotid bruits. No JVD. Cardiovascular: Regular rate and rhythm. No murmurs, gallops, or rubs. Chest: No increased work of breathing. Clear to auscultation bilaterally. No crackles or wheezes. Abdomen: Bowel sounds present. Soft, nondistended, tender in the epigastrium. No hepatosplenomegaly or masses. Extremities: 1+ bilateral ankle edema, no cyanosis or clubbing. Const: Vital Signs, click to edit/add: Vital Signs - 24 hr 10/24/23 15:49 10/24/23 18:37 10/24/23 19:45 Temperature 97.2 F L Pulse Rate 89 107 H Pulse Rate [Left P ulse Oximeter] Pulse Rate [Pulse Oximeter] 94 Respiratory Rate 20 Blood Pressure [Ri ght Arm] Blood Pressure [Ri ght Upper Arm] 125/68 Pulse Oximetry 97 90 93 Oxygen Delivery Me thod 10/24/23 20:00 10/24/23 20:54 10/24/23 20:54 Temperature 98.3 F Pulse Rate 87 Pulse Rate [Left P ulse Oximeter] 92 Pulse Rate [Pulse Oximeter] Respiratory Rate 18 18 Blood Pressure [Ri ght Arm] 140/69 H Blood Pressure [Ri ght Upper Arm] Pulse Oximetry 90 90 90 Oxygen Delivery Me thod Room Air Room Air Hospitalist - H&P: Result Labs Labs: Short CBC 10/24/23 Range/Units 17:30 WBC 18.04 H (4.50-11.00) K/uL Hgb 11.1 L (13.5-17.5) gm/dL Hct 34.8 L (37.0-53.0) % Plt Count 151 (140-440) K/uL BMP 10/24/23 17:30 Sodium 129 L Potassium 3.9 Chloride 96 Carbon Dioxide 25 BUN 21 Creatinine 0.7 Glucose 351 H* Calcium 8.3 L Liver Function 10/24/23 Range/Units 17:30 Total Bilirubin 1.2 (0.1-1.5) mg/dL Direct Bilirubin 0.8 H (0.0-0.5) mg/dL AST 73 H (12-35) U/L ALT 49 (4-50) U/L Alkaline Phosphatase 307 H (40-150) U/L Albumin 2.6 L (3.3-5.0) g/dL Urine 10/24/23 Range/Units 19:42 Urine Color Dark yellow (Yellow) Urine Appearance Slightly Cloudy A (Clear) Urine pH 5.5 (5.0-8.5) Ur Specific [place] 1.020 (1.000-1.030) Urine Protein 2+ A (Negative) Urine Glucose (UA) 3+ A (Negative) Assessment and Plan Assessment and plan (1) Weakness: Problem comment: - This is likely secondary to deconditioning and malnutrition. He has decreased exercise capacity. I suspect he will improve some overnight and likely be able to discharge home tomorrow with ongoing home health. I will have PT and OT see him to make recommendations as well. I attempted to talk with him about how he is right on the edge of being functional enough to undergo chemotherapy. Patient has limited insight into the severity of his illness and not want to discuss. Status: Acute (2) Pancreatic cancer metastasized to liver: Status: Acute (3) Type 2 diabetes mellitus without complication, with long-term current use of insulin: Problem comment: He is still using Lantus nightly. I have ordered this as well as an insulin sliding scale with Accu-Cheks at meals and at bedtime. Status: Chronic (4) Dehydration: Problem comment: Poor oral intake. Patient declined any further IV fluids at this point. He wishes to try oral intake overnight and see how it goes. Status: Acute (5) Anorexia: Problem comment: As above Status: Acute (6) Protein-calorie malnutrition, moderate: Problem comment: As evidenced by loose skin, muscle wasting, rapid weak loss, and albumin and total protein. Start nutritional supplementation and consult Nutrition. Status: Acute
[2023-10-25] VITALS (7 sets, daily range): BP systolic 115–135; BP diastolic 70–85; PULSE 82–121; RESP 16–18; TEMP 36.2–36.7; O2SAT 88–94; BMI 32.8
[2023-10-25] MEDS: OXYCODONE 5 MG TABLET PO ×3 (01:49→22:55)
[2023-10-25] MEDS: ACETAMINOPHEN 325 MG TABLET 650 MG PO ×3 (01:52→17:12)
--- NOTE | 2023-10-25 04:56 | PC.NURSE ---
While was completing pt's admission assessment last evening, he stated he had been a cigar smoker up until approximately 2 months ago. Psychiatric Technician Assistant did offer Nicotine patch if needed though pt declined.
[2023-10-25] MEDS: ONDANSETRON ODT 4 MG TAB PO ×2 (05:48→14:19)
--- NOTE | 2023-10-25 06:38 | PC.NURSE ---
End of shift note [id number]: Pt alert & oriented x 4 and able to make needs known. IV in place to L forearm. He transfers/ambulates with assist of 1 using FWW and gait belt. Pt noted to be able to reposition independently when in bed and was able to go from lying position to sitting on edge of bed independently when seen by MD Garcia last evening. PRN Oxycodone and Tylenol given to treat c/o 7/10 R lower back pain along with encouraging ice and rest. VSS and pt has been afebrile. He has poor po intake noted despite encouragement from staff.
[2023-10-25] MEDS: PANCREALIPASE (12,38,60) CAP 1 CAP PO ×3 (08:07→17:12)
[2023-10-25] MEDS: INSULIN GLARGINE,HUM.REC.ANLOG 100 UNIT/ML INSULN.PEN 14 UNIT SUBCUT (08:16)
[2023-10-25] MEDS: INSULIN ASPART 100 UNIT/ML SUBCUT ×2 (08:17→12:06)
[2023-10-25] MEDS: METOPROLOL TARTRATE 50 MG TABLET PO ×2 (08:59→20:29)
[2023-10-25] MEDS: SODIUM CHLORIDE 0.9 % (FLUSH) 10 ML SYRINGE 5 ML IVF ×2 (10:17→20:30)
--- NOTE | 2023-10-25 11:05 | PC.SOCIAL ---
Received a phone call from So at [facility] [employer]. So informs that patient is open to services from them and is receiving Nursing and PT. [facility], [facility]. would only need resumption orders if patient's status changes to inpatient. So would like an update when patient discharges. [facility] [employer] contact phone number is [phone]. Will follow up as needed.
--- NOTE | 2023-10-25 13:24 | P.IMPN_ITS ---
Progress Note: A&P Assessment and plan (1) Pancreatic cancer metastasized to liver: Problem details: Declining quickly. Poor prognosis. Status: Acute (2) Anorexia: Problem details: No appetite. Food does not taste good. Very poor oral intake. Status: Acute (3) Dehydration: Problem details: Poor oral intake. Declining additional IV fluids during hospital stay Status: Acute (4) Weakness: Problem details: Weakness due to metastatic cancer and malnutrition and dehydration. Improved during hospital stay but likely to get worse again, especially with chemotherapy. PT provided a walker. Status: Acute (5) Protein-calorie malnutrition, moderate: Problem details: As evidenced by loose skin, muscle wasting, rapid weak loss, and albumin and total protein. Start nutritional supplementation and consult Nutrition. Status: Acute (6) Type 2 diabetes mellitus without complication, with long-term current use of insulin: Problem details: Will stop metformin. Continue Lantus but moved dosing to the morning. Continue Farxiga. Status: Chronic Plan Probable discharge to home today at patient's request for outpatient follow-up w [facility] Oncology on Monday Time Spent With Patient Total time spent: 45 minutes Subjective Date Seen: 10/25/23 Interval history: 68-year-old male with recently diagnosed metastatic pancreatic cancer admitted to the hospital with weakness. One month ago patient was seen on our emergency department for weight loss and anorexia. CT showed suspicion for pancreatic cancer which was subsequently confirmed. He underwent ERCP at [facility] confirming pancreatic malignancy. Biliary stent placed. Metastatic disease in the liver and portacaval nodes. September 29 he underwent staging laparoscopy. October 17 patient was seen by Dr. Townsend for medical oncology. Her note is reviewed. Patient has had subsequent decline with very poor appetite, persistent nausea, weight loss, weakness. Yesterday he went to a cardiology appointment and was unable to get out of the transport wheelchair due to weakness. He is brought to our emergency department. He is taking in very little solid food and minimal liquid. He reports poorly tolerating dairy products due to diarrhea. He was started on pancreatic enzymes which today may have helped his tolerance of dairy. He received IV fluids and reports feeling stronger today he is very anxious to go home. Physical therapy feels that he is able to manage with a walker. Patient is very strongly committed to going through with chemotherapy. Monday he is scheduled to initiate FOLFOX. He acknowledges that chemotherapy may make his poor appetite and malnutrition and weakness worse. Exam Narrative: Exam Narrative: He is alert and appears in no distress. He is oriented to his circumstances. Respirations are unlabored. He is observed to walk in the hallway with a walker fairly effectively. Does struggle to get to standing from a chair. Const: Vital Signs, click to edit/add: Vital Signs - 24 hr 10/24/23 15:49 10/24/23 18:37 10/24/23 19:45 Temperature 97.2 F L Pulse Rate 89 107 H Pulse Rate [Left P ulse Oximeter] Pulse Rate [Pulse Oximeter] 94 Respiratory Rate 20 Blood Pressure [Le ft Arm] Blood Pressure [Ri ght Arm] Blood Pressure [Ri ght Upper Arm] 125/68 Pulse Oximetry 97 90 93 Oxygen Delivery Me thod 10/24/23 20:00 10/24/23 20:54 10/24/23 20:54 Temperature 98.3 F Pulse Rate 87 Pulse Rate [Left P ulse Oximeter] 92 Pulse Rate [Pulse Oximeter] Respiratory Rate 18 18 Blood Pressure [Le ft Arm] Blood Pressure [Ri ght Arm] 140/69 H Blood Pressure [Ri ght Upper Arm] Pulse Oximetry 90 90 90 Oxygen Delivery Me thod Room Air Room Air 10/24/23 23:00 10/24/23 23:55 10/24/23 23:55 Temperature 98.2 F Pulse Rate Pulse Rate [Left P ulse Oximeter] 92 75 Pulse Rate [Pulse Oximeter] Respiratory Rate 18 18 18 Blood Pressure [Le ft Arm] Blood Pressure [Ri ght Arm] 125/76 Blood Pressure [Ri ght Upper Arm] Pulse Oximetry 91 91 Oxygen Delivery Me thod Room Air Room Air 10/25/23 03:00 10/25/23 07:00 10/25/23 07:00 Temperature 97.3 F L Pulse Rate Pulse Rate [Left P ulse Oximeter] 86 121 H Pulse Rate [Pulse Oximeter] Respiratory Rate 18 18 18 Blood Pressure [Le ft Arm] Blood Pressure [Ri ght Arm] 135/85 Blood Pressure [Ri ght Upper Arm] Pulse Oximetry 91 94 Oxygen Delivery Me thod Room Air Room Air 10/25/23 07:00 10/25/23 11:00 Temperature 97.3 F L 97.2 F L Pulse Rate Pulse Rate [Left P ulse Oximeter] 121 H Pulse Rate [Pulse Oximeter] Respiratory Rate 18 16 Blood Pressure [Le ft Arm] 122/74 115/70 Blood Pressure [Ri ght Arm] Blood Pressure [Ri ght Upper Arm] Pulse Oximetry 94 88 Oxygen Delivery Me thod Room Air Room Air Documenting provider has reviewed patient's vital signs: yes Labs Labs: Laboratory Results - last 24 hr 10/24/23 10/24/23 17:30 19:42 WBC 18.04 H RBC 4.38 Hgb 11.1 L Hct 34.8 L MCV 80 MCH 25 L MCHC 32 RDW Coeff of Guerda 14.2 Plt Count 151 Neut % (Auto) 87.8 H Lymph % (Auto) 5.2 L [place] % (Auto) 5.4 Eos % (Auto) 0.2 Baso % (Auto) 0.1 Neut # (Auto) 15.80 H Lymph # (Auto) 0.90 [place] # (Auto) 1.00 H Eos # (Auto) 0.00 Baso # (Auto) 0.00 Abs Immat Gran (auto) 0.20 Imm/Tot Granulo (auto) 1.3 Sodium 129 L Potassium 3.9 Chloride 96 Carbon Dioxide 25 Anion Gap 8 BUN 21 Creatinine 0.7 Estimated Creat Clear 78.79 Estimated GFR 100 Glucose 351 H* Calcium 8.3 L Total Bilirubin 1.2 Direct Bilirubin 0.8 H AST 73 H ALT 49 Alkaline Phosphatase 307 H Total Protein 5.9 L Albumin 2.6 L Urine Color Dark yellow Urine Appearance Slightly Cloudy A Urine pH 5.5 Ur Specific [place] 1.020 Urine Protein 2+ A Urine Glucose (UA) 3+ A Urine Ketones Trace A Urine Blood Negative Urine Nitrite Negative Urine Bilirubin 1+ A Urine Urobilinogen 1.0 Ur Leukocyte Esterase Negative Urine RBC 0-2 Urine WBC 2-5 Ur Squamous Epith Cells Moderate A Urine Bacteria Moderate A Fine Granular Casts Moderate A
--- NOTE | 2023-10-25 13:51 | P.DS_ITS ---
DS: Providers Provider Date Seen: 10/25/23 Date of admission: 10/24/23 20:47 Primary care physician: Chris Potter MD Admitting Clinician: Jaimie Garcia MD Attending Physician on discharge: Bear Mai MD Date of Discharge: 10/25/23 DS: Diagnosis Discharge Diagnosis (1) Pancreatic cancer metastasized to liver: Status: Acute Problem details: Declining quickly. Poor prognosis. (2) Anorexia: Status: Acute Problem details: No appetite. Food does not taste good. Very poor oral intake. (3) Dehydration: Status: Acute Problem details: Poor oral intake. Declining additional IV fluids during hospital stay (4) Weakness: Status: Acute Problem details: Weakness due to metastatic cancer and malnutrition and dehydration. Improved during hospital stay but likely to get worse again, especially with chemotherapy. PT provided a walker. (5) Type 2 diabetes mellitus without complication, with long-term current use of insulin: Status: Chronic Problem details: Will stop metformin. Continue Lantus but moved dosing to the morning. Continue Farxiga. (6) Protein-calorie malnutrition, moderate: Status: Acute Problem details: As evidenced by loose skin, muscle wasting, rapid weak loss, and albumin and total protein. Start nutritional supplementation and consult Nutrition. DS: Summary Hospital Course Hospital Course: See progress note. 68-year-old male with metastatic prostate cancer admitted with dehydration, weakness, malnutrition. Anxious to go home. Discharge for outpatient follow-up with Oncology on Monday to initiate FOLFOX Status at Discharge Functional status at discharge: uses cane/walker Overall status at discharge: other (Poor prognosis. Ongoing decline is likely) Time Spent with Patient Time attestation: Total time spent providing and/or coordinating discharge services: 45 minutes Exam Narrative: Exam Narrative: He is alert and in no distress. He is oriented to circumstances and gives his own history. He is observed to walk with a walker fairly well and to get out of a chair unassisted with some issues with balance Const: Vital Signs, click to edit/add: Vital Signs - 24 hr 10/24/23 15:49 10/24/23 18:37 10/24/23 19:45 Temperature 97.2 F L Pulse Rate 89 107 H Pulse Rate [Left P ulse Oximeter] Pulse Rate [Pulse Oximeter] 94 Respiratory Rate 20 Blood Pressure [Le ft Arm] Blood Pressure [Ri ght Arm] Blood Pressure [Ri ght Upper Arm] 125/68 Pulse Oximetry 97 90 93 Oxygen Delivery Me thod 10/24/23 20:00 10/24/23 20:54 10/24/23 20:54 Temperature 98.3 F Pulse Rate 87 Pulse Rate [Left P ulse Oximeter] 92 Pulse Rate [Pulse Oximeter] Respiratory Rate 18 18 Blood Pressure [Le ft Arm] Blood Pressure [Ri ght Arm] 140/69 H Blood Pressure [Ri ght Upper Arm] Pulse Oximetry 90 90 90 Oxygen Delivery Me thod Room Air Room Air 10/24/23 23:00 10/24/23 23:55 10/24/23 23:55 Temperature 98.2 F Pulse Rate Pulse Rate [Left P ulse Oximeter] 92 75 Pulse Rate [Pulse Oximeter] Respiratory Rate 18 18 18 Blood Pressure [Le ft Arm] Blood Pressure [Ri ght Arm] 125/76 Blood Pressure [Ri ght Upper Arm] Pulse Oximetry 91 91 Oxygen Delivery Me thod Room Air Room Air 10/25/23 03:00 10/25/23 07:00 10/25/23 07:00 Temperature 97.3 F L Pulse Rate Pulse Rate [Left P ulse Oximeter] 86 121 H Pulse Rate [Pulse Oximeter] Respiratory Rate 18 18 18 Blood Pressure [Le ft Arm] Blood Pressure [Ri ght Arm] 135/85 Blood Pressure [Ri ght Upper Arm] Pulse Oximetry 91 94 Oxygen Delivery Me thod Room Air Room Air 10/25/23 07:00 10/25/23 11:00 Temperature 97.3 F L 97.2 F L Pulse Rate Pulse Rate [Left P ulse Oximeter] 121 H Pulse Rate [Pulse Oximeter] Respiratory Rate 18 16 Blood Pressure [Le ft Arm] 122/74 115/70 Blood Pressure [Ri ght Arm] Blood Pressure [Ri ght Upper Arm] Pulse Oximetry 94 88 Oxygen Delivery Me thod Room Air Room Air Documenting provider has reviewed patient's vital signs: yes DS: Data Data Completed and Pending Labs on day of discharge: Labs from last 24 hours 10/24/23 10/24/23 19:42 17:30 WBC 18.04 H RBC 4.38 Hgb 11.1 L Hct 34.8 L MCV 80 MCH 25 L MCHC 32 RDW Coeff of Guerda 14.2 Plt Count 151 Neut % (Auto) 87.8 H Lymph % (Auto) 5.2 L [place] % (Auto) 5.4 Eos % (Auto) 0.2 Baso % (Auto) 0.1 Neut # (Auto) 15.80 H Lymph # (Auto) 0.90 [place] # (Auto) 1.00 H Eos # (Auto) 0.00 Baso # (Auto) 0.00 Abs Immat Gran (auto) 0.20 Imm/Tot Granulo (auto) 1.3 Sodium 129 L Potassium 3.9 Chloride 96 Carbon Dioxide 25 Anion Gap 8 BUN 21 Creatinine 0.7 Estimated Creat Clear 78.79 Estimated GFR 100 Glucose 351 H* Calcium 8.3 L Total Bilirubin 1.2 Direct Bilirubin 0.8 H AST 73 H ALT 49 Alkaline Phosphatase 307 H Total Protein 5.9 L Albumin 2.6 L Urine Color Dark yellow Urine Appearance Slightly Cloudy A Urine pH 5.5 Ur Specific [place] 1.020 Urine Protein 2+ A Urine Glucose (UA) 3+ A Urine Ketones Trace A Urine Blood Negative Urine Nitrite Negative Urine Bilirubin 1+ A Urine Urobilinogen 1.0 Ur Leukocyte Esterase Negative Urine RBC 0-2 Urine WBC 2-5 Ur Squamous Epith Cells Moderate A Urine Bacteria Moderate A Fine Granular Casts Moderate A Preliminary micro results at discharge 10/24/23 19:42 Urine Culture - Preliminary Urine,Clean Catch NO GROWTH AFTER 24 HOURS Discharge Plan Discharge Disposition: Home, Self-Care Date of Admission: 10/24/23 20:47 Primary Care Provider: Chris Potter Condition: Unchanged Anticipated Discharge Date/Time: 10/25/23 14:00 Discharge Medications: Continued acetaminophen [Tylenol] 325 mg tablet 650 mg PO QID PRN Eliquis 5 mg tablet 5 mg PO BID Hold Instructions: Doctor's Order mirtazapine 7.5 mg tablet 7.5 mg PO HS ondansetron 4 mg tablet,disintegrating 4 mg PO Q8H oxycodone 5 mg tablet 5 - 15 mg PO QID PRN polyethylene glycol 3350 [Miralax] 17 gram/dose powder 4 g PO ONCE PRN Creon 6,000-19,000 -30,000 unit capsule,delayed release(DR/EC) 1 cap PO TID Qty: 90 0RF Rx Instructions: do not exceed 10,000 unit/kg lipase per 24 hrs dronabinol [Marinol] 5 mg capsule 5 mg PO BID Qty: 60 0RF Rx Instructions: administer before lunch and evening meal/dinner prochlorperazine maleate [Compazine] 5 mg tablet 5 mg PO BID PRN (Reason: nausea and vomiting) Qty: 60 0RF atorvastatin 40 mg tablet 40 mg PO HS dapagliflozin propanediol [Farxiga] 5 mg tablet 5 mg PO DAILY glimepiride 4 mg tablet 4 mg PO DAILY Hold Instructions: Doctor's Order insulin aspart U-100 100 unit/mL (3 mL) insulin pen 1 sliding scale dose subcut USEASDIRECTD metoprolol tartrate 50 mg tablet 50 mg PO BID metoclopramide HCl [Reglan] 5 mg tablet 5 mg PO BID-TID PRN (Reason: nausea and vomiting) Changed insulin glargine [Lantus U-100 Insulin] 100 unit/mL solution 28 unit subcut QAM Qty: 10 0RF Discontinued metformin 1,000 mg tablet 1,000 mg PO BID Hold Instructions: Doctor's Order Discharge Orders: Discharge Order (Routine); Ordered 10/25/23 Ordered By: Frederic Mai Patient Education: Weakness (DC) Activity Level: Activity as Tolerated and Use Walker Discharge Diet: Regular Diet Detail: Eat and drink as much calories and protein as you can tolerate Follow Up Appointments: Chris Potter MD [Primary Care Provider] - Forms: [employer] Info Instructions
--- NOTE | 2023-10-25 14:51 | REH.OT ---
OT received order for consult. Met with pt. and his who declined OT evaluation. OT provided Pt. and his with adaptive equipment resource handout and talked through various equipment. No formal evaluation was completed.
--- NOTE | 2023-10-25 18:52 | PC.NURSE ---
Pt request to rest. Denies dinner, brought in milkshake which pt tried and then asked to be thrown. 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 [employer] Chief Scientist next to pt when requested to move to chair, Pt joselo from bed independently with walker and stepped to chair, strong and steady.
[2023-10-25] MEDS: MIRTAZAPINE 15 MG TABLET 7.5 MG PO (20:28)
[2023-10-25] MEDS: PROCHLORPERAZINE 10 MG TABLET 5 MG PO (20:28)
[2023-10-26 02:33] VITALS: BP 133/72; PULSE 96; RESP 16; TEMP 37.2; O2SAT 92
--- NOTE | 2023-10-26 06:43 | PC.NURSE ---
Discharge note: Pt alert and oriented but appeared depressed and withdrawn. Pt slept well tonight and doing well with SBA with walker and GB. Pt requested for pain medication at 2230 for pain level of 7. Oxycodone given. Discharge instruction given at 0530 and discharge document signed by patient. All questions asked were answered. Pt helped out of the unit with wheelchair to [facility] for port placement. NPO status maintained.
[2023-10-26 14:53] LABS: Troponin I* 3.84 ng/mL (0.01-0.04)
== END 2023-10-26 06:00 | disposition home or self-care (01) ==
LOC: ED 20:23 → MEDSURG 20:47
PROVIDERS: Admitting Provider Family Medicine; Emergency Provider Family Medicine; PCP Surgery; Visit Provider Family Medicine
DX: R53.1 Weakness (principal); E86.0 Dehydration; C78.7 Secondary malignant neoplasm of liver and intrahepatic bile duct; R79.89 Other specified abnormal findings of blood chemistry; I50.30 Unspecified diastolic (congestive) heart failure; I11.0 Hypertensive heart disease with heart failure; I21.4 Non-ST elevation (NSTEMI) myocardial infarction; R09.02 Hypoxemia; R63.4 Abnormal weight loss; E44.0 Moderate protein-calorie malnutrition; R17 Unspecified jaundice; R60.0 Localized edema; R16.0 Hepatomegaly, not elsewhere classified; R33.9 Retention of urine, unspecified; C25.9 Malignant neoplasm of pancreas, unspecified; E11.9 Type 2 diabetes mellitus without complications; E78.5 Hyperlipidemia, unspecified; Z79.4 Long term (current) use of insulin; Z79.01 Long term (current) use of anticoagulants; Z79.84 Long term (current) use of oral hypoglycemic drugs; Z87.891 Personal history of nicotine dependence; Z98.890 Other specified postprocedural states
CPT/HCPCS: 36415; 80048; 80076; 81001; 82962; 84484; 85025; 87086; 96361; 96372; 96374; 97116; 97162; 97530; 99284; 99285; A9270; G0378; J1815; J2405; J7030

== ENCOUNTER 2023-10-26 21:04 | Inpatient (IN) | payer MEDICARE, SELFPAY ==
[2023-10-26] VITALS (30 sets, daily range): BP systolic 95–130; BP diastolic 48–84; PULSE 78–128; RESP 18–24; TEMP 36.2–36.8; O2SAT 84–95
--- NOTE | 2023-10-26 06:46 | SUR.PREOP ---
BG elevated, informed anesthesia. sats low, at 89%- 92 % with nasal cannula at 3.
[2023-10-26] MEDS: LACTATED RINGERS 1000 ML 1,000 ML 100 ML IV (07:00)
--- NOTE | 2023-10-26 07:11 | CRLHL7_ITS ---
For Patients: As a result of the Century Cures Act, medical imaging exams and procedure reports are released immediately into your electronic medical record. You may view this report before your referring provider. If you have questions, please contact your health care provider. Indication: Port placement Technique: Single fluoroscopic image of the right upper chest. Fluoroscopic time 56.4 seconds. IMPRESSION: Fluoroscopic guidance for Port-A-Cath placement. Dictated by Vincent Day MD @ 10/27/2023 3:48:30 PM (Electronically Signed)
[2023-10-26] MEDS: CEFAZOLIN 2 GM INJ IVP (07:56)
[2023-10-26] MEDS: 0.9 % SODIUM CHLORIDE 50 ml INJECTION (08:25)
[2023-10-26] MEDS: HEPARIN 500 UNIT/5 ML SYRINGE IVF (08:25)
[2023-10-26] MEDS: BUPIVACAINE 0.5% 30 ML INJECTION (08:25)
[2023-10-26] MEDS: LIDOCAINE 1 % PF 30 ML INJECTION (08:25)
--- NOTE | 2023-10-26 08:42 | CRLHL7_ITS ---
For Patients: As a result of the Century Cures Act, medical imaging exams and procedure reports are released immediately into your electronic medical record. You may view this report before your referring provider. If you have questions, please contact your health care provider. INDICATION: Port placement TECHNIQUE: 1 view chest radiograph COMPARISON: Same day fluoroscopy FINDINGS: Devices: Right IJ chest port distal tip at the low SVC just above the level the right mainstem bronchus. Lung volumes are very low. General vascular crowding and atelectasis. No pleural effusion. No pneumothorax. Heart size is normal. IMPRESSION: Very low lung volumes. Chest port distal tip low SVC. Dictated by Carina Williamson MD @ 10/26/2023 9:22:54 AM (Electronically Signed)
--- NOTE | 2023-10-26 08:43 | P.GSCN_ITS ---
History of Present Illness Consult details Date Seen: 10/26/23 Consult date: 10/26/23 Narrative: Patient is a 68-year-old male with recent diagnosis metastatic pancreatic cancer. He has had an overall decline this last month with noted weakness, dehydration and anorexia. He was admitted to the hospital last night prior to surgery due to social issues. Upon presentation same-day surgery patient was on 4 L nasal cannula to maintain saturations greater than 90%. Noted dyspnea on exertion. Patient denies shortness of breath he does not use oxygen at home. He is an everyday smoker. On chart review overnight patient was maintained on room air with saturations between 88-94%. He does take Eliquis for atrial fibrillation, with last dose on Monday. A chest x-ray was obtained in the operating room prior to the procedure with no evidence of pleural effusion or infiltration bilaterally. His preoperative history and physical was reviewed, as well as the history and physical from the hospitalist overnight. Review of Systems Status of ROS: Reports: 6 or more systems reviewed and unremarkable except as noted in History and below [facility] Medical History (Updated 10/25/23 @ 13:50 by Frederic Mai MD) Albuminuria ?R80.9 - Proteinuria, unspecified (ICD-10) Stage 3a chronic kidney disease ?N18.31 - Chronic kidney disease, stage 3a (ICD-10) Detached retina ?H33.20 - Serous retinal detachment, unspecified eye (ICD-10) Hyperlipidemia ?E78.5 - Hyperlipidemia, unspecified (ICD-10) Hypertension ?I10 - Essential (primary) hypertension (ICD-10) Type 2 diabetes mellitus without complication, with long-term current use of insulin ?E11.9 - Type 2 diabetes mellitus without complications (ICD-10) ?Z79.4 - long term care administrator (current) use of insulin (ICD-10) Pancreatic cancer metastasized to liver ?C25.9 - Malignant neoplasm of pancreas, unspecified (ICD-10) ?C78.7 - Secondary malignant neoplasm of liver and intrahepatic bile duct (ICD-10) Surgical History History of liver biopsy ?Z98.890 - Other specified postprocedural states (ICD-10) Social History What is your current living situation?: I presently have a place to live Problems where you live: no known problems Problems where you live details: N/A In the past 12 months, utilities in danger of being shut off: no In past 12 months, lack of transportation kept you from medical appts, meetings, work, or getting things needed for daily living: no In the past 12 mos, have been you worried that your food would run out before you had money to buy more?: never true In the past 12 mos, the food you bought just didn't last and you didn't have money to buy more?: never true Are you following a special diet: No Highest level of school completed/degree received: Bachelor's degree Smoking Status: Current some day smoker What tobacco products do you use: pipe Do you use any of these nicotine containing products: None Second hand tobacco smoke exposure: Yes () How often do you have a drink containing alcohol: monthly or less Alcohol type: beer How many standard drinks containing alcohol do you have on a typical day: 1 or 2 How often do you have six or more drinks on one occasion: Never AUDIT-C Alcohol total score: 1 Non-prescribed substance use: denies use Caffeine: No How often does anyone, including family, friends and others, physically hurt you : never How often does anyone, including family, friends and others, insult or talk down to you: never How often does anyone, including family, friends and others, threaten you with harm: never How often does anyone, including family, friends and others, scream or curse at you: never service: No Meds Home Medications and Allergies Home Medications ?Medication ?Instructions ?Recorded ?Confirmed ?Type atorvastatin 40 mg tablet 40 mg PO HS 09/22/23 10/26/23 History acetaminophen 325 mg tablet 650 mg PO QID PRN 10/18/23 10/24/23 History (Tylenol) apixaban 5 mg tablet (Eliquis) 5 mg PO BID 10/18/23 10/26/23 History mirtazapine 7.5 mg tablet 7.5 mg PO HS 10/18/23 10/26/23 History ondansetron 4 mg disintegrating 4 mg PO Q8H 10/18/23 10/26/23 History tablet oxycodone 5 mg tablet 5 - 15 mg PO QID PRN 10/18/23 10/26/23 History polyethylene glycol 3350 17 4 g PO ONCE PRN 10/18/23 10/24/23 History gram/dose oral powder (Miralax) dapagliflozin propanediol 5 mg 5 mg PO DAILY 10/24/23 10/26/23 History tablet (Farxiga) glimepiride 4 mg tablet 4 mg PO DAILY 10/24/23 10/26/23 History insulin aspart U-100 100 unit/mL 1 sliding scale dose subcut 10/24/23 10/26/23 History (3 mL) subcutaneous pen USEASDIRECTD metoclopramide HCl 5 mg tablet 5 mg PO BID-TID PRN nausea and 10/24/23 10/26/23 History (Reglan) vomiting metoprolol tartrate 50 mg tablet 50 mg PO BID 10/24/23 10/26/23 History Allergies Allergy/AdvReac Type Severity Reaction Status Date / Time No Known Drug Allergies Allergy Verified 10/20/23 17:17 Exam Narrative: Exam Narrative: General: Alert and oriented, no acute distress. Evidence of malnutrition with sunken cheeks and loose skin. Respiratory: Equal breath rise, clear breath sounds bilaterally, maintained on 4 L nasal cannula CV: Regular rhythm and rate, no evidence of atrial fibrillation Chest: No previous surgical incisions or bruising noted. Const: Vital Signs, click to edit/add: Vital Signs - 24 hr 10/26/23 06:34 Temperature 97.6 F Pulse Rate 120 H Respiratory Rate 24 Blood Pressure 120/71 Pulse Oximetry 88 Oxygen Delivery Me thod Room Air Results Labs Labs: No new labs. Labs from 10/09/2023 reviewed and within normal limits. Imaging Chest x-ray: image reviewed Progress Note:A&P Assessment and plan (1) Pancreatic cancer metastasized to liver: Status: Acute Assessment and Plan: Patient is a 68-year-old male with recent diagnosis metastatic pancreatic adenocarcinoma. He has had a rapid decline over this last month with noted weakness, dehydration and anorexia. On evaluation prior to proceeding to the operating room he was requiring some nasal cannula oxygen to maintain saturations greater than 90%. No evidence on chest x-ray of pleural effusion or infiltration concerning for infection. Patient hemodynamically stable with regular rhythm and rate. Suspect oxygen needs related to overall deconditioning and decline. He is scheduled to start chemotherapy on Monday. Risks and benefits of port a catheter placement were discussed at length with the patient. Risks included, but were not limited to: Bleeding, infection, risk of damage to surrounding structures and possible need for additional procedures. Patient is at increased risk for infection given his history of poorly controlled diabetes and current smoking. I did discuss with the patient that he will be monitored postoperatively and if he continues to need oxygen will need to be admitted to the hospital. All questions and concerns were addressed with patient agreeing to proceed.
--- NOTE | 2023-10-26 08:53 | PM.GSPRC ---
Operative Note Date of procedure: 10/26/23 Pre-op diagnosis: Pancreatic adenocarcinoma Post-op diagnosis: Same Type of Procedure: Right internal jugular port a catheter placement Indications: Patient is a 68-year-old male who has a recent diagnosis of pancreatic adenocarcinoma. He has been seen by Oncology with recommendations to proceed with chemotherapy. Risks and benefits of port a catheter placement were discussed at length with the patient. Risks included, but were not limited to: Bleeding, infection, risk of damage to surrounding structures and possible need for additional procedures. All questions and concerns were addressed with patient to proceed. Procedure Description: After discussing the risks and benefits of the procedure, the patient signed informed consent.? The operative site was marked and the patient was brought to the operating room and placed on the operating table in supine position.? Care was taken to pad the patient's pressure points.?? The patient was then given sedation by anesthesia.?? The operative site was then prepped and draped in the usual sterile fashion.? A time-out was then performed. The patient's right internal jugular vein was visualized using ultrasound. Local anesthetic was injected into the neck skin above the vein. A skin radha was made with an 11 blade. The vein was accessed percutaneously via Seldinger technique using ultrasound guidance. Next local anesthetic was injected into the skin below the clavicle and along the proposed tract to the neck incision. A skin incision was then made with a 15 blade and a pocket created in the chest wall with cautery. A tunneler was then used to thread the catheter from the chest wall pocket to the neck incision. Once this was done fluoroscopy was brought into the field. Over the wire the tract was dilated using fluoroscopy. The wire and the dilator were then removed leaving the sheath intact in the vein. Through this the catheter was threaded. Using fluoroscopy the catheter was positioned into the distal SVC. The catheter was noted to flush and aspirate easily. The catheter was then connected to the port. The port was placed in the pocket. The port securely fit in the pocket with minimal movement, so the decision was made not to place any stay sutures. It was noted to flush and aspirate easily. This was then locked with heparinized saline. The skin was closed with absorbable suture. Sterile dressings were applied. Instrument sponge and needle counts were correct at the end of the case. The patient was woken and taken to the PACU in stable condition. Findings: Compressible right internal jugular vein. Placement of port a catheter. Anesthesia: MAC and local Surgeon: Stephenie Escobar MD Estimated blood loss (mL): 10 Condition: stable Disposition: same day
--- OUTSIDE RECORDS SUMMARY | 2023-10-26 08:55 | XMS_ITS | Clinical Summary ---
Author Organization [facility] Address [place], [place] [address] Care Team Providers Care Closet Organizer Name Role Phone Chris Potter MD Primary Care Provider [phone] Allergies No known active allergies Medications Medication [...] pain 6-10/10 60 Tablet 10/18/19 24 Active tzqtfs-uejtpqad-qb ylase (Creon) 6,000-19,000 -30,000 unit delayed-release capsuleIndications [...] be used to read blood sugars, follow quarry equipment operator directions. 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 1 Each 11/12/19 23 024 [...] bed. Length of need 99 months. Bed caption writer:yes 1 Each 10/04/19 24 024 Discontinued(*I P [...] Description 10/24/2023 2:00 PM CDT Office Visit [facility] [address] [place] [address] Torsten Mi MD Consult (Atrial fib/) 10/23/2023 10:45 AM CDT Preop Visit [facility] [address] [place] [address] Chris Potter MD Preoperative Exam (Port placement with Dr. Escobar at [facility] 10/26/23) 10/23/2023 Telephone [facility] [address] [place] [address] Annika Acosta MS, [facility] Appointment Reminder 10/23/2023 Travel 10/19/2023 Transcribe Orders [facility] [address] [place] [address] Stephenie Escobar MD 10/19/2023 Transcribe Orders [facility] [address], [place] [address] Margaret Townsend MD 10/18/2023 Refill [facility] [address] [place] [address] Chris Potter MD Refill Request (oxyCODONE (ROXICODONE) 5 mg immediate release tablet) 10/18/2023 Telephone [facility] [address] [place] [address] Chris Potter MD Appointment Request (Needs to be seen soon, getting a port installed for chemo) 10/16/2023 12:35 PM CDT Office Visit [facility] [address] [place] [address] Chris Potter MD Follow Up (Wants to get everything and everyone on the same page) 10/16/2023 Refill [facility] [address] [place] [address] Chris Potter MD Refill Request (Metoprolol Tartrate) 10/16/2023 Travel 10/13/2023 Telephone [facility] [address] [place] [address] Chris Potter MD Questions 10/10/2023 Lab Requisition [facility] [phone] Torsten Arias MD 09/30/2023 8:06 AM CDT Anesthesia Event [facility] [address] [place] [address] Misael Hdz MD [facility], [facility] 09/30/2023 7:45 AM CDT - 09/30/2023 10:05 AM CDT Surgery [facility] [address], [place] [address] Rafael Bertrand MBBS LAPAROSCOPY STAGING, 09/26/2023 Orders Only [facility] [address] [place] [address] Nadia Zapata PA 1 scan: (1-Ord) [facility], MR ABDOMEN WO/W, 09/22/2023 09/25/2023 3:25 PM CDT - 09/25/2023 4:45 PM CDT Surgery [facility] [address] [place] [address] Abner Argueta MD ENDOSCOPIC ULTRASOUND FINE NEEDLE ASPIRATE UPPER 09/25/2023 3:22 PM CDT Anesthesia Event [facility] [address] [place] [address] Hadley Fontaine MD 09/25/2023 Travel 09/22/2023 10:16 PM CDT - 10/10/2023 9:29 AM CDT Hospital Encounter [facility] [address] [place] [address] Tello, [facility], ROHAN Kendrick [...] unspecified location of malignancy (HC) Discharge Disposition: Custodial Facility 09/21/[address] [address] Chirs Potter MD Questions 09/21/[address] [address] Chris Potter MD Questions (follow up) 09/19/2023 3:30 PM CDT Ancillary Procedure [address] [address] 09/19/2023 2:30 PM CDT Office Visit [address] [address] Nadia Zapata PA Gi Problem (Can't eat or drink anything without feeling nauseated within 20 min. States he is down 40 lbs in last 6 weeks- has been trying tums and omeprazole with no improvement) 09/19/2023 Travel 09/01/2023 9:25 AM CDT Office Visit [address] [address] Clarita Naranjo PA UTI 09/01/2023 Travel 08/31/[address] [address] Chris Potter MD Medication Management (YEAST INFECTION ) 08/13/[address] [address] Chris Potter MD Refill Request (Metformin) 08/03/[address] [address] Chris Potter MD Refill Request (Atorvastatin) from Last 3 Months Immunizations Name Administration Dates Next Due COVID-19 vaccine (fos4X-Bio NTech 30mcg/0.3mL) 12YO+ CARLITOS-SUCROSE PF, MDV 07/05/2021,06/29/2020,06/08/2020 [...] Description 10/26/2023 9:30 AM CDT Office Visit [facility] [address] [place] [address] Stephenie Escobar MD [address] [place] [address] 11/21/2023 10:55 AM CDT Office Visit [facility] [address] [place] [address] Chris Potter MD [address] [place] [address] Health Maintenance Due Date Last Done Comments [...] Completed 09/29/19, 09/19/2023, 06/03/2019 (Completed outside of [facility]) Zoster (shingles) series for age 50+ Discontinued Medical Devices Implanted Type Area Weathercaster Device Identifier Shelf Expiration Date Model / Serial / Lot Stent Biliary [id number] Viabil No Holes Metal - [id number] Implanted:Qty: 1 on 09/25/2023 by Abner Argueta MD at [facility] Spare to Share [id number] / / [id number] Description:Viabil 10x[address] argueta [...] of13 resultswithin the time period is included. [facility] PLATELET COUNT 293 140 - 440 thou/cu mm 10/10/2023 8:29 AM CDT [facility] MPV 11.5(H) 6.5 - 11.0 fL 10/10/2023 8:29 AM CDT [facility] Blood BLOOD SPECIMEN / Unknown Venipuncture / Unknown 10/10/2023 7:48 AM CDT 10/10/2023 8:07 AM CDT Narrative [facility] - 10/10/2023 8:29 AM CDT Necessary every morning while on IV heparin. Josef MADRIGAL HEMATOLOGY Performing Organization Address City/[facility]/ZIP Co de Phone Number [facility] [address] [place] [address], * POTASSIUM (10/10/2023 7:48 AM CDT) Only the most recent of10 resultswithin the time period is included. [facility] POTASSIUM 4.1 3.5 - 5.1 mmol/L 10/10/2023 8:45 AM CDT [facility] Blood BLOOD SPECIMEN / Unknown Venipuncture / Unknown 10/10/2023 7:48 AM CDT 10/10/2023 8:07 AM CDT Charles Dean RN CHEMISTRY [facility] [address] [place] [address], * (ABNORMAL) GLUCOSE METER (10/10/2023 7:05 AM CDT) Only the most recent of81 resultswithin the time period is included. [facility] GLUCOSE METER 161(H) 65 - 100 mg/dL 10/10/2023 7:06 AM CDT [facility] Blood BLOOD SPECIMEN / Unknown 10/10/2023 7:05 AM CDT 10/10/2023 7:06 AM CDT Ramone Estrada MD CHEMISTRY Performing Organization Address [facility] Co de Phone Number [facility] [address] [place] [address], [place] * SODIUM (10/09/2023 8:13 AM CDT) Only the most recent of8 resultswithin the time period is included. SODIUM 137 136 - 145 mmol/L 10/09/2023 9:04 AM CDT [facility] Blood BLOOD SPECIMEN / Unknown Venipuncture / Unknown 10/09/2023 8:13 AM CDT 10/09/2023 8:20 AM CDT Ramone Estrada MD CHEMISTRY Performing Organization Address [facility] Phone Number [facility] [address] [place] [address], [place] * (ABNORMAL) CREATININE (10/09/2023 8:13 AM CDT) Only the most recent of9 resultswithin the time period is included. eGFR >90 >90 mL/min/1.7 3m2 10/09/2023 9:04 AM CDT [facility] Comment:As of 2021, eG FR is calculated by the CKD-EPI creatinine equation without race adjustment. ??eGFR can be influenced by muscle mass, exercise, and diet. ??The reported eGFR is an estimation only and is only applicable if the renal function is stable. CREATININE 0.67(L) 0.70 - 1.20 mg/dL 10/09/2023 9:04 AM CDT [facility] Blood BLOOD SPECIMEN / Unknown Venipuncture / Unknown 10/09/2023 8:13 AM CDT 10/09/2023 8:20 AM CDT Ramone Estrada MD CHEMISTRY Performing Organization Address City/[facility]/ZIP Co de Phone Number [facility] [address] [place] [address], * (ABNORMAL) Hepatic function panel FOR ADD ON (10/09/2023 8:13 AM CDT) Only the most recent of6 resultswithin the time period is included. ALBUMIN 2.3(L) 4.0 - 4.9 g/dL 10/09/2023 2:26 PM CDT [facility] PROTEIN,TOTAL 5.9(L) 6.0 - 8.0 g/dL 10/09/2023 2:26 PM CDT [facility] BILIRUBIN,TOTAL 1.0 0.0 - 1.2 mg/dL 10/09/2023 2:26 PM CDT [facility] BILIRUBIN,DIRECT 0.7(H) 0.0 - 0.3 mg/dL 10/09/2023 2:26 PM CDT [facility] BILIRUBIN,INDIRE CT 0.3 0.2 - 0.8 mg/dL 10/09/2023 2:26 PM CDT [facility] ALK PHOSPHATASE 254(H) 40 - 129 IU/L 10/09/2023 2:26 PM CDT [facility] ALT (SGPT) 44 10 - 50 IU/L 10/09/2023 2:26 PM CDT [facility] AST (SGOT) 50 10 - 50 IU/L 10/09/2023 2:26 PM CDT [facility] Blood BLOOD SPECIMEN / Unknown Venipuncture / Unknown 10/09/2023 8:13 AM CDT 10/09/2023 8:20 AM CDT Ramone Estrada MD CHEMISTRY Performing Organization Address City/[facility]/ZIP Co de Phone Number [facility] [address] [place] [address], [place] * SCAN-CARDIAC STRIP (10/08/2023 6:09 AM [...] Detected NOT Detected 10/06/2023 1:23 PM CDT [facility] Salmonella NOT Detected NOT Detected 10/06/2023 1:23 PM CDT [facility] Shigella NOT Detected NOT Detected 10/06/2023 1:23 PM CDT [facility] Vibrio NOT Detected NOT Detected 10/06/2023 1:23 PM CDT [facility] Yersinia Enterocolitica NOT Detected NOT Detected 10/06/2023 1:23 PM CDT [facility] Shiga Toxin 1 NOT Detected NOT Detected 10/06/2023 1:23 PM CDT [facility] Shiga Toxin 2 NOT Detected NOT Detected 10/06/2023 1:23 PM CDT [facility] Norovirus NOT Detected NOT Detected 10/06/2023 1:23 PM CDT [facility] Rotavirus NOT Detected NOT Detected 10/06/2023 1:23 PM CDT [facility] Stool STOOL SPECIMEN / Unknown Non-Blood / Unknown 10/05/2023 8:35 PM CDT 10/05/2023 8:46 PM CDT Narrative [facility] - 10/06/2023 1:23 PM CDT This test is a Culture Independent Diagnostic Test (CIDT) therefore isolates are not available for susceptibility testing. ??Antibiotic treatment is often contraindicated and may be detrimental in cases of enteric infections, thus routine susceptibility testing is not recommended. Ramone Estrada MD MICROBIOLOGY Performing Organization Address [facility] Co de Phone Number [facility] [address] [place] [address], * (ABNORMAL) PANCREATIC ELASTASE FECAL (10/05/2023 8:35 PM CDT) Pancreatic Elast Fecal 138(L) >200 ug Elast./g 10/13/2023 2:09 PM CDT [facility] ([facility]) Comment: ? Severe Pancreatic Insufficiency: ?<100 ? Moderate Pancreatic Insufficiency: ?? 100 - 200 ? Normal: ? >200 Stool STOOL SPECIMEN / Unknown Non-Blood / Unknown 10/05/2023 8:35 PM CDT 10/05/2023 8:45 PM CDT [facility] FOR [facility] TEST[facility] (CET) - 10/13/2023 2:09 PM CDT Performed at: ??[address] ??[id number] Maintenance Truck Driver: Yovn Sexton MD, Phone: ??[phone] Denton Smallwood MD MICROBIOLOGY Performing Organization Address [facility] Co de Phone Number [facility] ([facility]) [address] [place] [address], * CLOSTRIDIOIDES DIFFICILE TOXIN PCR (10/05/2023 8:35 PM CDT) CLOSTRIDIUM DIFFICILE PCR Negative 10/05/2023 9:50 PM CDT [facility] PRESUMPTIVE NAP1 STRAIN Negative 10/05/2023 9:50 PM CDT [facility] Stool STOOL SPECIMEN / Unknown Non-Blood / Unknown 10/05/2023 8:35 PM CDT 10/05/2023 8:45 PM CDT Narrative [facility] - 10/05/2023 9:50 PM CDT The NAP1 (027 or BI) strain is a hypervirulent strain. Detection may be useful for epidemiological purposes. Ramone Estrada MD MICROBIOLOGY Performing Organization Address [facility] Co de Phone Number [facility] [address] [place] [address], * SCAN-CARDIAC STRIP (10/05/2023 3:48 PM CDT) Scanner OTHER * SCAN-CARDIAC STRIP (10/05/2023 12:17 AM CDT) Scanner OTHER * SCAN-CARDIAC STRIP (10/04/2023 10:57 AM CDT) Scanner OTHER * (ABNORMAL) Hemoglobin AM (10/04/2023 7:28 AM CDT) Only the most recent of7 resultswithin the time period is included. HEMOGLOBIN 10.6(L) 13.5 - 17.5 g/dL 10/04/2023 8:12 AM CDT [facility] MCV 83 80 - 100 fL 10/04/2023 8:12 AM CDT [facility] Blood BLOOD SPECIMEN / Unknown Venipuncture / Unknown 10/04/2023 7:28 AM CDT 10/04/2023 7:46 AM CDT Narrative [facility] - 10/04/2023 8:12 AM CDT Necessary every morning while on IV heparin. Ramone Estrada MD HEMATOLOGY Performing Organization Address City/[facility]/ZIP Co de Phone Number [facility] [address] [place] [address], * SCAN-CARDIAC STRIP (10/04/2023 1:06 AM CDT) [...] AM CDT) Case Report Pathology Report ?Case: [id number] ? Authorizing Provider: ??Rafael Bertrand, ?? Collected: ? 09/30/2023 0912 ? MBBS ? Ordering Location: ? [facility] ?Received: ?09/30/2023 0925 ? Hospital ? Pathologist: ? Highland, Chris Sandor ? IV, MD ? Specimens: ?? A) - Liver Segment 8, Liver segment VIII wedge; rule out metastases ? B) - Liver Segment 2, Liver segment 2 wedge; rule out metastases ? C) - Liver Segment 8, Wedge #2; margin is inked for frozen ? 4 4:56 PM CDT [facility] Final Diagnosis A) LIVER, SEGMENT 8, [...] ?? liver disease 4 4:56 PM T [facility] Comment Formalin-fixed, paraffin-embedded tissue is available for ancillary studies, to request please contact the [facility] ([phone]). Neoplastic tissue available for ancillary studies: ?? [facility] NGS testing: ?- FFPE tissue blocks: B1 and B2 ?- Cytology slides: No cytology slides prepared from this specimen ?? Tests using immunostains and/or FISH (requiring 100 cells): B1 and B2 ?? Send out (outside vendor) testing requiring 5 x 5 mm of tumor: B1 and B2 4 4:56 PM T [facility] Clinical Information Mr. Guzman is a 68 y.o. who presents with a history of pancreatic adenocarcinoma now undergoes staging laparoscopy. PROCEDURE PERFORMED: 1. ??Staging laparoscopy, Intraoperative ultrasound of the liver. 2. ??Laparoscopic segment VIII sub-segmentectomy x 2. 3. ??Laparoscopic segment II sub-segmentectomy. His diagnostic biopsy was performed on 09/25/2023 ([facility] pathology ). 4 4:56 PM CDT [facility] Gross Description A) Received fresh [...] ??Remainder DPL 10/02/2023 4 4:56 PM CDT [facility] Intraoperative Consultation A) LIVER, SEGMENT [...] surgical procedure. ??This testing was performed at: [facility] ?? [address] [place] [address] 4 4:56 PM CDT [facility] Microscopic Description The final diagnosis is based on microscopic examination of appropriate sections of all specimens. 4 4:56 PM CDT [facility] Additional Information Interpreted at [facility] - [address] [facility] [address], [place] [address] 4 4:56 PM CDT [facility] Tissue (Liver Segment 8) 09/30/2023 9:12 AM CDT 09/30/2023 9:25 AM CDT Tissue specimen (specimen) (Liver Segment 2) 09/30/2023 9:15 AM CDT 09/30/2023 9:25 AM CDT Tissue specimen (specimen) (Liver Segment 8) 09/30/2023 9:25 AM CDT 09/30/2023 9:35 AM CDT Rafael MADRIGAL PATHOLOGY/CY TOLOGY [facility] [address] [place] [address], * HCHG TUBE PR1, HCHG STYLET PR1, [...] ??Comment: Supplemental O2: supplemental oxygen. ??Comment:. Vessel Home Health Rn Additional supplies used to locate vessel: no Needle Catheter size: 20 G. ??Comment:. Events: no complications. Misael Hdz MD ANESTHESIA PX NOTE O RDERABLES * (ABNORMAL) INR AM (09/30/2023 6:49 AM CDT) Only the most recent of3 resultswithin the time period is included. INR 1.3(H) <1.3 09/30/2023 7:35 AM CDT [facility] PROTIME 14.5(H) 10.3 - 12.3 sec 09/30/2023 7:35 AM CDT [facility] Blood BLOOD SPECIMEN / Unknown Venipuncture / Unknown 09/30/2023 6:49 AM CDT 09/30/2023 6:59 AM CDT Narrative [facility] - 09/30/2023 7:35 AM CDT ?Therapeutic [...] patient is on UFH. Josef PAIZBS HEMATOLOGY [facility] [address] [place] [address], * SCAN-CARDIAC STRIP (09/30/2023 12:35 AM CDT) Scanner OTHER * TYPE & SCREEN (09/29/2023 4:29 PM CDT) Pathologist [facility] ABORH B Rh Positive 09/29/2023 5:23 PM CDT [facility] [employer] LAB-CENTRAL LAB BLOOD BANK ANTIBODY SCREEN Negative Negative 09/29/2023 5:23 PM CDT [facility] BLOOD BANK SPECIMEN EXPIRATION DATE/TIME 10/02/23 23:59 09/29/2023 5:23 PM CDT [facility]-C[facility]TRAL LAB BLOOD BANK Blood BLOOD SPECIMEN / Unknown Venipuncture / Unknown 09/29/2023 4:29 PM CDT 09/29/2023 4:37 PM CDT Ashley HOYOS BLOOD BANK Performing Organization Address City/[facility] Co de Phone Number [facility] [address] [place] [address], * CT ABDOMEN WO (09/29/2023 11:18 AM [...] - 53.0 % 09/29/2023 3:52 AM CDT [facility] Blood BLOOD SPECIMEN / Unknown Butterfly / Unknown 09/29/2023 3:34 AM CDT 09/29/2023 3:49 AM CDT Narrative [facility] - 09/29/2023 3:52 AM CDT Every morning while on IV heparin. Every morning while on IV heparin. Necessary every morning while on IV heparin. Josef MADRIGAL HEMATOLOGY Performing Organization Address [facility] Co de Phone Number [facility] [address] [place] [address], * (ABNORMAL) Bilirubin, total AM (09/29/2023 3:34 AM CDT) Only the most recent of2 resultswithin the time period is included. BILIRUBIN,TOTA L 2.3(H) 0.0 - 1.2 mg/dL 09/29/2023 4:23 AM CDT [facility] Blood BLOOD SPECIMEN / Unknown Butterfly / Unknown 09/29/2023 3:34 AM CDT 09/29/2023 3:49 AM CDT Josef PAIZ CHEMISTRY Performing Organization Address City/[facility] Co de Phone Number [facility] [address] [place] [address], * (ABNORMAL) APTT (09/29/2023 3:34 AM CDT) Only the most recent of3 resultswithin the time period is included. APTT 75(H) 28 - 36 sec 09/29/2023 4:01 AM CDT [facility] Blood BLOOD SPECIMEN / Unknown Butterfly / Unknown 09/29/2023 3:34 AM CDT 09/29/2023 3:49 AM CDT Narrative [facility] - 09/29/2023 4:01 AM CDT Therapeutic Range: 57-87 seconds Susan MADRIGAL HEMATOLOGY Performing Organization Address [facility] Co de Phone Number [facility] [address] [address], [place] * (ABNORMAL) ALT AM (09/29/2023 3:34 AM CDT) Only the most recent of2 resultswithin the time period is included. ALT (SGPT) 125(H) 10 - 50 IU/L 09/29/2023 4:23 AM CDT [facility] Blood BLOOD SPECIMEN / Unknown Butterfly / Unknown 09/29/2023 3:34 AM CDT 09/29/2023 3:49 AM CDT Josef MADRIGAL CHEMISTRY Performing Organization Address [facility] Co de Phone Number [facility] [address] [address], [place] * (ABNORMAL) AST AM (09/29/2023 3:34 AM CDT) Only the most recent of2 resultswithin the time period is included. AST (SGOT) 101(H) 10 - 50 IU/L 09/29/2023 4:23 AM CDT [facility] Blood BLOOD SPECIMEN / Unknown Butterfly / Unknown 09/29/2023 3:34 AM CDT 09/29/2023 3:49 AM CDT Josef MADRIGAL CHEMISTRY Performing Organization Address City/[facility]/ZIP Co de Phone Number [facility] [address] [address], [place] * SCAN-CARDIAC STRIP (09/28/2023 8:48 PM [...] - 2.4 mg/dL 09/28/2023 11:36 AM CDT [facility] [employer] LABORATORY-[facility] Blood BLOOD SPECIMEN / Unknown Venipuncture / Unknown 09/28/2023 10:51 AM CDT 09/28/2023 11:06 AM CDT Josef MADRIGAL CHEMISTRY [facility] [address] [place] [address], [place] * (ABNORMAL) Basic metabolic panel TODAY (09/28/2023 10:51 AM CDT) Only the most recent of2 resultswithin the time period is included. SODIUM 139 136 - 145 mmol/L 09/28/2023 11:59 AM CDT [facility] POTASSIUM 3.8 3.5 - 5.1 mmol/L 09/28/2023 11:59 AM T [facility] CHLORIDE 104 98 - 107 mmol/L 09/28/2023 11:59 AM CDT [facility] CO2,TOTAL 25 22 - 29 mmol/L 09/28/2023 11:59 AM T [facility] ANION GAP 10 5 - 18 09/28/2023 11:59 AM T [facility] GLUCOSE 145(H) 70 - 99 mg/dL 09/28/2023 11:59 AM T [facility] CALCIUM 8.8 8.8 - 10.2 mg/dL 09/28/2023 11:59 AM T [facility] BUN 9 8 - 23 mg/dL 09/28/2023 11:59 AM T [facility] CREATININE 0.77 0.70 - 1.20 mg/dL 09/28/2023 11:59 AM T [facility] BUN/CREAT RATIO 12 10 - 20 11:59 AM T [facility] eGFR >90 >90 mL/min/1.7 3m2 09/28/2023 11:59 AM T [facility] Comment:As of 2021, eG FR [...] CDT Josef MADRIGAL CHEMISTRY Performing Organization Address [facility] de Phone Number [facility] [address] [place], [place] [id number], * SCAN-CARDIAC STRIP (09/28/2023 10:00 AM CDT) Scanner OTHER * SCAN-CARDIAC STRIP (09/28/2023 9:59 AM CDT) Scanner OTHER * BUN (09/28/2023 9:34 AM CDT) BUN 9 8 - 23 mg/dL 09/28/2023 11:07 AM CDT [facility] Blood BLOOD SPECIMEN / Unknown Venipuncture / Unknown 09/28/2023 9:34 AM CDT 09/28/2023 10:39 AM CDT Josef MADRIGAL CHEMISTRY Performing Organization Address [facility] de Phone Number [facility] [address] [place] [address], * EKG 12 LEAD (09/28/2023 9:28 AM [...] NOW QTc 424 ms BEYOND NOW P [place] 56 degrees BEYOND NOW R [place] -6 degrees BEYOND NOW T [place] 14 degrees BEYOND NOW 09/28/2023 9:28 AM CDT 09/28/2023 1:39 PM CDT Josef MADRIGAL EKG ORD BEYOND NOW [place], [place] * SCAN-CARDIAC STRIP (09/28/2023 7:12 AM [...] Case Report Medical Cytology Report ? Case: [id number] ? Authorizing Provider: ??Abner Argueta, ?? Collected: ? 09/25/2023 1541 ? Ordering Location: ? [facility] ?Received: ?09/25/2023 1628 ? Hospital ? Pathologist: ? Angelita Velasquez MD ? Specimen: ?Pancreas Head, mass ? 09/26/2023 11:05 AM CDT [facility] [employer] LABORATORY-C ENTRAL LABORATORY Final Diagnosis A) PANCREAS, HEAD, EUS GUIDED FINE NEEDLE ASPIRATION: 1. Positive for malignancy; poorly differentiated carcinoma, compatible with pancreatic primary 2. Insufficient direct smear or cellblock material for ancillary studies 09/26/2023 11:05 AM T [facility] LABORATORY-C ENTRAL LABORATORY Comment PANCREAS ANCILLARY TESTING PROTOCOL This patient's sample meets [facility] Cancer [facility] criteria* for reflex testing, or such testing has been requested by the ordering physician. Testing will be performed and the results will be communicated in an amendment to this report. If there is a need for ancillary tests other than these, please contact the [facility] ([phone]). Slides available for [facility] NGS testing: QUANTITY NOT SUFFICIENT Blocks available for [facility] NGS testing: QUANTITY NOT SUFFICIENT Blocks available for tests using immunostains and/or FISH (requiring 100 cells): QUANTITY NOT SUFFICIENT Blocks available for send out (outside vendor) testing requiring 5 x 5 mm of tumor: QUANTITY NOT SUFFICIENT *[facility] Cancer Douglas reflex testing criteria for pancreatic carcinoma - At diagnosis or if not previously performed: ??Mismatch repair enzyme immunohistochemist ry, KRAS testing by NGS (may omit KRAS if large sendout NGS panel planned using sufficient tissue or if definite acinar cell or neuroendocrine carcinoma histology) This case was seen in consultation with Dr. Lawson, who has reviewed slides A1-3 and A1-6. 09/26/2023 11:05 AM [facility] Clinical Information Mr. Guzman is [...] Fine needle aspiration performed. 09/26/2023 11:05 AM [facility] Gross Description A) Received identified as pancreas [...] more than 72 hours. 09/26/2023 11:05 AM [facility] Adequacy Assessment A) A.S. assessed adequacy from the air-dried smears at the time of the procedure with an impression of Adequate. 09/26/2023 11:05 AM CDT [facility] Microscopic Description Specimen adequacy: Adequate for interpretation. All slides were reviewed. The microscopic appearance substantiates the diagnosis. 09/26/2023 11:05 AM CDT [facility] Additional Information Cytology is screened at [facility] - [address], [place] [address] and [facility] - [address], [place] [address] and [facility] - [address] [place] [address] Interpreted at [facility] - [address], [place] [address] 09/26/2023 11:05 AM CDT [facility] Aspirate (Pancreas Head) 09/25/2023 3:41 PM CDT 09/25/2023 4:28 PM CDT Abner Argueta MD PATHOLOGY/[facility] [address] [place] [address], * ENDOSCOPY (09/25/2023 3:10 PM CDT) 09/25/2023 [...] patient gave informed consent. The endoscope [id number] was passed through the mouth, and advanced [...] Argueta MD - 09/25/2023 5:43 PM CDT [facility] Patient Name: Denton Guzman Procedure Date: 09/25/2023 Gender: Male Date of : 1955 Admit Type: Inpatient Procedure: Upper EUS Proceduralist: Abner Argueta MD - [facility] Indications/Pre-Op Diagnosis: Suspected solid pancreatic neoplasm Medications: General Anesthesia Procedure Description: Risk of bleeding, infection, perforation, pancreatitis, need for surgery, remote chance of and alternatives were discussed, andthe patient gave informed consent. The endoscope [id number] was introduced through the mouth, and advanced [...] gauge needle using a transduodenal approach. A weight and test bar clerk was present and performed a preliminary [...] AM CDT ECHOCARDIOGRAM DENTON GUZMAN ?Accession#: ?? [id number] : ?1955 68 years Study Date: ?? 09/23/2023 8:42:34 AM Gender: M ? BP: ? 109/60 mmHg Height: 185.00 cm ? BSA: ?2.38 m? ? ? Weight: 116.00 kg ? Tech: ? HR-TRVL ?Referring MD: JOSEF TERAN Site: ? [facility] Reading Location: ANW IP Patient Location: Inpatient. [...] lot #[id number], [facility]# [id number] was administered peripherally to enhance visualization of all left ventricular segments. . This study was interpreted by an [facility] accredited facility. ??Final ?? Procedure Note Vincent Garcia MD - 09/23/2023 ECHOCARDIOGRAM DENTON GUZMAN : 1955 68 years Study Date: 09/23/2023 8:42:34 AM Gender: M BP: 109/60 mmHg Height: 185.00 cm BSA: 2.38 m? ? ? Weight: 116.00 kg Tech: HR-TRVL Referring MD: JOSEF TERAN Site: [facility] Reading Location: ANW IP Patient Location: Inpatient. [...] Definity, lot #[id number], [facility]#[id number] was administered peripherally to enhance visualization of allleft ventricular segments. . This study was interpreted by an [facility] accredited facility. Final Josef MADRIGAL ECHO ORD * TSH AM (09/23/2023 8:40 AM CDT) Only the most recent of2 resultswithin the time period is included. TSH 0.43 0.27 - 4.20 uIU/mL 09/23/2023 9:49 AM CDT [facility] Blood BLOOD SPECIMEN / Unknown Butterfly / Unknown 09/23/2023 8:40 AM CDT 09/23/2023 8:48 AM CDT [facility] - 09/23/2023 9:49 AM CDT In Adults, TSH values between 5.00 and 10.00 uIU/ml do not necessarily indicate the presence of Hypothyroidism. Correlation with clinical findings such as presence of goiter and/or Thyroperoxidase (TPO) Antibody may be helpful. For more information please refer to DONNA 2004; 291: 228-238. Josef Richterdri [facility] CHEMISTRY [facility] [address] [place] [address], * (ABNORMAL) CBC W PLT NO DIFF (09/23/2023 8:40 AM CDT) WHITE BLOOD COUNT 10.7 4.5 - 11.0 thou/cu mm 09/23/2023 9:00 AM CDT [facility] RED BLOOD COUNT 4.65 4.30 - 5.90 mil/cu mm 09/23/2023 9:00 AM CDT [facility] HEMOGLOBIN 12.3(L) 13.5 - 17.5 g/dL 09/23/2023 9:00 AM T [facility] HEMATOCRIT 38.8 37.0 - 53.0 % 09/23/2023 9:00 AM T [facility] MCV 83 80 - 100 fL 09/23/2023 9:00 AM CDT [facility] MCH 26.5 26.0 - 34.0 pg 09/23/2023 9:00 AM CDT [facility] MCHC 31.7(L) 32.0 - 36.0 g/dL 09/23/2023 9:00 AM T [facility] RDW 14.6 11.5 - 15.5 % 09/23/2023 9:00 AM T [facility] PLATELET COUNT 263 140 - 440 thou/cu mm 09/23/2023 9:00 AM CDT [facility] MPV 11.1(H) 6.5 - 11.0 fL 09/23/2023 9:00 AM T [facility] NRBC 0.0 % 09/23/2023 9:00 AM T [facility] ABS NRBC 0.0 thou /cu mm 09/23/2023 9:00 AM T [facility] Blood BLOOD SPECIMEN / Unknown Butterfly / Unknown 09/23/2023 8:40 AM CDT 09/23/2023 8:49 AM CDT Josef MADRIGAL HEMATOLOGY [facility] [address] [place] [address], [place] * (ABNORMAL) CA 19-9 AM (09/23/2023 8:40 AM CDT) CA 19-9 962(H) <36 IU/mL 09/23/2023 9:50 AM CDT [facility] Blood BLOOD SPECIMEN / Unknown Butterfly / Unknown 09/23/2023 8:40 AM CDT 09/23/2023 8:48 AM CDT Narrative [facility] - 09/23/2023 9:50 AM CDT The [...] Josef MADRIGAL SEND OUTS Performing Organization Address City/[facility]/ZIP Co de Phone Number [facility] [address] [place] [address], * (ABNORMAL) Lipase AM (09/23/2023 8:40 AM CDT) Only the most recent of2 resultswithin the time period is included. LIPASE 175.0(H) 13.0 - 60.0 IU/L 09/23/2023 10:17 AM CDT [facility] Blood BLOOD SPECIMEN / Unknown Butterfly / Unknown 09/23/2023 8:40 AM CDT 09/23/2023 8:48 AM CDT Josef MADRIGAL CHEMISTRY [facility] [address] [place] [address], * SCAN-CARDIAC STRIP (09/23/2023 7:34 AM CDT) [...] - 1.11 mg/dL 09/19/2023 3:08 PM CDT [facility] Comment:Caution: Patients ta rosette Hydroxyurea have falsely increased iStat Creatinine results. Verify creatinine results ordering a Creatinine (45645.2) eGFR 59(L) >90 mL/min/1.7 3m2 09/19/2023 3:08 PM CDT [facility] Comment:As of 2021, eG FR is calculated by the CKD-EPI creatinine equation without race adjustment. eGFR can be influenced by muscle mass, exercise, and diet. The reported eGFR is an estimation only and is only applicable if the renal function is stable. Blood BLOOD SPECIMEN / Unknown 09/19/2023 3:06 PM CDT 09/19/2023 3:08 PM CDT Nadia HOYOS CHEMISTRY [facility] [address] [place] [address], * (ABNORMAL) CBC WITH AUTO DIFFERENTIAL (09/19/2023 2:56 PM CDT) [facility] WHITE BLOOD COUNT 10.3 4.5 - 11.0 thou/cu mm 09/19/2023 3:10 PM CDT [facility] RED BLOOD COUNT 5.11 4.30 - 5.90 mil/cu mm 09/19/2023 3:10 PM CDT [facility] HEMOGLOBIN 13.8 13.5 - 17.5 g/dL 09/19/2023 3:10 PM CDT [facility] HEMATOCRIT 41.9 37.0 - 53.0 % 09/19/2023 3:10 PM CDT [facility] MCV 82 80 - 100 fL 09/19/2023 3:10 PM CDT [facility] MCH 27.0 26.0 - 34.0 pg 09/19/2023 3:10 PM CDT [facility] MCHC 32.9 32.0 - 36.0 g/dL 09/19/2023 3:10 PM CDT [facility] RDW 15.3 11.5 - 15.5 % 09/19/2023 3:10 PM CDT [facility] PLATELET COUNT 377 140 - 440 thou/cu mm 09/19/2023 3:10 PM CDT [facility] MPV 11.4(H) 6.5 - 11.0 fL 09/19/2023 3:10 PM CDT [facility] % NEUT 75.4 % 09/19/2023 3:10 PM CDT [facility] % LYMPH 13.5 % 09/19/2023 3:10 PM CDT [facility] % MONO 9.0 % 09/19/2023 3:10 PM CDT [facility] % EOS 1.8 % 09/19/2023 3:10 PM CDT [facility] % BASO 0.3 % 09/19/2023 3:10 PM CDT [facility] ABSOLUTE NEUTROPHILS 7.7(H) 1.7 - 7.0 thou/cu mm 09/19/2023 3:10 PM CDT [facility] ABSOLUTE LYMPHOCYTES 1.4 0.9 - 2.9 thou/cu mm 09/19/2023 3:10 PM CDT [facility] ABSOLUTE MONOCYTES 0.9(H) <0.9 thou/cu mm 09/19/2023 3:10 PM CDT [facility] ABSOLUTE EOSINOPHILS 0.2 <0.5 thou/cu mm 09/19/2023 3:10 PM CDT [facility] ABSOLUTE BASOPHILS 0.0 <0.3 thou/cu mm 09/19/2023 3:10 PM CDT [facility] Blood BLOOD SPECIMEN / Unknown Venipuncture / Unknown 09/19/2023 2:56 PM CDT 09/19/2023 2:58 PM CDT Nadia HOYOS HEMATOLOGY [facility] [address] [place] [id number], * (ABNORMAL) C-REACTIVE PROTEIN (09/19/2023 2:56 PM CDT) Pathologist [facility] C-REACTIVE PROTEIN 4.0(H) <0.5 mg/dL 09/20/2023 5:12 AM CDT [facility] Blood BLOOD SPECIMEN / Unknown Venipuncture / Unknown 09/19/2023 2:56 PM CDT 09/19/2023 2:58 PM CDT Nadia HOYOS CHEMISTRY [facility] [address] [place] [address], * (ABNORMAL) COMP METABOLIC PANEL (09/19/2023 2:56 PM CDT) Pathologist [facility] SODIUM 133(L) 136 - 145 mmol/L 09/20/2023 4:59 AM CDT [facility] POTASSIUM 5.2(H) 3.5 - 5.1 mmol/L 09/20/2023 4:59 AM T [facility] CHLORIDE 98 98 - 107 mmol/L 09/20/2023 4:59 AM CDT [facility] CO2,TOTAL 17(L) 22 - 29 mmol/L 09/20/2023 4:59 AM T [facility] ANION GAP 18 5 - 18 09/20/2023 4:59 AM T [facility] GLUCOSE 215(H) 70 - 99 mg/dL 09/20/2023 4:59 AM CDT [facility] CALCIUM 10.1 8.8 - 10.2 mg/dL 09/20/2023 4:59 AM T [facility] BUN 17 8 - 23 mg/dL 09/20/2023 4:59 AM T [facility] CREATININE 1.43(H) 0.70 - 1.20 mg/dL 09/20/2023 4:59 AM CDT [facility] BUN/CREAT RATIO 12 10 - 20 4:59 AM CDT [facility] eGFR 53(L) >90 mL/min/1. 73m2 09/20/2023 4:59 AM CDT [facility] Comment:As of 2021, eG FR is calculated by the CKD-EPI creatinine equation without race adjustment. ??eGFR can be influenced by muscle mass, exercise, and diet. ??The reported eGFR is an estimation only and is only applicable if the renal function is stable. ALBUMIN 3.9(L) 4.0 - 4.9 g/dL 09/20/2023 4:59 AM CDT [facility] PROTEIN,TOTAL 8.2(H) 6.0 - 8.0 g/dL 09/20/2023 4:59 AM CDT [facility] BILIRUBIN,TOTAL 5.3(H) 0.0 - 1.2 mg/dL 09/20/2023 4:59 AM CDT [facility] ALK PHOSPHATASE 1,051(H) 40 - 129 IU/L 09/20/2023 4:59 AM CDT [facility] ALT (SGPT) 243(H) 10 - 50 IU/L 09/20/2023 4:59 AM CDT [facility] AST (SGOT) 207(H) 10 - 50 IU/L 09/20/2023 4:59 AM CDT [facility] Blood BLOOD SPECIMEN / Unknown Venipuncture / Unknown 09/19/2023 2:56 PM CDT 09/19/2023 2:58 PM CDT Nadia HOYOS CHEMISTRY [facility] [address] [place] [address], * URINALYSIS MICROSCOPIC (09/01/2023 9:16 AM CDT) RBC 0-2 0-2, None Seen /HPF 09/01/2023 9:31 AM CDT [facility] WBC None Seen 0-2, 3-5, None Seen /HPF 09/01/2023 9:31 AM CDT [facility] BACTERIA None Seen None Seen, Rare, Few Bacteria/ HPF 09/01/2023 9:31 AM CDT [facility] EPITHELIAL CELLS Few None Seen, Few Epi/HPF 09/01/2023 9:31 AM CDT [facility] Urine URINE SPECIMEN / Unknown Non-Blood / Unknown 09/01/2023 9:16 AM CDT 09/01/2023 9:23 AM CDT Clarita HOYOS URINE [facility] [address] [place] [address], * URINE CULTURE (09/01/2023 9:16 AM CDT) CULTURE No growth (<1,000 CFU/mL) 09/02/2023 2:35 PM CDT [facility] Urine URINE SPECIMEN / Unknown Non-Blood / Unknown 09/01/2023 9:16 AM CDT 09/01/2023 9:23 AM CDT Clarita HOYOS MICROBIOLOGY [facility] [address] [address], * (ABNORMAL) UA W/ SEDIMENT EXAM REFLEXED PER CRITERIA (09/01/2023 9:16 AM CDT) COLOR Yellow Yellow Color 09/01/2023 9:31 AM CDT [facility] CLARITY Clear Clear Clarity 09/01/2023 9:31 AM CDT [facility] SPECIFIC GRAVITY,URINE <=1.005(A) 1.010, 1.015, 1.020, 1.025 09/01/2023 9:31 AM CDT [facility] PH,URINE 5.0(A) 6.0, 7.0, 8.0, 5.5, 6.5, 7.5, 8.5 09/01/2023 9:31 AM CDT [facility] UROBILINOGEN, QUALITATIVE Normal Normal EU/dl 09/01/2023 9:31 AM CDT [facility] PROTEIN, URINE Negative Negative mg/dL 09/01/2023 9:31 AM CDT [facility] GLUCOSE, URINE >=1000(A) Negative mg/dL 09/01/2023 9:31 AM CDT [facility] KETONES,URINE Negative Negative mg/dL 09/01/2023 9:31 AM CDT [facility] BILIRUBIN,URI NE Negative Negative 09/01/2023 9:31 AM CDT [facility] OCCULT BLOOD,URINE Trace(A) Negative 09/01/2023 9:31 AM CDT [facility] NITRITE Negative Negative 09/01/2023 9:31 AM CDT [facility] LEUKOCYTE ESTERASE Negative Negative 09/01/2023 9:31 AM T [facility] Urine URINE SPECIMEN / Unknown Non-Blood / Unknown 09/01/2023 9:16 AM CDT 09/01/2023 9:23 AM CDT Clarita HOYOS URINE [facility] [address] [place] [address], * (ABNORMAL) LIPID PANEL (11/11/2022 11:26 AM CDT) CHOLESTEROL,TOTAL 123 100 - 199 mg/dL 11/11/2022 6:50 PM CDT [facility] Comment: Cholesterol, Total Reference Ranges Desirable <200 mg/dL Borderline 200-239 mg/dL High >=240 mg/dL TRIGLYCERIDES 222(H) <150 mg/dL 11/11/2022 6:50 PM T [facility] HDL CHOLESTEROL 31(L) >40 mg/dL 6:50 PM CDT [facility] NON-HDL CHOLESTEROL 92 <145 mg/dl 11/11/2022 6:50 PM CDT [facility] CHOL/HDL RATIO 3.97 <4.50 11/11/2022 6:50 PM CDT [facility] LDL CHOLESTEROL 48 <=130 mg/dL 11/11/2022 6:50 PM CDT [facility] VLDL CHOLESTEROL 44(H) <=30 mg/dL 11/11/2022 6:50 PM CDT [facility] PROVIDER ORDERED STATUS RANDOM 11/11/2022 6:50 PM CDT [facility] Blood BLOOD SPECIMEN / Unknown Venipuncture / Unknown 11/11/2022 11:26 AM CDT 11/11/2022 11:28 AM CDT Chris Potter MD CHEMISTRY Performing Organization Address City/[facility]/ZIP Co de Phone Number [facility] [employer] [facility] [address] [place] [address], [place] * ANTI HCV (06/17/2021 11:24 AM CDT) HEPATITIS C ANTIBODY Non-React rehan Non-React rehan 06/17/2021 6:14 PM CDT [facility] Comment:Antibodies to HCV no t detected; does not exclude the possibility of exposure to HCV. Blood BLOOD SPECIMEN / Unknown Venipuncture / Unknown 06/17/2021 11:24 AM CDT 06/17/2021 11:26 AM CDT Chris Potter MD SEND OUTS [facility] [address] [place] [address], from Last 3 Months or Most Recently Relevant to Health Maintenance Advance Directives * Full Code (Latest Code Status on File) Date Activated Date Inactivated Comments 09/22/2023 11:17 PM 10/10/2023 11:40 AM Question Answer Comments Code Status Discussion: Reviewed Preferences Care Teams Closet Organizer Relationship Specialty Start Date End Date Chris Potter MD [address] [place] [address] PCP - General Family Practice 01/13/21
--- NOTE | 2023-10-26 08:57 | W.ANESCHARGE ---
Anesthesia Charges Start Date/Time Anesthesia Start Date: 10/26/23 Anesthesia Start Time: 07:43 Stop Date/Time Anesthesia Stop Date: 10/26/23 Anesthesia Stop Time: 08:54
[2023-10-26] MEDS: INSULIN REGULAR, HUMAN 100 UNIT/ML VIAL SUBCUT (10:16)
--- NOTE | 2023-10-26 10:23 | W.ANESCHARGE ---
Anesthesia Charges Start Date/Time Anesthesia Start Date: 10/26/23 Anesthesia Start Time: 07:43 Stop Date/Time Anesthesia Stop Date: 10/26/23 Anesthesia Stop Time: 08:54
--- NOTE | 2023-10-26 10:38 | SUR.PHASEII ---
note pt unable to maintain sats at 90% when he falls asleep, head of bed elevated at 45 degrees, mouth breathing. Pt states he's exhausted
--- NOTE | 2023-10-26 10:48 | SUR.PHASEII ---
attempted again to withdraw oxygen as pt slept. sats again fell to 87% with no 02
--- NOTE | 2023-10-26 11:10 | SUR.PHASEII ---
spoke with Dr. Escobar about this pt. She will send pt to [facility] for continued monitoring of sats and overall condition
[2023-10-26 12:23] LABS: HCO3 VBG 26 mmol/L (21-28); PCO2 VBG 35 mmHG (40-50); PO2 VBG 59.7 mmHG (25-47); pH VBG 7.482 (7.32-7.43)
[2023-10-26 12:30] LABS: Basophils Percent Auto 0.1 % (0.0-3.0); Eosinophils Percent Auto 0.3 % (0.0-7.0); Hematocrit 32.3 % (37.0-53.0); Hemoglobin* 10.2 gm/dL (13.5-17.5); Immature Granulocytes Pct Auto 1.4 %; Lymphocytes Percent Auto 2.9 % (20-44); Mean Corpuscular HGB Conc 32 gm/dL (32-36); Mean Corpuscular Hemoglobin 25 pg (26-34); Mean Corpuscular Volume 79 fL (80-100); Monocytes Percent Auto 3.6 % (0.0-11.0); Neutrophils Percent Auto 91.7 % (42.0-72.0); Platelet Count* 136 K/uL (140-440); RDW Coefficient of Variation % 14.5 % (11.5-15.5); Red Blood Count 4.08 m/uL (4.30-5.90); White Blood Count* 22.52 K/uL (4.50-11.00)
[2023-10-26 12:39] LABS: Albumin* 2.6 g/dL (3.3-5.0); Chloride* 100 mmol/L (96-114); Sodium* 130 mmol/L (135-149)
--- NOTE | 2023-10-26 12:39 | PM.IMHP1 ---
Hospitalist- H&P: [facility] History of Present Illness Date Seen: 10/26/23 Chief complaint: Port-a-cath placement Narrative: Denton Pemberton is a 68 year old man with known stage IV pancreatic adenocarcinoma metastasized to liver, T10 vertebral body, and possible lung nodule. Was admitted for observation due to weakness on 10/24/2023. Found to be malnourished in physically deconditioned. Was dehydrated on presentation. IV fluids were administered. Strength seemed to improve. Was ready for discharge on 10/25/2023 but patient was concerned about driving patient back and forth from hospital to home then back to the hospital today given that today is the day that he was scheduled for a Port-A-Cath placement for the chemotherapy that he anticipates starting on 10/30/2023. Patient the stating hospital overnight and was brought to outpatient same-day surgery this morning. While in hospital before brought to same-day surgery he had been saturating all right here on room air. Patient was placed on a transfer gurney and lay supine and upon arrival at same-day surgery was found to be hypoxic with saturations in the mid to low 80s. Oxygen was placed at 2-3 liters/minute via nasal cannula to maintain saturations greater than 88%. Successfully underwent Port-A-Cath placement. Transferred back to the hospital floor. He sat up in the chair at his bedside any he is not hypoxic any longer on room air with saturations of 92-95% at rest. Denies chest heaviness, pressure, tightness, or pain. Denies syncope or near-syncope. Denies nausea or vomiting. Denies palpitations or chest fluttering. Acknowledges increased dependent edema over the last several days. Denies cough, fevers, rigors, diaphoresis. Denies dyspnea at rest, paroxysmal nocturnal dyspnea, orthopnea. States he ordinarily sleeps on his side when he is at home. Does not normally rest supine. Review of Systems Status of ROS: Reports: 10 or more systems reviewed and unremarkable except as noted in History and below Narrative: Longstanding small group. Previously smoked a pipe. Later switched to smoking cigars. States he quit smoking about 2 months ago.. still actively smokes in-home. Requests full resuscitation in event of cardiopulmonary demise. He is unwilling to talk about the prognosis portending to his stage IV pancreatic adenocarcinoma. Designates his as his power of state's attorney for health should that be required. [facility] Medical History (Updated 10/26/23 @ 13:24 by Agustin Farrell MD) Tobacco use disorder ?F17.200 - Nicotine dependence, unspecified, uncomplicated (ICD-10) Weight loss (09/22/23) ?R63.4 - Abnormal weight loss (ICD-10) Painless jaundice (09/22/23) ?R17 - Unspecified jaundice (ICD-10) Morbid obesity with BMI of 40.0-44.9, adult (06/17/21) ?E66.01 - Morbid (severe) obesity due to excess calories (ICD-10) ?Z68.41 - Body mass index [BMI] 40.0-44.9, adult (ICD-10) Malignant neoplasm of pancreas (09/28/23) ?C25.9 - Malignant neoplasm of pancreas, unspecified (ICD-10) Liver mass, right lobe (09/29/23) ?R16.0 - Hepatomegaly, not elsewhere classified (ICD-10) Closed traumatic dislocation of finger of right hand (01/04/21) ?S63.259A - Unspecified dislocation of unspecified finger, initial encounter (ICD-10) Closed fracture of navicular bone of foot (05/21/19) ?S92.253A - Displaced fracture of navicular [scaphoid] of unspecified foot, initial encounter for closed fracture (ICD-10) Albuminuria ?R80.9 - Proteinuria, unspecified (ICD-10) Stage 3a chronic kidney disease ?N18.31 - Chronic kidney disease, stage 3a (ICD-10) Detached retina ?H33.20 - Serous retinal detachment, unspecified eye (ICD-10) Hyperlipidemia ?E78.5 - Hyperlipidemia, unspecified (ICD-10) Hypertension ?I10 - Essential (primary) hypertension (ICD-10) Type 2 diabetes mellitus without complication, with long-term current use of insulin ?E11.9 - Type 2 diabetes mellitus without complications (ICD-10) ?Z79.4 - bed bug exterminator (current) use of insulin (ICD-10) Pancreatic cancer metastasized to liver ?C25.9 - Malignant neoplasm of pancreas, unspecified (ICD-10) ?C78.7 - Secondary malignant neoplasm of liver and intrahepatic bile duct (ICD-10) Surgical History History of liver biopsy ?Z98.890 - Other specified postprocedural states (ICD-10) Social History What is your current living situation?: I presently have a place to live Problems where you live: no known problems Problems where you live details: N/A In the past 12 months, utilities in danger of being shut off: no In past 12 months, lack of transportation kept you from medical appts, meetings, work, or getting things needed for daily living: no In the past 12 mos, have been you worried that your food would run out before you had money to buy more?: never true In the past 12 mos, the food you bought just didn't last and you didn't have money to buy more?: never true Are you following a special diet: No Highest level of school completed/degree received: Bachelor's degree Smoking Status: Former smoker What tobacco products do you use: pipe Do you use any of these nicotine containing products: None Second hand tobacco smoke exposure: Yes () How often do you have a drink containing alcohol: monthly or less Alcohol type: beer How many standard drinks containing alcohol do you have on a typical day: 1 or 2 How often do you have six or more drinks on one occasion: Never AUDIT-C Alcohol total score: 1 Non-prescribed substance use: denies use Caffeine: No How often does anyone, including family, friends and others, physically hurt you: never How often does anyone, including family, friends and others, insult or talk down to you: never How often does anyone, including family, friends and others, threaten you with harm: never How often does anyone, including family, friends and others, scream or curse at you: never service: No Meds Home Medications and Allergies Home Medications ?Medication ?Instructions ?Recorded ?Confirmed ?Type atorvastatin 40 mg tablet 40 mg PO HS 09/22/23 10/26/23 History acetaminophen 325 mg tablet 650 mg PO QID PRN 10/18/23 10/26/23 History (Tylenol) apixaban 5 mg tablet (Eliquis) 5 mg PO BID 10/18/23 10/26/23 History mirtazapine 7.5 mg tablet 7.5 mg PO HS 10/18/23 10/26/23 History ondansetron 4 mg disintegrating 4 mg PO Q8H 10/18/23 10/26/23 History tablet oxycodone 5 mg tablet 5 - 15 mg PO QID PRN 10/18/23 10/26/23 History polyethylene glycol 3350 17 4 g PO ONCE PRN 10/18/23 10/24/23 History gram/dose oral powder (Miralax) dapagliflozin propanediol 5 mg 5 mg PO DAILY 10/24/23 10/26/23 History tablet (Farxiga) glimepiride 4 mg tablet 4 mg PO DAILY 10/24/23 10/26/23 History insulin aspart U-100 100 unit/mL 1 sliding scale dose subcut 10/24/23 10/26/23 History (3 mL) subcutaneous pen USEASDIRECTD metoclopramide HCl 5 mg tablet 5 mg PO BID-TID PRN nausea and 10/24/23 10/26/23 History (Reglan) vomiting metoprolol tartrate 50 mg tablet 50 mg PO BID 10/24/23 10/26/23 History Allergies Allergy/AdvReac Type Severity Reaction Status Date / Time No Known Drug Allergies Allergy Verified 10/20/23 17:17 Exam Narrative: Exam Narrative: I examined patient in his hospital room. He is sitting in the recliner chair with head of bed elevated about 75? with legs extended forward. Appears comfortable and in no acute distress. Resting room air oxygen saturations ranging from 92-95%. Alert and oriented to self, place, time, situation. Friendly, articulate, cooperative. Very clear that he does not wish to discuss his cancer diagnosis or prognosis. No jaundice or icterus. Does not have obvious JVD or hepatojugular reflux. Does have dependent edema up to his knees which he states is not new. Neck is supple. Midline trachea. Lungs with decreased breath sounds in both bases. Lung sounds clear otherwise. Heart tones with regular rhythm with occasional missed beats. PMI not laterally displaced. Abdomen with active bowel sounds, soft, nontender. Does have hepatomegaly. No focal motor neurologic deficits. Const: Vital Signs, click to edit/add: Vital Signs - 24 hr 10/26/23 06:34 10/26/23 08:55 10/26/23 09:10 Temperature 97.6 F 97.3 F L Pulse Rate 120 H 109 H 98 Respiratory Rate 24 20 20 Blood Pressure 120/71 118/64 114/66 Pulse Oximetry 88 86 L 95 Oxygen Delivery Me thod Room Air Room Air Nasal Cannula Oxygen Flow Rate 3 10/26/23 09:26 10/26/23 09:40 10/26/23 09:55 Temperature 97.1 F L Pulse Rate 90 95 88 Respiratory Rate 20 20 20 Blood Pressure 125/60 114/63 114/61 Pulse Oximetry 94 93 86 L Oxygen Delivery Me thod Room Air Room Air Room Air Oxygen Flow Rate 10/26/23 10:10 10/26/23 10:35 10/26/23 11:02 Temperature 97.7 F Pulse Rate 88 89 88 Respiratory Rate 20 20 20 Blood Pressure 119/62 118/84 106/61 Pulse Oximetry 94 94 93 Oxygen Delivery Me thod Nasal Cannula Nasal Cannula Nasal Cannula Oxygen Flow Rate 3 3 3 10/26/23 12:34 Temperature 97.5 F L Pulse Rate 98 Respiratory Rate 18 Blood Pressure 115/67 Pulse Oximetry 95 Oxygen Delivery Me thod Room Air Oxygen Flow Rate Hospitalist - H&P: Result Labs Labs: Short CBC 10/26/23 Range/Units 12:18 WBC 22.52 H (4.50-11.00) K/uL Hgb 10.2 L (13.5-17.5) gm/dL Hct 32.3 L (37.0-53.0) % Plt Count 136 L (140-440) K/uL ECG ECG interpretation date: 10/26/23 Interpretation: Sinus rhythm with occasional atrial premature complexes. No evidence of ischemia or infarct pattern. Imaging Chest x-ray: Radiologist's impression: Portable chest x-ray obtained after Port-A-Cath placement. No infiltrate, pneumothorax, effusion. Poor inspiratory effort. Low lung volume. Assessment and Plan Assessment and plan (1) Elevated troponin I level: Problem comment: - consider cardiac versus noncardiac etiology - will request lab run troponin I from yesterday. Will obtain serial troponin I of measurements. - will obtain a transthoracic echocardiogram. - will order a TSH. Status: Acute (2) Hypoxia: Problem comment: - 10/26/23: supine hypoxia, improves with sitting or standing - consistent with heart failure +/- ARETHA - admit for postoperative assessments Status: Acute (3) Tobacco use disorder: Problem comment: - long-standing - 10/26/23, he indicates he quit smoking about 2 months ago Status: Acute (4) Malignant neoplasm of pancreas: Problem comment: - 09/25/23: EUS/ERCP biliary sphincterotomy, one covered metal stent placed into common bile duct, FNA of mass at head of pancreas consistent with poorly differentiated pancreatic cancer. - 09/30/23: staging laparotomy, hepatic wedge biopsy consistent with poorly differentiated adenocarcinoma of pancreatic origin. 10/18/23: consultation with Dr. Margaret Townsend, oncology, stage IV pancreatic adenocarcinoma, T2 Nx M1 with liver mets, T10 sclerotic lesion, possible LLL nodule, CA19-9 elevated at 962. - patient refuses to learn about the poor prognosis of his condition and will continue to work with Dr. Townsend and initiate palliative treatment options. - eric-cath placed 10/26/23 Status: Acute (5) Painless jaundice: Problem comment: - improved status post stent placement 09/25/2023 Status: Acute (6) Weight loss: Problem comment: - lost 35+ pounds since 04/2023 Status: Acute (7) Denial about severity of illness: Problem comment: - common coping mechanism for terminal condition Status: Acute (8) Protein-calorie malnutrition, moderate: Problem comment: As evidenced by loose skin, muscle wasting, rapid weak loss, and albumin and total protein. Start nutritional supplementation and consult Nutrition. Status: Acute (9) Type 2 diabetes mellitus without complication, with long-term current use of insulin: Problem comment: Will stop metformin. Continue Lantus but moved dosing to the morning. Continue Farxiga. Status: Chronic (10) Weakness: Problem comment: Weakness due to metastatic cancer and malnutrition and dehydration. Improved during hospital stay but likely to get worse again, especially with chemotherapy. PT provided a walker. Status: Acute (11) Anorexia: Problem comment: No appetite. Food does not taste good. Very poor oral intake. Status: Acute Plan 1. Reviewed impression with patient and . 2. Answered their questions. 3. Patient agreeable to stay in hospital while we sort out the etiology of his supine hypoxia. 4. agreeable. Total Time Spent Total Time Spent: 60 minutes
[2023-10-26 12:41] LABS: Anion Gap 5 mEq/L (7-15); Aspartate Amino Transferase* 58 U/L (12-35); Bilirubin Total* 1.3 mg/dL (0.1-1.5); Carbon Dioxide* 25 mmol/L (20-32); Creatinine* 0.5 mg/dL (0.5-1.5); Est. Creatinine Clearance* 27.28; Estimated Glomerular Filt Rate 110 ml/min
[2023-10-26 12:42] LABS: Alanine Aminotransferase* 50 U/L (4-50); Alkaline Phosphatase* 317 U/L (40-150); Blood Urea Nitrogen* 17 mg/dL (7-30); Calcium* 8.1 mg/dL (8.4-10.6); Glucose* 284 mg/dL (60-115); Total Protein* 5.8 g/dL (6.0-8.3)
[2023-10-26 12:46] LABS: Slide Review Reflex Yes
[2023-10-26 12:59] LABS: Troponin I* 1.02 ng/mL (0.01-0.04)
[2023-10-26 13:05] LABS: Slide Review Acceptable Review (Acceptable)
[2023-10-26 14:34] LABS: Hemoglobin A1C* 9.8 % (0-5.6)
[2023-10-26 14:38] LABS: NT Pro B Type NatriureticPept* 2410 pg/mL
--- NOTE | 2023-10-26 14:54 | REH.PT ---
PT eval & treat orders received. Pt was evaluated by PT 10/24, issued a 2ww and cleared for ind mobility. Today pt was able to demo ind transfers supine<>sit, STS and amb up to 128 feet at a time ind with a 2ww. Pt's Sp02 > 92% on RA with all activity. Pt has home care service in place. No skilled PT warranted at this time. D/C PT. No Charge.
[2023-10-26 15:40] LABS: Thyroid Stimulating Hormone* 0.123 uIU/mL (0.270-4.20)
[2023-10-26] MEDS: FUROSEMIDE 10 MG/ML inj 40 MG IVP (16:15)
[2023-10-26] MEDS: ASPIRIN 81 MG TAB.CHEW 324 MG PO (16:19)
[2023-10-26 16:57] LABS: Troponin I* 1.01 ng/mL (0.01-0.04)
[2023-10-26] MEDS: INSULIN ASPART 100 UNIT/ML SUBCUT ×2 (16:58→20:37)
[2023-10-26] MEDS: PANCREALIPASE (12,38,60) CAP 1 CAP PO (17:01)
[2023-10-26] MEDS: METOPROLOL TARTRATE 50 MG TABLET PO ×2 (17:28→20:35)
[2023-10-26] MEDS: dilTIAZem 5 MG/ML inj 10 MG IVP ×2 (18:01→19:25)
[2023-10-26] MEDS: APIXABAN 5 MG TABLET PO (18:27)
[2023-10-26] MEDS: lidocaine HCL 2 % JELLY (TOP) STERILE 6 ML UR (18:41)
--- NOTE | 2023-10-26 19:20 | PC.NURSE ---
End of shift: [id number] Patient alert and oriented. tolerating a reg. diet but patients states he does not have much of an appetite. Patient went into A-fib around 1715, notified. One time order of PO metoprolol administered, HR was still elevated at 125bpm. Patient stated he was feeling well but RN noted HR continued to race, 2mg Diltiazem IV push was ordered when HR was 180'sbpm. Second dose of 2mg Diltiazem was held due to BP being 73/55 upon recheck BP 100/57. MD Schneider notified. Patient denied chest pain, SOB, Nausea, dizziness or vomiting. Eliquis administered @1827 see eMAR for clarification. Patient received IV lasix at 1600 and patient did not void. When asked if he felt the urge to urinate he stated he did not therefore RN bladder scanned patient and 542ml was present. Patient was straight cathed and RN emptied 750ml of ronit colored urine. notified and nurse to nurse given to ELIJAH Head.
[2023-10-26] MEDS: ATORVASTATIN CALCIUM 40 MG TABLET PO (20:35)
[2023-10-26] MEDS: ONDANSETRON ODT 4 MG TAB PO (20:35)
[2023-10-26] MEDS: MIRTAZAPINE 15 MG TABLET 7.5 MG PO (20:35)
--- NOTE | 2023-10-26 20:47 | CRLHL7_ITS ---
For Patients: As a result of the Cures Act, medical imaging exams and procedure reports are released immediately into your electronic medical record. You may view this report before your referring provider. If you have questions, please contact your health care provider. INDICATION: Atrial fibrillation, new oxygen requirements TECHNIQUE: Chest radiograph 1 view COMPARISON: 10/26/2023 FINDINGS: The sensitivity and specificity of the exam are moderately limited by the patient`s body habitus. Mediastinum: The mediastinum is normal in appearance. The heart silhouette is normal in size and morphology. Right Port-A-Cath is noted without interval change. Lung: Both lungs are unremarkable in appearance with small lung volumes. No sign of pleural effusion seen. No pneumothorax is identified. Bone and Soft tissue: Unremarkable for age. IMPRESSION: 1. No acute cardiopulmonary disease is seen. Dictated by Koffi Oakes MD @ 10/26/2023 9:41:01 PM Dictated by: Koffi Oakes MD @ 10/26/2023 21:43:12 (Electronically Signed)
--- NOTE | 2023-10-26 20:49 | PM.EN ---
Chart Event Note Time Seen by Provider: 20:50 Date Seen: 10/26/23 Chart Event Note: new developments: NSTEMI likely yesterday AFIB RVR developed after acute urinary retention HR not responding to oral metoprolol and IV DILT 10mg x 2 doses and urinary straight cath increasing oxygen needs - now on 2-3L NC 2100 discuss end of life plan, choices, etc a bit more introspective and then asked for full cares -moving to the ICU, Dilt drip, CXR, Lozano, labs to follow
[2023-10-26 21:06] LABS: HCO3 VBG 25 mmol/L (21-28); PCO2 VBG 32 mmHG (40-50); PO2 VBG 57.5 mmHG (25-47); pH VBG 7.515 (7.32-7.43)
[2023-10-26 21:27] LABS: Chloride* 98 mmol/L (96-114)
[2023-10-26 21:28] LABS: Potassium* 3.7 mmol/L (3.6-5.1); Sodium* 128 mmol/L (135-149)
[2023-10-26 21:30] LABS: Creatinine* 0.6 mg/dL (0.5-1.5); Est. Creatinine Clearance* 78.79; Estimated Glomerular Filt Rate 104 ml/min
[2023-10-26 21:31] LABS: Anion Gap 6 mEq/L (7-15); Blood Urea Nitrogen* 18 mg/dL (7-30); Carbon Dioxide* 24 mmol/L (20-32)
[2023-10-26] MEDS: dilTIAZem HCL 125 MG in 0.9 % SODIUM CHLORIDE 100 ml 100 ML IVPB (21:35)
[2023-10-26 22:00] LABS: Glucose* 364 mg/dL (60-115); Troponin I* 0.81 ng/mL (0.01-0.04)
--- NOTE | 2023-10-26 22:05 | PM.EN ---
Chart Event Note Time Seen by Provider: 22:07 Date Seen: 10/26/23 Chart Event Note: Digoxin 500mcg push as the BP is limiting any further increases w/dilt (q6h 250IV x 2 doses) catheter in sodium corrects 2/2 hyperglycemia to 134 trop downtrending cxr reassuring mental alert/aware
[2023-10-26] MEDS: DIGOXIN 250 MCG/ML inj 500 MCG IV (22:49)
[2023-10-26] MEDS: LORazepam 2 MG/ML inj 1 MG IVP (23:20)
[2023-10-27] VITALS (18 sets, daily range): BP systolic 105–149; BP diastolic 57–74; PULSE 74–120; RESP 20–27; TEMP 35.9–36.6; O2SAT 87–96; BMI 32.3
--- NOTE | 2023-10-27 00:32 | CRLHL7_ITS ---
For Patients: As a result of the Century Cures Act, medical imaging exams and procedure reports are released immediately into your electronic medical record. You may view this report before your referring provider. If you have questions, please contact your health care provider. Indication: Fall, hit head, on blood thinners Technique: Noncontrast CT through the head with multiplanar reformats Comparison: None Findings: Brain: No acute hemorrhage. No acute infarct. No significant mass effect or midline shift. No gross evidence of a mass lesion or cerebral edema. Ventricles: No acute abnormality appreciated. Orbits, sinuses, mastoids: No acute abnormality appreciated. Calvarium and soft tissues: Swelling along the left posterior ocular tissues. Impression: Swelling along the left postauricular superficial soft tissues, no other acute abnormality appreciated. Please note that all CT scans at this facility use dose modulation, iterative reconstruction, and/or weight-based dosing when appropriate to reduce radiation dose to as low as reasonably achievable. Dictated by Red Pascal MD @ 10/27/2023 2:19:47 AM (Electronically Signed)
[2023-10-27] MEDS: ACETAMINOPHEN 325 MG TABLET 650 MG PO (00:58)
[2023-10-27] MEDS: ONDANSETRON ODT 4 MG TAB PO (04:11)
[2023-10-27] MEDS: DIGOXIN 250 MCG/ML inj IV ×2 (04:12→12:07)
[2023-10-27 06:24] LABS: HCO3 VBG 29 mmol/L (21-28); PCO2 VBG 43 mmHG (40-50); PO2 VBG < 30.1 mmHG (25-47); pH VBG 7.447 (7.32-7.43)
[2023-10-27 06:28] LABS: Basophils Percent Auto 0.1 % (0.0-3.0); Eosinophils Percent Auto 0.3 % (0.0-7.0); Hematocrit 32.7 % (37.0-53.0); Hemoglobin* 10.4 gm/dL (13.5-17.5); Immature Granulocytes Pct Auto 1.1 %; Lymphocytes Percent Auto 4.3 % (20-44); Mean Corpuscular HGB Conc 32 gm/dL (32-36); Mean Corpuscular Hemoglobin 25 pg (26-34); Mean Corpuscular Volume 79 fL (80-100); Monocytes Percent Auto 4.1 % (0.0-11.0); Neutrophils Percent Auto 90.1 % (42.0-72.0); Platelet Count* 146 K/uL (140-440); RDW Coefficient of Variation % 14.5 % (11.5-15.5); Red Blood Count 4.13 m/uL (4.30-5.90); Slide Review Reflex No; White Blood Count* 21.19 K/uL (4.50-11.00)
[2023-10-27 06:45] LABS: Albumin* 2.4 g/dL (3.3-5.0); Chloride* 99 mmol/L (96-114); INR 1.99 (0.91-1.10); Potassium* 3.6 mmol/L (3.6-5.1); Prothrombin Time 24.1 Seconds; Sodium* 131 mmol/L (135-149)
[2023-10-27 06:48] LABS: Alanine Aminotransferase* 42 U/L (4-50); Alkaline Phosphatase* 323 U/L (40-150); Anion Gap 4 mEq/L (7-15); Aspartate Amino Transferase* 54 U/L (12-35); Bilirubin Direct* 0.9 mg/dL (0.0-0.5); Bilirubin Total* 1.3 mg/dL (0.1-1.5); Blood Urea Nitrogen* 20 mg/dL (7-30); Carbon Dioxide* 28 mmol/L (20-32); Creatinine* 0.6 mg/dL (0.5-1.5); Est. Creatinine Clearance* 78.79; Estimated Glomerular Filt Rate 104 ml/min; Glucose* 235 mg/dL (60-115); Phosphorus* 2.6 mg/dL (2.5-4.5); Total Protein* 5.6 g/dL (6.0-8.3)
[2023-10-27 06:49] LABS: Calcium* 7.9 mg/dL (8.4-10.6)
--- NOTE | 2023-10-27 06:53 | PC.NURSE ---
END OF SHIFT NOTE: PT A&Ox4 WITH PERIODS OF CONFUSION. DENIES CP, SOB, N/V. AMBULATES WITH A1-2, 4WW, GB. VSS ON 2.5-4L SUPPLEMENTAL OXYGEN TO MAINTAIN SPO2 >90%; AFEBRILE. PT TELE HAS FLIPPED IN AND OUT OF AFIB AND NSR W/ PAC. PT REPORTS PAIN OF 9/10 TO UPPER MIDDLE BACK; PT DECLINED PRN PAIN MED AND NON-PHARMACOLOGICAL INTERVENTIONS; WHEN PT RECHECKED PT ASLEEP. CARMICHAEL IN PLACE WITH DARK TRESA OUTPUT. PT HAS BEEN TAKING FREQUENT SIPS OF WATER THROUGHOUT THE NIGHT. AROUND 0010 PT HAD AN UNWITNESSED FALL. PT DID STATE HE HIT HIS HEAD ON THE FLOOR. PT ASSESSED WITH SLIGHT SWELLING TO LEFT OCULAR TISSUE AND SMALL ABRASION TO LEFT CRAIG. CRAIG CLEANSED AND NICHOLAS. EYES-PERRL. PT AT THIS TIME WAS ALERT TO SELF ONLY. WHEN ASKED IF PT KNEW WHERE HE WAS, PT STATED, ?[place]?. PT REORIENTED.?PT EASILY REDIRECTED THROUGHOUT THE NIGHT WHEN WANTING TO GET UP AND GET DRESSED FOR THE DAY. PT?BED ALARM ON AND CALL LIGHT WITHIN PT?S REACH.
[2023-10-27] MEDS: INSULIN ASPART 100 UNIT/ML SUBCUT ×3 (08:54→18:32)
[2023-10-27] MEDS: PANCREALIPASE (12,38,60) CAP 1 CAP PO ×3 (08:55→18:33)
[2023-10-27] MEDS: APIXABAN 5 MG TABLET PO ×2 (08:55→20:56)
[2023-10-27] MEDS: INSULIN GLARGINE,HUM.REC.ANLOG 100 UNIT/ML INSULN.PEN 28 UNIT SUBCUT (08:56)
[2023-10-27] MEDS: ASPIRIN 81 MG TAB.CHEW PO (08:56)
[2023-10-27] MEDS: METOPROLOL TARTRATE 50 MG TABLET PO ×2 (08:57→20:56)
--- NOTE | 2023-10-27 11:26 | REH.PT ---
Screened pt's functional mobility after a unwitnessed fall overnight. Pt able to complete supine<>sit and sit<>stand transfers ind from EOB. Ind with all bed mobility. Now has Lozano Cath. Pt able to amb 80 feet with supervision/sba with a a 2ww. No LOB with gait and transfers. Sp02 92-94% on RA and HR 88-96BPM after ambulating. Has limited tolerance for activity. Recommend pt amb with nursing staff every 2 hours to build activity tolerance. No charge.
--- NOTE | 2023-10-27 11:39 | P.IMPN_ITS ---
Progress Note: A&P Assessment and plan (1) Elevated troponin I level: Problem details: - 10/23: Trop-I 3.8; 10/25: Trop-I 1.02, 1.01, 0.81; 10/26; Trop-I 0.90. - transthoracic echocardiogram 10/25: No RWMA, EF 60%, diastolic dysfunction - ECG: no ischemic or infarct pattern - C/W NSTEMI Status: Acute (2) Hypoxia: Problem details: - 10/26/23: supine hypoxia, improves with sitting or standing - consistent with heart failure +/- ARETHA - will attempt diuresis Status: Acute (3) Tobacco use disorder: Problem details: - long-standing - 10/26/23, he indicates he quit smoking about 2 months ago - suspect he has an element of COPD in consequence of tobacco exposure Status: Acute (4) Malignant neoplasm of pancreas: Problem details: - 09/25/23: EUS/ERCP biliary sphincterotomy, one covered metal stent placed into common bile duct, FNA of mass at head of pancreas consistent with poorly differentiated pancreatic cancer. - 09/30/23: staging laparotomy, hepatic wedge biopsy consistent with poorly differentiated adenocarcinoma of pancreatic origin. 10/18/23: consultation with Dr. Margaret Townsend, oncology, stage IV pancreatic adenocarcinoma, T2 Nx M1 with liver mets, T10 sclerotic lesion, possible LLL nodule, CA19-9 elevated at 962. - patient refuses to learn about the poor prognosis of his condition and will continue to work with Dr. Townsend and initiate palliative treatment options. - eric-cath placed 10/26/23 Status: Acute (5) Painless jaundice: Problem details: - improved status post stent placement 09/25/2023 Status: Acute (6) Weight loss: Problem details: - lost 35+ pounds since 04/2023, most of it over the past 1 month Status: Acute (7) Denial about severity of illness: Problem details: - common coping mechanism for terminal condition - 10/23, 10/24, 10/25, 10/26 patient refuses to discuss his poor prognosis - will attempt to introduce idea of palliative care support, either at [place], [place], for 1 in-person visit and video visits thereafter, or at [place], [place]. - MOCA with very flat affect - consider initiation of antidepressant Status: Acute (8) Protein-calorie malnutrition, moderate: Problem details: - loose, saggy skin, muscle wasting, rapid onset of weakness, low albumin and total protein. - most of his 35+ pound weight loss occurred over the past 1 month, portending a potentially very poor prognosis - 10/27/23: patient now agreeable to consider forcing self to eat, as if food is a medication, and is willing to work with the certified coding specialist again to come up with possible ideas on how to achieve this Status: Acute (9) Type 2 diabetes mellitus without complication, with long-term current use of insulin: Problem details: - stop metformin. Continue Lantus but moved dosing to the morning. Continue Farxiga. - 10/26/23 HgA1C 9.8 - Dizzion A1C hx: 7.2 (11/23), 6.5 (07/24), 8.2 (12/23) - 10/26 increase glargine insulin from 28 U daily to 36 U daily - 10/26 add 5 U aspart insulin TID with meals and continue SSI QID ACHS Status: Chronic (10) Weakness: Problem details: - Weakness due to metastatic cancer and malnutrition and dehydration. Improved during hospital stay but high likelihood of to worsening again, especially with chemotherapy. PT provided a walker. Has home care. May need outpatient PT/OT. Status: Acute (11) Anorexia: Problem details: No appetite. Food does not taste good. Very poor oral intake. Status: Acute (12) Hypertensive heart disease: Status: Acute (13) Diastolic heart failure secondary to hypertension: Problem details: - 10/26/23: BNP 2410, TTE: diastolic dysfunction with EF 60% and no RWMA. - 10/25 and 10/26 furosemide 40 mg IV - change to furosemide 40 mg po once daily on 10/27 - work with certified coding specialist and to encourage nutritional support Status: Acute (14) Paroxysmal atrial fibrillation with RVR: Problem details: - chronically anticoagulated with apixaban and rate controlled with metoprolol. - added digoxin on 10/26/23, and check dig level 10/28/23 Status: Acute (15) Chronic anticoagulation: Problem details: - apixaban 5 mg po bid for paroxysmal A Fib Status: Acute (16) NSTEMI (non-ST elevated myocardial infarction): Problem details: -vague symptoms of weakness/hypoxia without typical angina on 10/24/23 -hypoxic on day of port-a-cath placement; troponin noted to be 1.02, retrospectively troponin was noted to 3.84ng/ml when test was added on from 10/24/23. -EKG without dynamic changes -ECHO was stable. hemodynamically stable. mild vascular congestion. -given IV furosemide 10/25 and 324mg aspirin -10/26 start aspirin 81 mg once daily Status: Acute Plan 1. Reviewed impression and recommendations with patient. Answered his questions. 2. Called and reviewed impressions and recommendations with patient's . Answered her questions. 3. Continue with cardiac monitoring as we continue with diuresis efforts. 4. Increase activity as tolerated 5. Patient family agreeable to try to eat or drink nutritional supplements. Willing to work with our dietitian. I had a genaro conversation with him that his severe protein calorie malnutrition is the big obstacle standing in the way of him proceeding with desired prophylactic chemotherapy. He expresses understanding. He expresses desire to try. Time Spent With Patient Total time spent: 50 minutes Subjective Date Seen: 10/27/23 Exam Const: Vital Signs, click to edit/add: Vital Signs - 24 hr 10/26/23 11:45 10/26/23 12:34 10/26/23 12:45 Temperature 97.5 F L 97.5 F L 98.1 F Pulse Rate 89 98 92 Pulse Rate [Left P ulse Oximeter] Pulse Rate [Right Pulse Oximeter] Respiratory Rate 18 18 18 Blood Pressure 111/83 115/67 120/67 Blood Pressure [Le ft Arm] Blood Pressure [Ri ght Arm] Pulse Oximetry 95 95 94 Oxygen Delivery Me thod Room Air Room Air Oxygen Flow Rate 10/26/23 13:00 10/26/23 13:15 10/26/23 13:45 Temperature 98.1 F 97.8 F Pulse Rate 94 92 90 Pulse Rate [Left P ulse Oximeter] Pulse Rate [Right Pulse Oximeter] Respiratory Rate 18 20 20 Blood Pressure 128/75 112/69 119/65 Blood Pressure [Le ft Arm] Blood Pressure [Ri ght Arm] Pulse Oximetry 91 90 91 Oxygen Delivery Me thod Nasal Cannula Nasal Cannula Nasal Cannula Oxygen Flow Rate 1.5 1.5 1.5 10/26/23 14:00 10/26/23 14:11 10/26/23 14:45 Temperature 98.1 F Pulse Rate 92 Pulse Rate [Left P ulse Oximeter] Pulse Rate [Right Pulse Oximeter] Respiratory Rate 20 Blood Pressure 105/68 Blood Pressure [Le ft Arm] Blood Pressure [Ri ght Arm] Pulse Oximetry 84 L 95 95 Oxygen Delivery Me thod Nasal Cannula Nasal Cannula Room Air Oxygen Flow Rate 1.5 4 10/26/23 15:00 10/26/23 15:00 10/26/23 15:00 Temperature 98.1 F Pulse Rate 90 Pulse Rate [Left P ulse Oximeter] Pulse Rate [Right Pulse Oximeter] Respiratory Rate 18 20 Blood Pressure Blood Pressure [Le ft Arm] Blood Pressure [Ri ght Arm] 105/68 Pulse Oximetry 93 93 Oxygen Delivery Me thod Room Air Room Air Oxygen Flow Rate 10/26/23 16:00 10/26/23 18:20 10/26/23 19:00 Temperature 98.0 F 98.0 F 98.2 F Pulse Rate 99 126 H Pulse Rate [Left P ulse Oximeter] 122 H Pulse Rate [Right Pulse Oximeter] Respiratory Rate 20 18 18 Blood Pressure 130/69 100/57 L Blood Pressure [Le ft Arm] Blood Pressure [Ri ght Arm] 110/60 Pulse Oximetry 95 95 90 Oxygen Delivery Me thod Room Air Room Air Nasal Cannula Oxygen Flow Rate 4 10/26/23 21:38 10/26/23 22:49 10/26/23 23:20 Temperature Pulse Rate 117 H Pulse Rate [Left P ulse Oximeter] 118 H Pulse Rate [Right Pulse Oximeter] 78 Respiratory Rate 18 22 Blood Pressure Blood Pressure [Le ft Arm] Blood Pressure [Ri ght Arm] 111/69 Pulse Oximetry 90 Oxygen Delivery Me thod Nasal Cannula Oxygen Flow Rate 4 10/26/23 23:20 10/27/23 00:00 10/27/23 00:24 Temperature 96.6 F L Pulse Rate 77 Pulse Rate [Left P ulse Oximeter] Pulse Rate [Right Pulse Oximeter] 77 Respiratory Rate 22 22 Blood Pressure Blood Pressure [Le ft Arm] 115/70 Blood Pressure [Ri ght Arm] Pulse Oximetry 95 93 Oxygen Delivery Me thod Nasal Cannula Nasal Cannula Oxygen Flow Rate 4 4 10/27/23 01:00 10/27/23 02:00 10/27/23 02:45 Temperature Pulse Rate 120 H Pulse Rate [Left P ulse Oximeter] Pulse Rate [Right Pulse Oximeter] 89 75 Respiratory Rate 24 24 Blood Pressure Blood Pressure [Le ft Arm] 108/61 105/57 L Blood Pressure [Ri ght Arm] Pulse Oximetry 95 92 Oxygen Delivery Me thod Nasal Cannula Nasal Cannula Oxygen Flow Rate 4 4 10/27/23 03:00 10/27/23 04:00 10/27/23 04:12 Temperature 97.8 F 97.4 F L Pulse Rate 88 Pulse Rate [Left P ulse Oximeter] Pulse Rate [Right Pulse Oximeter] 81 77 Respiratory Rate 22 20 Blood Pressure Blood Pressure [Le ft Arm] 110/60 120/59 L Blood Pressure [Ri ght Arm] Pulse Oximetry 94 93 Oxygen Delivery Me thod Nasal Cannula Nasal Cannula Oxygen Flow Rate 4 4 10/27/23 05:00 10/27/23 05:57 10/27/23 07:00 Temperature 96.8 F L Pulse Rate 81 Pulse Rate [Left P ulse Oximeter] Pulse Rate [Right Pulse Oximeter] 84 87 Respiratory Rate 22 24 Blood Pressure Blood Pressure [Le ft Arm] 113/59 L 124/69 Blood Pressure [Ri ght Arm] Pulse Oximetry 94 95 Oxygen Delivery Me thod Nasal Cannula Nasal Cannula Oxygen Flow Rate 4 4 10/27/23 07:00 10/27/23 07:00 10/27/23 08:00 Temperature 97.8 F Pulse Rate Pulse Rate [Left P ulse Oximeter] Pulse Rate [Right Pulse Oximeter] 89 89 Respiratory Rate 27 H 27 H 27 H Blood Pressure Blood Pressure [Le ft Arm] 149/63 H Blood Pressure [Ri ght Arm] Pulse Oximetry 95 92 Oxygen Delivery Me thod Nasal Cannula Nasal Cannula Oxygen Flow Rate 4 4 Labs Labs: Laboratory Results - last 24 hr 10/26/23 10/26/23 10/26/23 12:18 13:26 13:31 WBC 22.52 H RBC 4.08 L Hgb 10.2 L Hct 32.3 L MCV 79 L MCH 25 L MCHC 32 RDW Coeff of Guerda 14.5 Plt Count 136 L Neut % (Auto) 91.7 H Lymph % (Auto) 2.9 L [place] % (Auto) 3.6 Eos % (Auto) 0.3 Baso % (Auto) 0.1 Neut # (Auto) 20.70 H Lymph # (Auto) 0.70 L [place] # (Auto) 0.80 Eos # (Auto) 0.10 Baso # (Auto) 0.00 Abs Immat Gran (auto) 0.30 Imm/Tot Granulo (auto) 1.4 Diff Slide Review Acceptable Review INR VBG pH 7.482 H VBG pCO2 35 L VBG pO2 59.7 H VBG HCO3 26 Sodium 130 L Potassium 4.0 Chloride 100 Carbon Dioxide 25 Anion Gap 5 L BUN 17 Creatinine 0.5 Estimated Creat Clear 27.28 Estimated GFR 110 Glucose 284 H Hemoglobin A1c 9.8 H Calcium 8.1 L Phosphorus Total Bilirubin 1.3 Direct Bilirubin AST 58 H ALT 50 Alkaline Phosphatase 317 H Troponin I 1.02 H* NT-Pro-B Natriuret Pep 2410 Total Protein 5.8 L Albumin 2.6 L TSH 0.123 L Lab Acknowledgement Test Added Test Added 10/26/23 10/26/23 10/27/23 16:21 20:59 06:10 WBC 21.19 H RBC 4.13 L Hgb 10.4 L Hct 32.7 L MCV 79 L MCH 25 L MCHC 32 RDW Coeff of Guerda 14.5 Plt Count 146 Neut % (Auto) 90.1 H Lymph % (Auto) 4.3 L [place] % (Auto) 4.1 Eos % (Auto) 0.3 Baso % (Auto) 0.1 Neut # (Auto) 19.10 H Lymph # (Auto) 0.90 [place] # (Auto) 0.90 Eos # (Auto) 0.10 Baso # (Auto) 0.00 Abs Immat Gran (auto) 0.20 Imm/Tot Granulo (auto) 1.1 Diff Slide Review INR 1.99 H VBG pH 7.515 H 7.447 H VBG pCO2 32 L 43 VBG pO2 57.5 H < 30.1 VBG HCO3 25 29 H Sodium 128 L 131 L Potassium 3.7 3.6 Chloride 98 99 Carbon Dioxide 24 28 Anion Gap 6 L 4 L BUN 18 20 Creatinine 0.6 0.6 Estimated Creat Clear 78.79 78.79 Estimated GFR 104 104 Glucose 364 H* 235 H Hemoglobin A1c Calcium 8.0 L 7.9 L Phosphorus 2.6 Total Bilirubin 1.3 Direct Bilirubin 0.9 H AST 54 H ALT 42 Alkaline Phosphatase 323 H Troponin I 1.01 H* 0.81 H* 0.90 H* NT-Pro-B Natriuret Pep Total Protein 5.6 L Albumin 2.4 L TSH Lab Acknowledgement ECG Attestation: I personally reviewed and interpreted this ECG as follows: Interpretation: NSR with occasional APCs, rate 89 bpm, low voltage QRS consistent with pulmonary disease, with no ischemic or infarct patterns.
[2023-10-27] MEDS: FUROSEMIDE 10 MG/ML inj 40 MG IVP (12:07)
--- NOTE | 2023-10-27 14:55 | PC.SOCIAL ---
Addendum entered by KENISHA Alexander 10/27/23 15:32: Discharge planning: If the pt discharges home over the weekend a resumption of care order from [facility] [place]. will need to be faxed to #[phone]. Social work to follow-up as needed. Addendum entered by Jimena Titus, KENISHA 10/27/23 15:23: Discharge planning: The phone number for [facility] [place] is #[phone] and the fax number is #[phone]. Social work to follow-up as needed. Original Note: Discharge planning: torpedo worker met with the pt and his this afternoon. torpedo worker spent time clarifying questions that the family had about a Health Care Directive. The family is working on getting a HCD drawn up for the pt by their rn family. torpedo worker explained they would need two witnesses to sign the document or a publications writer. torpedo worker explained that the hospital usually has a publications writer on staff in [facility] and if they get the HCD completed over the weekend they could ask the pt's nurse to connect with [facility] to see if they have a notary that can sign the pt's HCD. Pt and his also shared that the pt does have nursing and PT through [facility] [place] however, they had not even met the Physical Therapist yet due to the pt being back in the hospital, but they did meet the nurse who had come to their house to do the intake. torpedo worker explained that the hospital would make sure that a resumption of care order was sent to [facility] [place]. when the pt discharges from the hospital. Social work to follow-up as needed.
--- NOTE | 2023-10-27 19:10 | PC.NURSE ---
Nursing Care Hours: [id number] Pt this shift calm and cooperative. Alert but flat affect. Oriented but slightly confused in AM when asked about month, pt said it was November. Ax1 with walker and gait belt, encouraging walking short distance in whelan Q2H. After talking with mineral engineer, worked on drinking about 30cc of Ensure Q30min. Pt had about 180cc total and tolerating well. No c/o pain or nausea. Pt requiring 0.5-2 L NC while semi fowlers in bed. Intermittently up in chair. Pt is involved in POC, discussing wants and needs or concerns with staff when asked about them, but otherwise reserved and sleeping most of day in bed or chair.
[2023-10-27] MEDS: MIRTAZAPINE 15 MG TABLET 7.5 MG PO (20:56)
[2023-10-27] MEDS: ATORVASTATIN CALCIUM 40 MG TABLET PO (20:57)
[2023-10-27] MEDS: OXYCODONE 5 MG TABLET PO (23:34)
[2023-10-28] VITALS (12 sets, daily range): BP systolic 84–142; BP diastolic 60–80; PULSE 75–157; RESP 20–24; TEMP 36.2–36.5; O2SAT 90–91
[2023-10-28] MEDS: ONDANSETRON ODT 4 MG TAB PO ×2 (04:15→12:17)
--- NOTE | 2023-10-28 05:47 | W.PM.CROSSCO ---
Assessment and Plan Assessment and plan (1) Paroxysmal atrial fibrillation with RVR: Problem comment: - initiated anticoagulation with apixaban on 10/27/2023 and rate controlled with metoprolol. - added digoxin on 10/26/23. - attempted to add diltiazem on 10/28/2023 with fall in blood pressure. Given the difficulty of managing his paroxysmal AFib RVR I call and discuss the case with Dr. Montgomery, licensed pesticide applicator with the [facility], who accepted the patient in transfer to [facility] for additional assessments and possible interventions. Status: Acute Plan I was contacted by nursing stating that patient went into A-fib with RVR. Quick chart review showed patient had been on diltiazem drip was receiving digoxin. For this morning we will attempt 30 mg oral short acting diltiazem. If ineffective may need to go back on diltiazem drip. He is due for another dose of digoxin around 9 AM this morning. Edmundo White DO, Pharm. D.
[2023-10-28] MEDS: dilTIAZem 30 MG TABLET PO (05:48)
[2023-10-28 06:59] LABS: Lactate* 1.1 mmol/L (0.5-1.9)
[2023-10-28 07:08] LABS: Hemoglobin* 10.7 gm/dL (13.5-17.5); Mean Corpuscular HGB Conc 32 gm/dL (32-36); Mean Corpuscular Hemoglobin 25 pg (26-34); Mean Corpuscular Volume 79 fL (80-100); Platelet Count* 143 K/uL (140-440); Red Blood Count 4.28 m/uL (4.30-5.90); White Blood Count* 22.23 K/uL (4.50-11.00)
[2023-10-28 07:20] LABS: Chloride* 99 mmol/L (96-114); Sodium* 133 mmol/L (135-149)
[2023-10-28 07:21] LABS: Potassium* 3.7 mmol/L (3.6-5.1)
[2023-10-28 07:23] LABS: Cholesterol* 78 mg/dL (90-199); Creatinine* 0.5 mg/dL (0.5-1.5); Est. Creatinine Clearance* 78.79; Estimated Glomerular Filt Rate 110 ml/min
--- NOTE | 2023-10-28 07:23 | PC.NURSE ---
Pt alert and oriented x3. Afebrile. Around 0525 pt tele showed tachycardia ranging between 110-160 bpm, EKG taken, MD Castañeda called and updated, orders given to administer a one time dose of 30mg diltiazem PO. Pt continued to have tachycardia, updated Dr Farrell and oncoming ELIJAH Carballo. Pt's lund is patent and draining. Pt is up A1 with walker and gait belt. Pt slept intermittently throughout night.? ?
[2023-10-28 07:24] LABS: Anion Gap 5 mEq/L (7-15); Blood Urea Nitrogen* 19 mg/dL (7-30); Calcium* 8.4 mg/dL (8.4-10.6); Carbon Dioxide* 29 mmol/L (20-32); Glucose* 193 mg/dL (60-115); Triglycerides* 121 mg/dL (40-149)
[2023-10-28 07:25] LABS: HDL Cholesterol* 25 mg/dL (>=40); LDL Cholesterol Calculated 29 mg/dL (<100); Magnesium* 1.9 mg/dL (1.5-2.6)
[2023-10-28 07:28] LABS: Slide Review Reflex No
[2023-10-28 07:46] LABS: C Reactive Protein* 17.6 mg/dL (0.5-1.0); NT Pro B Type NatriureticPept* 1620 pg/mL; Troponin I* 0.68 ng/mL (0.01-0.04)
[2023-10-28] MEDS: dilTIAZem 5 MG/ML inj 10 MG IVP (07:49)
[2023-10-28] MEDS: SODIUM CHLORIDE 0.9 % (FLUSH) 10 ML SYRINGE 5 ML IVF (07:49)
[2023-10-28] MEDS: 0.9 % SODIUM CHLORIDE 250 ml IV (07:52)
[2023-10-28] MEDS: dilTIAZem HCL 125 MG in 0.9 % SODIUM CHLORIDE 100 ml 100 ML IVPB (07:52)
[2023-10-28] MEDS: INSULIN ASPART 100 UNIT/ML SUBCUT ×3 (08:20→12:17)
--- NOTE | 2023-10-28 08:47 | PC.NURSE ---
END OF SHIFT NOTE:A&Ox3. DENIES CP, SOB, N/V. AMBULATES WITH A1, 4WW, GB. VSS ON 2L NC; C/O BACK PAIN 4-5/10 WITH RELIEF FROM PRN PAIN MED (SEE EMAR) AFEBRILE. PT SLEPT MAJORITY OF NIGHT. TELE READS SINUS TACH. BED ALARM ON AND CALL LIGHT WITHIN PT?S REACH.?
[2023-10-28] MEDS: GLIMEPIRIDE 4 MG TABLET PO (08:52)
[2023-10-28] MEDS: PANCREALIPASE (12,38,60) CAP 1 CAP PO ×2 (08:52→12:17)
[2023-10-28] MEDS: ASPIRIN 81 MG TAB.CHEW PO (08:53)
[2023-10-28] MEDS: APIXABAN 5 MG TABLET PO (08:53)
[2023-10-28] MEDS: METOPROLOL TARTRATE 50 MG TABLET PO (08:53)
[2023-10-28] MEDS: DIGOXIN 125 MCG TABLET PO (08:53)
[2023-10-28] MEDS: INSULIN GLARGINE,HUM.REC.ANLOG 100 UNIT/ML INSULN.PEN 36 UNIT SUBCUT (08:55)
[2023-10-28] MEDS: 0.9 % SODIUM CHLORIDE 500 ML 500 ML IV (09:15)
[2023-10-28 10:46] LABS: HCO3 VBG 29 mmol/L (21-28); PCO2 VBG 39 mmHG (40-50); PO2 VBG 60.1 mmHG (25-47); pH VBG 7.487 (7.32-7.43)
[2023-10-28 11:20] LABS: NT Pro B Type NatriureticPept* 1900 pg/mL; Troponin I* 0.57 ng/mL (0.01-0.04)
--- NOTE | 2023-10-28 15:15 | PM.DS1 ---
DS: Providers Provider Date Seen: 10/28/23 Date of admission: 10/26/23 21:04 Primary care physician: Chris Potter MD Admitting Clinician: Jenny Schneider MD Consults: 10/26/23 12:03 Consult to Occupational Therapy [CONS] Urgent Comment: Reason(s) for OT Consult:: Evaluate and Treat Any Restrictions?:: No Restrictions Consult to Physical Therapy [CONS] Urgent Comment: Reason(s) for PT Consult:: Evaluate and Treat Any Restrictions?:: No Restrictions Attending Physician on discharge: Agustin Farrell MD Date of Discharge: 10/28/23 DS: Diagnosis Discharge Diagnosis (1) Paroxysmal atrial fibrillation with RVR: Status: Acute Problem details: - initiated anticoagulation with apixaban on 10/27/2023 and rate controlled with metoprolol. - added digoxin on 10/26/23. - attempted to add diltiazem on 10/28/2023 with fall in blood pressure. Given the difficulty of managing his paroxysmal AFib RVR I call and discuss the case with Dr. Montgomery, environmental health and safety leader with the [facility], who accepted the patient in transfer to [facility] for additional assessments and possible interventions. (2) Diastolic heart failure secondary to hypertension: Status: Acute Problem details: - 10/26/23: BNP 2410, TTE: diastolic dysfunction with EF 60% and no RWMA. - 10/25 and 10/26 furosemide 40 mg IV - change to furosemide 40 mg po once daily on 10/27 - work with call center trainer and to encourage nutritional support (3) Hypertensive heart disease: Status: Acute (4) NSTEMI (non-ST elevated myocardial infarction): Status: Acute Problem details: -vague symptoms of weakness/hypoxia without typical angina on 10/24/23 -hypoxic on day of port-a-cath placement; troponin noted to be 1.02, retrospectively troponin was noted to 3.84ng/ml when test was added on from 10/24/23. -EKG without dynamic changes -ECHO was stable. hemodynamically stable. mild vascular congestion. -given IV furosemide 10/25 and 324mg aspirin -10/26 start aspirin 81 mg once daily (5) Chronic anticoagulation: Status: Acute Problem details: - apixaban 5 mg po bid for paroxysmal A Fib started on 10/27/2023 (6) Elevated troponin I level: Status: Acute Problem details: - 10/23: Trop-I 3.8; 10/25: Trop-I 1.02, 1.01, 0.81; 10/26; Trop-I 0.90. - transthoracic echocardiogram 10/25: No RWMA, EF 60%, diastolic dysfunction - ECG: no ischemic or infarct pattern - C/W NSTEMI versus demand ischemia (7) Hypoxia: Status: Acute Problem details: - 10/26/23: supine hypoxia, improves with sitting or standing - consistent with heart failure +/- ARETHA - will attempt diuresis (8) Malignant neoplasm of pancreas: Status: Acute Problem details: - 09/25/23: EUS/ERCP biliary sphincterotomy, one covered metal stent placed into common bile duct, FNA of mass at head of pancreas consistent with poorly differentiated pancreatic cancer. - 09/30/23: staging laparotomy, hepatic wedge biopsy consistent with poorly differentiated adenocarcinoma of pancreatic origin. 10/18/23: consultation with Dr. Margaret Townsend, oncology, stage IV pancreatic adenocarcinoma, T2 Nx M1 with liver mets, T10 sclerotic lesion, possible LLL nodule, CA19-9 elevated at 962. - patient refuses to learn about the poor prognosis of his condition and will continue to work with Dr. Townsend and initiate palliative treatment options. - eric-cath placed 10/26/23 (9) Denial about severity of illness: Status: Acute Problem details: - common coping mechanism for terminal condition - 10/23, 10/24, 10/25, 10/26 patient refuses to discuss his poor prognosis - will attempt to introduce idea of palliative care support, either at [place], [place], for 1 in-person visit and video visits thereafter, or at [place], [place]. - MOCA with very flat affect - consider initiation of antidepressant (10) Tobacco use disorder: Status: Acute Problem details: - long-standing - 10/26/23, he indicates he quit smoking about 2 months ago - suspect he has an element of COPD in consequence of tobacco exposure (11) Weight loss: Status: Acute Problem details: - lost 35+ pounds since 04/2023, most of it over the past 1 month (12) Protein-calorie malnutrition, moderate: Status: Acute Problem details: - loose, saggy skin, muscle wasting, rapid onset of weakness, low albumin and total protein. - most of his 35+ pound weight loss occurred over the past 1 month, portending a potentially very poor prognosis - 10/27/23: patient now agreeable to consider forcing self to eat, as if food is a medication, and is willing to work with the call center trainer again to come up with possible ideas on how to achieve this (13) Type 2 diabetes mellitus without complication, with long-term current use of insulin: Status: Chronic Problem details: - stop metformin. Continue Lantus but moved dosing to the morning. Continue Farxiga. - 10/26/23 HgA1C 9.8 - Brass Monkey A1C hx: 7.2 (11/23), 6.5 (07/24), 8.2 (12/23) - 10/26 increase glargine insulin from 28 U daily to 36 U daily - 10/26 add 5 U aspart insulin TID with meals and continue SSI QID ACHS (14) Weakness: Status: Acute Problem details: - Weakness due to metastatic cancer and malnutrition and dehydration. Improved during hospital stay but high likelihood of to worsening again, especially with chemotherapy. PT provided a walker. Has home care. May need outpatient PT/OT. (15) Anorexia: Status: Acute Problem details: No appetite. Food does not taste good. Very poor oral intake. DS: Summary Hospital Course Hospital Course: Admission history of present illness: ?68-year-old male with recently diagnosed metastatic pancreatic cancer admitted to the hospital with weakness. One month ago patient was seen on our emergency department for weight loss and anorexia. CT showed suspicion for pancreatic cancer which was subsequently confirmed. He underwent ERCP at [facility] confirming pancreatic malignancy. Biliary stent placed. Metastatic disease in the liver and portacaval nodes. September 29 he underwent staging laparoscopy. October 17 patient was seen by Dr. Townsend for medical oncology. Her note is reviewed. ?Patient has had subsequent decline with very poor appetite, persistent nausea, weight loss, weakness. Yesterday he went to a cardiology appointment and was unable to get out of the transport wheelchair due to weakness. He is brought to our emergency department. He is taking in very little solid food and minimal liquid. He reports poorly tolerating dairy products due to diarrhea. He was started on pancreatic enzymes which today may have helped his tolerance of dairy. He received IV fluids and reports feeling stronger today he is very anxious to go home. Physical therapy feels that he is able to manage with a walker. Patient is very strongly committed to going through with chemotherapy. Monday he is scheduled to initiate FOLFOX. He acknowledges that chemotherapy may make his poor appetite and malnutrition and weakness worse.? Patient received his Port-A-Cath on 10/26/23. During procedure he was noted to be hypoxic. Responded well to low-flow oxygen supplementation at 2-3 liters/minute via nasal cannula continuously. Brought back to the hospital floor subsequently for additional assessment. Still requiring oxygen supplementation when supine but did not require oxygen supplementation upon sitting up. Trop I was noted to be elevated at 1.0. BNP elevated at 2400. I asked lab to run the serum from 10/24/2023 and that trop I was elevated at 3.8. Trop I is continue to slowly downtrend since with a value of 0.6 on 10/28/2023. Electrocardiogram without ischemic or infarct pattern. Echocardiogram obtained and demonstrated no regional wall motion abnormalities. Patient presume to either have an acute myocardial event such as a non ST segment elevation myocardial infarction verses demand ischemia. Patient has had intermittent paroxysmal atrial fibrillation with RVR since being in the hospital. Was started on metoprolol and digoxin for rate control. Switch between AFib RVR in normal sinus rhythm. Was started on apixaban 5 mg p.o. b.i.d. on 10/27/2023. At 5 in the morning on 10/28/2023 again went into AFib RVR with rates of 140-150. Unable to safely achieve rate control by adding diltiazem IV drip due to hypotension. Thus given the frequent paroxysmal AFib RVR and inability to control his rate went in RVR and recent episode of elevated trope I presume to be either non ST segment elevation myocardial infarction versus demand ischemia, I called and spoke with environmental health and safety leader, Dr. Montgomery, [facility], who accepted the patient in transfer, with me having explained the patient's underlying stage IV pancreatic adenocarcinoma and his desire to continue with efforts to pursue oncologic treatments if at all possible. Discussion undertaken with patient and his on 10/28/2023. Patient continues to request that all that can possibly done to help him be done if safe to do so. expresses concern for her 's decision but is willing to support him. At the moment patient continues to request full resuscitation in the event of cardiopulmonary demise. Continues to designates his as his power of criminal attorney for health should that be required. See above statements for additional details. Status at Discharge Overall status at discharge: patient is not back to baseline Time Spent with Patient Time attestation: Total time spent providing and/or coordinating discharge services: Time spent: Greater than 30 minutes Exam Narrative: Exam Narrative: I examined patient in his hospital room. Laying on his hospital bed with head of bed elevated about 45?. Still requiring oxygen supplementation. Appears comfortable and in no acute distress. Alert and oriented to self, place, time, situation. Friendly, articulate, cooperative. Appears sleepy but is certainly arousable and interactive in discussions. Very clear that he does not wish to discuss his cancer diagnosis or prognosis. No jaundice or icterus. Does not have obvious JVD or hepatojugular reflux. Does have dependent edema up to his knees which he states is not new. Neck is supple. Midline trachea. Lungs with decreased breath sounds in both bases. Lung sounds clear otherwise. Heart tones with chaotic rhythm. PMI not laterally displaced. Abdomen with active bowel sounds, soft, nontender. Does have hepatomegaly. No focal motor neurologic deficits. Const: Vital Signs, click to edit/add: Vital Signs - 24 hr 10/27/23 15:44 10/27/23 20:00 10/27/23 22:45 Temperature 97.2 F L Pulse Rate 104 H Pulse Rate [Apical ] Pulse Rate [Right Pulse Oximeter] 113 H 83 Respiratory Rate 24 24 Blood Pressure [Le ft Arm] 109/71 Pulse Oximetry 96 Oxygen Delivery Me thod Nasal Cannula Oxygen Flow Rate 2 10/27/23 22:45 10/27/23 22:45 10/28/23 04:14 Temperature 97.0 F L 97.7 F Pulse Rate Pulse Rate [Apical ] Pulse Rate [Right Pulse Oximeter] 83 101 H Respiratory Rate 24 26 H 22 Blood Pressure [Le ft Arm] 136/74 142/78 H Pulse Oximetry 91 91 90 Oxygen Delivery Me thod Nasal Cannula Nasal Cannula Nasal Cannula Oxygen Flow Rate 2 2 3 10/28/23 04:17 10/28/23 06:14 10/28/23 07:01 Temperature 97.7 F Pulse Rate 111 H 147 H Pulse Rate [Apical ] Pulse Rate [Right Pulse Oximeter] 144 H Respiratory Rate 24 Blood Pressure [Le ft Arm] 118/80 Pulse Oximetry 90 Oxygen Delivery Me thod Nasal Cannula Oxygen Flow Rate 3.5 10/28/23 07:45 10/28/23 07:45 10/28/23 08:15 Temperature 97.1 F L Pulse Rate Pulse Rate [Apical ] 137 H 136 H Pulse Rate [Right Pulse Oximeter] Respiratory Rate 20 20 Blood Pressure [Le ft Arm] 117/75 116/66 Pulse Oximetry 91 91 Oxygen Delivery Me thod Nasal Cannula Nasal Cannula Oxygen Flow Rate 2.5 2.5 10/28/23 08:53 10/28/23 09:10 10/28/23 09:35 Temperature Pulse Rate 129 H Pulse Rate [Apical ] 157 H 130 H Pulse Rate [Right Pulse Oximeter] Respiratory Rate Blood Pressure [Le ft Arm] 84/63 L 122/76 Pulse Oximetry Oxygen Delivery Me thod Oxygen Flow Rate 10/28/23 10:25 10/28/23 12:13 Temperature 97.4 F L Pulse Rate Pulse Rate [Apical ] 79 75 Pulse Rate [Right Pulse Oximeter] Respiratory Rate 24 Blood Pressure [Le ft Arm] 119/78 109/67 Pulse Oximetry 91 Oxygen Delivery Me thod Nasal Cannula Oxygen Flow Rate 2.5 DS: Data Data Completed and Pending Labs on day of discharge: Labs from last 24 hours 10/28/23 10/28/23 10:42 06:26 WBC 22.23 H RBC 4.28 L Hgb 10.7 L Hct 34.0 L MCV 79 L MCH 25 L MCHC 32 Plt Count 143 VBG pH 7.487 H VBG pCO2 39 L VBG pO2 60.1 H VBG HCO3 29 H Sodium 133 L Potassium 3.7 Chloride 99 Carbon Dioxide 29 Anion Gap 5 L BUN 19 Creatinine 0.5 Estimated Creat Clear 78.79 Estimated GFR 110 Glucose 193 H Lactate 1.1 Calcium 8.4 Phosphorus 3.0 Magnesium 1.9 Troponin I 0.57 H* 0.68 H* C-Reactive Protein 17.6 H NT-Pro-B Natriuret Pep 1900 1620 Triglycerides 121 Cholesterol 78 L LDL Cholesterol, Calc 29 HDL Cholesterol 25 L Digoxin 1.0 Imaging Echo: Radiologist's impression: Transesophageal echocardiogram obtained 10/26/2023 demonstrates EF of about 60%. No regional wall motion abnormalities. Discharge Plan Discharge Disposition: Xfer Acute Care Hospital Discharge Location: [facility] Date of Admission: 10/26/23 21:04 Attending Provider on Discharge: Agustin Farrell Primary Care Provider: Chris Potter Condition: Guarded Discharge Orders: Transfer of Care to Other Hospital (ORDER); Ordered 10/28/23 Ordered By: Agustin Farrell Additional Instructions: Continue to work with your oncology team regarding palliative treatment options for underlying stage IV pancreatic adenocarcinoma. Discharge Comments: Transferred for additional rhythm management and ischemic assessment. Oxygen: Yes Oxygen Delivery Method: Nasal Cannula Oxygen Flow Rate: 3 LPM Urinary Catheter: Yes Services not available here: cardiology services, DARRIN, inpatient ischemic assessment capabilities, coronary angiography, etc.
--- NOTE | 2023-10-28 16:02 | PC.NURSE ---
Pt. transferred to [facility] via [facility]. [id number] report given to Nurse Marley at [facility].
[2023-10-29 03:28] LABS: Free T3 1.3 pg/mL (2.5-4.3); Total T3 67 ng/dL (80-200)
--- NOTE | 2023-10-30 14:31 | ONC.NURNOTE ---
Storage Consultant contacted about potential MD appt on Monday Per Christopher Maradiaga will be inpatient until Thursday 11/02 plan for angiogram tomorrow tentative plan to be seen early next week by Dr Townsend- chemo start date is pending possible Follow up with Dr Townsend on 11/06/23
--- NOTE | 2023-10-31 07:28 | PC.NURSE ---
late entry for 10/26/23 19-23: Pt a-fib RVR, given a dose of IV push dilt, ineffective. Pt changed to unit status and moved to CCU4 and started on a dilt drip, given IVP digoxin as well. Lozano placed, patent. Pt on 4L O2 PNC with sats in the low 90's. Pt denies pain, SOB, CP and N/V.
== END 2023-10-28 16:06 | disposition short-term general hospital (02) | DRG 280 ==
LOC: OR 21:05 → MEDSURG 21:06
PROVIDERS: Internal Medicine; Admitting Provider Family Medicine; PCP Surgery; Visit Provider Surgery
PROC: 0JH63WZ Insertion of Totally Implantable Vascular Access Device into Chest Subcutaneous Tissue and Fascia, Percutaneous Approach (ICD-10-PCS; principal; 2023-10-26 07:30)
DX: I48.0 Paroxysmal atrial fibrillation (principal); E43 Unspecified severe protein-calorie malnutrition; I21.4 Non-ST elevation (NSTEMI) myocardial infarction; I50.31 Acute diastolic (congestive) heart failure; C78.7 Secondary malignant neoplasm of liver and intrahepatic bile duct; C79.51 Secondary malignant neoplasm of bone; C25.9 Malignant neoplasm of pancreas, unspecified; R17 Unspecified jaundice; I13.0 Hypertensive heart and chronic kidney disease with heart failure and stage 1 through stage 4 chronic kidney disease, or unspecified chronic kidney disease; Z45.2 Encounter for adjustment and management of vascular access device; R09.02 Hypoxemia; E11.22 Type 2 diabetes mellitus with diabetic chronic kidney disease; E11.65 Type 2 diabetes mellitus with hyperglycemia; N18.31 Chronic kidney disease, stage 3a; Z79.01 Long term (current) use of anticoagulants; R63.0 Anorexia; R53.1 Weakness; R63.4 Abnormal weight loss; R33.9 Retention of urine, unspecified; Z79.4 Long term (current) use of insulin; Z68.30 Body mass index [BMI] 30.0-30.9, adult; Z87.891 Personal history of nicotine dependence; E78.5 Hyperlipidemia, unspecified
CPT/HCPCS: 00532; 36415; 51701; 51702; 70450; 71045; 76000; 76998; 80048; 80053; 80061; 80069; 80076; 80162; 81001; 82803; 82962; 83036; 83605; 83735; 83880; 84100; 84443; 84480; 84481; 84484; 85025; 85027; 85610; 86140; 87086; 93005; 93306; 97116; 97162; 97530; 99284; 99285; A9270; C1788; G0378; J0665; J0690; J1100; J1160; J1642; J1815; J1940; J2001; J2060; J2250; J2405; J2704; J3010; J3490; J7030; J7050; J7120

== ENCOUNTER 2023-10-28 15:58 | Outpatient (CLI) | payer MEDICARE, SELFPAY ==
--- OUTSIDE RECORDS SUMMARY | 2023-10-31 23:12 | XMS_ITS | Continuity of Care Document ---
Author Organization [facility] Address [address] [address] [place] [address] Phone Care Team Providers Care Auto Technician Mechanic Name Role Phone Zahraa BEAL, Duncan Unavailable [...] Diagnoses Date Provider Providers Copied on Encounter [facility], [address] [address], [place], [place], [id number], tel:[phone] [facility] No Information 4 Zahraa Song. [address] [place] [address], [place] [address], [place], [place], [id number], [place]. tel:[phone] [facility] [address] M [facility], [address] [address], [place], [place], [id number], tel:[phone] [facility] No Information 4 Laura Jarrett. [address] [place] [address], [facility] [address], [place], [place], [id number], [place]. tel:[phone] Referring Provider: Abner Castellanos MD, [address] [place], [place] [address] [place], [place], [address] . tel:[phone] [facility], [address] [address], [place], [place], [id number], tel:[phone] [facility] No Information Sep- 4 Jasmin Levine. [facility], [facility] [address], [place], [place], [id number], [place]. tel:[phone] Referring Provider: Abner Castellanos MD, [address] [place] [address] [address], [place], [address] . tel:[phone] [facility] Minr Compl [facility], [address] [address], [place], [place], [id number], tel:[phone] [facility] No Information 4 Carlos Enrique Graham. [address] [place] [address], [facility] [address], [place], [place], [id number], [place]. tel:[phone] Referring Provider: Gladys DEY, [address] [place] [address] [address], [place], [address] . tel:[phone] Init Hosp[facility] Mod Severity [facility], [address] [address], [place], [place], [id number], tel:[phone] [facility] No Information 4 Johnnie Vizcarra. [address] [place] [address], [facility] [address], [place], [place], [id number], [place]. tel:[phone] Referring Provider: Chris Lugo, [address] [place], [address]. tel:[phone] Family History Family Member Type Diagnosis Age At Onset No Information Payers Payer name Insurance type Covered constitution party ID Authoriza tion(s) No Information Social History [...]
--- OUTSIDE RECORDS SUMMARY | 2023-10-31 23:13 | XMS_ITS | Clinical Summary ---
Author Organization [facility] Address [place], [place] [address] Care Team Providers [employer] Process Hand Name Role Phone Chris Potter MD Primary Care Provider [phone]- [phone] Allergies No known active allergies Medications Medication Sig Dispensed Refills Start Date End Date Status blood-glucose meterIndications: Type 2 diabetes mellitus without complication, with long-term current use of insulin (HC) Dispense meter, test strips, lancets covered by pt ins. E11.9 NIDDM type II - Test 1 time/day 1 Each 06/18/19 22 024 Discontinued(R eorder (E-cancel not sent)) sildenafiL, pulm.hypertension , (REVATIO) 20 mg tabletIndications :Erectile dysfunction, unspecified erectile dysfunction type Take 1-5 pills (start at lower dose and increase next time if needed) 30 mins prior to sexual intercourse 30 Tablet 1 12/22/19 22 024 Discontinued(* IP Discontinued) Dexcom G6 Transmitter for continuous blood glucose monitor (CGM)Indications: Type 2 diabetes mellitus with diabetic polyneuropathy, with long-term current use of insulin (HC) To be used to read blood sugars, follow longwall headgate operator directions. 1 Each 4 11/12/19 23 024 Discontinued(* Patient states no longer taking) Dexcom G6 Sensor for continuous blood glucose monitor (CGM)Indications: Type 2 diabetes mellitus with diabetic polyneuropathy, with long-term current use of insulin (HC) To be used to read blood sugars, follow longwall headgate operator directions. 9 Each 3 11/12/19 23 024 Discontinued(* Patient states no longer taking) Dexcom G6 Road Machine Operator for continuous blood glucose monitor (CGM)Indications: Type 2 diabetes mellitus with diabetic polyneuropathy, with long-term current use of insulin (HC) To be used to read blood sugars follow longwall headgate operator directions. 1 Each 11/12/19 23 024 Discontinued(* Patient states no longer taking) glimepiride (AMARYL) 4 mg tabletIndications :Type 2 diabetes mellitus with diabetic polyneuropathy, with long-term current use of insulin (HC) Take 1 Tablet (4 mg) by mouth once daily with a meal. 90 Tablet 3 11/12/19 23 Suspended Additional Information lisinopriL (PRINIVIL; ZESTRIL) 10 mg tabletIndications :HTN (hypertension) Take 1 Tablet (10 mg) by mouth once daily. 90 Tablet 3 11/12/19 23 024 Discontinued(* IP Discontinued) Farxiga 5 mg tabletIndications :Type 2 diabetes mellitus with diabetic polyneuropathy, with long-term current use of insulin (HC),Albuminuria TAKE 1 TABLET(5 MG) BY MOUTH EVERY DAY 90 Tablet 3 01/17/20 23 Suspended Additional Information Patient taking differently: 5 mgOralDAILY, Informant: Patient's Recall, Home Med Bottles, Reported on 09/22/2023 BD Yuliana 2nd Gen Pen Needle 32 gauge x /32Indications: Type 2 diabetes mellitus without complication, with long-term current use of insulin (HC) USE TWICE DAILY DIRECTED 200 Each 3 02/04/20 23 Suspended Additional Information insulin glargine, U-100, (Lantus Solostar U-100 Insulin) 100 unit/mL (3 mL) penIndications:Ty pe 2 diabetes mellitus with diabetic polyneuropathy, with long-term current use of insulin (HC) INJECT 34 UNITS SUBCUTANEOUS BEFORE BEDTIME. 30 mL 07/15/19 24 024 Discontinued cyclobenzaprine (FLEXERIL) 5 mg tabletIndications :Muscle spasm Take 1 Tablet (5 mg) by mouth every 8 hours if needed for Muscle Spasm. 30 Tablet 07/21/19 24 Suspended Additional Information atorvastatin (LIPITOR) 40 mg tabletIndications :Hyperlipidemia, unspecified hyperlipidemia type TAKE 1 TABLET(40 MG) BY MOUTH AT BEDTIME 90 Tablet 2 08/04/19 24 Suspended Additional Information Patient taking differently: 40 mgOralQ AM, Informant: Patient's Recall, Home Med Bottles, Reported on 09/22/2023 metFORMIN (GLUCOPHAGE) 1,000 mg tabletIndications :Type 2 diabetes mellitus with diabetic polyneuropathy, with long-term current use of insulin (HC) Take 1 Tablet (1,000 mg) by mouth two times daily with meals. 180 Tablet 08/14/19 24 Suspended Additional Information insulin glargine, U-100, (Lantus Solostar U-100 Insulin) 100 unit/mL (3 mL) penIndications:Ty pe 2 diabetes mellitus with diabetic polyneuropathy, with long-term current use of insulin (HC) Inject 28 units subcutaneous before bedtime. Product desired: LANTUS SOLOSTAR 10/04/19 24 024 Discontinued(* Medication adjustment) lisinopriL (PRINIVIL; ZESTRIL) 5 mg tabletIndications :HTN (hypertension) Take 1 Tablet (5 mg) by mouth once daily. 90 Tablet 10/04/19 24 024 Discontinued(* IP Discontinued) acetaminophen (TYLENOL) 325 mg tabletIndications :Malignant neoplasm of pancreas metastatic to liver (HC) Take 2 Tablets (650 mg) by mouth every 4 hours if needed for Pain (For mild pain.). Max acetaminophen dose: 4000mg in 24 hrs. 10/04/19 24 Suspended Additional Information oxyCODONE (ROXICODONE) 5 mg immediate release tabletIndications :Malignant neoplasm of pancreas metastatic to liver (HC) Take 1-2 Tablets (5-10 mg) by mouth every 4 hours if needed for Pain (For moderate to severe pain.). 60 Tablet 10/04/19 24 024 Discontinued ondansetron (ZOFRAN ODT) 4 mg disintegrating tabletIndications :Malignant neoplasm of pancreas metastatic to liver (HC) Place 1 Tablet (4 mg) on the tongue every 8 hours if needed for Nausea/Vomiting. 15 Tablet 10/04/19 24 Suspended Additional Information metoprolol tartrate (LOPRESSOR) 50 mg tabletIndications :Atrial fibrillation with RVR (HC) Take 1 Tablet (50 mg) by mouth two times daily. 60 Tablet 10/04/19 24 024 Discontinued(R eorder (E-cancel not sent)) polyethylene glycol (MIRALAX; GLYCOLAX) 17 g per packet packetIndications :Malignant neoplasm of pancreas metastatic to liver (HC) Take 17 g by mouth or nasogastric tube 2 times daily if needed for Constipation. 10/04/19 24 Suspended Additional Information apixaban (Eliquis) 5 mg tabletIndications :Atrial fibrillation with RVR (HC) Take 1 Tablet (5 mg) by mouth two times daily. 60 Tablet 10/07/19 24 024 Discontinued(R eorder (E-cancel not sent)) hospital bedIndications:Ma lignant neoplasm of pancreas metastatic to liver () Hospital bed with mattress and full rails. Semi-electric bed. Length of need 99 months. Bed dye house vat worker:yes 1 Each 10/04/19 24 024 Discontinued(* IP Discontinued) loperamide (IMODIUM) 2 mg capsuleIndication s:Diarrhea, unspecified type Take 2 capsules (4mg) by mouth with 1st loose stool, then 1 capsule (2mg) with other loose stools. Max 8 capsules (16 mg) in 24 hrs. 40 Capsule 10/07/19 24 Suspended Additional Information insulin aspart, U-100, (NOVOLOG FLEXPEN) 100 unit/mL (3 mL) penIndications:Ty pe 2 diabetes mellitus with diabetic polyneuropathy, with long-term current use of insulin () Inject 0-12 units subcutaneous three times daily before meals. Give subcutaneous 3 times a day with meals per blood glucose (mg/dL). Don't give corrective dose for PRN, post-prandial or nocturnal glucose checks unless ordered. Blood Glucose.....Dose <70.............See Hypoglycemia Protocol 70-149........No insulin, give prandial insulin, if ordered 150-199......2 units 200-249......4 units 250-299......6 units 300-349......8 units 350-399......10 units 400 or greater....12 units & call 10/07/19 24 024 Discontinued(D uplicate therapy (E-cancel not sent)) oxyCODONE (ROXICODONE) 5 mg immediate release tabletIndications :Malignant neoplasm of pancreas metastatic to liver (HC) Take 1-2 Tablets (5-10 mg) by mouth every 4 hours if needed for Pain (For moderate to severe pain.). 5mg for pain 0-5/10, 10mg for pain 6-10/10 60 Tablet 10/07/19 24 024 Discontinued oxyCODONE (ROXICODONE) 5 mg immediate release tabletIndications :Malignant neoplasm of pancreas metastatic to liver (HC) Take 1-2 Tablets (5-10 mg) by mouth every 4 hours if needed for Pain (For moderate to severe pain.). 5mg for pain 0-5/10, 10mg for pain 6-10/10 60 Tablet 10/10/19 24 024 Discontinued(R eorder (E-cancel not sent)) insulin aspart, U-100, (NOVOLOG FLEXPEN) 100 unit/mL (3 mL) penIndications:Ty pe 2 diabetes mellitus with diabetic polyneuropathy, with long-term current use of insulin () Inject 0-12 units subcutaneous three times daily before meals. Give subcutaneous 3 times a day with meals per blood glucose (mg/dL). Don't give corrective dose for PRN, post-prandial or nocturnal glucose checks unless ordered. Blood Glucose.....Dose <70.............See Hypoglycemia Protocol 70-149........No insulin, give prandial insulin, if ordered 150-199......2 units 200-249......4 units 250-299......6 units 300-349......8 units 350-399......10 units 400 or greater....12 units & call MD 10/10/19 24 024 Discontinued(P harmacist change per medication history (E-cancel not sent)) mirtazapine (REMERON) 7.5 mg tablet 10/15/19 24 024 Discontinued(R eorder (E-cancel not sent)) mirtazapine (REMERON) 7.5 mg tabletIndications :Anorexia Take 1 Tablet (7.5 mg) by mouth at bedtime. 90 Tablet 10/16/19 24 Suspended Additional Information apixaban (Eliquis) 5 mg tabletIndications :Atrial fibrillation with RVR (HC) Take 1 Tablet (5 mg) by mouth two times daily. 60 Tablet 10/16/19 24 024 Discontinued(* Medication adjustment) metoprolol tartrate (LOPRESSOR) 50 mg tabletIndications :Atrial fibrillation with RVR (HC) Take 1 Tablet (50 mg) by mouth two times daily. 60 Tablet 10/16/19 24 Suspended Additional Information blood-glucose meterIndications: Type 2 diabetes mellitus without complication, with long-term current use of insulin (HC) Dispense meter, test strips, lancets covered by pt ins. E11.9 NIDDM type II - Test 1 time/day 1 Each 10/16/19 24 Suspended Additional Information oxyCODONE (ROXICODONE) 5 mg immediate release tabletIndications :Malignant neoplasm of pancreas metastatic to liver (HC) Take 1-2 Tablets (5-10 mg) by mouth every 6 hours if needed for Pain (For moderate to severe pain.). 5mg for pain 0-5/10, 10mg for pain 6-10/10 60 Tablet 10/18/19 24 Suspended Additional Information fokfkr-bsbqpyvi-d mylase (Creon) 6,000-19,000 -30,000 unit delayed-release capsuleIndication s:Malignant neoplasm of pancreas metastatic to liver (HC) Take 1 Capsule by mouth three times daily with meals. 90 Capsule 3 10/18/19 24 Suspended Additional Information insulin glargine, U-100, (Lantus Solostar U-100 Insulin) 100 unit/mL (3 mL) penIndications:Ty pe 2 diabetes mellitus with diabetic polyneuropathy, with long-term current use of insulin (HC) Inject 32 units subcutaneous before bedtime. Product desired: LANTUS SOLOSTAR 30 mL 3 10/23/19 24 Suspended Additional Information Patient taking differently: 26 unitSubcutaneous BEFORE BEDTIME, Product desired: LANTUS SOLOSTAR, Reported on 10/28/2023 droNABinol (MARINOL) 5 mg capsule Take 5 mg by mouth two times daily before meals. Suspended metoclopramide (REGLAN) 5 mg tablet Take 5 mg by mouth once daily. Suspended prochlorperazine (COMPAZINE) 5 mg tablet Take 5 mg by mouth 2 times daily if needed for Nausea/Vomiting. Suspended Active Problems Problem Noted Date Diagnosed Date Coagulopathy 10/31/2023 Protein-calorie malnutrition, moderate Overview: As evidenced by loose skin, muscle wasting, rapid weak loss, and albumin and total protein. Start nutritional supplementation and consult Nutrition. Weakness 10/28/2023 Overview: Weakness due to metastatic cancer and malnutrition and dehydration. Improved during hospital stay but likely to get worse again, especially with chemotherapy. PT provided a walker. Morbid (severe) obesity due to excess calories 0 10/28/2023 Overview: Documented on 07/14/2022 by TAYLOR LOPEZ Paroxysmal atrial fibrillation 10/28/2023 NSTEMI (non-ST elevated myocardial infarction) 0 10/28/2023 Acute urinary retention 10/28/2023 Acute respiratory failure with hypoxia Malignant neoplasm of pancreas metastatic to ramin er 10/04/2023 Liver mass, right lobe 09/29/2023 Malignant neoplasm of pancreas 09/28/2023 Pancreatic mass 09/22/2023 Painless jaundice 09/22/2023 Nausea & vomiting 09/22/2023 Weight loss 09/22/2023 Atrial fibrillation with RVR 09/22/2023 Type 2 diabetes mellitus wit h diabetic nephropathy, with long-term current use of insulin 07/14/2022 Albuminuria 07/14/2022 Morbid obesity with BMI of 40.0-44.9, adult 06/01 Type 2 diabetes mellitus wit hout complication, with long-term current use of insulin 01/04/2021 HTN (hypertension) 01/04/2021 Hyperlipidemia, unspecified 01/04/2021 Detached retina 01/04/2021 Closed traumatic dislocation of finger of right hand 01/04/2021 Closed fracture of navicular bone of foot 2019 Resolved Problems Problem Noted Date Diagnosed Date Resolved Date Stage 3a chronic kidney disease 07/14/2022 10/28/2023 Encounters Date Type Department Care Team Description 10/28/2023 5:01 PM CDT - Present Hospital Encounter [facility] [address] [place] [address] [facility] [place] [facility] MD Sebas Araujo, ROHAN Burks Encounter for monitoring sotalol therapy (Primary Dx); Cardiovascular symptoms 10/28/2023 Telephone [facility] [address] [place] [address] Colin Montgomery MD 10/27/2023 Orders Only [facility] Scanner 1 scan: (1-Ord) [facility], CT HEAD/BRAIN WO, 10/27/2023 10/26/2023 4:00 PM CDT Ancillary Procedure [facility] [address] [place] [address] 10/26/2023 Orders Only [facility] Scanner 1 scan: (1-Ord) [place], XR CHEST 1V PORTABLE, 10/26/2023 10/26/2023 Orders Only [facility] Scanner 1 scan: (1-Ord) [place], RT INTERNAL JUGULAR PORT A CATHETER PLACEMENT, 10/26/2023 10/26/2023 Orders Only [facility] Scanner 1 scan: (1-Ord) [place], CHEST, 10/26/2023 10/26/2023 Travel 10/24/2023 2:00 PM CDT Office Visit [facility] [address] [place] [address] Torsten Mi MD Consult (Atrial fib/) 10/23/2023 10:45 AM CDT Preop Visit [facility] [address] [place] [address] Chris Potter MD Preoperative Exam (Port placement with Dr. Escobar at [facility] 10/26/23) 10/23/2023 Telephone [facility] [address] [place] [address] Annika Acosta MS, [facility] Appointment Reminder 10/23/2023 Travel 10/19/2023 Transcribe Orders [facility] [address] [place] [address] Stephenie Escobar MD 10/19/2023 Transcribe Orders [facility] [address] [place] [address] Margaret Townsend MD 10/18/2023 Refill [facility] [address] [place] [address] Chris Potter MD Refill Request (oxyCODONE (ROXICODONE) 5 mg immediate release tablet) 10/18/2023 Telephone [facility] [address] [place] [address] Chris Potter MD Appointment Request (Needs to be seen soon, getting a port installed for chemo) 10/16/2023 12:35 PM CDT Office Visit [facility] [address] [place] [address] Chris Potter MD Follow Up (Wants to get everything and everyone on the same page) 10/16/2023 Refill [facility] [address] [place] [address] Chris Potter MD Refill Request (Metoprolol Tartrate) 10/16/2023 Travel 10/13/2023 Telephone [facility] [address] [place] [address] Chris Potter MD Questions 10/10/2023 Lab Requisition [facility] [phone] Torsten Arias MD 09/30/2023 8:06 AM CDT Anesthesia Event [facility] [address] [place] [address] Misael Hdz MD [facility] Foster, CERTIFIED ADAPTIVE PHYSICAL EDUCATOR 09/30/2023 7:45 AM CDT - 09/30/2023 10:05 AM CDT Surgery [facility] [address] [place] [address] Rafael Bertrand MBBS LAPAROSCOPY STAGING, 09/26/2023 Orders Only [facility] [address] [place] [address] Nadia Zapata PA 1 scan: (1-Ord) [facility], MR ABDOMEN WO/W, 09/22/2023 09/25/2023 3:25 PM CDT - 09/25/2023 4:45 PM CDT Surgery [facility] [address] [place] [address] Abner Argueta MD ENDOSCOPIC ULTRASOUND FINE NEEDLE ASPIRATE UPPER 09/25/2023 3:22 PM CDT Anesthesia Event [facility] [address] [place] [address] Hadley Fontaine MD 09/25/2023 Travel 09/22/2023 10:16 PM CDT - 10/10/2023 9:29 AM CDT Hospital Encounter [facility] [address] [facility] [place] [address] [facility] Of [facility], ROHAN Kendrick Valeed Ahmed, [...] unspecified location of malignancy (HC) Discharge Disposition: Residential Facility 09/21/2023 Telephone [facility] [address] [place] [address] Chris Potter MD Questions 09/21/2023 Telephone [facility] [address] [place] [address] Chris Potter MD Questions (follow up) 09/19/2023 3:30 PM CDT Ancillary Procedure [facility] [address] [place] [address] 09/19/2023 2:30 PM CDT Office Visit [facility] [address] [place] [address] Nadia Zapata PA Gi Problem (Can't eat or drink anything without feeling nauseated within 20 min. States he is down 40 lbs in last 6 weeks- has been trying tums and omeprazole with no improvement) 09/19/2023 Travel 09/01/2023 9:25 AM CDT Office Visit [facility] [address] [place] [address] Clarita Naranjo PA UTI 09/01/2023 Travel 08/31/2023 Telephone [facility] [address] [facility] [address] Chris Potter MD Medication Management (YEAST INFECTION ) 08/13/2023 Refill [facility] [address] [facility] [address] Chris Potter MD Refill Request (Metformin) 08/03/2023 Refill [facility] [address] [place] [address] Chris Potter MD Refill Request (Atorvastatin) from Last 3 Months Immunizations Name Administration Dates Next Due COVID-19 vaccine ([employer] NT[employer] 30mcg/0.3mL) 12YO+ CARLITOS-SUCROSE PF MDV 07/05/2021,06/29/2020,06/08/2020 COVID-19 vaccine ([employer] NTech 30mcg/0.3mL) MILDRED MANRIQUE 03/03/2021 Influenza, High-dose [...] Date Smoking Tobacco: Former Cigars S tarted: 1985 Smokeless Tobacco: Never Tobacco Cessation:Counseling Given: Yes [...] Sign Reading Time Taken Comments Blood Pressure 104/62 10/31/2023 6:35 PM CDT Pulse 80 10/31/2023 6:35 PM CDT Temperature 36.9 ??C (98.5 ??F) 10/31/2023 3:40 PM CD T Respiratory Rate 12 10/31/2023 3:40 PM CDT Oxygen Saturation 88% 10/31/2023 6:35 PM CDT Inhaled Oxygen Concentration - - Weight 109.3 kg (241 lb) 10/30/2023 6:58 AM CDT Height 185.4 cm (6' 1) 09/23/2023 6:01 AM CDT Body Mass Index 31.8 09/23/2023 6:01 AM CDT Plan of Treatment Upcoming Encounters Date Type Department Care Team (Late st Contact Info) Description 11/21/2023 10:55 AM CDT Office Visit [facility] [address] [place] [address] Chris Potter MD [address] [place] [address] Health Maintenance Due Date Last Done Comments [...] 50+ Discontinued Medical Devices Implanted Type Area Military Pay Clerk Device Identifier Shelf Expiration Date Model / Serial / Lot Stent Biliary [id number] Viabil No Holes Metal - [id number] Implanted:Qty: 1 on 09/25/2023 by Abner Argueta MD at [facility] 4th aspect [id number] / / [id number] Description:Viabil 10x40 earl [address] dr argueta Procedures The patient is currently admitted. The information in this section might not be complete until the patient is discharged. Procedure Name Priority Date/Time Associated Diagnosis Comments GLUCOSE METER Timed 10/31/2023 10:15 PM CDT GLUCOSE METER Timed 10/31/2023 9:25 PM CDT GLUCOSE METER Timed 10/31/2023 4:57 PM CDT SCAN-CARDIAC STRIP 10/31/2023 3:46 PM CDT APTT Timed 10/31/2023 2:21 PM CDT GLUCOSE METER Timed 10/31/2023 11:07 AM CDT GLUCOSE METER Timed 10/31/2023 7:11 AM CDT PROTIME-INR OFE 10/31/2023 6:51 AM CDT MAGNESIUM Timed 10/31/2023 6:51 AM CDT APTT Timed 10/31/2023 6:51 AM CDT WHITE BLOOD COUNT Early AM 10/31/2023 6:51 AM CDT HEMATOCRIT Early AM 10/31/2023 6:51 AM CDT HEMOGLOBIN Early AM 10/31/2023 6:51 AM CDT PLATELET COUNT Early AM 10/31/2023 6:51 AM CDT GLUCOSE METER Timed 10/30/2023 9:39 PM CDT SCAN-CARDIAC STRIP 10/30/2023 8:41 PM CDT SCAN-CARDIAC STRIP 10/30/2023 8:41 PM CDT GLUCOSE METER Timed 10/30/2023 5:39 PM CDT SCAN-CARDIAC STRIP 10/30/2023 3:16 PM CDT SCAN CORRESP-EKG RESULTS 024 2:01 PM CDT SCAN CORRESP-LABORATORY RESULTS 10/30/2023 2:01 PM CDT SCAN CORRESP-IMAGING 10/30/2023 2:01 PM CDT SCAN CORRESP-IMAGING 10/30/2023 2:01 PM CDT SCAN CORRESP-DIAGNOSTICS 024 2:01 PM CDT GLUCOSE METER Timed 10/30/2023 11:47 AM CDT APTT OFE 10/30/2023 10:33 AM CDT GLUCOSE METER Timed 10/30/2023 7:55 AM CDT EKG 12 LEAD Routine 10/30/2023 6:50 AM CDT WHITE BLOOD COUNT Early AM 10/30/2023 6:12 AM CDT HEMATOCRIT Early AM 10/30/2023 6:12 AM CDT HEMOGLOBIN Early AM 10/30/2023 6:12 AM CDT PLATELET COUNT Early AM 10/30/2023 6:12 AM CDT GLUCOSE METER Timed 10/30/2023 5:30 AM CDT APTT Timed 10/30/2023 1:40 AM CDT GLUCOSE METER Timed 10/29/2023 9:45 PM CDT GLUCOSE METER Timed 10/29/2023 6:02 PM CDT XR CHEST 1 VIEW PORTABLE Routine 024 3:57 PM CDT CREATININE OFE 10/29/2023 3:23 PM CDT BUN OFE 10/29/2023 3:23 PM CDT CREATININE STAT 10/29/2023 3:23 PM CDT BUN STAT 10/29/2023 3:23 PM CDT POTASSIUM STAT 10/29/2023 3:23 PM CDT SODIUM STAT 10/29/2023 3:23 PM CDT CBC W PLT NO DIFF STAT 10/29/2023 3:23 PM CDT APTT OFE 10/29/2023 3:22 PM CDT PROTIME-INR OFE 10/29/2023 3:22 PM CDT URINALYSIS MICROSCOPIC Timed 2:04 PM CDT URINE CULTURE OFE 10/29/2023 2:04 PM CDT UA W/ SEDIMENT EXAM REFLEXED PER CRITERIA Today 10/29/2023 2:04 PM CDT GLUCOSE METER Timed 10/29/2023 2:[address] CARDIAC CORONARY ARTERIES DUAL READ Routine 10/29/2023 1:03 PM CDT GLUCOSE METER Timed 10/29/2023 11:37 AM CDT GLUCOSE METER Timed 10/29/2023 7:20 AM CDT RED CELL MORPHOLOGY Timed 10/29/2023 6:04 AM CDT PLATELET ESTIMATE Timed 10/29/2023 6:04 AM CDT MANUAL DIFFERENTIAL Timed 10/29/2023 6:04 AM CDT CBC WITH AUTO DIFFERENTIAL Early AM 10/28 6:04 AM CDT BASIC METABOLIC PANEL Early AM 10/29/2023 6:04 AM CDT CBC WITH AUTO DIFFERENTIAL Early AM 10/28 6:04 AM CDT T3,TOTAL Early AM 10/29/2023 6:04 AM CDT T4,FREE Early AM 10/29/2023 6:04 AM CDT TSH Early AM 10/29/2023 6:04 AM CDT EKG 12 LEAD Routine 10/28/2023 8:58 PM CDT GLUCOSE METER Timed 10/28/2023 8:29 PM CDT SCAN-CT INTERPRETATION 12:00 AM CDT ECHO TTE COMPLETE WO CONTRAST Routine 10/26/2023 1:56 PM CDT Heart failure (HC) SCAN-RADIOLOGY REPORT 10/26/2023 12:00 AM CDT SCAN-RADIOLOGY REPORT 10/26/2023 12:00 AM CDT SCAN-OPERATIVE/PROCEDURE [...] CDT MR ABDOMEN MRCP PANCREAS WWO STAT 06/ 12:00 AM CDT Biliary obstruction Elevated pancreatic [...] Health Maintenance Results * (ABNORMAL) GLUCOSE METER (10/31/2023 10:15 PM CDT) Only the most recent of97 resultswithin the time period is included. GLUCOSE METER 212(H) 65 - 100 mg/dL 10/31/2023 10:15 PM CDT [facility] Blood BLOOD SPECIMEN / Unknown 10/31/2023 10:15 PM CDT 10/31/2023 10:15 PM CDT Jennifer Galo MD CHEMISTRY Performing Organization Address City/[facility] Co de Phone Number [facility] [address] [place] [address], * SCAN-CARDIAC STRIP (10/31/2023 3:46 PM CDT) Scanner OTHER * (ABNORMAL) APTT (10/31/2023 2:21 PM CDT) Only the most recent of8 resultswithin the time period is included. APTT 67(H) 28 - 36 sec 10/31/2023 2:51 PM CDT [facility] Blood BLOOD SPECIMEN / Unknown Venipuncture / Unknown 10/31/2023 2:21 PM CDT 10/31/2023 2:31 PM CDT Narrative [facility] - 10/31/2023 2:51 PM CDT Therapeutic Range: 57-87 seconds Jennifer Galo MD HEMATOLOGY Performing Organization Address City/[facility]/ZIP Co de Phone Number [facility] [address] [place] [phone], * (ABNORMAL) PLATELET COUNT (10/31/2023 6:51 AM CDT) Only the most recent of15 resultswithin the time period is included. PLATELET COUNT 125(L) 140 - 440 thou/cu mm 10/31/2023 7:38 AM CDT [facility] MPV 12.1(H) 6.5 - 11.0 fL 10/31/2023 7:38 AM CDT [facility] Blood BLOOD SPECIMEN / Unknown Butterfly / Unknown 10/31/2023 6:51 AM CDT 10/31/2023 7:05 AM CDT Narrative [facility] - 10/31/2023 7:38 AM CDT Every morning while on IV heparin. Every morning while on IV heparin. Necessary every morning while on IV heparin. Hailee Allen [facility] HEMATOLOGY Performing Organization Address City/[facility] Co de Phone Number [facility] [address] [place] [address], * (ABNORMAL) WHITE BLOOD COUNT (10/31/2023 6:51 AM CDT) Only the most recent of2 resultswithin the time period is included. WHITE BLOOD COUNT 14.2(H) 4.5 - 11.0 thou/cu mm 10/31/2023 7:38 AM CDT [facility] NRBC 0.0 % 10/31/2023 7:38 AM CDT [facility] ABS NRBC 0.0 thou /cu mm 10/31/2023 7:38 AM CDT [facility] Blood BLOOD SPECIMEN / Unknown Butterfly / Unknown 10/31/2023 6:51 AM CDT 10/31/2023 7:05 AM CDT Narrative [facility] - 10/31/2023 7:38 AM CDT Every morning while on IV heparin. Every morning while on IV heparin. Necessary every morning while on IV heparin. Vitaliy MADRIGAL HEMATOLOGY Performing Organization Address City/[facility]/ZIP Co de Phone Number [facility] [address] [place] [address], * (ABNORMAL) HEMOGLOBIN (10/31/2023 6:51 AM CDT) Only the most recent of9 resultswithin the time period is included. HEMOGLOBIN 8.7(L) 13.5 - 17.5 g/dL 10/31/2023 7:38 AM CDT [facility] MCV 79(L) 80 - 100 fL 10/31/2023 7:38 AM CDT [facility] Blood BLOOD SPECIMEN / Unknown Butterfly / Unknown 10/31/2023 6:51 AM CDT 10/31/2023 7:05 AM CDT [facility] - 10/31/2023 7:38 AM CDT Every morning while on IV heparin. Every morning while on IV heparin. Necessary every morning while on IV heparin. [facility] HEMATOLOGY Performing Organization Address [facility] Co de Phone Number [facility] [address] [address], [place] * (ABNORMAL) HEMATOCRIT (10/31/2023 6:51 AM CDT) Only the most recent of4 resultswithin the time period is included. HEMATOCRIT 27.7(L) 37.0 - 53.0 % 10/31/2023 7:38 AM CDT [facility] Blood BLOOD SPECIMEN / Unknown Butterfly / Unknown 10/31/2023 6:51 AM CDT 10/31/2023 7:05 AM CDT [facility] - 10/31/2023 7:38 AM CDT Every morning while on IV heparin. Every morning while on IV heparin. Necessary every morning while on IV heparin. [facility] HEMATOLOGY Performing Organization Address [facility] Co de Phone Number [facility] [address] [place] [address], [place] * (ABNORMAL) INR AM (10/31/2023 6:51 AM CDT) Only the most recent of5 resultswithin the time period is included. INR 3.4(H) <1.3 10/31/2023 9:27 AM CDT [facility] PROTIME 36.7(H) 10.3 - 12.3 sec 10/31/2023 9:27 AM CDT [facility] Blood BLOOD SPECIMEN / Unknown Butterfly / Unknown 10/31/2023 6:51 AM CDT 10/31/2023 7:05 AM CDT Narrative [facility] - 10/31/2023 9:27 AM CDT ?Therapeutic Range 2.0-3.0 for most [...] seconds if the patient is on UFH. Vincent Malloy MD HEMATOLOGY Performing Organization Address [facility] de Phone Number [facility] [address] * MAGNESIUM (10/31/2023 6:51 AM CDT) Only the most recent of2 resultswithin the time period is included. MAGNESIUM 1.8 1.6 - 2.4 mg/dL 10/31/2023 8:03 AM CDT [facility] Blood BLOOD SPECIMEN / Unknown Butterfly / Unknown 10/31/2023 6:51 AM CDT 10/31/2023 7:05 AM CDT Kolby Britton MD CHEMISTRY Performing Organization Address [facility] Co de Phone Number [facility] [address] [place] [address], * SCAN-CARDIAC STRIP (10/30/2023 8:41 PM CDT) Scanner OTHER * SCAN-CARDIAC STRIP (10/30/2023 8:41 PM CDT) Scanner OTHER * SCAN-CARDIAC STRIP (10/30/2023 3:16 PM CDT) Scanner OTHER * SCAN CORRESP-LABORATORY RESULTS (10/30/2023 2:01 PM CDT) Narrative 10/30/2023 2:01 PM CDT Ordered by an unspecified provider. Other Clinical Staff OTHER * SCAN CORRESP-EKG RESULTS (10/30/2023 2:01 PM CDT) Narrative 10/30/2023 2:01 PM CDT Ordered by an unspecified provider. Other Clinical Staff OTHER * SCAN CORRESP-DIAGNOSTICS (10/30/2023 2:01 PM CDT) Narrative 10/30/2023 2:01 PM CDT Ordered by an unspecified provider. Other Clinical Staff OTHER * SCAN CORRESP-IMAGING (10/30/2023 2:01 PM CDT) Only the most recent of2 resultswithin the time period is included. Anatomical Region Laterality Modality Other Narrative 10/30/2023 2:01 PM CDT Ordered by an unspecified provider. Other Clinical Staff OTHER * EKG 12 LEAD (10/30/2023 6:50 AM CDT) Only the most recent of5 resultswithin the time period is included. Interpretation Sinus rhythm with Premature atrial complexes Low voltage QRS Cannot rule out Inferior infarct , age undetermined Abnormal ECG When compared with ECG of 28-Oct-2023 20:58, Nonspecific T wave abnormality now evident in Anterolateral leads BEYOND NOW Ventricular Rate 83 BPM BEYOND NOW Atrial Rate 83 BPM BEYOND NOW P-R Interval 142 ms BEYOND NOW QRS Duration 88 ms BEYOND NOW QT 334 ms BEYOND NOW QTc 392 ms BEYOND NOW P [place] 1 degrees BEYOND NOW R [place] -3 degrees BEYOND NOW T [place] 84 degrees BEYOND NOW 10/30/2023 6:50 AM CDT 10/30/2023 12:05 PM CDT Marquis Ayoub MD EKG ORD BEYOND NOW [place], [place] * XR CHEST 1 VIEW PORTABLE (10/29/2023 3:57 PM CDT) Anatomical Region Laterality Modality HEART, THORAX, CHEST Digital Rad iography 10/29/2023 4:07 PM CDT Impressions 10/29/2023 4:07 PM CDT Bibasilar densities representing atelectasis or infiltrates. Dictated by Vincent Day MD @ Oct 29 2023 ??4:07PM (Electronically Signed) [email or web address] Narrative 10/29/2023 4:07 PM CDT For Patients: ??As a result of the Cures Act, medical imaging exams and procedure reports are released immediately into your electronic medical record. ??You may view this report before your referring provider. ??If you have questions, please contact your health care provider. INDICATION: Lung infiltrate TECHNIQUE: Chest 1 view COMPARISON: None FINDINGS: Low lung volumes. Central venous catheter. Bilateral densities in the lung bases. No pneumothorax or large volume pleural effusion. Cardiac silhouette nonenlarged. Procedure Note Vincent Day MD - 10/29/2023 For Patients: As a result of the Cures Act, medical imagingexams and procedure reports are released immediately into your electronicmedical record. You may view this report before your referring provider.If you have questions, please contact your health care provider. INDICATION: Lung infiltrate TECHNIQUE: Chest 1 view COMPARISON: None FINDINGS: Low lung volumes. Central venous catheter. Bilateral densities in the lungbases. No pneumothorax or large volume pleural effusion. Cardiacsilhouette nonenlarged. IMPRESSION: Bibasilar densities representing atelectasis or infiltrates. Dictated by Vincent Day MD @ Oct 29 2023 4:07PM (Electronically Signed) [email or web address] Vitaliy MADRIGAL GENERAL IMAG[facility] * (ABNORMAL) CBC with Platelets no Differential (10/29/2023 3:23 PM CDT) Only the most recent of2 resultswithin the time period is included. WHITE BLOOD COUNT 19.7(H) 4.5 - 11.0 thou/cu mm 10/29/2023 3:53 PM CDT [facility] RED BLOOD COUNT 4.12(L) 4.30 - 5.90 mil/cu mm 10/29/2023 3:53 PM CDT [facility] HEMOGLOBIN 10.4(L) 13.5 - 17.5 g/dL 10/29/2023 3:53 PM CDT [facility] HEMATOCRIT 32.9(L) 37.0 - 53.0 % 10/29/2023 3:53 PM CDT [facility] MCV 80 80 - 100 fL 10/29/2023 3:53 PM CDT [facility] MCH 25.2(L) 26.0 - 34.0 pg 10/29/2023 3:53 PM CDT [facility] MCHC 31.6(L) 32.0 - 36.0 g/dL 10/29/2023 3:53 PM CDT [facility] RDW 14.9 11.5 - 15.5 % 10/29/2023 3:53 PM CDT [facility] PLATELET COUNT 136(L) 140 - 440 thou/cu mm 10/29/2023 3:53 PM CDT [facility] MPV 12.2(H) 6.5 - 11.0 fL 10/29/2023 3:53 PM CDT [facility] NRBC 0.0 % 10/29/2023 3:53 PM CDT [facility] ABS NRBC 0.0 thou /cu mm 10/29/2023 3:53 PM CDT [facility] Blood BLOOD SPECIMEN / Unknown Butterfly / Unknown 10/29/2023 3:23 PM CDT 10/29/2023 3:45 PM CDT [facility] - 10/29/2023 3:53 PM CDT Obtain before initiating IV heparin therapy if not done within previous 24 hours. Obtain before initiating IV heparin therapy if not done within previous 24 hours. Hailee Allen [facility] HEMATOLOGY Performing Organization Address City/[facility] Co de Phone Number [facility] [address] [address], [place] * BUN (10/29/2023 3:23 PM CDT) Only the most recent of3 resultswithin the time period is included. BUN 19 8 - 23 mg/dL 10/29/2023 4:52 PM CDT [facility] Blood BLOOD SPECIMEN / Unknown Butterfly / Unknown 10/29/2023 3:23 PM CDT 10/29/2023 3:45 PM CDT [facility] Performing Organization Address [facility] Co de Phone Number [facility] [address] [place] [address], [place] * Sodium (10/29/2023 3:23 PM CDT) Only the most recent of9 resultswithin the time period is included. SODIUM 136 136 - 145 mmol/L 10/29/2023 4:46 PM CDT [facility] Blood BLOOD SPECIMEN / Unknown Butterfly / Unknown 10/29/2023 3:23 PM CDT 10/29/2023 3:45 PM CDT [facility] Performing Organization Address [facility] Co de Phone Number [facility] [address] [place] [address], [place] * Potassium (10/29/2023 3:23 PM CDT) Only the most recent of11 resultswithin the time period is included. POTASSIUM 4.2 3.5 - 5.1 mmol/L 10/29/2023 4:46 PM CDT [facility] Blood BLOOD SPECIMEN / Unknown Butterfly / Unknown 10/29/2023 3:23 PM CDT 10/29/2023 3:45 PM CDT Hailee Allen [facility] CHEMISTRY Performing Organization Address City/[facility]/ZIP Co de Phone Number [facility] [address] [place] [address], * CREATININE (10/29/2023 3:23 PM CDT) Only the most recent of11 resultswithin the time period is included. eGFR >90 >90 mL/min/1.7 3m2 10/29/2023 4:52 PM CDT [facility] Comment:As of 2021, eG FR is calculated by the CKD-EPI creatinine equation without race adjustment. ??eGFR can be influenced by muscle mass, exercise, and diet. ??The reported eGFR is an estimation only and is only applicable if the renal function is stable. CREATININE 0.72 0.70 - 1.20 mg/dL 10/29/2023 4:52 PM CDT [facility] Blood BLOOD SPECIMEN / Unknown Butterfly / Unknown 10/29/2023 3:23 PM CDT 10/29/2023 3:45 PM CDT Hailee Allen [facility] CHEMISTRY Performing Organization Address [facility] Co de Phone Number [facility] [address] [place] [address], [place] * (ABNORMAL) URINALYSIS MICROSCOPIC (10/29/2023 2:04 PM CDT) Only the most recent of2 resultswithin the time period is included. RBC >100(A) 0-2, None Seen /HPF 10/29/2023 3:24 PM CDT [facility] WBC 51-100(A) 0-2, 3-5, None Seen /HPF 10/29/2023 3:24 PM CDT [facility] BACTERIA Many(A) None Seen, Rare, Few Bacteria/ HPF 10/29/2023 3:24 PM CDT [facility] EPITHELIAL CELLS Few None Seen, Few Epi/HPF 10/29/2023 3:24 PM CDT [facility] YEAST Present(A) (none) 10/29/2023 3:24 PM CDT [facility] HYALINE CASTS 0-2 0-2, 3-5 /LPF 10/29/2023 3:24 PM CDT [facility] GRANULAR CASTS 3-5(A) (none) /LPF 10/29/2023 3:24 PM CDT [facility] Urine URINE SPECIMEN / Unknown Non-Blood / Unknown 10/29/2023 2:04 PM CDT 10/29/2023 2:21 PM CDT [facility] URINE Performing Organization Address [facility] Co de Phone Number [facility] [address] [address], [place] * (ABNORMAL) URINE CULTURE (10/29/2023 2:04 PM CDT) Only the most recent of2 resultswithin the time period is included. CULTURE RESULT(A) 10/31/2023 10:02 AM CDT [facility] CULTURE 10,000-50,000 CFU/mL Nallely albicans 10/31/2023 10:02 AM CDT [facility] Urine URINE SPECIMEN / Unknown Non-Blood / Unknown 10/29/2023 2:04 PM CDT 10/29/2023 2:21 PM CDT [facility] MICROBIOLOGY Performing Organization Address City/[facility]/ZIP Co de Phone Number [facility] [address] [place] [address], [place] * (ABNORMAL) ROUTINE URINALYSIS (10/29/2023 2:04 PM CDT) Only the most recent of2 resultswithin the time period is included. COLOR [place](A) Yellow Color 10/29/2023 3:24 PM CDT [facility] CLARITY Cloudy(A) Clear Clarity 10/29/2023 3:24 PM CDT [facility] SPECIFIC GRAVITY,URINE >=1.030(A) 1.010, 1.015, 1.020, 1.025 10/29/2023 3:24 PM CDT [facility] PH,URINE 5.5 6.0, 7.0, 8.0, 5.5, 6.5, 7.5, 8.5 10/29/2023 3:24 PM CDT [facility] UROBILINOGEN,QU ALITATIVE Normal Normal EU/dl 10/29/2023 3:24 PM CDT [facility] PROTEIN, URINE 30(A) Negative mg/dL 10/29/2023 3:24 PM CDT [facility] GLUCOSE, URINE 250(A) Negative mg/dL 10/29/2023 3:24 PM CDT [facility] KETONES,URINE Negative Negative mg/dL 10/29/2023 3:24 PM CDT [facility] BILIRUBIN,URINE Abnormal(A) Negative 10/29/19 3:24 PM CDT [facility] Comment:A variety of metabol ites and/or medications may result in a positive bilirubin result. Clinical correlation is recommended. OCCULT BLOOD,URINE Large(A) Negative 10/29/2023 3:24 PM CDT [facility] NITRITE Negative Negative 10/29/2023 3:24 PM CDT [facility] LEUKOCYTE ESTERASE Small(A) Negative 10/29/2023 3:24 PM CDT [facility] Urine URINE SPECIMEN / Unknown Non-Blood / Unknown 10/29/2023 2:04 PM CDT 10/29/2023 2:21 PM CDT Vitaliy MADRIGAL URINE [facility] [address] [place] [place] [address], * CT CARDIAC CORONARY ARTERIES DUAL READ (10/29/2023 1:03 PM CDT) Anatomical Region Laterality Modality HEART Computed Tomogra phy 10/29/2023 12:1 8 PM CDT Narrative 10/29/2023 4:03 PM CDT ?[facility] ? Cardiac CT Report ??MRN: ? [id number] ?Name: ? DENTON GUZMAN ?: ?Scan Date: ?Accession Number: ? [id number] ?Status: ? Final ? Electronically signed by Colin Montgomery 14:14:42 VITALS HEIGHT: 73 in ?(185 cm) WEIGHT: 235 lbs ?(107 kgs) BSA: 2.30 m^2 BMI: 31 kg/m^2 BP: 136 / 71 mmHg BASELINE HR: 69 BPM HEART RHYTHM: Normal Sinus Rhythm FINAL IMPRESSION 1. Extensive, diffuse coronary artery atherosclerosis with heavily calcified vessels and at least moderate stenosis in the proximal-mid LAD and ostial ramus intermediate. There is likely severe stenosis in the proximal--mid RCA. 2. Total coronary artery calcium score 1242. 3. Degree of coronary calcification, image noise, and breathing artifact limits complete evaluation. Recommend invasive coronary angiogram, if clinically appropriate. Please see radiology section at end of report for noncardiac findings. STUDY QUALITY: Study quality is fair. CAD-RADS: CAD-RADS Classification 4A (>=70% stenosis). CALCIUM SCORING: Total coronary artery calcium score 1242. DOMINANCE: Right dominant coronary artery system. LM: The LM is normal. LAD: The proximal LAD has calcified atherosclerosis. There is a 50-69% proximal LAD stenosis. There is a 50-69% mid LAD stenosis. Distal LAD stenosis indeterminate due to small vessel size. D1: Not well visualized RAMUS: The ramus has calcified atherosclerosis. There is a 50-69% ramus stenosis. LCX: Patent proximally. RCA: The proximal RCA has partially calcified atherosclerosis. There is a >=70% proximal RCA stenosis. The mid RCA has partially calcified atherosclerosis. There is a >=70% mid RCA stenosis. ??Distal RCA non-diagnostic reason(s): excessive noise. RIGHT PDA: The right PDA is too small to characterize. OTHER FINDINGS: Thoracic aorta: ??No acute pathology Pericardium: No effusion. Left atrium: Normal contrast opacification. CALCIUM SCORING TABLE . . ? Number of Lesions Pattern of Calcium Volume Total Score +-------+ + +--------+ + LM ? 0 LAD ? 663 LCx ?46 RCA ? 533 Ramus ? '-------+ + +--------+ ' SCAN INFO TEST TYPE: ??Calcium score, Coronary CT Angiography SCANNER SENIOR SOLUTIONS CONSULTANT: ??SIEMENS SCANNER MODEL: ??[employer] Force DOSE REDUCTION ALGORITHM: ??Prospective/[id number] PHASE UNITS: ??% START PHASE: ??65 % END PHASE: ??75 % EKG GATED: ??Yes PRE-CONTRAST: ??Yes POST-CONTRAST: ??Yes 3D RECONSTRUCTION: ??Yes PACEMAKER ?DEVICE: ??No GENERAL ?CONTRAST AGENT ?CONTRAST AGENT USED?: ??Yes ?TYPE: ??Omnipaque 350 ?DOSE: ??120 ml ?RATE: ??7 ml/s ?ROUTE: ??IV ?ARM: ??Right ?BOLUS TECHNIQUE: ??Biphasic ?ADVERSE REACTION: ??No ?SERUM CREATININE: ??0.65 mg/dL ?GFR: ??129.46 ml/min/1.73m^2 ?CREATININE DATE: ?CT CONTRAST REACTION: ??None ?CONTRAST/SALINE ADMINISTRATION: ??Blended ?CONTRAST TIMING: ??Bolus Tracking Method ?MEDICATION ADMINISTERED DURING SCAN ?TYPE: ??Nitroglycerin, sublingual, B-Blockers ?NITROGLYCERIN, TOTAL DOSE: ??0.8 mg ?B-LUIS M TYPE: ??Oral, IV ?B-LUIS M NAME, ORAL: ??Metoprolol tartrate ?B-LUIS M NAME, IV: ??Metoprolol tartrate ?B-BLOCKERS, ORAL DOSE: ??100 mg ?B-BLOCKERS, IV DOSE: ??10 mg ?NUMBER OF DOSES: ??2 ?RADIATION DOSE ?DLP: ??446 ?KV: ??120 ?SETUP ?PATIENT TYPE: ??Inpatient ?REASON(S) FOR SCAN: ??Other... ?OTHER, SPECIFY:: ??afib ischemic workup ?REFERRING PHYSICIAN: ??MARIANNE FARRELL ?ATTENDING PHYSICIAN: ??VITALIY KHALIL ?TECHNOLOGIST: ??Elizabeth Rodriguez Patient Account ?[id number] Report generated by [employer], a product of [employer] For Patients: As a result of the 21st Century Cures Act, medical imaging exams and procedure reports are released immediately into your electronic medical record. ??You may view this report before your referring provider. ?? If you have questions, please contact your health care provider. OVER-READ ? OVER-READ ?OVER-READ OVER-READ: DETAILED RADIOLOGY EXTRACARDIAC OVER-READ OF CARDIAC CT 10/29/2023 Technique: ??Please see cardiology report for technical information. ??120 cc Omnipaque 350. This exam is being performed in conjunction with the services provided by the [facility] [place] ([facility] [[email or web address] Extracardiac Findings: Visualized lungs and pleural spaces: Patchy ill-defined parenchymal densities are present bilaterally. These are new since CT-PET 09/28/2023. Stable nodular density within the right lower lobe, partially visualized. No suspicious pulmonary uptake on the recent CT PET scan. Development right basilar atelectasis and right pleural effusion.. Visualized mediastinum: No adenopathy in the chest. Degenerative changes. Other: The known pancreatic malignancy is not included on this study. Impression: Interval development of a right pleural effusion with right lower lobe atelectasis. New atelectasis in the left lower lobe and development of patchy infiltrates elsewhere. Please note that all CT scans at this facility use dose modulation, iterative reconstruction, and/or weight-based dosing when appropriate to reduce radiation dose to as low as reasonably achievable. Dictated by Vincent Day MD @ 10/29/2023 1:13:06 PM (Electronic Signature) Zain Sandoval ELECTRICAL AND ELECTRONIC ASSEMBLER CT * (ABNORMAL) CBC WITH AUTO DIFFERENTIAL (10/29/2023 6:04 AM CDT) Only the most recent of2 resultswithin the time period is included. WHITE BLOOD COUNT 22.2(H) 4.5 - 11.0 thou/cu mm 10/29/2023 7:42 AM CDT [facility] RED BLOOD COUNT 4.10(L) 4.30 - 5.90 mil/cu mm 10/29/2023 7:42 AM CDT [facility] HEMOGLOBIN 10.2(L) 13.5 - 17.5 g/dL 10/29/2023 7:42 AM CDT [facility] HEMATOCRIT 32.3(L) 37.0 - 53.0 % 10/29/2023 7:42 AM CDT [facility] MCV 79(L) 80 - 100 fL 10/29/2023 7:42 AM CDT [facility] MCH 24.9(L) 26.0 - 34.0 pg 10/29/2023 7:42 AM CDT [facility] MCHC 31.6(L) 32.0 - 36.0 g/dL 10/29/2023 7:42 AM CDT [facility] RDW 14.7 11.5 - 15.5 % 10/29/2023 7:42 AM CDT [facility] PLATELET COUNT 123(L) 140 - 440 thou/cu mm 10/29/2023 7:42 AM CDT [facility] MPV 10.7 6.5 - 11.0 fL 10/29/2023 7:42 AM CDT [facility] NRBC 0.0 % 10/29/2023 7:42 AM CDT [facility] ABS NRBC 0.0 thou /cu mm 10/29/2023 7:42 AM T [facility] Blood BLOOD SPECIMEN / Unknown Venipuncture / Unknown 10/29/2023 6:04 AM CDT 10/29/2023 6:38 AM CDT Jennifer Galo MD HEMATOLOGY [facility] [address] [place] [address], * (ABNORMAL) RED CELL MORPHOLOGY (10/29/2023 6:04 AM CDT) ELLIPTOCYTES Few 10/29/2023 7:44 AM CDT [facility] POLYCHROMASIA Slight 10/29/2023 7:44 AM CDT [facility] TARGET CELLS Few 10/29/2023 7:44 AM CDT [facility] RBC COMMENT Present(A) RBC morphology appears normal, RBC morphology within normal limits for newborns. 10/29/2023 7:44 AM CDT [facility] Blood BLOOD SPECIMEN / Unknown Venipuncture / Unknown 10/29/2023 6:04 AM CDT 10/29/2023 6:38 AM CDT Jennifer Galo MD HEMATOLOGY Performing Organization Address City/[facility]/ZIP Co de Phone Number [facility] [address] [place] [address], * (ABNORMAL) PLATELET ESTIMATE (10/29/2023 6:04 AM CDT) PLATELET ESTIMATE Decreased (A) Adequate, No estimate 10/29/2023 7:42 AM CDT [facility] Blood BLOOD SPECIMEN / Unknown Venipuncture / Unknown 10/29/2023 6:04 AM CDT 10/29/2023 6:38 AM CDT Jennifer Galo MD HEMATOLOGY Performing Organization Address City/[facility]/ZIP Co de Phone Number [facility] [address] [place] [address], * (ABNORMAL) MANUAL DIFFERENTIAL (10/29/2023 6:04 AM CDT) % NEUTROPHILS 95.1 % 10/29/2023 7:42 AM CDT [facility] % LYMPHOCYTES 1.7 % 10/29/2023 7:42 AM CDT [facility] % MONOCYTES 1.6 % 10/29/2023 7:42 AM CDT [facility] % EOSINOPHILS 0.8 % 10/29/2023 7:42 AM CDT [facility] % BASOPHILS 0.0 % 10/29/2023 7:42 AM CDT [facility] % METAMYELOCYTES 0.8(H) <0.1 % 07/28/20 24 7:42 AM CDT [facility] NEUTROPHILS ABSOLUTE 21.1(H) 1.7 - 7.0 thou/cu mm 10/29/2023 7:42 AM CDT [facility] LYMPHOCYTES ABSOLUTE 0.4(L) 0.9 - 2.9 thou/cu mm 10/29/2023 7:42 AM CDT [facility] MONOCYTES ABSOLUTE 0.4 <0.9 thou/cu mm 10/29/2023 7:42 AM CDT [facility] EOSINOPHILS ABSOLUTE 0.2 <0.5 thou/cu mm 10/29/2023 7:42 AM CDT [facility] BASOPHILS ABSOLUTE 0.0 <0.3 thou/cu mm 10/29/2023 7:42 AM CDT [facility] ABSOLUTE METAMYELOCYTES 0.2(H) <=0.0 thou/cu mm 10/29/2023 7:42 AM CDT [facility] Blood BLOOD SPECIMEN / Unknown Venipuncture / Unknown 10/29/2023 6:04 AM CDT 10/29/2023 6:38 AM CDT Jennifer Galo MD HEMATOLOGY [facility] [address] [place] [address], * TSH AM (10/29/2023 6:04 AM CDT) Only the most recent of3 resultswithin the time period is included. TSH 0.31 0.27 - 4.20 uIU/mL 10/29/2023 7:12 AM CDT [facility] Blood BLOOD SPECIMEN / Unknown Venipuncture / Unknown 10/29/2023 6:04 AM CDT 10/29/2023 6:37 AM CDT Narrative [facility] - 10/29/2023 7:12 AM CDT In Adults, TSH values between 5.00 and 10.00 uIU/ml do not necessarily indicate the presence of Hypothyroidism. Correlation with clinical findings such as presence of goiter and/or Thyroperoxidase (TPO) Antibody may be helpful. For more information please refer to DONNA 2004; 291: 228-238. Jennifer Galo MD CHEMISTRY Performing Organization Address [facility]/ZIP Co de Phone Number [facility] [address] [place] [address], * (ABNORMAL) T3,TOTAL (10/29/2023 6:04 AM CDT) T3,TOTAL 71(L) 85 - 202 ng/dL 10/29/2023 7:16 AM CDT [facility] Blood BLOOD SPECIMEN / Unknown Venipuncture / Unknown 10/29/2023 6:04 AM CDT 10/29/2023 6:37 AM CDT Jennifer Galo MD CHEMISTRY Performing Organization Address [facility] Co de Phone Number [facility] [address] [place] [address], [place] * T4, free AM (10/29/2023 6:04 AM CDT) T4,FREE 1.07 0.93 - 1.70 ng/dL 10/29/2023 7:12 AM CDT [facility] Blood BLOOD SPECIMEN / Unknown Venipuncture / Unknown 10/29/2023 6:04 AM CDT 10/29/2023 6:37 AM CDT Jennifer Galo MD CHEMISTRY Performing Organization Address [facility] Co de Phone Number [facility] [address] [place] [address], [place] * (ABNORMAL) Basic metabolic panel AM (10/29/2023 6:04 AM CDT) Only the most recent of3 resultswithin the time period is included. SODIUM 138 136 - 145 mmol/L 10/29/2023 7:12 AM CDT [facility] POTASSIUM 3.9 3.5 - 5.1 mmol/L 10/29/2023 7:12 AM T [facility] CHLORIDE 100 98 - 107 mmol/L 10/29/2023 7:12 AM T [facility] CO2,TOTAL 28 22 - 29 mmol/L 10/29/2023 7:12 AM T [facility] ANION GAP 10 5 - 18 10/29/2023 7:12 AM T [facility] GLUCOSE 116(H) 70 - 99 mg/dL 10/29/2023 7:12 AM T [facility] CALCIUM 8.3(L) 8.8 - 10.2 mg/dL 10/29/2023 7:12 AM T [facility] BUN 17 8 - 23 mg/dL 10/29/2023 7:12 AM [facility] CREATININE 0.65(L) 0.70 - 1.20 mg/dL 10/29/2023 7:12 AM T [facility] BUN/CREAT RATIO 26(H) 10 - 20 7:12 AM T [facility] eGFR >90 >90 mL/min/1.7 3m2 10/29/2023 7:12 AM [facility] Comment:As of 2021, eG FR is calculated by the CKD-EPI creatinine equation without race adjustment. ??eGFR can be influenced by muscle mass, exercise, and diet. ??The reported eGFR is an estimation only and is only applicable if the renal function is stable. Blood BLOOD SPECIMEN / Unknown Venipuncture / Unknown 10/29/2023 6:04 AM CDT 10/29/2023 6:37 AM CDT Jennifer Galo MD [facility] [address] [place] [address], * SCAN-CT INTERPRETATION (10/27/2023 12:00 AM CDT) [...] PM CDT ECHOCARDIOGRAM DENTON GUZMAN ?Accession#: ?? [id number] : ?1955 68 years Study Date: ?? 10/26/2023 1:30:17 PM Gender: M ? BP: ? 112/69 mmHg Height: 185.00 cm ? BSA: ?2.34 m? ? ? Weight: 111.00 kg ? Tech: ? MJW ?Referring MD: MARIANNE FARRELL Site: ? [facility] Reading Location: [facility] Patient Location: Inpatient. Procedure: 2D, Color Doppler [...] . This study was interpreted by an [facility] accredited facility. CC: Med/Surg - IP [facility], [facility] (med records) [facility]. ??Final ?? Procedure Note Lelo Vee MD - 10/26/2023 ECHOCARDIOGRAM DENTON GUZMAN : 1955 68 years Study Date: 10/26/2023 1:30:17 PM Gender: M BP: 112/69 mmHg Height: 185.00 cm BSA: 2.34 m? ? ? Weight: 111.00 kg Tech: HAWA Referring MD: MARIANNE FARRELL Site: [facility] Reading Location: [facility] Patient Location: Inpatient. Procedure: 2D, Color Doppler [...] 229 msec Aortic Valve: Vmax 1.3 m/s SHARLA (V) 4.01 cm? ? ? VTI 0.26 [...] [facility] accredited facility. CC: Med/Surg - IP [facility], [facility] (med records) [facility]. Final Marianne Farrell MD ECHO ORD * SCAN-RADIOLOGY REPORT (10/26/2023 12:00 AM CDT) Only the most recent of2 resultswithin the time period is included. Anatomical Region Laterality Modality Other Scanner OTHER * SCAN-OPERATIVE/PROCEDURE REPORT (10/26/2023 12:00 AM CDT) Scanner OTHER * (ABNORMAL) Hepatic function panel FOR ADD ON (10/09/2023 8:13 AM CDT) Only the most recent of6 resultswithin the time period is included. ALBUMIN 2.3(L) 4.0 - 4.9 g/dL 10/09/2023 2:26 PM CDT [facility] PROTEIN,TOTAL 5.9(L) 6.0 - 8.0 g/dL 10/09/2023 2:26 PM CDT [facility] BILIRUBIN,TOTAL 1.0 0.0 - 1.2 mg/dL 10/09/2023 2:26 PM CDT [facility] BILIRUBIN,DIRECT 0.7(H) 0.0 - 0.3 mg/dL 10/09/2023 2:26 PM CDT [facility] BILIRUBIN,INDIRE CT 0.3 0.2 - 0.8 mg/dL 10/09/2023 2:26 PM CDT [facility] ALK PHOSPHATASE 254(H) 40 - 129 IU/L 10/09/2023 2:26 PM CDT [facility] ALT (SGPT) 44 10 - 50 IU/L 10/09/2023 2:26 PM CDT [facility] AST (SGOT) 50 10 - 50 IU/L 10/09/2023 2:26 PM CDT [facility] Blood BLOOD SPECIMEN / Unknown Venipuncture / Unknown 10/09/2023 8:13 AM CDT 10/09/2023 8:20 AM CDT Ramone Estrada MD CHEMISTRY [facility] [address] [place] [address], * SCAN-CARDIAC STRIP (10/08/2023 6:09 AM CDT) Scanner OTHER * SCAN-CARDIAC STRIP (10/07/2023 3:58 AM CDT) Scanner OTHER * SCAN-CARDIAC STRIP (10/07/2023 3:56 AM CDT) Scanner OTHER * SCAN-CARDIAC STRIP (10/06/2023 7:43 AM CDT) Scanner OTHER * SCAN-CARDIAC STRIP (10/06/2023 12:51 AM CDT) Scanner OTHER * stool pathogen multiplex PCR (10/05/2023 8:35 PM CDT) Campylobacter NOT Detected NOT Detected 10/06/2023 1:23 PM CDT [facility] Salmonella NOT Detected NOT Detected 10/06/2023 1:23 PM CDT [facility] Shigella NOT Detected NOT Detected 10/06/2023 1:23 PM CDT [facility] Vibrio NOT Detected NOT Detected 10/06/2023 1:23 PM CDT [facility] Yersinia Enterocolitica NOT Detected NOT Detected 10/06/2023 1:23 PM CDT [facility] Shiga Toxin 1 NOT Detected NOT Detected 10/06/2023 1:23 PM CDT [facility] Shiga Toxin 2 NOT Detected NOT Detected 10/06/2023 1:23 PM CDT [facility] Norovirus NOT Detected NOT Detected 10/06/2023 1:23 PM CDT [facility] Rotavirus NOT Detected NOT Detected 10/06/2023 1:23 PM CDT [facility] Stool STOOL SPECIMEN / Unknown Non-Blood / Unknown 10/05/2023 8:35 PM CDT 10/05/2023 8:46 PM CDT Narrative [facility] - 10/06/2023 1:23 PM CDT This test is a Culture Independent Diagnostic Test (CIDT) therefore isolates are not available for susceptibility testing. ??Antibiotic treatment is often contraindicated and may be detrimental in cases of enteric infections, thus routine susceptibility testing is not recommended. Ramone Estrada MD MICROBIOLOGY [facility] [address] [place] [address], * (ABNORMAL) PANCREATIC ELASTASE FECAL (10/05/2023 8:35 PM CDT) Pancreatic Elast Fecal 138(L) >200 ug Elast./g 10/13/2023 2:09 PM CDT [facility] Comment: ? Severe Pancreatic Insufficiency: ?<100 ? Moderate Pancreatic Insufficiency: ?? 100 - 200 ? Normal: ? >200 Stool STOOL SPECIMEN / Unknown Non-Blood / Unknown 10/05/2023 8:35 PM CDT 10/05/2023 8:[address] [facility] ([facility] - 10/13/2023 2:09 PM CDT Performed at: ??01 - [facility] [address] [place] [address] ??[id number] Manager Systems: Yvon Sexton MD, Phone: ??[phone] Denton Smallwood MD MICROBIOLOGY Performing Organization Address [facility] Co de Phone Number [facility]) [address] [place] [address], * CLOSTRIDIOIDES DIFFICILE TOXIN PCR (10/05/2023 8:35 PM CDT) CLOSTRIDIUM DIFFICILE PCR Negative 10/05/2023 9:50 PM CDT [facility] PRESUMPTIVE NAP1 STRAIN Negative 10/05/2023 9:50 PM CDT [facility] Stool STOOL SPECIMEN / Unknown Non-Blood / Unknown 10/05/2023 8:35 PM CDT 10/05/2023 8:45 PM CDT Narrative [facility] - 10/05/2023 9:50 PM CDT The NAP1 (027 or BI) strain is a hypervirulent strain. Detection may be useful for epidemiological purposes. Ramone Estrada MD MICROBIOLOGY [facility] [address] [place] [address], * SCAN-CARDIAC STRIP (10/05/2023 3:48 PM CDT) Scanner OTHER * SCAN-CARDIAC STRIP (10/05/2023 12:17 AM CDT) Scanner OTHER * SCAN-CARDIAC STRIP (10/04/2023 10:57 AM CDT) Scanner OTHER * SCAN-CARDIAC STRIP (10/04/2023 1:06 AM CDT) [...] AM CDT) Case Report Pathology Report ?Case: [id number] ? Authorizing Provider: ??Rafael Bertrand, ?? Collected: [...] ? 4 4:56 PM CDT [facility] Final Diagnosis A) LIVER, SEGMENT 8, [...] ?? liver disease 4 4:56 PM CDT [facility] Comment Formalin-fixed, paraffin-embedded tissue is available for ancillary studies, to request please contact the [facility] ([phone]). Neoplastic tissue available for ancillary studies: ?? [facility] NGS testing: ?- FFPE tissue blocks: B1 and B2 ?- Cytology slides: No cytology slides prepared from this specimen ?? Tests using immunostains and/or FISH (requiring 100 cells): B1 and B2 ?? Send out (outside vendor) testing requiring 5 x 5 mm of tumor: B1 and B2 4 4:56 PM CDT [facility] Clinical Information Mr. Guzman is a 68 y.o. who presents with a history of pancreatic adenocarcinoma now undergoes staging laparoscopy. PROCEDURE PERFORMED: 1. ??Staging laparoscopy, Intraoperative ultrasound of the liver. 2. ??Laparoscopic segment VIII sub-segmentectomy x 2. 3. ??Laparoscopic segment II sub-segmentectomy. His diagnostic biopsy was performed on 09/25/2023 ([facility] pathology ). 4 4:56 PM T [facility] Gross Description A) Received fresh labeled [...] ??Remainder DPL 10/02/2023 4 4:56 PM T [facility] Intraoperative Consultation A) LIVER, SEGMENT VIII, [...] performed at: [facility] ?? [address] [place] [address] 4 4:56 PM CDT [facility] Microscopic Description The final diagnosis is based on microscopic examination of appropriate sections of all specimens. 4 4:56 PM CDT [facility] Additional Information Interpreted at [facility] - [address], [place] [address] 4 4:56 PM CDT [facility] Tissue (Liver Segment 8) 09/30/2023 9:12 AM CDT 09/30/2023 9:25 AM CDT Tissue specimen (specimen) (Liver Segment 2) 09/30/2023 9:15 AM CDT 09/30/2023 9:25 AM CDT Tissue specimen (specimen) (Liver Segment 8) 09/30/2023 9:25 AM CDT 09/30/2023 9:35 AM CDT Rafael MADRIGAL PATHOLOGY/CY TOLOGY [facility] [address] [place] [address], * HCHG TUBE PR1, HCHG STYLET PR1, [...] ??Comment: Supplemental O2: supplemental oxygen. ??Comment:. Vessel Sales Service Professional Additional supplies used to locate vessel: no Needle Catheter size: 20 G. ??Comment:. Events: no complications. Misael Hdz MD ANESTHESIA PX NOTE O RDERABLES * SCAN-CARDIAC STRIP (09/30/2023 12:35 AM CDT) Scanner OTHER * TYPE & SCREEN (09/29/2023 4:29 PM CDT) Pathologist [facility] ABORH B Rh Positive 09/29/2023 5:23 PM CDT [facility]OD [facility] ANTIBODY SCREEN Negative Negative 09/29/2023 5:23 PM CDT [facility] SPECIMEN EXPIRATION DATE/TIME 10/02/23 23:59 09/29/2023 5:23 PM CDT [facility] Blood BLOOD SPECIMEN / Unknown Venipuncture / Unknown 09/29/2023 4:29 PM CDT 09/29/2023 4:37 PM CDT Ashley HOYOS BLOOD BANK [facility] [address] [place] [address], * CT ABDOMEN WO (09/29/2023 11:18 AM [...] 7:13 AM CDT) Scanner OTHER * (ABNORMAL) Bilirubin, total AM (09/29/2023 3:34 AM CDT) Only the most recent of2 resultswithin the time period is included. BILIRUBIN,TOTA L 2.3(H) 0.0 - 1.2 mg/dL 09/29/2023 4:23 AM CDT [facility] Blood BLOOD SPECIMEN / Unknown Butterfly / Unknown 09/29/2023 3:34 AM CDT 09/29/2023 3:49 AM CDT Gerda MADRIGAL CHEMISTRY [facility] [address] [place] [address], * (ABNORMAL) ALT AM (09/29/2023 3:34 AM CDT) Only the most recent of2 resultswithin the time period is included. ALT (SGPT) 125(H) 10 - 50 IU/L 09/29/2023 4:23 AM CDT [facility] Blood BLOOD SPECIMEN / Unknown Butterfly / Unknown 09/29/2023 3:34 AM CDT 09/29/2023 3:49 AM CDT Shelbydestinytorsten Conleyneelam Schwartz [facility] CHEMISTRY Performing Organization Address City/[facility]/ZIP Co de Phone Number [facility] [address] [place] [address], * (ABNORMAL) AST AM (09/29/2023 3:34 AM CDT) Only the most recent of2 resultswithin the time period is included. AST (SGOT) 101(H) 10 - 50 IU/L 09/29/2023 4:23 AM CDT [facility] Blood BLOOD SPECIMEN / Unknown Butterfly / Unknown 09/29/2023 3:34 AM CDT 09/29/2023 3:49 AM CDT Shelbyjose Jarvisneelam Schwartz [facility] CHEMISTRY Performing Organization Address City/[facility] Co de Phone Number [facility] [address] [place] [address], * SCAN-CARDIAC STRIP (09/28/2023 8:48 PM CDT) [...] AM (Electronically Signed) Manav HOYOS PET * SCAN-CARDIAC STRIP (09/28/2023 10:00 AM CDT) Scanner OTHER * SCAN-CARDIAC STRIP (09/28/2023 9:59 AM CDT) Scanner OTHER * SCAN-CARDIAC STRIP (09/28/2023 7:12 AM CDT) [...] Case Report Medical Cytology Report ? Case: [id number] ? Authorizing Provider: ??Abner Argueta, ?? Collected: ? 09/25/2023 1541 ? MD ? Ordering Location: ? [facility] ?Received: ?09/25/2023 1628 ? Hospital ? Pathologist: ? Angelita Velasquez MD ? Specimen: ?Pancreas Head, mass ? 09/26/2023 11:05 AM [facility] [employer] [facility]AT[facility] ENTRAL LABORATORY Final Diagnosis A) PANCREAS, HEAD, EUS GUIDED FINE NEEDLE ASPIRATION: 1. Positive for malignancy; poorly differentiated carcinoma, compatible with pancreatic primary 2. Insufficient direct smear or cellblock material for ancillary studies 09/26/2023 11:05 AM [facility] Comment PANCREAS ANCILLARY TESTING PROTOCOL This patient's sample meets [facility] Cancer [place] criteria* for reflex testing, or such testing has been requested by the ordering physician. Testing will be performed and the results will be communicated in an amendment to this report. If there is a need for ancillary tests other than these, please contact the [facility] ([phone]). Slides available for [facility] NGS testing: QUANTITY NOT SUFFICIENT Blocks available for [facility] NGS testing: QUANTITY NOT SUFFICIENT Blocks available for tests using immunostains and/or FISH (requiring 100 cells): QUANTITY NOT SUFFICIENT Blocks available for send out (outside vendor) testing requiring 5 x 5 mm of tumor: QUANTITY NOT SUFFICIENT *[facility] reflex testing criteria for pancreatic carcinoma - [...] A1-3 and A1-6. 09/26/2023 11:05 AM T [facility] [employer] [facility] Clinical Information Mr. Guzman is a [...] Fine needle aspiration performed. 09/26/2023 11:05 AM [facility] [employer] [facility] Gross Description A) Received identified as [...] than 72 hours. 09/26/2023 11:05 AM CDT [facility] Adequacy Assessment A) A.S. assessed adequacy from the air-dried smears at the time of the procedure with an impression of Adequate. 09/26/2023 11:05 AM CDT [facility] Microscopic Description Specimen adequacy: Adequate for interpretation. All slides were reviewed. The microscopic appearance substantiates the diagnosis. 09/26/2023 11:05 AM CDT [facility] Additional Information Cytology is screened at [facility] - [address], [place] [address] and [facility] - [address], [place] [address] and [facility] - [address] [place] [address] Interpreted at [facility] - [address] [address] 09/26/2023 11:05 AM CDT [facility] Aspirate (Pancreas Head) 09/25/2023 3:41 PM CDT 09/25/2023 4:28 PM CDT Abner Argueta MD PATHOLOGY/CYTO LOGY [facility] [address] [place] [address], * ENDOSCOPY (09/25/2023 3:10 PM CDT) 09/25/2023 3:10 PM CDT Narrative Transcriptions Abner Argueta MD - 09/25/2023 5:45 PM CDT [facility] Patient Name: Denton Guzman Procedure Date: 09/25/2023 Gender: Male Date of : 1955 Admit Type: Inpatient Procedure: ERCP Proceduralist: Abner Argueta MD - [facility] Indications/Pre-Op Diagnosis: Jaundice Medications: General Anesthesia Procedure Description: Risk of bleeding, infection, perforation, pancreatitis, need for surgery, remote chance of and alternatives were discussed, andthe patient gave informed consent. The endoscope [id number] was passed through the mouth, and advanced [...] Upper EUS Proceduralist: Abner Argueta MD - [facility] Indications/Pre-Op Diagnosis: Suspected solid pancreatic neoplasm Medications: General Anesthesia Procedure Description: Risk of bleeding, infection, perforation, pancreatitis, need for surgery, remote chance of and alternatives were discussed, andthe patient gave informed consent. The endoscope [id number] was introduced through the mouth, and advanced [...] gauge needle using a transduodenal approach. A real estate management specialist was present and performed a preliminary cytologic [...] (09/23/2023 4:02 PM CDT) Scanner OTHER * (ABNORMAL) CA 19-9 AM (09/23/2023 8:40 AM CDT) CA 19-9 962(H) <36 IU/mL 09/23/2023 9:50 AM CDT [facility] Blood BLOOD SPECIMEN / Unknown Butterfly / Unknown 09/23/2023 8:40 AM CDT 09/23/2023 8:48 AM CDT Narrative [facility] - 09/23/2023 9:50 AM CDT The [...] prior to retesting. Gerda MADRIGAL SEND OUTS [facility] [address] [place] [address], * (ABNORMAL) Lipase AM (09/23/2023 8:40 AM CDT) Only the most recent of2 resultswithin the time period is included. LIPASE 175.0(H) 13.0 - 60.0 IU/L 09/23/2023 10:17 AM CDT [facility] Blood BLOOD SPECIMEN / Unknown Butterfly / Unknown 09/23/2023 8:40 AM CDT 09/23/2023 8:48 AM CDT Gerda MADRIGAL CHEMISTRY [facility] LAB[facility] [address] [place] [address], [place] * SCAN-CARDIAC STRIP (09/23/2023 7:34 AM [...] - 1.11 mg/dL 09/19/2023 3:08 PM CDT [facility] Comment:Caution: Patients ta rosette Hydroxyurea have falsely increased iStat Creatinine results. Verify creatinine results ordering a Creatinine (22045.2) eGFR 59(L) >90 mL/min/1.7 3m2 09/19/2023 3:08 PM CDT [facility] Comment:As of 2021, eG FR is calculated by the CKD-EPI creatinine equation without race adjustment. eGFR can be influenced by muscle mass, exercise, and diet. The reported eGFR is an estimation only and is only applicable if the renal function is stable. Blood BLOOD SPECIMEN / Unknown 09/19/2023 3:06 PM CDT 09/19/2023 3:08 PM CDT Nadia HOYOS CHEMISTRY [facility] [address] [place] [address], * (ABNORMAL) C-REACTIVE PROTEIN (09/19/2023 2:56 PM CDT) C-REACTIVE PROTEIN 4.0(H) <0.5 mg/dL 09/20/2023 5:12 AM CDT [facility] Blood BLOOD SPECIMEN / Unknown Venipuncture / Unknown 09/19/2023 2:56 PM CDT 09/19/2023 2:58 PM CDT Nadia HOYOS CHEMISTRY Performing Organization Address City/[facility]/ZIP Co de Phone Number [facility] [address] [place] [address], [place] * (ABNORMAL) COMP METABOLIC PANEL (09/19/2023 2:56 PM CDT) SODIUM 133(L) 136 - 145 mmol/L 09/20/2023 4:59 AM CDT [facility] POTASSIUM 5.2(H) 3.5 - 5.1 mmol/L 09/20/2023 4:59 AM CDT [facility] CHLORIDE 98 98 - 107 mmol/L 09/20/2023 4:59 AM CDT [facility] CO2,TOTAL 17(L) 22 - 29 mmol/L 09/20/2023 4:59 AM CDT [facility] ANION GAP 18 5 - 18 09/20/2023 4:59 AM CDT [facility] GLUCOSE 215(H) 70 - 99 mg/dL 09/20/2023 4:59 AM [facility] CALCIUM 10.1 8.8 - 10.2 mg/dL 09/20/2023 4:59 AM [facility] BUN 17 8 - 23 mg/dL 09/20/2023 4:59 AM [facility] CREATININE 1.43(H) 0.70 - 1.20 mg/dL 09/20/2023 4:59 AM [facility] BUN/CREAT RATIO 12 10 - 20 4:59 AM [facility] eGFR 53(L) >90 mL/min/1. 73m2 09/20/2023 4:59 AM [facility] Comment:As of 2021, eG FR is calculated by the CKD-EPI creatinine equation without race adjustment. ??eGFR can be influenced by muscle mass, exercise, and diet. ??The reported eGFR is an estimation only and is only applicable if the renal function is stable. ALBUMIN 3.9(L) 4.0 - 4.9 g/dL 09/20/2023 4:59 AM [facility] PROTEIN,TOTAL 8.2(H) 6.0 - 8.0 g/dL 09/20/2023 4:59 AM [facility] BILIRUBIN,TOTAL 5.3(H) 0.0 - 1.2 mg/dL 09/20/2023 4:59 AM [facility] ALK PHOSPHATASE 1,051(H) 40 - 129 IU/L 09/20/2023 4:59 AM [facility] ALT (SGPT) 243(H) 10 - 50 IU/L 09/20/2023 4:59 AM [facility] AST (SGOT) 207(H) 10 - 50 IU/L 09/20/2023 4:59 AM [facility] Blood BLOOD SPECIMEN / Unknown Venipuncture / Unknown 09/19/2023 2:56 PM CDT 09/19/2023 2:58 PM CDT Nadia HOYOS CHEMISTRY [facility] [address] [place] [address], [place] * (ABNORMAL) LIPID PANEL (11/11/2022 11:26 AM CDT) CHOLESTEROL,TOTAL 123 100 - 199 mg/dL 11/11/2022 6:50 PM CDT [facility] Comment: Cholesterol, Total Reference Ranges Desirable <200 mg/dL Borderline 200-239 mg/dL High >=240 mg/dL TRIGLYCERIDES 222(H) <150 mg/dL 11/11/2022 6:50 PM CDT [facility] HDL CHOLESTEROL 31(L) >40 mg/dL 6:50 PM CDT [facility] NON-HDL CHOLESTEROL 92 <145 mg/dl 11/11/2022 6:50 PM CDT [facility] CHOL/HDL RATIO 3.97 <4.50 11/11/2022 6:50 PM CDT [facility] LDL CHOLESTEROL 48 <=130 mg/dL 11/11/2022 6:50 PM CDT [facility] VLDL CHOLESTEROL 44(H) <=30 mg/dL 11/11/2022 6:50 PM CDT [facility] PROVIDER ORDERED STATUS RANDOM 11/11/2022 6:50 PM CDT [facility] Blood BLOOD SPECIMEN / Unknown Venipuncture / Unknown 11/11/2022 11:26 AM CDT 11/11/2022 11:28 AM CDT Chris Potter MD CHEMISTRY [facility] [address] [place] [address], [place] * ANTI HCV (06/17/2021 11:24 AM CDT) HEPATITIS C ANTIBODY Non-React rehan Non-React rehan 06/17/2021 6:14 PM CDT [facility] Comment:Antibodies to HCV no t detected; does not exclude the possibility of exposure to HCV. Blood BLOOD SPECIMEN / Unknown Venipuncture / Unknown 06/17/2021 11:24 AM CDT 06/17/2021 11:26 AM CDT Chris Potter MD SEND OUTS [facility] [address] [place] [address], from Last 3 Months or Most Recently Relevant to Health Maintenance Advance Directives * Full Code (Latest Code Status on File) Date Activated Date Inactivated Comments 10/28/2023 6:35 PM Question Answer Comments Code Status Discussion: Reviewed Preferences * Full Code Date Activated Date Inactivated Comments 09/22/2023 11:17 PM 10/10/2023 11:40 AM Question Answer Comments Code Status Discussion: Reviewed Preferences Care Teams Plastics Process Hand Relationship Specialty Start Date End Date Chris Potter MD [address] [place] [id number] PCP - General Family Practice 01/13/21
== END 2023-10-28 15:59 | disposition home or self-care (01) ==
LOC: AMB 10-31 23:11
PROVIDERS: PCP Surgery; Visit Provider Family Medicine
DX: I21.4 Non-ST elevation (NSTEMI) myocardial infarction (principal); I48.0 Paroxysmal atrial fibrillation; I11.0 Hypertensive heart disease with heart failure
CPT/HCPCS: A0425; A0427